=== PATIENT | female | born 1965 | race Caucasian/White ===

== ENCOUNTER 2023-03-29 07:54 | Outpatient (OUT) | payer OTHER, SELFPAY ==
--- NOTE | 2023-03-29 08:06 | ECG_ITS ---
[facility] Test Date: 2023-03-29 Pat Name: JENNIFER GANNON Department: Room: - Gender: Female [employer] Work[employer]: : 1965 Requested By: ANNELIESE ACEVES Order Number: [id number] Reading MD: FRANKLIN ROGERS Measurements Intervals Bailey Rate: 62 P: 39 AR: 197 QRS: 46 QRSD: 101 T: 15 QT: 419 QTc: 426 Interpretive Statements SINUS RHYTHM No previous ECG available for comparison Electronically Signed On 03-30-2023 7:02:09 EST by FRANKLIN ROGERS
--- NOTE | 2023-03-29 08:50 | P.GSHP_ITS ---
History of Present Illness History of Present Illness Chief complaint: hematuria, kidney stone Narrative: Patient presents for preadmission testing. The patient states in January she had an episode of hematuria and flank pain and she was evaluated in the emergency department and it was determined that she has kidney stones. She states she has intermittent flank pain but the hematuria has resolved. She admits that she does have high blood pressure and was medicated up until about fivve months ago when she lost her insurance. She states she has a remote history of sarcoidosis and she was evaluated at the [facility] approximately three years ago and has not had any problems since. She denies abdominal pain, nausea, fever, shortness of breath, chest pain, syncope, headache, dizziness, or any other complaints. Review of Systems ROS Narrative REVIEW OF SYSTEMS: Negative except as stated in HPI, ten or more systems reviewed. Constitutional: No fever , chills, weakness ENT: No sore throat or epistaxis Cardiovascular: No edema, chest pain, palpitations, or activity intolerance Respiratory: No shortness of breath, cough, or wheezing Musculoskeletal: No joint pain or swelling Gastrointestinal: No abdominal pain, constipation, diarrhea, or vomiting Genitourinary: No dysuria or hematuria Neurological: No numbness, tingling, weakness, or headache Psychiatric: No mood changes PFSH [facility] Medical History (Updated 03/29/23 @ 08:33 by Stephanie Caban NP) Menopause ?Z78.0 - Asymptomatic menopausal state (ICD-10) Low vitamin D level ?R79.89 - Other specified abnormal findings of blood chemistry (ICD-10) Anxiety ?F41.9 - Anxiety disorder, unspecified (ICD-10) High cholesterol ?E78.00 - Pure hypercholesterolemia, unspecified (ICD-10) Renal cyst ?N28.1 - Cyst of kidney, acquired (ICD-10) Prediabetes ?R73.03 - Prediabetes (ICD-10) Thyroid nodule ?E04.1 - Nontoxic single thyroid nodule (ICD-10) Hyperlipidemia ?E78.5 - Hyperlipidemia, unspecified (ICD-10) Sarcoidosis ?D86.9 - Sarcoidosis, unspecified (ICD-10) Hypertension ?I10 - Essential (primary) hypertension (ICD-10) Diverticulosis ?K57.90 - Diverticulosis of intestine, part unspecified, without perforation or abscess without bleeding (ICD-10) GERD (gastroesophageal reflux disease) ?K21.9 - Gastro-esophageal reflux disease without esophagitis (ICD-10) Kidney stones ?N20.0 - Calculus of kidney (ICD-10) Hematuria ?R31.9 - Hematuria, unspecified (ICD-10) Surgical History (Updated 03/29/23 @ 08:26 by Stephanie Caban NP) History of colonoscopy ?Z98.890 - Other specified postprocedural states (ICD-10) Family History (Updated 03/29/23 @ 08:26 by Stephanie Caban NP) Other Family history of coronary artery disease Family history of diabetes mellitus Family history of hypertension Family history of lung cancer Family history of myocardial infarction Family history of stroke Social History (Updated 03/29/23 @ 08:20 by Stephanie Caban NP) Within the past year, how often did you have a drink containing alcohol: 2-4 times a month Smoking status: Never smoker Non-prescribed substance use: denies use 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 Highest level of school completed/degree received: high school graduate Meds Home Medications and Allergies Allergies Allergy/AdvReac Type Severity Reaction Status Date / Time fructose AdvReac Diarrhea Verified 03/29/23 08:18 Exam Narrative Exam Narrative: Constitutional: Awake, alert, comfortable, well-appearing, nontoxic, interactive, vital signs as charted Head: Normocephalic, atraumatic Neck: Supple, normal appearance, normal range of motion, no meningeal signs, no lymphadenopathy Respiratory: No respiratory distress, breath sounds clear Cardiovascular: Regular rate and rhythm, strong and regular heart tones Abdomen: Nontender, normal bowel sounds, soft, no CVA tenderness Musculoskeletal: Normal gait, no swelling or edema Skin: No rashes or induration, no lesions, only visible skin inspected Neuro: No neurological deficits, normal sensation Psychiatric: Oriented ?3, normal affect Assessment and Plan Assessment and Plan (1) Kidney stones: (2) Hematuria: Plan Cystoscopy and right ESWL scheduled with Dr. Wu 04/01/2023.
[2023-03-29 09:11] LABS: Basophils Percent Auto 0.7 % (0.2-2.0); Eosinophils Absolute Auto 0.2 10^3/uL (0.0-0.7); Eosinophils Percent Auto 3.8 % (0.9-7.0); Hematocrit 41.8 % (36.0-48.0); Hemoglobin 13.8 g/dL (12.0-16.0); Immature Granulocytes Abs Auto 0.03 10^3/uL (0.00-0.03); Immature Granulocytes Pct Auto 0.5 % (0.0-0.5); Lymphocytes Absolute Auto 1.9 10^3/uL (1.2-3.8); Lymphocytes Percent Auto 34.4 % (20.5-60.0); Mean Corpuscular Hemoglobin 29.9 pg (26.7-34.0); Mean Corpuscular Volume 90.7 fL (81.0-99.0); Mean Platelet Volume 9.6 fL (9.5-13.5); Monocytes Absolute Auto 0.6 10^3/uL (0.3-0.8); Monocytes Percent Auto 11.6 % (1.7-12.0); Neutrophils Absolute Auto 2.7 10^3/uL (1.4-6.5); Platelet Count 296 10^3/uL (150-450); Red Blood Count 4.61 10^6/uL (4.20-5.40); Red Cell Distribution Width 12.3 % (11.0-15.0); White Blood Count 5.5 10^3/uL (4.0-11.0)
[2023-03-29 09:29] LABS: Anion Gap 9.6; BUN Creatinine Ratio 20.6; Calcium 8.8 mg/dL (8.5-10.1); Carbon Dioxide 31.6 mmol/L (21.0-32.0); Chloride 104 mmol/L (98-107); Estimated GFR (African America >60 (>=60); Estimated GFR (Non-African Ame >60 (>=60); Glucose 109 mg/dL (74-106); Potassium 4.2 mmol/L (3.5-5.1); Sodium 141 mmol/L (136-145)
[2023-03-29 09:37] LABS: Partial Thromboplastin Time 27.9 sec (22.3-36.2); Prothrombin Time 9.8 sec (9.0-11.6)
[2023-03-29 09:57] LABS: INR <0.93
== END 2023-03-29 07:55 | disposition home or self-care (01) ==
LOC: PST 07:56
PROVIDERS: Visit Provider Urology
DX: Z01.812 Encounter for preprocedural laboratory examination (principal); Z01.810 Encounter for preprocedural cardiovascular examination
CPT/HCPCS: 36415; 80048; 85025; 85610; 85730; 93005; G0463

== ENCOUNTER 2023-05-04 10:41 | Outpatient (OUT) | payer OTHER, SELFPAY ==
--- OUTSIDE RECORDS SUMMARY | 2023-05-04 10:52 | XMS_ITS | CCD ---
Author Name Unknown Address [address] [place] [address] Organization [facility] Care Team Providers Care Procurement Technician Name Role Phone Dixie HOLM Primary Care Physician Kit Evans Unavailable Yasmine Torres Primary Care Physician NO FAMILY, PHYSICIAN Primary Care Provider Unava ilable MD Pauly Oden Attending Provider [phone] Pauly Oden Unavailable Pauly Oden Attending Unavailable Pauly Oden Admitting Unavailable NO FAMILY, PHYSICIAN Primary Care Unavailable ALCON GREY Primary Care Physician ALCON GREY Attending Unavailable Lamont ACEVES Attending Unavailable Yasmine Torres Attending Unavailab le Lamont ACEVES Attending Unavailable Lamont ACEVES Admitting Unavailable ALCON GREY Attending Unavailable ALCON GREY Attending Unavailable Lamont ACEVES Attending Unavailable Yasmine Torres Attending Unavailab le ALCON GREY Attending Unavailable ALCON GREY Attending Unavailable Irena Alvarado Admitting Unavailable Irena Alvarado Attending Unavailable Irena Alvarado Referring Unavailable Lamont ACEVES Attending Unavailable Lamont ACEVES Admitting Unavailable CORNELIUS HARTLEY Admitting Unavailable CORNELIUS HARTLEY Attending Unavailable DO Mable Vital Attending Unavailable Cecil Zuniga Attending Unavailable Yasmine Torres Attending Unavailab aYsmine Hightower Referring Unavailab Yasmine Hightower Admitting Unavailab le Brian Yasmine Rodriguez Attending Unavailab le Brian, Yasmine Rodriguez Referring Unavailab le Brian, Yasmine Rodriguez Admitting Unavailab le Jenny, Irena Monroy Attending Unavailable Jenny, Irena Monroy Referring Unavailable Jenny, Irena Monroy Admitting Unavailable Brian, Yasmine Rodriguez Referring Unavailab le Brian, Yasmine Rodriguez Admitting Unavailab le Brian, Yasmine Rodriguez Attending Unavailab le HARTLEYCORNELIUS Attending Unavailable Allergies Allergy Classification Reported Allergen(s) Allergy Type Date of Onset Reaction(s) Facility (1 source) No Known Medication Allergies; Translations: [No Known Medication Allergies] Propensity to adverse reactions (disorder) [facility] Repository Medications Current Medications Medication Drug Class(es) Dates Sig (Normalized) Sig (Original) acetaminophen 325 mg / HYDROcodone bitartrate 5 mg oral tablet (1 source) Opioid Agonist Start: 01-25-2023 End: 01-28-2023 [place] 325 mg-5 mg oral tablet 1 tab(s), Oral, q6hr for pain for 3 day(s), 7 tab(s), Refill(s) 0, [id number], 168, cm, 01/25/23 17:56:00 EDT, Height/Length Dosing, 95, kg, 01/25/23 17:56:00 EDT, Weight Dosing Start Date: 01/25/23 Stop Date: 01/28/23 Status: Ordered amoxicillin 875 mg / clavulanate 125 mg oral tablet (2 sources) Penicillin-class Antibacterial Start: 06-13-2021 take 1 tablet by mouth every twelve hours Amoxicillin-Pot Clavulanate 875-125 MG 1 tablet Orally every 12 hrs for 10 day(s) May, Active atorvastatin 40 mg oral tablet (6 sources) HMG-CoA Reductase Inhibitor Start: 07-24-2022 End: 01-20-2023 take 1 tablet by mouth once daily atorvastatin 40 mg Tab 40 mg = 1 tab(s), Oral, Daily, X 90 day(s), # 90 tab(s), Refills(s) 1, Pharmacy: [id number], 168, cm, 07/20/22 10:23:00 EDT, Height/Length Dosing, 98.1, kg, 07/20/22 10:23:00 EDT, Weight Dosing Start Date: 07/24/22 Stop Date: 01/20/23 Status: Ordered Start: 01-21-2022 take 1 tablet by paulino th once daily atorvastatin 20 mg Tab 20 mg = 1 tab(s), Oral, Daily, # 30 tab(s), Refills(s) 6, Pharmacy: [id number], 168, cm, 01/21/22 10:40:00 EDT, Height/Length Dosing, 92.8, kg, 01/21/22 10:40:00 EDT, Weight Dosing Start Date: 01/21/22 Status: Ordered cetirizine hydrochloride 10 mg oral tablet (4 sources) Histamine-1 Receptor Antagonist Start: 06-19-2019 take 10 mg by mouth once daily Zyrtec 10 mg, Oral, Daily, Refills(s) 0, Allergy symptoms Start Date: 06/19/19 Status: Ordered diclofenac sodium 0.01 mg/mg topical gel (1 source) Nonsteroidal Anti-inflammatory Drug Start: 09-16-2022 Voltaren 1 % Apply 1-2 grams to the affected area Externally 4-5 times a day for 30 days August, Active fluconazole 150 mg oral tablet (2 sources) Azole Antifungal Start: 06-13-2021 Diflucan 150 MG 1 tablet Orally Take 1 tablet after you finish your antibiotics, then take 1 tablet again in 3 days for 3 days May, Active fluticasone propionate 0.05 mg/actuat metered dose nasal spray (4 sources) Corticosteroid Start: 06-13-2021 take 1 spray(s) nasal route twice daily Fluticasone Propionate 50 MCG/ACT 1 spray in each nostril Nasally Twice a day for 14 days May, Active Start: 06-15-2019 fluticasone 0. 05 mg/inh Nasal [place] 1 spray(s), Nasal, BID, Refill(s) 0, Congestion Start Date: 06/15/19 Status: Ordered fluticasone 0.05 mg/inh Nasal [place] (2 sources) Start: 06-15-2019 fluticasone 0. 05 mg/inh Nasal [place] 1 spray(s), Nasal, BID, Refill(s) 0, Congestion Start Date: 06/15/19 Status: Ordered losartan potassium 100 mg oral tablet (5 sources) Angiotensin 2 Receptor Jorge Start: 04-16-2023 take 1 tablet by mouth once daily losartan 100 mg Tab 100 mg = 1 tab(s), Oral, Daily, # 30 tab(s), Refills(s) 1, Pharmacy: [id number], 167, cm, 04/16/23 8:34:00 EST, Height/Length Dosing, 98, kg, 04/16/23 8:34:00 EST, Weight Dosing Start Date: 04/16/23 Status: Ordered Start: 04-06-2023 take 1 tablet by paulino th once daily losartan 50 mg Tab 50 mg = 1 tab(s), Oral, Daily, # 30 tab(s), Refills(s) 1, Pharmacy: [id number], 167, cm, 03/29/23 11:13:00 EST, Height/Length Dosing, 98.6, kg, 03/29/23 11:13:00 EST, Weight Dosing Start Date: 04/06/23 Status: Ordered Start: 03-29-2023 take 1 tablet by paulino th once daily losartan 25 mg Tab 25 mg = 1 tab(s), Oral, Daily, # 30 tab(s), Refills(s) 1, Pharmacy: [id number], 167, cm, 03/29/23 11:13:00 EST, Height/Length Dosing, 98.6, kg, 03/29/23 11:13:00 EST, Weight Dosing Start Date: 03/29/23 Status: Ordered MethylPREDNISolone Dose Pack 4 mg oral tablet (2 sources) Start: 01-21-2022 MethylPREDNISolone Dose Pack 4 mg oral tablet TAKE BY MOUTH DIRECTED ON INSIDE OF PACKAGE Start Date: 01/21/22 Status: Ordered Multi Vitamin+ (3 sources) Start: 01-27-2023 Multi Vitamin+ Refill(s) 0 Start Date: 01/27/23 Status: Ordered olopatadine 1 mg/ml ophthalmic solution (1 source) Histamine-1 Receptor Inhibitor Start: 06-18-2021 Olopatadine HCl 0.1 % 1 drop into both eyes for 7 days, then as needed for red irritated eyes Ophthalmic Twice a day for 10 days Jun, Active omeprazole 20 mg delayed release oral capsule (3 sources) Proton Pump Inhibitor Start: 12-18-2019 take 1 capsule by mouth once daily omeprazole 20 mg Cap-DR 20 mg = 1 cap(s), Oral, Daily, # 90 cap(s), Refills(s) 3, Pharmacy: [facility], 167.6, cm, 12/12/19 8:05:00 EDT, Height/Length Dosing, 88.6, kg, 12/12/19 8:05:00 EDT, Weight Dosing Start Date: 12/18/19 Status: Ordered omeprazole 20 mg Cap-DR (1 source) Start: 12-18-2019 take 1 capsule by mouth once daily omeprazole 20 mg Cap-DR 20 mg = 1 cap(s), Oral, Daily, # 90 cap(s), Refills(s) 3, Pharmacy: [facility], 167.6, cm, 12/12/19 8:05:00 EDT, Height/Length Dosing, 88.6, kg, 12/12/19 8:05:00 EDT, Weight Dosing Start Date: 12/18/19 Status: Ordered predniSONE 20 mg oral tablet (4 sources) Start: 05-02-2021 predniSONE 20 mg Tab See Instructions, 2 tab/d for 5 days 1.5 tab/d for 5 days, 1 tab/d for 5 days, 1/2 tab / day for 5 days, # 25 EA, Refills(s) 0, Pharmacy: [facility], 168, cm, 05/02/21 9:26:00 EST, Height/Length Dosing, 95, kg, 04/08/21 15:37:00 EST... Start Date: 05/02/21 Status: Ordered rosuvastatin calcium 5 mg oral tablet (2 sources) HMG-CoA Reductase Inhibitor Start: 10-14-2020 take 1 tablet by mouth once daily Crestor 5 mg Tab 5 mg = 1 tab(s), Oral, Daily, # 90 tab(s), Refills(s) 1, Pharmacy: [facility] #[id number], 167.6, cm, 10/14/20 16:23:00 EDT, Height/Length Dosing, 93.5, kg, 10/14/20 16:23:00 EDT, Weight Dosing Start Date: 10/14/20 Status: Ordered tamsulosin hydrochloride 0.4 mg oral capsule (5 sources) alpha-Adrenerg ic Jorge Start: 01-25-2023 take 1 capsule by mouth once daily Flomax 0.4 mg Cap 0.4 mg = 1 cap(s), Oral, Daily, # 10 cap(s), Refills(s) 0, Pharmacy: [id number], 168, cm, 01/25/23 17:56:00 EDT, Height/Length Dosing, 95, kg, 01/25/23 17:56:00 EDT, Weight Dosing Start Date: 01/25/23 Status: Ordered Vitamin D (3 sources) Start: 01-27-2023 Vitamin D International_Unit, Oral, qWeek Start Date: 01/27/23 Status: Ordered Zofran ODT 4 mg Tab-Dis (5 sources) Start: 01-25-2023 take 1 tablet by mouth every eight hours Zofran ODT 4 mg Tab-Dis 4 mg = 1 tab(s), Oral, q8hr, # 12 tab(s), Refills(s) 0, Pharmacy: [id number], 168, cm, 01/25/23 17:56:00 EDT, Height/Length Dosing, 95, kg, 01/25/23 17:56:00 EDT, Weight Dosing Start Date: 01/25/23 Status: Ordered Completed/Discontinued Medications Medication Drug Class(es) Dates Sig (Normalized) Sig (Original) Blood pressure cuff (4 sources) Start: 10-14-2020 Blood pressure cuff Blood pressure cuff, See Instructions, 1 EA, 0, Blood pressure cuff. Take daily to assess for BPs, [id number], Supply, 167.6, cm, 10/14/20 16:23:00 EDT, Height/Length Dosing, 93.5, kg, 10/14/20 16:23:00 EDT, Weight Dosing Start Date: 10/14/20 Status: Ordered cholecalciferol 0.05 mg oral capsule (2 sources) Vitamin D Start: 01-21-2022 End: 08-19-2022 cholecalciferol 2000 intl units oral capsule 2,000 International_Unit = 1 cap(s), Oral, Daily, with food. Then retest vit D level., X 30 day(s), # 30 cap(s), Refills(s) 6, Pharmacy: [id number], 168, cm, 01/21/22 10:40:00 EDT, Height/Length Dosing, 92.8, kg, 01/21/22 10:40:00 EDT... Start Date: 01/21/22 Stop Date: 08/19/22 Status: Ordered potassium chloride 10 meq extended release oral capsule (4 sources) Start: 12-19-2020 take 1 capsule by mouth once daily potassium chloride 10 mEq Cap-ER 10 mEq = 1 cap(s), Oral, Daily, # 90 cap(s), Refills(s) 1, Pharmacy: [facility], 167.6, cm, 10/14/20 16:23:00 EDT, Height/Length Dosing, 93.5, kg, 10/14/20 16:23:00 EDT, Weight Dosing Start Date: 12/19/20 Status: Ordered Start: 12-19-2020 take 1 capsule by [facility] once daily potassium chloride 10 mEq Cap-ER 10 mEq = 1 cap(s), Oral, Daily, # 90 cap(s), Refills(s) 1, Pharmacy: [facility], 167.6, cm, 10/14/20 16:23:00 EDT, Height/Length Dosing, 93.5, kg, 10/14/20 16:23:00 EDT, Weight Dosing Start Date: 12/19/20 Status: Ordered psyllium 525 mg oral capsule (4 sources) Start: 12-14-2019 take 8 capsules by mouth once daily Metamucil 525 mg oral capsule 1,050 mg = 2 cap(s), Oral, Daily, Take 2 hour apart from the other medications with at least 8 ounces of water, # 160 cap(s), Refills(s) 1, Pharmacy: [facility] #[id number], 167.6, cm, 12/12/19 8:05:00 EDT, Height/Length Dosing, 88.6, kg, 12/12/19 8:05:... Start Date: 12/14/19 Status: Ordered Problems Active Problems Problem Classification Problem Date Documented Da te Episodic/Chronic Calculus of urinary tract (2 sources) Kidney stone; Translations: [Calculus of kidney] Onset: 3 Episodic Diabetes mellitus without complication (17 sources) Hyperglycemia; Translations: [Prediabetes] 10-14-2020 Episodic Disorders of lipid metabolism (15 sources) Hyperlipidemia; Translations: [Hyperlipidemia, unspecified] Onset: 2 06-15-2019 Chronic Diverticulosis and diverticulitis (13 sources) Diverticulosis of colon 07-03-2020 Chronic Esophageal disorders (14 sources) Gastroesophageal reflux disease; Translations: [Gastroesophageal reflux disease without esophagitis] Onset: 3 12-12-2019 Chronic Essential hypertension (4 sources) Hypertensive disorder 02-17-2021 Chronic Genitourinary symptoms and ill-defined conditions (6 sources) Blood in urine; Translations: [Gross hematuria] Onset: 3 Episodic Hemorrhoids (4 sources) Hemorrhoids 12-12-2019 Episodic Immunity disorders (5 sources) Sarcoidosis; Translations: [Sarcoidosis, unspecified] Onset: 2 06-15-2019 Chronic Menopausal disorders (4 sources) Ovarian failure 06-15-2019 Chronic Noninfectious gastroenteritis (4 sources) Chronic diarrhea 07-03-2020 Episodic Nutritional deficiencies (14 sources) Vitamin D deficiency; Translations: [Vitamin D deficiency, unspecified] Onset: 2 06-15-2019 Chronic Nutritional deficiencies (4 sources) Cobalamin deficiency 06-15-2019 Episodic Other circulatory disease (15 sources) Elevated blood-pressure reading without diagnosis of hypertension; Translations: [Elevated blood-pressure reading, without diagnosis of hypertension] Onset: 3 10-14-2020 Episodic Other connective tissue disease (2 sources) Biceps tendinitis; Translations: [Bicipital tendinitis, unspecified shoulder] Onset: 3 Episodic Other connective tissue disease (1 source) Enthesopathy; Translations: [Other enthesopathies, not elsewhere classified] Onset: 3 Episodic Other connective tissue disease (1 source) Ganglion, unspecified site Episodic Other diseases of kidney and ureters (1 source) Acquired renal cyst without neoplastic change; Translations: [Cyst of kidney, acquired] Onset: 3 Episodic Other diseases of kidney and ureters (5 sources) Cyst of kidney 01-27-2023 Episodic Other ear and sense organ disorders (4 sources) Impacted cerumen 02-17-2021 Episodic Other gastrointestinal disorders (4 sources) [place] 12-12-2019 Episodic Other lower respiratory disease (4 sources) Cough 02-17-2021 Episodic Other nervous system disorders (1 source) Chronic pain; Translations: [Other chronic pain] Chronic Other non-traumatic joint disorders (4 sources) Joint pain 10-14-2020 Episodic Other nutritional; endocrine; and metabolic disorders (11 sources) Body mass index 30+ - obesity 02-17-2021 Chronic Other nutritional; endocrine; and metabolic disorders (12 sources) Obesity; Translations: [Obesity, unspecified] Onset: 2 02-17-2021 Chronic Other nutritional; endocrine; and metabolic disorders (2 sources) Obese class I; Translations: [Body mass index (BMI) 32.0-32.9, adult] Onset: 2 Chronic Other screening for suspected conditions (not mental disorders or infectious disease) (4 sources) Imaging of thorax abnormal 02-17-2021 Chronic Other screening for suspected conditions (not mental disorders or infectious disease) (7 sources) Encounter for screening mammogram for malignant neoplasm of breast; Translations: [Screening for malignant neoplasm done] Onset: 3 Episodic Other skin disorders (4 sources) Cyst of skin 02-17-2021 Episodic Other skin disorders (4 sources) Mass of upper limb 03-03-2021 Episodic Other skin disorders (1 source) Localized swelling, mass and lump, right upper limb Episodic Other skin disorders (1 source) Localized swelling, mass and lump, left upper limb Episodic Residual codes; unclassified (4 sources) Bilateral lower limb edema 10-31-2019 Episodic Residual codes; unclassified (13 sources) H/O: Disorder 02-17-2021 Episodic Residual codes; unclassified (1 source) Patient encounter status; Translations: [Other specified health status] Onset: 2 Episodic Thyroid disorders (20 sources) Thyroid nodule; Translations: [Non-toxic uninodular goiter] Onset: 3 06-15-2019 Chronic Unclassified (13 sources) Non-smoker 07-03-2020 Unclassified (4 sources) Patient encounter status 11-14-2019 Unclassified (1 source) Localized swelling, mass and lump, right upper limb; Translations: [Localized swelling, mass and lump, right upper limb] Onset: 3 Viral infection (3 sources) Verruca vulgaris; Translations: [Viral wart, unspecified] Onset: 2 Episodic Past or Other Problems Problem Classification Problem Date Documented Da te Episodic/Chronic Immunizations and screening for infectious disease (1 source) Contact with and (suspected) exposure to other viral communicable diseases Onset: 06-13-2021 Resolved: 06-13-2021 Episodic Inflammation; infection of eye (except that caused by tuberculosis or sexually transmitteddisease) (1 source) Unspecified acute conjunctivitis, bilateral Onset: 06-17-2021 Resolved: 06-17-2021 Episodic Other upper respiratory infections (1 source) Acute maxillary sinusitis, unspecified Onset: 06-13-2021 Resolved: 06-13-2021 Episodic Results Test Name Value Interpretation Reference Range Facil ity Ambulatory Visit Summaryon 0 04-26-2023 Ambulatory Visit Summary NARCISA BENITEZ :1965 Visit Date:04/26/2023 Ambulatory Visit Instructions Your Diagnosis HTN (hypertension) Elevated BP without diagnosis of hypertension Your Care Team Attending Physician - ALCON GREY CNP Primary Care Physician - ALCON GREY CNP This Is Your Medications List amlodipine (amLODIPine 5 mg Tab) losartan (losartan 100 mg Tab) Procedures Performed Colonoscopy (11/27/2019), Cancer of skin. Discharge Vitals Heart Rate (Peripheral) 69 Blood Pressure 150/90 Height 66 in Height 167 cm Weight 213.18 lb Weight 96.9 kg BMI 34.74 What to do next Scheduled Follow-Up Appointments Wednesday 8:00 AM EST Where: [facility] Family Medicine Office/Clini c Noteon 04-26-2023 Family Medicine Office/Clinic Note Chief Complaint blood pressure follow up HPI Staff Patient presents for 1 month follow up on blood pressure. Patient is here for follow up on hypertension. How often are you checking your blood pressure? Daily What are your average readings? _ Provided log Do you have any of the following symptoms? Chest Pain? no Palpitations? no MACHUCA/SOB? no Headache? no Peripheral Edema? no Light Headedness? no Yearly Laboratory Results CBC CMP Basophil Absolute: 0.1 E9/L (01/25/23) A/G Ratio: 1.4 (07/24/22) Basophil Auto: 0.9 % (01/25/23) AGAP: 9 mEq/L (01/25/23) Eos Absolute: 0.1 E9/L (01/25/23) Albumin Lvl: 4.3 gm/dL (07/24/22) Eos Auto: 1.9 % (01/25/23) Alk Phos: 70 Int._Unit/L (07/24/22) Hct: 40.5 % (01/25/23) ALT: 29 Int._Unit/L (07/24/22) HGB: 14.1 gm/dL (01/25/23) AST: 27 Int._Unit/L (07/24/22) Lymph Absolute: 2.7 E9/L (01/25/23) Bili Total: 0.7 mg/dL (07/24/22) Lymph Auto: 34.3 % (01/25/23) BUN: 17 mg/dL (01/25/23) MCH: 30.2 pg (01/25/23) BUN/Creat Ratio: 21 High (01/25/23) MCHC: 34.7 gm/dL (01/25/23) Calcium Lvl: 9.9 mg/dL (01/25/23) MCV: 87.1 fL (01/25/23) Chloride: 102 mmol/L (01/25/23) [place]clain Absolute: 0.8 E9/L (01/25/23) CO2: 27 mmol/L (01/25/23) [place]cl[place] Auto: 10.6 % (01/25/23) Creatinine: 0.8 mg/dL (01/25/23) MPV: 7.6 fL (01/25/23) Globulin: 3.1 gm/dL (07/24/22) Neutro Absolute: 4.1 E9/L (01/25/23) Glucose Lvl: 101 mg/dL (01/25/23) Neutro Auto: 52.3 % (01/25/23) Potassium Lvl: 3.3 mmol/L Low (01/25/23) Platelet: 313 E9/L (01/25/23) Sodium Lvl: 135 mmol/L (01/25/23) RBC: 4.6 E12/L (01/25/23) Total Protein: 7.4 gm/dL (07/24/22) RDW: 13.1 % (01/25/23) WBC: 7.8 E9/L (01/25/23) Refill needed?: yes Patient due for wellness visit. Flu shot: refused History of Present Illness Patient presents today in f/u for HTN. She denies dizziness, headache, vision changes, chest pain, or heart palpitations. She has one blood pressure for this provider to review since her last visit and that is from 04/25/2023 and the pressure is 172/102. She reports she is still taking care of her elderly father, working daily, and nit exercising. She is scheduled to have her kidney stones removed on the 06 of May if her blood pressure is down. Her blood pressure today in the office is 158/92. She is open to adding another medication to get her blood pressure down closer to the 120/80. Review of Systems PHQ Score Initial Depression Screen Score: 0 SCORE Constitutional: no fever, no chills, no sweats, no weakness Respiratory: no shortness of breath, no cough, no orthopnea, no wheezing Cardiovascular: no chest pain, no palpitations, no edema Additional ROS info: Except as noted in the above Review of Systems and in the History of Present Illness all other systems have been reviewed and are negative or noncontributory. Physical Exam Vitals & Measurements HR: 69(Peripheral) BP: 150/90 SpO2: 97% HT: 66 in HT: 167 cm WT: 96.9 kg WT: 213.18 lb BMI: 34.74 General: alert, no acute distress Cardiovascular: regular rate and rhythm, normal peripheral perfusion Respiratory: Lungs CTA, respirations non labored Extremities: no deformity, no trauma Neurological: oriented x 4, LOC appropriate for age speech normal Assessment/Plan 1. HTN (hypertension) (I10: Essential (primary) hypertension) Monitor blood pressure daily , log, and bring to next visit Encouraged low sodium diet & exercise Continue with weight loss as patient has lost 2 pounds since her last visit. Continue losartan 100 mg daily f/u in one week for B/P check Ordered: amlodipine, 5 mg = 1 tab(s), Oral, Daily, # 30 tab(s), Refills(s) 1, Pharmacy: [id number], 167, cm, 04/26/23 7:57:00 EST, Height/Length Dosing, 96.9, kg, 04/26/23 7:57:00 EST, Weight Dosing losartan, 25 mg = 1 tab(s), Oral, Daily, # 30 tab(s), Refills(s) 1, Pharmacy: [facility], 167, cm, 03/29/23 11:13:00 EST, Height/Length Dosing, 98.6, kg, 03/29/23 11:13:00 EST, Weight Dosing losartan, 50 mg = 1 tab(s), Oral, Daily, # 30 tab(s), Refills(s) 1, Pharmacy: [facility], 167, cm, 03/29/23 11:13:00 EST, Height/Length Dosing, 98.6, kg, 03/29/23 11:13:00 EST, Weight Dosing Elevated BP without diagnosis of hypertension (R03.0: Elevated blood-pressure reading, without diagnosis of hypertension) Monitor blood pressure daily , log, and bring to next visit Encouraged low sodium diet & exercise Continue with weight loss as patient has lost 2 pounds since her last visit. Continue losartan 100 mg daily f/u in one week for B/P check Ordered: amlodipine, 5 mg = 1 tab(s), Oral, Daily, # 30 tab(s), Refills(s) 1, Pharmacy: [facility], 167, cm, 04/26/23 7:57:00 EST, Height/Length Dosing, 96.9, kg, 04/26/23 7:57:00 EST, Weight Dosing losartan, 100 mg = 1 tab(s), Oral, Daily, X 90 day(s), # 90 tab(s), Refills(s) 1, Pharmacy: [facility], 167, cm, 04/16/23 8:34:00 EST, Height/Length Dosing, (more content not included)... [facility] Comment on above: Result Comment: Elec tronically Signed By: ALCON GREY CNP\.br\Date and Time Signed: 04/26/23 08:29 EST Patient Educationon 04-26-19 24 Patient Education Cardiovascular Hypertension, Adult Hypertension is another name for high blood pressure. High blood pressure forces your heart to work harder to pump blood. This can cause problems over time. There are two numbers in a blood pressure reading. There is a top number (systolic) over a bottom number (diastolic). It is best to have a blood pressure that is below 120/80. What are the causes? The cause of this condition is not known. Some other conditions can lead to high blood pressure. What increases the risk? Some lifestyle factors can make you more likely to develop high blood pressure: ? Smoking. ? Not getting enough exercise or physical activity. ? Being overweight. ? Having too much fat, sugar, calories, or salt (sodium) in your diet. ? Drinking too much alcohol. Other risk factors include: ? Having any of these conditions: ? Heart disease. ? Diabetes. ? High cholesterol. ? Kidney disease. ? Obstructive sleep apnea. ? Having a family history of high blood pressure and high cholesterol. ? Age. The risk increases with age. ? Stress. What are the signs or symptoms? High blood pressure may not cause symptoms. Very high blood pressure (hypertensive crisis) may cause: ? Headache. ? Fast or uneven heartbeats (palpitations). ? Shortness of breath. ? Nosebleed. ? Vomiting or feeling like you may vomit (nauseous). ? Changes in how you see. ? Very bad chest pain. ? Feeling dizzy. ? Seizures. How is this treated? ? This condition is treated by making healthy lifestyle changes, such as: ? Eating healthy foods. ? Exercising more. ? Drinking less alcohol. ? Your doctor may prescribe medicine if lifestyle changes do not help enough and if: ? Your top number is above 130. ? Your bottom number is above 80. ? Your personal target blood pressure may vary. Follow these instructions at home: Eating and drinking ? If told, follow the DASH eating plan. To follow this plan: ? Fill one half of your plate at each meal with fruits and vegetables. ? Fill one fourth of your plate at each meal with whole grains. Whole grains include whole-wheat pasta, brown rice, and whole-grain bread. ? Eat or drink low-fat dairy products, such as skim milk or low-fat yogurt. ? Fill one fourth of your plate at each meal with low-fat (lean) proteins. Low-fat proteins include fish, chicken without skin, eggs, beans, and tofu. ? Avoid fatty meat, cured and processed meat, or chicken with skin. ? Avoid pre-made or processed food. ? Limit the amount of salt in your diet to less than 1,500 mg each day. ? Do not drink alcohol if: ? Your doctor tells you not to drink. ? You are , may be , or are planning to become . ? If you drink alcohol: ? Limit how much you have to: ? 0?1 drink a day for women. ? 0?2 drinks a day for men. ? Know how much alcohol is in your drink. In the [place] one drink equals one 12 oz bottle of beer (355 mL), one 5 oz glass of wine (148 mL), or one 1? oz glass of hard liquor (44 mL). Lifestyle ? Work with your doctor to stay at a healthy weight or to lose weight. Ask your doctor what the best weight is for you. ? Get at least 30 minutes of exercise that causes your heart to beat faster (aerobic exercise) most days of the week. This may include walking, swimming, or biking. ? Get at least 30 minutes of exercise that strengthens your muscles (resistance exercise) at least 3 days a week. This may include lifting weights or doing Pilates. ? Do not smoke or use any products that contain nicotine or tobacco. If you need help quitting, ask your doctor. ? Check your blood pressure at home as told by your doctor. ? Keep all follow-up visits. Medicines ? Take lmrj-eoi-wuvdgkf and prescription medicines only as told by your doctor. Follow directions carefully. ? Do not skip doses of blood pressure medicine. The medicine does not work as well if you skip doses. Skipping doses also puts you at risk for problems. ? Ask your doctor about side effects or reactions to medicines that you should watch for. Contact a doctor if: ? You think you are having a reaction to the medicine you are taking. ? You have headaches that keep coming back. ? You feel dizzy. ? You have swelling in your ankles. ? You have trouble with your vision. Get help right away if: ? You get a very bad headache. ? You start to feel mixed up (confused). ? You feel weak or numb. ? You feel faint. ? You have very bad pain in your: ? Chest. ? Belly (abdomen). ? You vomit more than once. ? You have trouble breathing. These symptoms may be an emergency. Get help right away. Call 911. ? Do not wait to see if the symptoms will go away. ? Do not drive yourself to the hospital. Summary ? Hypertension is another name for high blood pressure. ? High blood pressure forces your heart to work harder to pump blood. ? For m (more content not included)... Normal [facility] Patient Logson 04-26-2023 Patient Logs [id number] F#[id number] Normal [facility] Family Medicine Office/Clini c Noteon 04-16-2023 Family Medicine Office/Clinic Note Chief Complaint recheck bp HPI Staff Patient is here for follow up on hypertension. How often are you checking your blood pressure? Daily What are your average readings? high Do you have any of the following symptoms? Chest Pain? no Palpitations? no MACHUCA/SOB? no Headache? no Peripheral Edema? no Light Headedness? no History of Present Illness 58 year old female patient presents today to discuss elevated blood pressure. She was started on losartan 25 mg once daily on 03/29/2023. She returned to the office on 04/06/2023 because she felt the medication was not working. The losartan was increased at that visit to 50 mg daily. She denies dizziness, headache, vision changes, chest pain, or heart palpitations. She has a blood pressure log for the provider to review- systolic 180 and diastolic 110. She reports her family keeps telling her that her blood pressure should be lower. She states her brother is on three different blood pressure medications. She does not understand why the medication is not working. She reports her father just was released from [facility] and HH will be coming but she is helping care for her father. She drinks one cup of caffeine daily and reports she does not limit her sodium intake. Review of Systems PHQ Score Initial Depression Screen Score: 0 SCORE Constitutional: no fever, no chills, no sweats, no weakness Respiratory: no shortness of breath, no cough, no orthopnea, no wheezing Cardiovascular: no chest pain, no palpitations, no edema Additional ROS info: Except as noted in the above Review of Systems and in the History of Present Illness all other systems have been reviewed and are negative or noncontributory. Physical Exam Vitals & Measurements HR: 74(Peripheral) BP: 170/102 SpO2: 94% HT: 66 in HT: 167 cm WT: 98 kg WT: 215.6 lb BMI: 35.14 General: alert, no acute distress ENMT: TM's clear, oral mucosa moist, no pharyngeal erythema or exudate Cardiovascular: regular rate and rhythm, normal peripheral perfusion Respiratory: Lungs CTA, respirations non labored Extremities: no deformity, no trauma; no edema Neurological: oriented x 4, LOC appropriate for age speech normal Assessment/Plan 1. Elevated BP without diagnosis of hypertension (R03.0: Elevated blood-pressure reading, without diagnosis of hypertension) Instructed to limit caffeine & sodium from diet Discussed blood pressure control is a process that takes more than two weeks Encouraged daily exercise Explained weight loss will help with blood pressure control Monitor blood pressure daily, log and bring to the next appointment f/u as scheduled on April 26, 2023. Ordered: losartan, 100 mg = 1 tab(s), Oral, Daily, # 30 tab(s), Refills(s) 1, Pharmacy: [facility], 167, cm, 04/16/23 8:34:00 EST, Height/Length Dosing, 98, kg, 04/16/23 8:34:00 EST, Weight Dosing Total time spent preparing the chart, conducting of the encounter with the patient and family and time spent documenting, reviewing, and ordering tests was 30 minutes. Follow-up No qualifying data available Patient Education DASH Eating Plan Problem List/Past Medical History Ongoing Abnormal mammogram of left breast Acid reflux Diverticulosis of colon Elevated BP without diagnosis of hypertension Gross hematuria History of sarcoidosis Hyperlipidemia Multiple thyroid nodules Non-smoker Prediabetes Renal cyst Thyroid nodule Vitamin D deficiency Historical No qualifying data Procedure/Surgical History Colonoscopy (11/27/2019), Cancer of skin. Medications Flomax 0.4 mg Cap, 0.4 mg= 1 cap(s), Oral, Daily losartan 100 mg Tab, 100 mg= 1 tab(s), Oral, Daily, 1 refills losartan 25 mg Tab, 25 mg= 1 tab(s), Oral, Daily, 1 refills, Not taking losartan 50 mg Tab, 50 mg= 1 tab(s), Oral, Daily, 1 refills Zofran ODT 4 mg Tab-Dis, 4 mg= 1 tab(s), Oral, q8hr Allergies No Known Allergies No Known Medication Allergies Social History Alcohol - Denies Alcohol Use, 06/19/2019 Substance Abuse - Denies Substance Abuse, 06/15/2019 Tobacco Never (less than 100 in lifetime) Tobacco Use:. Never Smokeless Tobacco Use:., 03/29/2023 Family History Alcoholism: Father. CAD (coronary artery disease): Father. Primary malignant neoplasm of lung: Mother. Immunizations Vaccine Date Status Comments influenza virus vaccine, inactivated - Not Given Patient Refuses influenza virus vaccine, inactivated - Not Given Patient Refuses SARSCoV2 mRNA(tozinamer-jodee -sucros) vac 09/29/2021 Recorded SARS-CoV-2 (COVID-19) mRNA BNT-162b2 vax 04/09/2021 Recorded SARS-CoV-2 (COVID-19) mRNA BNT-162b2 vax 07/12/2020 Given Prophylaxis SARS-CoV-2 (COVID-19) mRNA BNT-162b2 vax 06/21/2020 Given Prophylaxis influenza virus vaccine, live, trivalent - Not Given Patient Refuses diphtheria/pertussi s, acel/tetanus adult 12/02/2018 Recorded Normal [facility] Comment on above: Result Comment: Elec tronically Signed By: ALCON GREY CNP\.br\Date and Time Signed: 04/16/23 09:20 EST Patient Educationon 04-16-20 23 Patient Education Nutrition DASH Eating Plan DASH stands for Dietary Approaches to Stop Hypertension. The DASH eating plan is a healthy eating plan that has been shown to: ? Reduce high blood pressure (hypertension). ? Reduce your risk for type 2 diabetes, heart disease, and stroke. ? Help with weight loss. What are tips for following this plan? Reading food labels ? Check food labels for the amount of salt (sodium) per serving. Choose foods with less than 5 percent of the Daily Value of sodium. Generally, foods with less than 300 milligrams (mg) of sodium per serving fit into this eating plan. ? To find whole grains, look for the word whole as the first word in the ingredient list. Shopping ? Buy products labeled as low-sodium or no salt added. ? Buy fresh foods. Avoid canned foods and pre-made or frozen meals. Cooking ? Avoid adding salt when cooking. Use salt-free seasonings or herbs instead of table salt or sea salt. Check with your health care provider or pharmacist before using salt substitutes. ? Do not doll foods. Cook foods using healthy methods such as baking, boiling, grilling, roasting, and broiling instead. ? Cook with heart-healthy oils, such as olive, canola, avocado, soybean, or sunflower oil. Meal planning ? Eat a balanced diet that includes: ? 4 or more servings of fruits and 4 or more servings of vegetables each day. Try to fill one-half of your plate with fruits and vegetables. ? 6?8 servings of whole grains each day. ? Less than 6 oz (170 g) of lean meat, poultry, or fish each day. A 3-oz (85-g) serving of meat is about the same size as a deck of cards. One egg equals 1 oz (28 g). ? 2?3 servings of low-fat dairy each day. One serving is 1 cup (237 mL). ? 1 serving of nuts, seeds, or beans 5 times each week. ? 2?3 servings of heart-healthy fats. Healthy fats called omega-3 fatty acids are found in foods such as walnuts, flaxseeds, fortified milks, and eggs. These fats are also found in cold-water fish, such as sardines, salmon, and mackerel. ? Limit how much you eat of: ? Canned or prepackaged foods. ? Food that is high in trans fat, such as some fried foods. ? Food that is high in saturated fat, such as fatty meat. ? Desserts and other sweets, sugary drinks, and other foods with added sugar. ? Full-fat dairy products. ? Do not salt foods before eating. ? Do not eat more than 4 egg yolks a week. ? Try to eat at least 2 vegetarian meals a week. ? Eat more home-cooked food and less restaurant, buffet, and fast food. Lifestyle ? When eating at a restaurant, ask that your food be prepared with less salt or no salt, if possible. ? If you drink alcohol: ? Limit how much you use to: ? 0?1 drink a day for women who are not . ? 0?2 drinks a day for men. ? Be aware of how much alcohol is in your drink. In the [place] one drink equals one 12 oz bottle of beer (355 mL), one 5 oz glass of wine (148 mL), or one 1? oz glass of hard liquor (44 mL). General information ? Avoid eating more than 2,300 mg of salt a day. If you have hypertension, you may need to reduce your sodium intake to 1,500 mg a day. ? Work with your health care provider to maintain a healthy body weight or to lose weight. Ask what an ideal weight is for you. ? Get at least 30 minutes of exercise that causes your heart to beat faster (aerobic exercise) most days of the week. Activities may include walking, swimming, or biking. ? Work with your health care provider or dietitian to adjust your eating plan to your individual calorie needs. What foods should I eat? Fruits All fresh, dried, or frozen fruit. Canned fruit in natural juice (without added sugar). Vegetables Fresh or frozen vegetables (raw, steamed, roasted, or grilled). Low-sodium or reduced-sodium tomato and vegetable juice. Low-sodium or reduced-sodium tomato sauce and tomato paste. Low-sodium or reduced-sodium canned vegetables. Grains Whole-grain or whole-wheat bread. Whole-grain or whole-wheat pasta. Brown rice. Oatmeal. Quinoa. Bulgur. Whole-grain and low-sodium cereals. Malissa bread. Low-fat, low-sodium crackers. Whole-wheat flour tortillas. Meats and other proteins Skinless chicken or turkey. Ground chicken or turkey. Pork with fat trimmed off. Fish and seafood. Egg whites. Dried beans, peas, or lentils. Unsalted nuts, nut butters, and seeds. Unsalted canned beans. Lean cuts of beef with fat trimmed off. Low-sodium, lean precooked or cured meat, such as sausages or meat loaves. Dairy Low-fat (1%) or fat-free (skim) milk. Reduced-fat, low-fat, or fat-free cheeses. Nonfat, low-sodium ricotta or cottage cheese. Low-fat or nonfat yogurt. Low-fat, low-sodium cheese. Fats and oils Soft margarine without trans fats. Vegetable oil. Reduced-fat, low-fat, or light mayonnaise and salad dressings (reduced-sodium). Canola, safflower, olive, avocado, soybean, and sunflower oils. Avocado. Seasonings and condiments Herbs. Spices. Seasoni (more content not included)... Normal [facility] Patient Logson 04-16-2023 Patient Logs [id number] 7B#1.00TIFF [facility] Nurse Consultation Noteon Nurse Consultation Note Reason for Visit Patient here for blood pressure check. Patient did bring in her monitor which was use after manual measurement in office, 140/97 per patients machine. Physical Exam Vitals & Measurements BP: 138/94 Medications Flomax 0.4 mg Cap, 0.4 mg= 1 cap(s), Oral, Daily losartan 25 mg Tab, 25 mg= 1 tab(s), Oral, Daily, 1 refills Zofran ODT 4 mg Tab-Dis, 4 mg= 1 tab(s), Oral, q8hr Allergies No Known Allergies No Known Medication Allergies Immunizations Vaccine Date Status Comments influenza virus vaccine, inactivated - Not Given Patient Refuses influenza virus vaccine, inactivated - Not Given Patient Refuses SARSCoV2 mRNA(perry pickard) vac 09/29/2021 Recorded SARS-CoV-2 (COVID-19) mRNA BNT-162b2 vax 04/09/2021 Recorded SARS-CoV-2 (COVID-19) mRNA BNT-162b2 vax 07/12/2020 Given Prophylaxis SARS-CoV-2 (COVID-19) mRNA BNT-162b2 vax 06/21/2020 Given Prophylaxis influenza virus vaccine, live, trivalent - Not Given Patient Refuses diphtheria/pertussi s, acel/tetanus adult 12/02/2018 Recorded Normal [facility] ECG 12-Leadon 03-30-2023 ECG 12-Lead [id number] 76#1.00TIFF [facility] Lab Reportson 03-30-2023 Lab Reports [id number] AB#1.00TIFF [facility] Ambulatory Visit Summaryon 1 05-30-2022 Ambulatory Visit Summary NARCISA BENITEZ :1965 Visit Date:03/29/2023 Ambulatory Visit Instructions Your Diagnosis HTN (hypertension) BMI 35.0-35.9,adult Your Care Team Attending Physician - ALCON GREY CNP Primary Care Physician - Yasmine Lewis This Is Your Medications List losartan (losartan 25 mg Tab) ondansetron (Zofran ODT 4 mg Tab-Dis) tamsulosin (Flomax 0.4 mg Cap) Procedures Performed Colonoscopy (11/27/2019), Cancer of skin. Discharge Vitals Temperature (Oral) 37 ?C Heart Rate (Peripheral) 58 Respiratory Rate 16 Blood Pressure 150/78 Height 167 cm Height 66 in Weight 98.6 kg Weight 216.92 lb BMI 35.35 What to do next Scheduled Follow-Up Appointments Wednesday 8:00 AM EST With: ALCON GREY CNP Where: [facility] Family Medicine [facility] Family Medicine Office/Clini c Noteon 03-29-2023 Family Medicine Office/Clinic Note Chief Complaint Pt presents with high blood and may need medication HPI Staff 58 year old female presents with high blood pressure and needs medication before her surgery on 04/01/23. She is getting kidney stones out, both sides. Pt went to do her precheck for the surgery the machine read was 174/105, manual read was 180/110. Pt states her family members take medication for blood pressure, she would like to see if she needs to get on medication before the surgery. I have reviewed and verified the staff HPI to be accurate for this encounter. History of Present Illness Patient presents today for evaluation of high blood pressure. She states she when to [facility] for pre-admission testing this AM and her blood pressure was elevated at 174/105 with the machine and with a manual check it was 180/110. She was told to contact her pcp for evaluation of the blood pressure. Today in the office her blood pressure is 150/78. She reports her father and brother both have high blood pressure. She has had previous high reading based upon a chart review. She denies headache, dizziness,vision changes, chest pain or heart palpitations. She is questioning whether she should postpone the surgery for kidney stones with Dr. Rousseau- explained to this patient to postpone the surgery until her blood pressure is controlled. Review of Systems PHQ Score Initial Depression Screen Score: 0 SCORE Constitutional: no fever, no chills, no sweats, no weakness Respiratory: no shortness of breath, no cough, no orthopnea, no wheezing Cardiovascular: no chest pain, no palpitations, no edema Additional ROS info: Except as noted in the above Review of Systems and in the History of Present Illness all other systems have been reviewed and are negative or noncontributory. Physical Exam Vitals & Measurements T: 37 ?C(Oral) HR: 58(Peripheral) RR: 16 BP: 150/78 SpO2: 95% HT: 66 in HT: 167 cm WT: 98.6 kg WT: 216.92 lb BMI: 35.35 General: alert, no acute distress ENMT: TM's clear, oral mucosa moist, no pharyngeal erythema or exudate Cardiovascular: regular rate and rhythm, normal peripheral perfusion Respiratory: Lungs CTA, respirations non labored Extremities: no deformity, no trauma Neurological: oriented x 4, LOC appropriate for age speech normal Assessment/Plan 1. HTN (hypertension) (I10: Essential (primary) hypertension) Discussed low sodium diet and daily exercise Start losartan 25 mg daily Monitor blood pressure daily, log and bring to next visit Encouraged to reschedule surgery until blood pressure under control f/u in 4 weeks Ordered: losartan, 25 mg = 1 tab(s), Oral, Daily, # 30 tab(s), Refills(s) 1, Pharmacy: [facility], 167, cm, 03/29/23 11:13:00 EST, Height/Length Dosing, 98.6, kg, 03/29/23 11:13:00 EST, Weight Dosing 2. BMI 35.0-35.9,adult (Z68.35: Body mass index [BMI] 35.0-35.9, adult) Monitor at each visit Discussed pharmacological interventions to aid in weight loss Encouraged daily exercise and portion control Ordered: losartan, 25 mg = 1 tab(s), Oral, Daily, # 30 tab(s), Refills(s) 1, Pharmacy: [facility], 167, cm, 03/29/23 11:13:00 EST, Height/Length Dosing, 98.6, kg, 03/29/23 11:13:00 EST, Weight Dosing Total time spent preparing the chart, conducting of the encounter with the patient and family and time spent documenting, reviewing, and ordering tests was 30 minutes. Follow-up With When Contact Information ALCON GREY CNP, SHAL[place] Within 4 weeks [id number] [place] [id number]- [facility] (1) Additional Instructions: HTN Patient Education DASH Eating Plan Problem List/Past Medical History Ongoing Abnormal mammogram of left breast Acid reflux Diverticulosis of colon Elevated BP without diagnosis of hypertension Gross hematuria History of sarcoidosis Hyperlipidemia Multiple thyroid nodules Non-smoker Prediabetes Renal cyst Thyroid nodule Vitamin D deficiency Historical No qualifying data Procedure/Surgical History Colonoscopy (11/27/2019), Cancer of skin. Medications Flomax 0.4 mg Cap, 0.4 mg= 1 cap(s), Oral, Daily losartan 25 mg Tab, 25 mg= 1 tab(s), Oral, Daily, 1 refills Zofran ODT 4 mg Tab-Dis, 4 mg= 1 tab(s), Oral, q8hr Allergies No Known Allergies No Known Medication Allergies Social History Alcohol - Denies Alcohol Use, 06/19/2019 Substance Abuse - Denies Substance Abuse, 06/15/2019 Tobacco Never (less than 100 in lifetime) Tobacco Use:. Never Smokeless Tobacco Use:., 03/29/2023 Family History Alcoholism: Father. CAD (coronary artery disease): Father. Primary malignant neoplasm of lung: Mother. Immunizations Vaccine Date Status Comments influenza virus vaccine, inactivated - Not Given Patient Refuses influenza virus vaccine, inactivated - Not Given Patient Refuses SARSCoV2 mRNA(totwan-jodee -sucros) vac 09/29/2021 Recorded SARS-CoV-2 (COVID-19) mRNA BNT-162b2 vax 04/09/2021 Recorded SARS-CoV (more content not included)... Normal [facility] Comment on above: Result Comment: Elec tronically Signed By: ALCON GREY CNP\.br\Date and Time Signed: 03/29/23 12:14 EST Patient Educationon 03-29-20 Patient Education Nutrition DASH Eating Plan DASH stands for Dietary Approaches to Stop Hypertension. The DASH eating plan is a healthy eating plan that has been shown to: ? Reduce high blood pressure (hypertension). ? Reduce your risk for type 2 diabetes, heart disease, and stroke. ? Help with weight loss. What are tips for following this plan? Reading food labels ? Check food labels for the amount of salt (sodium) per serving. Choose foods with less than 5 percent of the Daily Value of sodium. Generally, foods with less than 300 milligrams (mg) of sodium per serving fit into this eating plan. ? To find whole grains, look for the word whole as the first word in the ingredient list. Shopping ? Buy products labeled as low-sodium or no salt added. ? Buy fresh foods. Avoid canned foods and pre-made or frozen meals. Cooking ? Avoid adding salt when cooking. Use salt-free seasonings or herbs instead of table salt or sea salt. Check with your health care provider or pharmacist before using salt substitutes. ? Do not doll foods. Cook foods using healthy methods such as baking, boiling, grilling, roasting, and broiling instead. ? Cook with heart-healthy oils, such as olive, canola, avocado, soybean, or sunflower oil. Meal planning ? Eat a balanced diet that includes: ? 4 or more servings of fruits and 4 or more servings of vegetables each day. Try to fill one-half of your plate with fruits and vegetables. ? 6?8 servings of whole grains each day. ? Less than 6 oz (170 g) of lean meat, poultry, or fish each day. A 3-oz (85-g) serving of meat is about the same size as a deck of cards. One egg equals 1 oz (28 g). ? 2?3 servings of low-fat dairy each day. One serving is 1 cup (237 mL). ? 1 serving of nuts, seeds, or beans 5 times each week. ? 2?3 servings of heart-healthy fats. Healthy fats called omega-3 fatty acids are found in foods such as walnuts, flaxseeds, fortified milks, and eggs. These fats are also found in cold-water fish, such as sardines, salmon, and mackerel. ? Limit how much you eat of: ? Canned or prepackaged foods. ? Food that is high in trans fat, such as some fried foods. ? Food that is high in saturated fat, such as fatty meat. ? Desserts and other sweets, sugary drinks, and other foods with added sugar. ? Full-fat dairy products. ? Do not salt foods before eating. ? Do not eat more than 4 egg yolks a week. ? Try to eat at least 2 vegetarian meals a week. ? Eat more home-cooked food and less restaurant, buffet, and fast food. Lifestyle ? When eating at a restaurant, ask that your food be prepared with less salt or no salt, if possible. ? If you drink alcohol: ? Limit how much you use to: ? 0?1 drink a day for women who are not . ? 0?2 drinks a day for men. ? Be aware of how much alcohol is in your drink. In the [place] one drink equals one 12 oz bottle of beer (355 mL), one 5 oz glass of wine (148 mL), or one 1? oz glass of hard liquor (44 mL). General information ? Avoid eating more than 2,300 mg of salt a day. If you have hypertension, you may need to reduce your sodium intake to 1,500 mg a day. ? Work with your health care provider to maintain a healthy body weight or to lose weight. Ask what an ideal weight is for you. ? Get at least 30 minutes of exercise that causes your heart to beat faster (aerobic exercise) most days of the week. Activities may include walking, swimming, or biking. ? Work with your health care provider or dietitian to adjust your eating plan to your individual calorie needs. What foods should I eat? Fruits All fresh, dried, or frozen fruit. Canned fruit in natural juice (without added sugar). Vegetables Fresh or frozen vegetables (raw, steamed, roasted, or grilled). Low-sodium or reduced-sodium tomato and vegetable juice. Low-sodium or reduced-sodium tomato sauce and tomato paste. Low-sodium or reduced-sodium canned vegetables. Grains Whole-grain or whole-wheat bread. Whole-grain or whole-wheat pasta. Brown rice. Oatmeal. Quinoa. Bulgur. Whole-grain and low-sodium cereals. Malissa bread. Low-fat, low-sodium crackers. Whole-wheat flour tortillas. Meats and other proteins Skinless chicken or turkey. Ground chicken or turkey. Pork with fat trimmed off. Fish and seafood. Egg whites. Dried beans, peas, or lentils. Unsalted nuts, nut butters, and seeds. Unsalted canned beans. Lean cuts of beef with fat trimmed off. Low-sodium, lean precooked or cured meat, such as sausages or meat loaves. Dairy Low-fat (1%) or fat-free (skim) milk. Reduced-fat, low-fat, or fat-free cheeses. Nonfat, low-sodium ricotta or cottage cheese. Low-fat or nonfat yogurt. Low-fat, low-sodium cheese. Fats and oils Soft margarine without trans fats. Vegetable oil. Reduced-fat, low-fat, or light mayonnaise and salad dressings (reduced-sodium). Canola, safflower, olive, avocado, soybean, and sunflower oils. Avocado. Seasonings and condiments Herbs. Spices. Seasoni (more content not included)... [facility] Insurance Correspondenceon 1 05-23-2022 Insurance Correspondence [id number] 946#1.00TIFF [facility] Consent for Procedure/Surger yon 03-18-2023 Consent for Procedure/Surgery [id number] 84#1.00TIFF [facility] Consent for Treatmenton 02-18 Consent for Treatment [id number] 01#1.00TIFF [facility] XR Abdomen 1 Viewon 03-17-20 23 XR Abdomen 1 View Exam Date/Time: 03/17/2023 10:51 EST Reason for Exam: N20.0;Kidney stone Report IMPRESSION: RIGHT RENAL CALCULI. CLINICAL HISTORY: Kidney stone, N20.0 COMPARISON: CT abdomen pelvis, January 25, 2023 FINDINGS: Calculi lower pole right kidney measuring up to 3 mm. No calcifications identified over left kidney, or expected course bilateral ureters. Phleboliths in pelvis. Gas and stool in colon. Gas in small bowel. No focal or diffuse small bowel dilatation, or mass effect. Osseous structures intact. Ordering Provider: Lamotn ACEVES FINAL REPORT Dictated: 03/17/2023 3:39 pm SignPatrick rosa MD Signed (Electronic Signature): 03/17/2023 3:39 pm Signed by: Patrick Felix MD Transcribed by: NATALIYA Technologist: JOSE Technical Comments Radiation Dose: Ka,r in mGy = na DAP = na Normal [facility] UroVysion Fish and Urine Cyt o ([facility])on 02-04-2023 UVFISH & UC Diagnosis Info Invalid Interpretation Code [facility] Comment on above: Result Comment: A:Ur ine,Urine:Voided Diagnosis Summary - Comment: Rare small groups of urothelial cells with mild cytological atypia are present. As voided urine, low grade papillary urothelial neoplasm can not be excluded. Clinical correlation is indicated. Adequate cellularity for evaluation. Diagnosis Summary - The UroVysion FISH study detected normal copy numbers for chromosomes 3, 7, 17, and 9p21. 36 cells were analyzed in this evaluation. No evidence of aneuploidy for chromosomes 3, 7, or 17 or deletion of the 9p21 locus was found in cells present in this specimen. This test does not rule out the possibility of a low grade non-invasive papillary urothelial carcinoma. These findings should be correlated with cytology and cystoscopy results.* CPT 09970, 03386 Microscopic Notes - Microscopic Notes - Abnormal cells 9p21 deletions: Abnormal cells aneploid events: Total cells analyzed: 36 Hematuria: Gross Description Site ID:A color Yellow fixative Alcohol Received 100 mls of slightly cloudy yellow fluid with the patient's name and, Urine on the vial. Electronically signed by : on: 02/04/2023 08:51:43 Performed By: #### 1 [id number] ####[facility] [address] [place] [address] Consent for Treatmenton 01-17 Consent for Treatment [id number] D4#1.00TIFF Normal [facility] MA Mamm Diag w/CAD if perf a nd 3D LTon 01-29-2023 MA Mamm Diag w/CAD if perf and 3D LT Exam Date/Time: 01/29/2023 09:22 EDT Reason for Exam: calcifications on left lateral side and dense tissue;Other (please specify) Report IMPRESSION: BIRADS 3 PROBABLY BENIGN, SHORT INTERVAL FOLLOW-UP.6 MONTH RECALL. DIAGNOSTIC LEFT MAMMOGRAM WITH MAGNIFICATION COMPRESSION VIEWS AND SCREENING RIGHT MAMMOGRAM IN 6 MONTHS ARE RECOMMENDED. CLINICAL HISTORY: calcifications on left lateral side and dense tissue. COMPARISON: 08/06/2022 and 08/12/2022. COMMENT: ML and spot compression magnification CC and ML views and tomosynthesis views of the left breast were obtained. There are scattered areas of fibroglandular density. There is a loose grouping of calcifications in the mid lateral left breast, without significant interval change. There are small stable nodular densities in the left breast. The examination was reviewed with Computer Aided Detection. Breast Density: No Mammography is very important to your health. The current [employer] and National [employer] guidelines recommends annual mammography beginning at age 40. This facility utilizes a reminder system to ensure all patients receive reminder notifications at the appropriate time based on the recommendations of this exam. Board Certified Radiologists. Accredited by the ACR and FDA. Ordering Provider: Yasmine Torres FINAL REPORT Dictated: 01/29/2023 9:40 am Chapincito Gillespie M.D. Signed (Electronic Signature): 01/29/2023 9:40 am Signed by: Chapincito Gillespie M.D. Transcribed by: NATALIYA Technologist: KAYLAN Assessment: BI-RADS Category 3-Probably benign - short interval follow-up Recommendation: Follow-up at short interval Normal [facility] RAD - MISCon 01-29-2023 RAD - MISC [id number] 763#1.00TIFF Normal [facility] C Urineon 01-28-2023 Bacteria identified Cx Nom (U) Microbiology PROCEDURE: Urine Culture [R1] SOURCE: U CleanCatch BODY SITE: COLLECTED DATE/TIME: 01/25/2023 16:04 EDT RECEIVED DATE/TIME: 01/26/2023 13:05 EDT START DATE/TIME: 01/26/2023 13:05 EDT FREE TEXT SOURCE: CORNELIUS HARTLEY PA-C, PA-C, CORNELIUS FINAL REPORTS Final Report [] Verified Date/Time: 01/28/2023 10:37 EDT 2,000 cfu/ml Mixed skin contaminants Performing Locations R1: This test was performed at: [facility], [address] [place] [address], [address] , [place], [facility] Comment on above: Performed By: #### 2 [id number] ####[facility] [address] [place] [id number] Formson 01-28-2023 Forms [id number] A4#1.00TIFF [facility] Ambulatory Visit Summaryon 1 Ambulatory Visit Summary NARCISA BENITEZ :1965 Visit Date:01/27/2023 Ambulatory Visit Instructions Your Diagnosis Kidney stone Gross hematuria History of kidney stones Renal cyst Tests Performed Urnls Dip Stick Auto w/o Microscopy POC 59214 Your Care Team Attending Physician - Lamont ACEVES MD Primary Care Physician - Brian SANCHEZ, Yasmine Rodriguez This Is Your Medications List Contact prescribing physician if questions or concerns acetaminophen-hydro codone ([place] 325 mg-5 mg oral tablet) ergocalciferol (Vitamin D) multivitamin (Multi Vitamin+) ondansetron (Zofran ODT 4 mg Tab-Dis) tamsulosin (Flomax 0.4 mg Cap) Procedures Performed Colonoscopy (11/27/2019), Cancer of skin. Discharge Vitals Heart Rate (Peripheral) 68 Blood Pressure 124/92 Height 168 cm Height 66 in Weight 96.0 kg Weight 211.2 lb BMI 34.01 What to do next Scheduled Follow-Up Appointments Wednesday 9:15 AM EDT Where: [facility] Wednesday 10:00 AM EDT Where: [facility] You Need to Schedule the Following Appointments Follow Up with YOLA GOLDBERG, GRACIELA Benton When: Where: [facility] [address], [place] [address]- You Need to Complete the Following XR Abdomen 1 View, 01/27/23, Routine, Order for future visit, Transport Mode: Ambulatory, Reason: Kidney stone, No, Kidney stone, pp_set_radiology_su bspecialty, [facility] Medications What How Much When Instructions Unchanged acetaminophen-hydro codone ([place] 325 mg-5 mg oral tablet) 1 Tablets By Mouth Every 6 hours as needed for for pain Duration: 3 Days Contact prescribing physician if questions or concerns Unchanged ergocalciferol (Vitamin D) By Mouth Every week Contact prescribing physician if questions or concerns Unchanged multivitamin (Multi Vitamin+) Contact prescribing physician if questions or concerns Unchanged ondansetron (Zofran ODT 4 mg Tab-Dis) 1 Tablets By Mouth Every 8 hours Contact prescribing physician if questions or concerns Unchanged tamsulosin (Flomax 0.4 mg Cap) 1 Capsules By Mouth Every day Contact prescribing physician if questions or concerns Test Results Urnls Dip Stick Auto w/o Microscopy POC 35092 (01/27/2023) Bilirubin Urine Dipstick - Negative Blood Urine Dipstick - Negative Glucose Urine Dipstick - Negative Ketones Urine Dipstick - Negative Leukocytes Urine Dipstick - Trace Nitrite Urine Dipstick - Negative Protein Urine Dipstick - Negative Specific [place] Urine Dipstick - >=1.030 Urine Appearance Urine Dipstick - Clear Urine Color Urine Dipstick - Yellow Urobilinogen Urine Dipstick - Normal 0.2-1 EU/dl pH Urine Dipstick - 6 Allergies No Known Allergies No Known Medication Allergies Problems Ongoing - Any problem that you are currently receiving treatment for. Abnormal mammogram of left breast Acid reflux Diverticulosis of colon Elevated BP without diagnosis of hypertension Gross hematuria History of sarcoidosis Hyperlipidemia Multiple thyroid nodules Non-smoker Prediabetes Renal cyst Thyroid nodule Vitamin D deficiency Education Materials 24-Hour Urine Collection Why am I having this test? A 24-hour urine specimen is a lab test that requires you to collect all of your urine for an entire day. This is sometimes called a timed urine test. It can provide more information than a single urine sample. There are many reasons to have this test. Your health care provider may order the test to check for or monitor the following conditions: ? High blood pressure. ? Kidney disease. ? Kidney stones. ? Urinary tract infections. ? . ? Diabetes. How do I prepare for this test? ? You may be asked to follow a special diet during or before the collection period. Follow any instructions from your health care provider. If no special instructions are given, you may eat and drink normally. ? Take wfui-wbd-qdkyzkz and prescription medicines only as told by your health care provider. ? Let your health care provider know about any medicines that you are taking, including yspw-xez-hyztbla medicines, vitamins, herbs, and supplements. ? Choose a collection day when you can be at home or when you have a place to store the urine. All urine must be collected during the testing period. How do I do a 24-hour urine collection? ? When you get up in the morning, urinate in the toilet and flush. Write down the time. This will be your start time on the day of collection and your end time on the next morning. ? From the start time on, all of your urine should be kept in the collection jug that you received from the lab. ? If the jug that is given to you already has liquid in it, that is okay. Do not throw out the liquid or rinse out the jug. ? Urinate into a specimen container, such as a urinal or castaneda that sits over the toilet. Pour the urine from the container i (more content not included)... Normal [facility] Patient Educationon 01-28-20 Patient Education Nephrology Lithotripsy, Care After This sheet gives you information about how to care for yourself after your procedure. Your health care provider may also give you more specific instructions. If you have problems or questions, contact your health care provider. What can I expect after the procedure? After the procedure, it is common to have: ? Some blood in your urine. This should only last for a few days. ? Soreness in your back, sides, or upper abdomen for a few days. ? Blotches or bruises on the area where the shock wave entered the skin. ? Pain, discomfort, or nausea when pieces (fragments) of the kidney stone move through the tube that carries urine from the kidney to the bladder (ureter). Stone fragments may pass soon after the procedure, but they may continue to pass for up to 4?8 weeks. ? If you have severe pain or nausea, contact your health care provider. This may be caused by a large stone that was not broken up, and this may mean that you need more treatment. ? Some pain or discomfort during urination. ? Some pain or discomfort in the lower abdomen or (in men) at the base of the penis. Follow these instructions at home: Medicines ? Take ugxa-ymy-mpxjedr and prescription medicines only as told by your health care provider. ? If you were prescribed an antibiotic medicine, take it as told by your health care provider. Do not stop taking the antibiotic even if you start to feel better. ? Ask your health care provider if the medicine prescribed to you requires you to avoid driving or using machinery. Eating and drinking ? Drink enough fluid to keep your urine pale yellow. This helps any remaining pieces of the stone to pass. It can also help prevent new stones from forming. ? Eat plenty of fresh fruits and vegetables. ? Follow instructions from your health care provider about eating or drinking restrictions. You may be instructed to: ? Reduce how much salt (sodium) you eat or drink. Check ingredients and nutrition facts on packaged foods and beverages to see how much sodium they contain. ? Reduce how much meat you eat. ? Eat the recommended amount of calcium for your age and gender. Ask your health care provider how much calcium you should have. General instructions ? Get plenty of rest. ? Return to your normal activities as told by your health care provider. Ask your health care provider what activities are safe for you. Most people can resume normal activities 1?2 days after the procedure. ? If you were given a sedative during the procedure, it can affect you for several hours. Do not drive or operate machinery until your health care provider says that it is safe. ? Your health care provider may direct you to lie in a certain position (postural drainage) and tap firmly (percuss) over your kidney area to help stone fragments pass. Follow instructions as told by your health care provider. ? If directed, strain all urine through the strainer that was provided by your health care provider. ? Keep all fragments for your health care provider to see. Any stones that are found may be sent to a medical lab for examination. The stone may be as small as a grain of salt. ? Keep all follow-up visits as told by your health care provider. This is important. Contact a health care provider if: ? You have a fever or chills. ? You have nausea that is severe or does not go away. ? You have any of these urinary symptoms: ? Blood in your urine for longer than your health care provider told you to expect. ? Urine that smells bad or unusual. ? Feeling a strong urge to urinate after emptying your bladder. ? Pain or burning with urination that does not go away. ? Urinating more often than usual and this does not go away. ? You have a stent and it comes out. Get help right away if: ? You have severe pain in your back, sides, or upper abdomen. ? You have any of these urinary symptoms: ? Severe pain while urinating. ? More blood in your urine or having blood in your urine when you did not before. ? Passing blood clots in your urine. ? Passing only a small amount of urine or being unable to pass any urine at all. ? You have severe nausea that leads to persistent vomiting. ? You faint. Summary ? After this procedure, it is common to have some pain, discomfort, or nausea when pieces (fragments) of the kidney stone move through the tube that carries urine from the kidney to the bladder (ureter). If this pain or nausea is severe, however, you should contact your health care provider. ? Return to your normal activities as told by your health care provider. Ask your health care provider what activities are safe for you. ? Drink enough fluid to keep your urine pale yellow. This helps any remaining pieces of the stone to pass, and it can help prevent new stones from forming. ? If directed, strain your urine and keep all fragments for your health care p (more content not included)... Normal [facility] Provider Letteron 01-27-2023 Provider Letter January 27, 2023 [place] [address] : 1965 To Whom It May Concern, Please excuse above patient from work on 01/27/2023 for an appointment. May Return to Work On: 01/28/2023 Restrictions: _ Comments: Please contact the office if you have any question. Sincerely, [facility] [address] [place] [address] Normal [facility] UroVysion Fish and Urine Cyt o ([facility])on 01-27-2023 [facility] Method of Extraction Voided Normal [facility] Comment on above: Performed By: #### 1 [id number] ####[facility] [id number] [place] [address] [facility] Number of Jars 1 Invalid Interpretation Code [facility] Comment on above: Performed By: #### 1 [id number] ####[facility] [id number] [facility] [address] [facility] Specimen Urine Normal [facility] Comment on above: Performed By: #### 1 [id number] ####[facility] [address] [place] [address] [facility] Type of Service Technical Only Normal [facility] Comment on above: Performed By: #### 1 [id number] ####[facility] [address] [place] [address] Urology Office/Clinic Noteon 01-27-2023 Urology Office/Clinic Note HPI Staff New Pt. Pt was [place] [facility] [place] SCAN done 01/25/23-shows multiple bilateral renal calculi withe ht largest measuring around 5-6mm, no hydronephroses, small low attenuation cysts, delayed phase imaging with normal excreted contrast in the renal collecting system, ureters, and bladder. BUN 17, Creatinine 0.8 done 01/25/23. Dysuria: denies pain or burning Incomplete bladder emptying: sometimes Hematuria: denies visible blood, hasn't seen any blood since ER visit Frequency: mild intermittent Urgency: more at night Nocturia: 2x a night Stream: denies hesitancy, denies weak stream Leaking: yes Post void dripping: denies Wearing pads/ Depends: denies Urge incontinence: yes at night Stress incontinence: denies Incontinence without Sensory Awareness: denies Abdominal pain: denies Flank pain: yes left sided pain Sexual complaints: denies History of Present Illness Tests reviewed: reviewed UA, ER records, CT, labs I have reviewed the previous health record information and history for this patient [place] [facility] [place] I have reviewed and verified the staff HPI to be accurate for this encounter. There have been no associated fever, chills, flank pain, or blood in the urine. Denies any urinary infections since last encounter. Review of Systems PHQ Score Initial Depression Screen Score: 0 ROS - Provider Constitutional: denies weight loss, denies hot flashes. Eyes: denies eye problems. Gastrointestinal: denies nausea, denies vomiting. Cardiovascular: denies chest pain or angina. Integumentary: no dryness Musculoskeletal: denies musculoskeletal symptoms. ENMT: denies otolaryngeal symptoms. Respiratory: no shortness of breath. Heme/Lymph: denies easy bleeding tendency, denies easy bruising tendency. Psychiatric: no confusion, no anxiety. Genitourinary: See HPI. Physical Exam Vitals & Measurements HR: 68(Peripheral) BP: 124/92 HT: 66 in HT: 168 cm WT: 96.0 kg WT: 211.2 lb BMI: 34.01 General Appearance: alert , no acute distress, well nourished, well developed female. Head: normocephalic . Eyes: normal orbit and globe. ENMT: normal examination of external ears. Chest: Lungs CTA, respirations non labored . Cardiovascular: regular rate and rhythm. Abdomen: soft , non distended, no tenderness, no mass or organomegaly, no hernia. Genitourinary: bladder nonpalpable, no flank tenderness. Lymph Nodes: unremarkable palpation of the cervical area. Skin: warm, dry, no bruising. Psychiatric: cooperative, affect appropriate for age, normal judgement, euthymic mood.e Assessment/Plan Narcisa is a 57 yo female new pt following up to [facility] [place] visit 01/25/23 due to gross hematuria. 01/25/23 - BUN 17. Crea 0.8. 1. Kidney stone (N20.0: Calculus of kidney) CT AP w con 01/25/23 - Multiple bilateral renal calculi with the largest measuring around 5-6 mm (side not given). No hydro. Reviewed imaging with pt. Educated pt on chance of stone passage, unlikely. Pt also has numerous stones. Discussed prophylactic ESWL, risks, benefits. Pt is currently uninsured due to starting a new job, would like to wait another month prior to scheduling surgery. Pt understands stone can leave kidney at any time. Recommended pt to increase fluid intake to ten to twelve 16 oz bottles a day, preferably water, clear pop, and sugar free lemonade. -Pt does not need to take Flomax since she does not have a ureteral stone. Can cont [place] and Ondansetron prn. -Pt to go to the ER if he were to experience fever, shaking, chills, uncontrolled nausea, vomiting, or pain. -KUB prior to procedure once pt is insured. -Will schedule R ESWL pending visibility on XR. The procedure risks, benefits, details and treatment alternatives have been discussed with the patient. These include blood in the urine, infection, bleeding around the kidney, kidney bruising, inability to break up the stone, need for blood transfusion, blockage from stone fragments, and need for additional procedures, among others. Full informed consent has been obtained. Will order General anesthesia. 2. Gross hematuria (R31.0: Gross hematuria) UA shows trace leuks, neg for blood. Dark urine Wednesday. Went to urgent care. Had [employer] dark urine. Urgent care sent her to the ER. -Will send urine for FISH/cytol today. -Will schedule cysto at same time of R ESWL. The risks and benefits for cystoscopy have been discussed. The risks include bleeding, infection, and irritation of the bladder and urinary channel, among others. The patient, after being informed of procedural details and after questions have been answered, wishes to proceed. Full informed consent has been obtained. Will order Local anesthesia. Prophylactic abx sent to [facility]. 3. History of kidney stones (Z87.442: Personal history of urinary calculi) Passed stones 10 yrs ago. Has tried to drink a lot of water since then. Discussed metabolic workup including 24 hour urine and blood work for stone preventi (more content not included)... Normal [facility] Comment on above: Result Comment: Elec tronically Signed By: Lamont ACEVES MD\.br\Date and Time Signed: 01/27/23 14:31 EDT\.br\Electronically Co-Signed By: Krystina Martinez.br\Date and Time Co-Signed: 01/27/23 14:[address] Abdomen/Pelvis w/ Contras ton 01-26-2023 CT Abdomen/Pelvis w/ Contrast Exam Date/Time: 01/25/2023 20:18 EDT Reason for Exam: Abdominal pain, acute, nonlocalized;Other (please specify) Report IMPRESSION: Nonobstructing bilateral renal calculi. Appendix upper limits of normal in size at 7 mm, otherwise unremarkable. EXAMINATION: CT Abdomen/Pelvis w/ Contrast HISTORY: Abdominal pain, acute, nonlocalized. Hematuria for a month. Possible kidney stones. TECHNIQUE: CT of the abdomen and pelvis was performed using standard technique with intravenous contrast, scanning from just above the dome of the diaphragm to the symphysis pubis. Including delayed images through the kidneys. Including sagittal and coronal reconstructions on both phases. All CT scans at this facility use dose modulation, iterative reconstruction, and/or weight based dosing when appropriate to reduce radiation dose to as low as reasonably achievable. COMPARISON: None. RESULT: Liver: Lobular contour. Borderline hepatomegaly. No suspicious lesion. Biliary: Gallbladder unremarkable. No biliary ductal dilation. Pancreas: No mass or duct dilation. Spleen: No mass or splenomegaly. Adrenals: No mass. Kidneys: Multiple bilateral renal calculi with the largest measuring around 5 to 6 mm. No hydronephrosis. Small low-attenuation cysts. Delayed phase imaging with normal excreted contrast in the renal collecting system, ureters, and bladder. GI tract: Appendix measures 7 mm in diameter, upper limits of normal. No periappendiceal stranding. Otherwise bowel unremarkable. No evidence for diverticulitis. Scattered colonic feces. Lymph nodes: No abdominal or pelvic lymphadenopathy. Report Mesentery/Peritoneu m/Retroperitoneum: No ascites or mass. Vasculature: The celiac axis and SMA are patent. The portal vein and branches, splenic vein, SMV, and hepatic veins are patent. Mild arterial atherosclerotic disease without aneurysm. Pelvis: No significant free fluid. Uterus grossly unremarkable. Bladder partially decompressed. Bones: No acute osseous findings. Chronic appearing wedge deformity of T12. Degenerative changes. Soft tissues: Unremarkable. Lower thorax: Bibasilar atelectasis/scarrin g. Ordering Provider: Mable Vital FINAL REPORT Dictated: 01/26/2023 8:34 am Solis Guerrero MD Signed (Electronic Signature): 01/26/2023 8:34 am Signed by: Solis Guerrero MD Transcribed by: NATALIYA Technologist: SRF Technical Comments GFR (mL/min/1/73m2) n/a age Contrast: Isovue 300 Contrast amount in ml's: 100 Normal [facility] Discharge Instructionson Discharge Instructions [id number]#[id number] Normal [facility] ED Note-Physicianon 01-27-20 ED Note-Physician Basic Information Time Seen: Mable Vital DO 01/25/2023 19:16 Chief Complaint Patient states hematuria for a month. States was seen at urgent care and sent here. States unsure if UTI or kidney stones. States mild left sided back pain History of Present Illness Patient is a 57-year-old female with past medical history of sarcoidosis presenting to the ED for evaluation of hematuria for the last month. Patient states she has had a history of kidney stones in addition to diverticulitis has been having mild left-sided back pain for the last several days. Went to urgent care hoping it was a urinary tract infection however they sent her here for further evaluation management. Denies any fevers, chills, chest pain, shortness of breath, dizziness or lightheadedness. Review of Systems A 10 point review of systems is negative except as noted above. Medical and Surgical History: Reviewed and noted Social history: Lives at home Tobacco: Denies Physical Exam Vitals & Measurements T: 36.2 ?C(Temporal Artery) HR: 64(Peripheral) RR: 18 BP: 130/86 SpO2: 94% HT: 168 cm WT: 95 kg BMI: 33.66 General: Well developed, non toxic appearing, no acute distress HEENT: Head atraumatic, Mucosa moist, hearing grossly normal Neck: No JVD, tracheal deviation Cardiac: Regular rate, rhythm, no murmurs, or gallops, 2+ radial pulses Respiratory: Lungs clear to auscultation B/L, normal respiratory effort Abdomen: Soft non tender, no rebound or guarding, no peritoneal signs Extremities: No edema noted in the LE B/L, no tenderness to palpation Neurologic: Alert and oriented, speech clear Skin: No rashes or lesions Psych: Appropriate mood and behavior Medical Decision Making MEDICAL DECISION MAKING Number and Complexity of Problems Differential Diagnosis: [] [facility] Data External documents reviewed: [] My EKG interpretation: [] My CT interpretation: [] My X-ray interpretation: [] My Ultrasound interpretation: [] Decision rules/scores evaluated: [] Discussed with: [] Treatment and Disposition ED Course: Patient is a 57-year-old female presenting to the ED for evaluation of hematuria, flank pain. Patient's nontoxic and on arrival, no acute distress. Laboratory evaluation is obtained patient is given IV fluids. Patient's laboratory evaluation 3 shows 3+ RBCs in addition to 3+ blood in her urine. Patient is given IV fluids. Patient's CT imaging shows bilateral renal stones nonobstructing in the kidneys themselves, largest 6 mm. I believe patient likely passed a kidney stone due to hematuria and the flank pain. Patient started on medications for treatment of renal colic. She is discharged home given referral to urology. She is to follow-up with her primary care doctor in the next 2 to 3 days for further evaluation management. She is return to the ED for any new or worsening symptoms. Shared decision making: [] Code status: [] Assessment/Plan Hematuria (R31.9: Hematuria, unspecified) Renal colic (N23: Unspecified renal colic) Orders: acetaminophen-hydro codone, 1 tab(s), Oral, q6hr for pain for 3 day(s), 7 tab(s), Refill(s) 0, [facility], 168, cm, 01/25/23 17:56:00 EDT, Height/Length Dosing, 95, kg, 01/25/23 17:56:00 EDT, Weight Dosing ondansetron, 4 mg = 1 tab(s), Oral, q8hr, # 12 tab(s), Refills(s) 0, Pharmacy: [facility], 168, cm, 01/25/23 17:56:00 EDT, Height/Length Dosing, 95, kg, 01/25/23 17:56:00 EDT, Weight Dosing tamsulosin, 0.4 mg = 1 cap(s), Oral, Daily, # 10 cap(s), Refills(s) 0, Pharmacy: [facility], 168, cm, 01/25/23 17:56:00 EDT, Height/Length Dosing, 95, kg, 01/25/23 17:56:00 EDT, Weight Dosing Automated Diff Basic Metabolic Panel CBC w/ Auto Diff Creatine Kinase CT Abdomen/Pelvis w/ Contrast eGFR Extra Blue Tube Extra SST Tube Medications Administered Given Sodium Chloride 0.9% IV Deneen 1000 mL 1,000 mL, 1000 mL, IV Disposition Plan Discharge Prescription List Prescriptions Flomax 0.4 mg Cap, 0.4 mg= 1 cap(s), Oral, Daily [place] 325 mg-5 mg oral tablet, 1 tab(s), Oral, q6hr, PRN Zofran ODT 4 mg Tab-Dis, 4 mg= 1 tab(s), Oral, q8hr Follow-up With When Contact Information Ginger Arie In 3 days 01/28/2023 EDT Additional Instructions: You can use the pain medication, Flomax, nausea medications as prescribed if you develop worsening flank pain. Please follow-up with your primary care doctor in the next 2 to 3 days. Please return to the ED for any new or worsening symptoms. Yasmine Torres In 3 days 01/28/2023 EDT [address] [facility] (1) Additional Instructions: arie Patient Education Renal Colic, Slmc-yb-Gxus Problem List/Past Medical History Ongoing Abnormal mammogram of left breast Acid reflux Diverticulosis of colon Elevated BP without diagnosis of hypertension History of sarcoidosis Hyperlipidemia Multiple thyroid nodules Non-smoker Prediabetes (more content not included)... Normal [facility] Comment on above: Result Comment: Elec tronically Signed By: Mable Vital DO\.justin\Date and Time Signed: 01/26/23 02:22 EDT Ambulatory Visit Summaryon 1 Ambulatory Visit Summary NARCISA BENITEZ :1965 Visit Date:01/25/2023 Ambulatory Visit Instructions Your Diagnosis Hematuria BMI 33.0-33.9,adult Tests Performed Urnls Dip Stick Non-Auto w/o Micrscpy POC 45997 Your Care Team Attending Physician - ODILIA EASON, CORNELIUS Primary Care Physician - [facility]SE[facility] Torres Procedures Performed Colonoscopy (11/27/2019), Cancer of skin. Discharge Vitals Temperature (Oral) 36.4 ?C Heart Rate (Peripheral) 74 Blood Pressure 128/84 Height 168 cm Height 66 in Weight 95 kg Weight 209 lb BMI 33.66 What to do next Scheduled Follow-Up Appointments Wednesday 9:15 AM EDT Where: [facility] Wednesday 10:00 AM EDT Where: [facility] Test Results Urnls Dip Stick Non-Auto w/o Micrscpy POC 34620 (01/25/2023) Bilirubin Urine Dipstick - Negative Blood Urine Dipstick - 3+ Large Glucose Urine Dipstick - Negative Ketones Urine Dipstick - Negative Leukocytes Urine Dipstick - Trace Nitrite Urine Dipstick - Negative Protein Urine Dipstick - 2+ (100 mg/dl) Specific [place] Urine Dipstick - >=1.030 Urine Appearance Urine Dipstick - Turbid Urine Color Urine Dipstick - Red Urobilinogen Urine Dipstick - Normal 0.2-1 EU/dl pH Urine Dipstick - 6 Medications and Immunizations Administered Not Given influenza virus vaccine, inactivated, Patient Refuses Allergies No Known Allergies No Known Medication Allergies Problems Ongoing - Any problem that you are currently receiving treatment for. Abnormal mammogram of left breast Acid reflux Diverticulosis of colon Elevated BP without diagnosis of hypertension History of sarcoidosis Hyperlipidemia Multiple thyroid nodules Non-smoker Prediabetes Thyroid nodule Vitamin D deficiency Normal [facility] Auto Diffon 01-25-2023 Basophils/100 WBC (Bld) 0.9 % Normal 0.0-2.0 [facility] Comment on above: Order Comment: Order Added by Discern Expert. Performed By: #### 2 858660, 1803281, 9082317, 5068408, [id number] ####[facility] [address] [place] [address] Basophils/Leukocytes Auto (Bld) [Pure # fraction] 0.1 E9/L Normal 0.0-0.2 [facility] Comment on above: Order Comment: Order Added by Discern Expert. Performed By: #### 2 500908, 1218636, 0439636, 1313505, [id number] ####[facility] [address] [place] [address] Eosinophils/100 WBC (Bld) 1.9 % Normal 0.0-8.0 [facility] Comment on above: Order Comment: Order Added by Discern Expert. Performed By: #### 2 292687, 0255787, 9405836, 0213905, 27891816 ####[address] [place] [address] Eosinophils/Leukocyt es Auto (Bld) [Pure # fraction] 0.1 E9/L Normal 0.0-0.5 [facility] Comment on above: Order Comment: Order Added by Discern Expert. Performed By: #### 2 389932, 7787162, 3021151, 0960294, [id number] ####[address] [address] Lymphocytes/100 WBC (Bld) 34.3 % Normal 14.0-50.0 [facility] Comment on above: Order Comment: Order Added by Discern Expert. Performed By: #### 2 375244, 5261689, 1453160, 0966469, 40282979 ####[address] [address] Lymphocytes/Leukocyt es Auto (Bld) [Pure # fraction] 2.7 E9/L Normal 1.0-4.0 [facility] Comment on above: Order Comment: Order Added by Discern Expert. Performed By: #### 2 147808, 9483860, 1528797, 6287597, 44554972 ####[address] [place] [address] Monocytes/100 WBC (Bld) 10.6 % Normal 4.0-14.0 [facility] Comment on above: Order Comment: Order Added by Discern Expert. Performed By: #### 2 621216, 4946455, 9470893, 9055220, 05743477 ####[address] [place] [address] Monocytes/Leukocytes Auto (Bld) [Pure # fraction] 0.8 E9/L Normal 0.2-1.0 [facility] Comment on above: Order Comment: Order Added by Discern Expert. Performed By: #### 2 466044, 9381151, 2621133, 3310751, 80643359 ####[facility] [address] [place] [address] Neutrophils/100 WBC (Bld) 52.3 % Normal 36.0-75.0 [facility] Comment on above: Order Comment: Order Added by Discern Expert. Performed By: #### 2 519300, 6855144, 8222915, 9925009, 22246058 ####[facility] [address] [place] [address] Neutrophils/Leukocyt es Auto (Bld) [Pure # fraction] 4.1 E9/L Normal 2.0-7.5 [facility] Comment on above: Order Comment: Order Added by Discern Expert. Performed By: #### 2 819548, 5341467, 3426318, 5729150, 70938103 ####[facility] [address] [place] [address] BMPon 01-25-2023 Creatinine [Mass/Vol] 0.8 mg/dL Normal 0.5-1.3 [facility] Comment on above: Performed By: #### 2 870489, 6326640, 8209247, 3026386, 83199236 ####[facility] [address] [place] [address] Urea nitrogen [Mass/Vol] 17 mg/dL Normal 5-21 [facility] Comment on above: Performed By: #### 2 586374, 2801981, 3146620, 7367486, 41086190 ####[facility] [address] [place] [address] Urea nitrogen/Creatinine [Mass ratio] 21 No Units High 10-20 [facility] Comment on above: Performed By: #### 2 660457, 9901526, 1269824, 2163887, 20310661 ####[facility] [address] [place] [address] Anion gap [Moles/Vol] 9 mmol/L Normal 6-16 [facility] Comment on above: Performed By: #### 2 876584, 2824476, 2674590, 8786133, 28458826 ####[facility] [address] [place] [address] Calcium [Mass/Vol] 9.9 mg/dL Normal 8.9-11.1 [facility] Comment on above: Performed By: #### 2 537389, 5319100, 8433134, 8625908, 02987893 ####[facility] [address] [place] [address] Chloride [Moles/Vol] 102 mmol/L Normal 101-111 [facility] Comment on above: Performed By: #### 2 215373, 5250122, 0111937, 5365312, 18732110 ####[facility] [address] [place] [address] CO2 [Moles/Vol] 27 mmol/L Normal 21-31 [facility] Comment on above: Performed By: #### 2 600251, 5751969, 6157034, 2062540, 06950360 ####[facility] [address] [place] [address] Glucose [Mass/Vol] 101 mg/dL Normal 55-199 [facility] Comment on above: Result Comment: If t his glucose result represents a fasting glucose, interpretation should refer to the following reference range: 55-99 mg/dL Performed By: #### 2 578772, 5811842, 4768309, 5497479, 79911081 ####[facility] [address] [place] [address] Potassium [Moles/Vol] 3.3 mmol/L Low 3.5-5.3 [facility] Comment on above: Performed By: #### 2 332115, 3791696, 3985255, 8028685, 39282620 ####[facility] [address] [place] [address] Sodium [Moles/Vol] 135 mmol/L Normal 135-145 [facility] Comment on above: Performed By: #### 2 503952, 2319249, 1453662, 9110078, 51866820 ####[address] [place] [address] CBC w/ Auto Diffon Erythrocyte distribution width (RBC) [Ratio] 13.1 % Normal 10.9-14.2 [facility] Comment on above: Performed By: #### 2 271036, 3019632, 9805297, 2040631, 63089548 ####[address] [place] [address] Hematocrit (Bld) [Volume fraction] 40.5 % Normal 34.0-46.0 [facility] Comment on above: Performed By: #### 2 548513, 9170690, 2800263, 6288476, 43115790 ####[address] [address] Hemoglobin (Bld) [Mass/Vol] 14.1 g/dL Normal 12.0-16.0 [facility] Comment on above: Performed By: #### 2 294826, 3928772, 8081828, 9288612, 56422471 ####[address] [address] MCH (RBC) [Entitic mass] 30.2 pg Normal 27.0-34.0 [facility] Comment on above: Performed By: #### 2 803790, 3771539, 4851665, 0145394, 62023568 ####[address] [address] MCHC (RBC) [Mass/Vol] 34.7 g/dL Normal 31.4-36.0 [facility] Comment on above: Performed By: #### 2 417559, 2999953, 9431777, 3278322, 07569307 ####[address] [address] MCV (RBC) [Entitic vol] 87.1 fL Normal 80.0-100.0 [facility] Comment on above: Performed By: #### 2 864624, 3988309, 6066101, 0957403, 65643414 ####[address] [place] [address] Platelet mean volume (Bld) [Entitic vol] 7.6 fL Normal 6.4-10.8 [facility] Comment on above: Performed By: #### 2 699323, 4070196, 6882965, 2643707, 68889457 ####[address] [place] [address] Platelets (Bld) [#/Vol] 313.0 E9/L Normal 150.0-500.0 [facility] Comment on above: Performed By: #### 2 372894, 5738881, 1789455, 8936927, 22996703 ####[address] [address] RBC (Bld) [#/Vol] 4.6 E12/L Normal 4.3-5.9 [facility] Comment on above: Performed By: #### 2 654415, 4890299, 6421396, 2763519, 82680376 ####[address] [address] WBC corrected for nucl RBC Auto (Bld) [#/Vol] 7.8 E9/L Normal 4.0-11.0 [facility] Comment on above: Performed By: #### 2 060041, 2457384, 5003116, 0650828, 01235974 ####[address] [place] [address] CKon 01-25-2023 CK [Catalytic activity/Vol] 164 Int._Unit/L Normal 14-261 [facility] Comment on above: Performed By: #### 2 616772, 9826353, 4984812, 9086978, 24621843 ####[address] [place] [address] Consent for Treatmenton Consent for Treatment [id number] C8#1.00TIFF Normal [facility] ED Clinical Summaryon 2022 ED Clinical Summary [address] [address] ED Clinical Summary Person Information Name: NARCISA BENITEZ [place] Age: 57 Years : 1965 Sex: Female Language: Citizen Of [place] PCP: Yasmine Lewis Marital Status: Phone: [phone] Visit Id: Visit Reason: Back pain; Hematuria; BLOOD IN URINE Speciality: Acuity: 3 Enc Type: Emergency Med Service: Emergency Arrival: 01/25/2023 17:37:39 Discharge: 01/25/2023 21:19:52 LOS: 000 03:42 Checkin: 01/25/2023 17:37:39 Checkout: 01/25/2023 21:19:52 Dispo Type: Home (Routine DC) EVENTS: Event Name Event Status Request Date/Time Start Date/Time Complete Date/Time Arrive Complete 01/25/2023 17:37:39 01/25/2023 17:37:39 01/25/2023 17:37:39 Document Home Meds Request 01/25/2023 17:37:39 Triage Complete 01/25/2023 17:37:39 01/25/2023 17:56:22 01/25/2023 17:56:22 Registration Complete 01/25/2023 17:40:25 01/25/2023 17:40:25 01/25/2023 17:40:25 Reg Complete Request 01/25/2023 17:40:25 Reg Bed Request Complete 01/25/2023 17:40:25 01/25/2023 17:40:25 01/25/2023 17:40:25 Pending Labs Complete 01/25/2023 17:57:13 01/25/2023 19:59:49 Lab Complete 01/25/2023 17:57:13 01/25/2023 19:59:49 Urine Collect Complete 01/25/2023 17:57:13 01/25/2023 19:59:49 Bed Assign Complete 01/25/2023 19:15:40 01/25/2023 19:15:40 01/25/2023 19:15:40 Dr Exam Complete 01/25/2023 19:15:40 01/25/2023 19:16:22 01/25/2023 19:16:22 RN Exam Complete 01/25/2023 19:15:40 01/25/2023 19:44:47 01/25/2023 19:44:47 Registration Request 01/25/2023 19:16:22 CT Complete 01/25/2023 19:25:26 01/25/2023 19:52:54 01/25/2023 20:18:01 Meds Admin Request 01/25/2023 19:27:36 Pending Labs Complete 01/25/2023 19:28:44 01/25/2023 20:11:57 Lab Complete 01/25/2023 19:28:44 01/25/2023 20:11:57 Pending Labs Complete 01/25/2023 19:51:27 01/25/2023 19:51:27 01/25/2023 20:11:58 Lab Complete 01/25/2023 19:51:27 01/25/2023 19:51:27 01/25/2023 20:11:58 Pending Labs Complete 01/25/2023 19:55:50 01/25/2023 19:55:50 01/25/2023 19:55:55 Lab Complete 01/25/2023 19:55:50 01/25/2023 19:55:50 01/25/2023 19:55:55 Pending Labs Complete 01/25/2023 20:17:21 01/25/2023 20:17:21 01/25/2023 20:17:21 Pending Labs Complete 01/25/2023 20:23:17 01/25/2023 20:23:17 01/25/2023 20:23:17 Discharge Complete 01/25/2023 20:59:19 01/25/2023 21:20:03 01/25/2023 21:20:03 Transfer Complete 01/25/2023 21:20:03 01/25/2023 21:20:03 01/25/2023 21:20:03 ADDRESS: [address] [place], [place] [address]BRIEN ID [id number] PHYS DOC NOTES: MEDICAL INFORMATION: Prescriptions Given: New Medications [facility], [address] [place], [place] [id number], [phone] acetaminophen-hydro codone ([place] 325 mg-5 mg oral tablet) 1 Tablets By Mouth every 6 hours as needed for pain for 3 Days. Refills: 0. ondansetron (Zofran ODT 4 mg Tab-Dis) 1 Tablets By Mouth every 8 hours. Refills: 0. tamsulosin (Flomax 0.4 mg Cap) 1 Capsules By Mouth every day. Refills: 0. PATIENT EDUCATION INFORMATION: Instructions: Renal Colic, Msjv-tz-Xwcz Follow up: With: Address: When: Ginger Sargent In 3 days 01/28/2023 Comments: You can use the pain medication, Flomax, nausea medications as prescribed if you develop worsening flank pain. Please follow-up with your primary care doctor in the next 2 to 3 days. Please return to the ED for any new or worsening symptoms. With: Address: When: Yasmine Torres [address] [place] [address] Business (8) In 3 days 01/28/2023 Comments: lue DIAGNOSIS: Hematuria; Renal colic Normal [facility] ED Patient Education Noteon 01-25-2023 ED Patient Education Note Urology Renal Colic Renal colic is pain that is caused by a kidney stone. The pain can be sharp and very bad. It may be felt in the back, belly, side (flank), or groin. It can cause nausea. Renal colic can come and go. Follow these instructions at home: Medicines ? Take cbhs-qtc-rswnlce and prescription medicines only as told by your doctor. ? Do not drive or use heavy machinery while taking prescription pain medicine. Eating and drinking ? Drink enough fluid to keep your pee (urine) pale yellow. You may be told to drink at least 8?10 glasses of water each day. Follow instructions from your doctor. ? If told, change your diet. This may include eating: ? Less salt (sodium). Eat less than 2 grams (2,000 mg) of salt per day. ? Less meat, poultry, fish, and eggs. ? More fruits and vegetables. ? Try not to eat spinach, rhubarb, sweet potatoes, or nuts. ? Follow instructions from your doctor about what foods and drinks to avoid. General instructions ? Keep all follow-up visits as told by your doctor. This is important. ? Collect pee samples as told by your doctor. ? Strain your pee every time you pee, as told by your doctor. Use the strainer that your doctor recommends. ? Do not throw out the kidney stone after passing it. Keep the stone so it can be tested by your doctor. Contact a doctor if: ? You have a fever or chills. ? Your pee smells bad or looks cloudy. ? You have pain or burning when you pee. Get help right away if: ? The pain in your side (flank) or your groin suddenly gets worse. ? You get confused. ? You pass out. Summary ? Renal colic is pain that is caused by a kidney stone. ? Take gxnu-vgw-eqfloeh and prescription medicines only as told by your doctor. ? Drink enough fluid to keep your pee pale yellow. You may be told to drink at least 8?10 glasses of water each day. Follow instructions from your doctor. ? Strain your pee every time you pee, as told by your doctor. Use the strainer that your doctor recommends. ? Do not throw out the kidney stone after passing it. Keep the stone so it can be tested by your doctor. This information is not intended to replace advice given to you by your health care provider. Make sure you discuss any questions you have with your health care provider. Document Revised: 12/08/2021 Document Reviewed: 12/08/2021 Elsevier Patient Education ? 2022 [employer] Normal [facility] ED Patient Summaryon 023 ED Patient Summary [place] [id number] Patient Discharge Instructions Person Information Name: NARCISA BENITEZ Age: 57 Years Arrival Date: 01/25/2023 17:37:39 Discharge Diagnosis: Hematuria; Renal colic Primary Care Physician: Yasmine Lewis Provider Information Primary Provider: Mable Vital DO Advanced Opal Miner:None The exam and treatment you received in the Emergency Department were for an urgent problem and are not intended as complete care. It is important that you follow up with a doctor, nurse practitioner, or physician?s insurance account assistant for ongoing care. If your symptoms become worse or you do not improve as expected and you are unable to reach your usual health care provider, you should return to the Emergency Department. We are available 24 hours a day. NARCISA BENITEZ has been given the following list of patient education materials, prescriptions and follow-up instructions: Follow-up Instructions: With: Address: When: Ginger Sargent In 3 days 01/28/2023 Comments: You can use the pain medication, Flomax, nausea medications as prescribed if you develop worsening flank pain. Please follow-up with your primary care doctor in the next 2 to 3 days. Please return to the ED for any new or worsening symptoms. With: Address: When: Yasmine Torres [address] [place] [address] [place] [address] [facility] () In 3 days 01/28/2023 Comments: arie In the event that this physician does not participate in your insurance network, please consult with your insurance company to find a nearby participating provider. Patient Education Materials: Renal Colic, Pgrq-mx-Pggf A MESSAGE TO ALL PATIENTS REGARDING OPIOIDS PRESCRIPTION OPIOIDS: WHAT YOU NEED TO KNOW Prescription opioids can be used to help relieve olzftqfn-ie-zohfjl pain and are often prescribed following a surgery or injury, or for certain health conditions. These medications can be an important part of the treatment but also come with serious risks. It is important to work with your healthcare provider to make sure you are getting the safest, most effective care. WHAT ARE THE RISKS AND SIDE EFFECTS OF OPIOID USE? Prescription opioids carry serious risks of addiction and overdose, especially with prolonged use. An opioid overdose, often marked by slowed breathing, can cause sudden . The use of prescription opioids can have a number of side effects as well, even when taken as directed: ? Tolerance?meaning you might need to take more of the medication for the same pain relief ? Physical dependence?meaning you have symptoms of withdrawal when a medication is stopped ? Increased sensitivity to pain ? Constipation ? Nausea, vomiting, and dry mouth ? Sleepiness and dizziness ? Confusion ? Depression ? Low levels of testosterone that can result in lower sex drive, energy, and strength ? Itching and sweating RISKS ARE GREATER WITH: ? History of drug misuse, substance use disorder, or overdose ? Mental health conditions (such as depression or anxiety) ? Sleep apnea ? Older age (65 years and older) ? Avoid alcohol while taking prescription opioids. Also, unless specifically advised by your health care provider, medications to avoid include: ? Benzodiazepines (such as Xanax or Valium) ? Muscle relaxants (such as Soma or Flexeril) ? Hypnotics (such as Ambien or Lunesta) ? Other prescription opioids KNOW YOUR OPTIONS Talk to your health care provider about ways to manage your pain that don?t involve prescription opioids. Some of these options may actually work better and have fewer risks and side effects. Options may include: ? Pain relievers such as acetaminophen, ibuprofen, and naproxen ? Some medication that are also used for depression or seizures ? Physical therapy and exercise ? Cognitive behavioral therapy, a psychological, goal-directed approach, in which patients learn how to modify physical, behavioral, and emotional triggers of pain and stress. IF YOU ARE PRESCRIBED OPIOIDS FOR PAIN: ? Never take opioids in greater amounts or more often than prescribed. ? Follow up with your primary health care provider. o Work together to create a plan on how to manage your pain. o Talk about ways to help manage your pain that don?t involve prescription opioids. o Talk about any and all concerns and side effects. ? Help prevent misuse and abuse o Never sell or share prescription opioids. o Never use another person?s prescription opioids. ? Store prescription opioids in a secure place and out of reach of others (this may include visitors, children, friends, and family). ? Safely dispose of unused prescription opioids: Find your community drug take-back program or your pharmacy mail-back program, or flush them down the toilet, following guidance from the Fo (more content not included)... 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 Portions of this record may have been created with voice recognition artificial intelligence software, specifically [employer], Inaura and or Weele. Substitutions may have occurred due to the inherent limitations of voice recognition and artificial intelligence software. Patient is a 57-year-old female who presents to [facility] care, for discolored urine, started 2 weeks ago, patient states the urine has gotten discolored, states she does have a history of kidney stones, also diverticulitis, states she is concerned this might be one of the other, states she has been drinking plenty of fluids, but her urine continues to be dark, patient states she been having urgency, frequency, and without dysuria. Patient states she is not any much abdominal or flank pain. Patient denies any injuries, trauma, fevers, chills, nausea or vomiting, upper respiratory infection, sore throat, difficulty swallowing, cough, chest pain, shortness of breath, abdominal pain, or flank pain. Review of Systems PHQ Score Initial Depression Screen Score: 0 Physical Exam Vitals & Measurements T: 36.4 ?C(Oral) HR: 74(Peripheral) BP: 128/84 SpO2: 97% HT: 66 in HT: 168 cm WT: 95 kg WT: 209 lb BMI: 33.66 General: Well developed, well nourished, in no acute distress, patient does not appear ill or septic, ptic, no respiratory disorders noted. Patient answers questions appropriately and in complete sentences, and follows commands appropriately. Head: Normocephalic/atrau matic, no upper respiratory infections noted. Lungs: Normal respiratory effort and clear to auscultation throughout, no wheezing, no rales Cardio: regular rate and rhythm, no murmur Abdomen: Soft, nondistended, no rebound or guarding, normal bowel sounds, no left or right CVA tenderness. No lumbar back pain. Extremity: Patient is able move all 4 extremities equally well no pain or weakness. Patient is neurovascular intact. Neurologic: Grossly normal Skin: Skin is intact skin abrasions, rashes, or ecchymosis. Lymph Nodes: no lad Mental Status: alert, active Assessment/Plan Discussed with patient urinalysis findings of trace of leukocytes, large hematuria, 2+ protein, negative nitrate, ketones, glucose, and bilirubin. 57-year-old female presented to [facility] care, for hematuria, hematuria started 2 weeks ago, worsening symptoms as of today, patient has a history of diverticulitis as well as kidney stones, has had urgency and frequency without any dysuria, patient verbally understands that she should contact the emergency room for further evaluation, for possible acute intra-abdominal process or acute intra-pelvic process, for further evaluation. Patient states she will go directly to emergency room after being discharged here. Patient did not appear ill or septic. No respiratory disorders. 1. Hematuria (R31.9: Hematuria, unspecified) See above Ordered: E&M of New Patient Low 30-44 Min 80570 Urine Culture Urnls Dip Stick Non-Auto w/o Micrscpy POC 03162 2. BMI 33.0-33.9,adult (Z68.33: Body mass index [BMI] 33.0-33.9, adult) The standard range for ages 18 and older is >=18.5 and < 25 kg/m2. Your BMI today was above this range, this falls in the overweight to obese category and there are medical benefits to weight loss. We can offer counselling, referral, and/or medical support in addressing this problem. Your BMI and weight management will be followed at subsequent visits. Ordered: Body Mass Index (BMI) documented 3008F E&M of New Patient Low 30-44 Min 19975 Follow-up With When Contact Information Brian SANCHEZ, Yasmine Rodriguez [address], [place] [address]- Additional Instructions: Patient Education BMI for Adults Hematuria, Adult Problem List/Past Medical History Ongoing Abnormal mammogram of left breast Acid reflux Diverticulosis of colon Elevated BP without diagnosis of hypertension History of sarcoidosis Hyperlipidemia Multiple thyroid nodules Non-smoker Prediabetes Thyroid nodule Vitamin D deficiency Historical No qualifying data Procedure/Surgical History Colonoscopy (11/27/2019), Cancer of skin. Medications No active medications Allergies No Known Allergies No Known Medication Allergies Social History Alcohol - Denies Alcohol Use, 06/19/2019 Substance Abuse - Denies Substance Abuse, 06/15/2019 Tobacco Never (less than 100 in lifetime) Tobacco Use:. Never Smokeless Tobacco Use:., 01/25/2023 Family History Alcoholism: Father. CAD (coronary artery disease): Father. Primary malignant neoplasm of lung: Mother. Immunizatio (more content not included)... Normal [facility] Comment on above: Result Comment: Elec tronically Signed By: CORNELIUS HARTLEY PA-C\.br\Date and Time Signed: 01/25/23 16:27 EDT Patient Educationon 01-26-20 Patient Education Nutrition BMI for Adults What is BMI? Body mass index (BMI) is a number that is calculated from a person's weight and height. BMI can help estimate how much of a person's weight is composed of fat. BMI does not measure body fat directly. Rather, it is an alternative to procedures that directly measure body fat, which can be difficult and expensive. BMI can help identify people who may be at higher risk for certain medical problems. What are BMI measurements used for? BMI is used as a screening tool to identify possible weight problems. It helps determine whether a person is obese, overweight, a healthy weight, or underweight. BMI is useful for: ? Identifying a weight problem that may be related to a medical condition or may increase the risk for medical problems. ? Promoting changes, such as changes in diet and exercise, to help reach a healthy weight. BMI screening can be repeated to see if these changes are working. How is BMI calculated? BMI involves measuring your weight in relation to your height. Both height and weight are measured, and the BMI is calculated from those numbers. This can be done either in [place] or metric measurements. Note that charts and online BMI calculators are available to help you find your BMI quickly and easily without having to do these calculations yourself. To calculate your BMI in [place] measurements: 1. Measure your weight in pounds (lb). 2. Multiply the number of pounds by 703. ? For example, for a person who weighs 180 lb, multiply that number by 703, which equals 126,540. 3. Measure your height in inches. Then multiply that number by itself to get a measurement called inches squared. ? For example, for a person who is 70 inches tall, the inches squared measurement is 70 inches x 70 inches, which equals 4,900 inches squared. 4. Divide the total from step 2 (number of lb x 703) by the total from step 3 (inches squared): 126,540 ? 4,900 = 25.8. This is your BMI. To calculate your BMI in metric measurements: 1. Measure your weight in kilograms (kg). 2. Measure your height in meters (m). Then multiply that number by itself to get a measurement called meters squared. ? For example, for a person who is 1.75 m tall, the meters squared measurement is 1.75 m x 1.75 m, which is equal to 3.1 meters squared. 3. Divide the number of kilograms (your weight) by the meters squared number. In this example: 70 ? 3.1 = 22.6. This is your BMI. What do the results mean? BMI charts are used to identify whether you are underweight, normal weight, overweight, or obese. The following guidelines will be used: ? Underweight: BMI less than 18.5. ? Normal weight: BMI between 18.5 and 24.9. ? Overweight: BMI between 25 and 29.9. ? Obese: BMI of 30 or above. Keep these notes in mind: ? Weight includes both fat and muscle, so someone with a muscular build, such as an athlete, may have a BMI that is higher than 24.9. In cases like these, BMI is not an accurate measure of body fat. ? To determine if excess body fat is the cause of a BMI of 25 or higher, further assessments may need to be done by a health care provider. ? BMI is usually interpreted in the same way for men and women. Where to find more information For more information about BMI, including tools to quickly calculate your BMI, go to these websites: ? Centers for Disease Control and Prevention: www.cdc.gov ? [place] Heart Association: www.heart.org ? National Heart, Lung, and Blood [place]: www.nhlbi.nih.gov Summary ? Body mass index (BMI) is a number that is calculated from a person's weight and height. ? BMI may help estimate how much of a person's weight is composed of fat. BMI can help identify those who may be at higher risk for certain medical problems. ? BMI can be measured using [place] measurements or metric measurements. ? BMI charts are used to identify whether you are underweight, normal weight, overweight, or obese. This information is not intended to replace advice given to you by your health care provider. Make sure you discuss any questions you have with your health care provider. Document Revised: 12/27/2019 Document Reviewed: 11/03/2019 [place] Patient Education ? 2022 [employer]. Urology Hematuria, Adult Hematuria is blood in the urine. Blood may be visible in the urine, or it may be identified with a test. This condition can be caused by infections of the bladder, urethra, kidney, or prostate. Other possible causes include: ? Kidney stones. ? Cancer of the urinary tract. ? Too much calcium in the urine. ? Conditions that are passed from parent to child (inherited conditions). ? Exercise that requires a lot of energy. Infections can usually be treated with medicine, and a kidney stone usually will pass through your urine. If neither of these is the cause of your hematuria, more tests may be needed to identify the (more content not included)... Normal [facility] Prescriptions/Work Noteson 1 Prescriptions/Work Notes [id number]#1.00TIFF Normal [facility] RAD - Preliminary Cat Scan R eporton 01-25-2023 RAD - Preliminary Cat Scan Report [id number]#1.00TIFF Normal [facility] UA With Cult Reflexon 2022 Bacteria LM Ql (Urine sed) TRACE Normal Trace [facility] Comment on above: Performed By: #### 1 [id number] ####[facility] [address] [place] [address] Bilirubin Ql (U) 1+ Abnormal Negative [facility] Comment on above: Performed By: #### 1 [id number] ####[facility] [address] [place] [address] Clarity (U) CLOUDY Abnormal Clear [facility] Comment on above: Performed By: #### 1 [id number] ####[facility] [address] [place] [address] Color (U) BROWN Abnormal Yellow [facility] Comment on above: Performed By: #### 1 [id number] ####[facility] [address] [place] [address] Epithelial cells.squamous LM.HPF (Urine sed) [#/Area] 0-2 Normal 0-2 [facility] Comment on above: Performed By: #### 1 [id number] ####[facility] [address] [place] [address] Glucose Test strip (U) [Mass/Vol] Negative Normal Negative [facility] Comment on above: Performed By: #### 1 [id number] ####[facility] [address] [place] [address] Hemoglobin Ql (U) 3+ Abnormal Negative [facility] Comment on above: Performed By: #### 1 [id number] ####[address] [address] Ketones (U) [Mass/Vol] TRACE Abnormal Negative [facility] Comment on above: Performed By: #### 1 [id number] ####[facility] [address] [place] [address] [place].plasma/Lithi um.RBC (Bld) [Mass ratio] >75 Abnormal 0-3 [facility] Comment on above: Performed By: #### 1 [id number] ####[facility] [address] [place] [address] Nitrite Ql (U) Negative Normal Negative [facility] Comment on above: Performed By: #### 1 [id number] ####[facility] [address] [place] [address] pH (U) 6.0 [pH] Invalid Interpretation Code 5.0-9.0 [facility] Comment on above: Performed By: #### 1 [id number] ####[facility] [address] [place] [address] Protein (U) [Mass/Vol] 2+ Abnormal Negative [facility] Comment on above: Performed By: #### 1 [id number] ####[facility] [address] [address] Specific gravity (U) [Rel density] 1.020 Invalid Interpretation Code 1.005-1.030 [facility] Comment on above: Performed By: #### 1 [id number] ####[address] [address] Type of Urine collection method Clean Catch Normal [facility] Comment on above: Performed By: #### 1 [id number] ####[address] [address] Urobilinogen Qn (U) 0.2 {Rahul'U}/dL Normal 0.0-1.0 [facility] Comment on above: Performed By: #### 1 [id number] ####[address] [address] WBC Auto Ql (U) TRACE Abnormal Negative [facility] Comment on above: Performed By: #### 1 [id number] ####[address] [address] WBC LM.HPF (Urine sed) [#/Area] 0-5 Normal 0-5 [facility] Comment on above: Performed By: #### 1 [id number] ####[address] [address] eGFRon 01-25-2023 GFR/1.73 sq M.predicted among non-blacks MDRD (S/P/Bld) [Vol rate/Area] 85 mL/min/1.73 m2 Normal >=59 [facility] Comment on above: Order Comment: Order added by Discern Expert. Result Comment: [employer] [place] kidney disease could be indicated at eGFR's of less than 60 mL/min/1.73m2. Kidney failure is indicated at less than 15 mL/min/1.73m2. Performed By: #### 2 [id number], [id number], [id number], [id number], [id number] ####[place] [address] [place] [address] Physician Orderon 01-15-2023 Physician Order [id number] #1.00CD:127 Normal [facility] XR hand RT min 3V*on 023 XR hand RT min 3V* [address] [address] XRay Report Signed Patient: Narcisa Benitez MR#: [id number] : 1965 Acct:[id number] Age/Sex: 57 / F ADM Date: 09/16/22 Loc: [facility] [place]: Type: [facility] Attending Dr: Pauly Oden MD Copies to: Pauly Oden MD Ordering Provider: Pauly Oden MD Date of Service: 09/16/22 XR/XR hand RT min 3V*: Mass of right hand 3 views both hand plain film COMPARISON: None HISTORY: Mass of the right third and second digits. 6 months duration. No injury ACUTE FINDINGS: None DEGENERATIVE CHANGE: Sensitive first carpometacarpal degenerative changes seen bilaterally. Mild interphalangeal degenerative changes bilaterally. SOFT TISSUE FINDINGS: No radiodense foreign body. No soft tissue mass. No subcutaneous air. JOINT EFFUSION: None POSTOP CHANGES: None BONY MINERALIZATION: Adequate. No bony lesion. XR/XR hand RT min 3V* IMPRESSION: Degenerative change. Unremarkable soft tissues. Impression dictated by: Chuck Steven M.D.09/16/2022 4:06 PM Dictation Location: [place] [address] Transcribed By: [facility] 09/16/22 1606 Dictated By: Chuck Steven DO 09/16/22 1604 Signed By: 09/16/22 1606 [facility] XR hand RT min 3V* [facility]Visit Other XR hand RT min 3V* [facility] dVisit Other XR hand RT min 3V* [address] [facility] dVisit Other XR hand RT min 3V* [place] [address] [facility]Visit Other XR hand RT min 3V* XRay Report [facility] Other XR hand RT min 3V* Signed [facility] Other XR hand RT min 3V* Patient: Narcisa Benitez MR#: [id number] [facility] Other XR hand RT min 3V* 5802 [facility] Other XR hand RT min 3V* : 1965 Acct:[id number] [facility] Other XR hand RT min 3V* Age/Sex: 57 / F ADM Date: 09/16/22 [facility] Other XR hand RT min 3V* Loc: [facility] [place] Room: Type: [facility] Other XR hand RT min 3V* Attending Dr: Pauly Oden MD [facility] Other XR hand RT min 3V* Copies to: Pauly Oden MD [facility] Other XR hand RT min 3V* Ordering Provider: Pauly Oden MD [facility] Other XR hand RT min 3V* Date of Service: 09/16/22 [facility] Other XR hand RT min 3V* XR/XR hand RT min 3V*: Mass of right hand [facility] Other XR hand RT min 3V* 3 views both hand plain film [facility] Other XR hand RT min 3V* COMPARISON: None [facility] Other XR hand RT min 3V* HISTORY: Mass of the right third and second digits. 6 months duration. No injury [facility] Other XR hand RT min 3V* ACUTE FINDINGS: None [facility] Other XR hand RT min 3V* DEGENERATIVE CHANGE: Sensitive first carpometacarpal degenerative changes seen bilaterally. Mild [facility] Other XR hand RT min 3V* interphalangeal degenerative changes bilaterally. [facility] Other XR hand RT min 3V* SOFT TISSUE FINDINGS: No radiodense foreign body. No soft tissue mass. No subcutaneous air. [facility] Other XR hand RT min 3V* JOINT EFFUSION: None [facility] Other XR hand RT min 3V* POSTOP CHANGES: None [facility] Other XR hand RT min 3V* BONY MINERALIZATION: Adequate. No bony lesion. [facility] Other XR hand RT min 3V* XR/XR hand RT min 3V* [facility] Other XR hand RT min 3V* IMPRESSION: Degenerative change. Unremarkable soft tissues. [facility] Other XR hand RT min 3V* Impression dictated by: Chuck Steven M.D.09/16/2022 4:06 PM [facility] Other XR hand RT min 3V* Dictation Location: [place] [address] [facility] Other XR hand RT min 3V* Transcribed By: [facility] 09/16/22 1606 [facility] Other XR hand RT min 3V* Dictated By: Chuck Steven DO 09/16/22 1604 [facility] Other XR hand RT min 3V* Signed By: [facility] Other XR hand RT min 3V* 09/16/22 1606 [facility] [employer] Other PT - Orderson 09-10-2022 PT - Orders [id number]#1.00CD:127 Normal [facility] Plan of Care - PT/OT/Speecho n 09-09-2022 Plan of Care - PT/OT/Speech 104.170.. [id number] 43#1.00CD:127 Normal [facility] Plan of Care - PT/OT/Speecho n 09-08-2022 Plan of Care - PT/OT/Speech 104.170.. [id number]#1.00CD:127 Normal [facility] Nonvisit Note - PTon 023 Nonvisit Note - PT Cert letter refaxed to provider for signature. Second attempt. Normal [facility] Coding Summary.on 08-17-2022 Coding Summary. CD:[id number] bWw+PGhlYWQ+QE2PWIG hA57wxIYxbN8oZ9DZAP lOSywgQVBQTElOSyIgb dAsXD3gcAMuUAQc IC8+QA7zMTJoZdcggDJ th5C6pPW3E68zlx2jUW afkPP8GSEyPlQdfopwh 6ufgFe9LSboLjglUfTj RYBtnQ03TYK7dR73Jb2 6kMCksYCoc2iwxEl6Er BoVSLwCZZ8jNpcPDxgl 7CcZHFnQ92qmTAom5I3 IGNvbGxhcHNlOyBlbXB 1jM4sRFjykukrh3rwax qjYdg2ca45nLNzo4J3g KA4H4YdpgR8SVYlnSFo PzhnrUEVkZ8xctbzq1g ijerxAdVkFWZnNBy0NH o0CWZpiAxwLnWeRF99G RG6AOQhukZkE8VlJRFv sKtgKyP2z9S1Qa2KQ0W CSjvrF2YLZSHFFRlmsS Q+AC29wb85A7DhXqmiZ tq0GEKyECZ4cCG3hI0e QICdFQzko2I4uGP7Q4C prnKunj7wp0tqTUHgFX epH66kfJYyu3W6XXFhp EL9TGGgkCebWfQguA48 Oyc+BNLhjYvif5UzEfm xg3igi6fblFa5OyzuBQ OwerYmiHjrWIR0e1ZxE s6sBPCqcNV8zKH2vL9l KvJlSbB2GVowA682CgH nhZIwItslX91rB3UihA A+XZJiHrk0PLNtmJyfJ L7uC9KjKOMtlmvwtHTl vEttNT5qFQYcxywtKRL zmU6uDCDkN5g5IfAyMm G3AZzrT2PwGZQjixhyT n04kV6hJsJyClY0FQvj A3EutxY9BOVqkDQsBFj hVMX5F95en8J7ZQZcOR NiBZN8wOA9lC3mmUzdc jogbGVmdDsgdmVydGlj BFjfEMkkX287VUZjhBe nPkNvZGluZyBEYXRlOi AgMDUvMDEvMjAyMzwvd GQ+YNVvCTX7sHsaIRKq hJKqMHmvNh1gyZngmOt uCL7qKFCxohddARDzuI 2sYEGfaPMxbZieZQ1vO WBnwavfa866FgEmIWI9 HOOhxBWkI3XplB9wRnW kLMPxOAWgR4RxnUTaHR nzI989REmtFiX8FAVka wIvS1EkYWJsrIycUbN5 t1N0Gi7Ut5SemookU7O uyXGgDxAsDybnTZx6U8 RkPjwvdHI+LO81IMXoN Z28YJv0ETP3kSmgRBbl ZPVmL1QdeL9pWjSxONI kZGRkOyc+PHRhYmxlIH dpZHRoPScxMDAlJyBzd FskFP1gMz8oAAKhSRVk jUuesSCeBnTxb6zxMYC cWFyoHO2hcSnzA4LxaR A5WJRau7g7Rd40R90jI 3JvdXA+PXRzrYT8bLH3 hE1iWxOeVnQ4KAgeO13 1LjZfyUXeWvjce0ysw8 klnUi5SaG3XEJyazVmu GukMNO0f8FfAp29F86i IHdpZHRoPSIxNSUiIHZ mxMnaoy7jtK3fLf8+PG JyzDW0zOB3zN9iRmBfU fD2AUjkG107BvEcxGJk Bsirr9xxw8twoZr7UtR cFQPdnhNrqIptURN9p2 DsHb94N9JpmHitt1KdW za3ci12fREik7P2zHX2 Y2HfVYTgtwxlnWNlqBv bOH2uQKTqentcXGCphS 4hVUKxN0v9ErTnQgU5B XfgY5LhwhH8VSPsiVZt BNTbeMOZuO3twkzfi6c cvfphRlHqIGWqZLv9TG s1MWJcmIpwXpQlXJO8K sQ4CQB1iQYuiP3jzFwg ogpjvW3dEnf+ICJ0mIS dpKYQFS5lIwmonTC+PH KuVDB4bZigOPvtPDPwl G6wCZGuT7i5YfMvIgD1 YIukV4EcgoA2AIEbsHC bUDBmjMSLaE9rnbbqo9 wtbvuxXtHcVWOuTUt0S Qt1WLDtdXdiToMhWFW0 NdY6TOS8nCDhhP5hhBc zwbvmnR2eWpr+QmlydG hwJMA0UBm4P1DbSdz7P EEabOzdAU8iiINiKQei Or1yqMbqnMwsOZ5uCAQ mhfvam676EeWic7ghAR WhtPJoWZweZIV4E59wk 5H4UFJjWSLgAGH3dSH9 vW5vbChwldricUHdzYi gdmVydGljYWwtYWxpZ2 57XYCrrUazQwTiRIi5O 8MrIol1KXUjfHpuBP3z mUEoQUugHg5gaCesrJe oRQ5jEUJjljvga500Ds Ram7otYCGkcFQcIDxlC YC4Z29rn7J6GKTrSZDh ZBM4xFF8eK2emSfskzr gbGVmdDsgdmVydGljYW nqYPrxT689CEVnaIsiV iGvaSn2Q1NeKuh8COCi cBzpZC0swIBsRXycLe5 zeHqpcRqgPY4pGQAgpk pkp427WzTom2ciMHAhb WGuVDqyPJM4A39fs7G0 HXIrHSWcWKL4tNA2bE1 hbGlnbjogbGVmdDsgdm InkNaoVObfZZrrG315P HRvcDsnPlBhdGllbnQg MMcvIJs1F9RhXtvftYO +GP50ZOKdCQ93qZSgrM Ckj9swaTi1PbIkBPJsE ZR6oUrfBGgcg4YqPUGm J57kbDGbm3Z8OOOxuDt hxQWjAhNjgWK9fL2gVB zdhkwfl9vumpbtXypnu 2abqh29qG12C28hEAjl ZHRoPSIzMCUiIHZhbGl rzm2jfH2qJk7+PGNvbC G5gDD2qI0aEKWsZfV2Z EglR774AiBvkLIjWasz m5hui8anlWe0LjR6HPP tspUuvGmrQKB3q3MrOz 23M76mCQttKAJnTMNoG XMiYIHjvGqlzf7ukL8o Ii8+KKQetHG5pJJ9jG6 iPjAkFyI1DAglM774Ve GadTMtDhpnQ76eP7Gfy XA+TGFdGne7KBAowHdg RB2qjPAfYJljNu2uBCX 9DwNlLuJeTMlwB4RdBF YkxtwmbckueQI7TRLiG YRxvO10Ac7mxRzoUQSe vSIKqW8soqqsk0wabnl nNyIjIZSnTQh1VZo7IV JecFwfGyUmPNK1IxM0D KZ2qOQxdX9qdVvuvrmv zR9zR1KuQYBueptoSs0 2xC7uNfRtRmN6ERqjQc c+BFDNUA0JDoUzNPPDZ zbSJXQ1S7OaAqu2EVSb fDuaNN9roVLdKKneQy4 cuLnuxAzdAF0mNBAxfk ehODTunL7vSQEaxQLeh JbiKK9sCXClcyzxc828 VpUyEYV7DGFowLKlF1L nnK1gSaSzXEZhDAYiY8 DltEObUEphH214DLdkL lZ1GOVhamUnC3ZyKESb pJsaRyP8n7F3Vw0oKy3 kWe5hYJB9PU78UO75bE Oet6B1bVP6U4BkBZJyb vreuxeseDC5HPPeQRYd rE01lQXnEYyjIt1zt6E 4x696YYCfLGFtjM87Eu 0keVekMEZmjBMUtI3pt fbmo4icwkvjMyGtQETl IFm1KGd1RVJhxGazDnT iPSI8ZrS1XOH5lVNofU 8ygQymaptdzP1fPor+N HpsNOZlhhT8O2OoVpe0 EWLgjUdfWH5ooUBgKVb lMv8fgDyslDnfLS5jWQ HconznKKMnjP8bSZUes VDwaSuvPX4iTVNqvxcl o445AxZnWBJ4XXIotIR sO7WfgB3mWzQlPFJpTV WrS6XlgIUqSPiuQ422W ZxrBnK5YCZjwpXvB7Ui CIOhjMafKkW8h0E7Fz1 WAC6kcQG1R7HwGbk6IB QxzHpyMH1wmVOtFFvwL i7vfPyxwKvcSZ7gDZPe ezgiCPWalO4bALKnrPI hbGxaUZ7bTLSndimxu7 61EyYmVFO4RUVnlMBhF 4ZqkE8nHjIzYEMcSCXj D9OhpRDnEGjoA144MOy lVaC5SOLospMdQ4JfIA NhbPliQoU3a5N8Lt2Re OWhDINqLI82QK51EP13 E2FyIbrldBRinHO+PHR hYmxlIHdpZHRoPScxMD NeKgGjgRhnWO1gQa7qN GVyLWNvbGxhcHNlOiBj d7khBDSdFDctUV8lcGk eH6TmkTQ9OIYzg3j0Ol 73C66bO1BywWO+PGNvb HW0eXT8iX2hUfTsMwL5 OGsmV422OcErvCJlIka hu2mfc0whkYs9YqFdGL TnpySkuGneDRJ6d2NmE y42L76zCNeeBLTdFXUu LOUwFGOhaTkenl4kwY9 wIi8+BTBoxEX7yOU0tT 1rNaEmBgO3GAteV859I zUijIUlOubtH28oJ9Se dXA+RZBvRup8UVBpwVj vJB6ttZJvTLijBv1iCY J7EfRcPkOfEXtcS4UeR ETwtblmgmwjmIY1QLUl RFQoqE79Kf6deQjsEc9 eOGCiEDH9LBWaaGRrI2 SjcY8eKiJqWVAjURCxT 0DwsXMdXWcxO132MCxd UkN0TCJgtbJiV6AoEEI cwZjbVtY4i2F7Cq2BkS csaRXmAD6uGpUeZAh1R 3DfHvq4WMAkuUchUF5r wSRuITylBw2dpHcgmFt gJL0aZUBqhyrfn555Ak Oei2wwRPUizOCfKUfrZ YS6L84za4R1IJWgGQLs REF5hFX9cG0eyYrpzrb gbGVmdDsgdmVydGljYW vpXIsiA320IRVwwXlyA mGXCvd2F0HeHvy0VHHh vDckKA4wcUSmGRdkZo4 zrEchpYamJD5rKAMiob meh796XwMwb5cgVHQkn QMnFElaFJX7O76ti6J1 SPDjBOHzBMA6lJI2sT0 hbGlnbjogbGVmdDsgdm AziJvlCQmhOSfoQ352K OCnhVhfIy3BPsc7S0Gx Gij6VECyhAarXP0kbAM oQCddNd6igOekiWlvTQ 8vUJTqdrexv484AcWzd 2oqGBOgdGYzEMmuNBT1 I82bd2T7JPVeTPBtYUU 2bZD0eQ9uuJeqtmpvnU VmdDsgdmVydGljYWwtY UreK765JLRibFbfNiFf eWVyOjwvdGQ+ZP91qg7 1X1LyKvetRrj0LZYiZP B2yJS4nW6mTJJdXYrwv 3Q8pIS1Z6IpnzPwmk9b u7mhYCLy (more content not included)... Normal [facility] Consent for Treatmenton 07-19 Consent for Treatment [id number] Normal [facility] Consent for Treatment [id number] [id number] Normal [facility] MA Mamm Diag w/CAD if perf a nd 3D LTon 08-12-2022 MA Mamm Diag w/CAD if perf and 3D LT Exam Date/Time: 08/12/2022 12:59 EDT Reason for Exam: N64.9 Report IMPRESSION: BIRADS 3 PROBABLY BENIGN, SHORT INTERVAL FOLLOW-UP.6 MONTH RECALL. DIAGNOSTIC LEFT MAMMOGRAM WITH SPOT COMPRESSION MAGNIFICATION VIEWS IN 6 MONTHS IS RECOMMENDED. CLINICAL HISTORY: N64.9. COMPARISON: 08/06/2022. COMMENT: Spot compression magnification CC and ML views and ML tomosynthesis views of the left breast were obtained. There are scattered areas of fibroglandular density. There are several small stable calcifications in the mid lateral left breast and there are some very tiny calcifications in this area. These tiny calcifications are best visualized on the magnification views, but on even the magnification views, they are very tiny and faint. The examination was reviewed with Computer Aided Detection. Breast Density: No Mammography is very important to your health. The current [employer] and National [employer] Cancer Network guidelines recommends annual mammography beginning at age 40. This facility utilizes a reminder system to ensure all patients receive reminder notifications at the appropriate time based on the recommendations of this exam. Board Certified Radiologists. Accredited by the ACR and FDA. Ordering Provider: Irena Alvarado FINAL REPORT Dictated: 08/12/2022 1:16 pm Chapincito Gillespie M.D. Signed (Electronic Signature): 08/12/2022 1:16 pm Signed by: Chapincito Gillespie M.D. Transcribed by: NATALIYA Technologist: ZACK Assessment: BI-RADS Category 3-Probably benign - short interval follow-up Recommendation: Follow-up at short interval [facility] Coding Summary.on 08-11-2022 Coding Summary. CD:[id number] bWw+PGhlYWQ+PD3LXEE iG07pvPJskX4gR2EJFZ lOSywgQVBQTElOSyIgb gHpKX2qqVHtIVVm IC8+MY6eWHFqWjogvMC ym9T2tDI8X45zpa2yFT qcuRE5WELsHqLppdhvk 3jaoWt7MZolTtpsOyPw ITZnpH84UXZ7gF99Lv9 4dPZniGTzf3qfwUf0Xj GfHXEtEFL5dGulNNkpv 4TgQSIwN44srDExj9O7 IGNvbGxhcHNlOyBlbXB 3bR8jCZzianxrf0ceoy qrDmp7kc30mBMzg9B9f GC2Q9YkzvF6DCXtuEHb VprgoPCGhL8uhrozi0d owdeeDkMxGGJsCIi0NM t0JNCuvOmsFmZcBJ70P ID7CSRnzhVkB0NpHMXt cOyfPhK7z0I9Wm9TD6S IHlvxU1QGMIUWRReueC Q+VB70jo69D0LiAmvpZ up1LRLtAUV2wZI6rA9h BQOlKLpuc3I7tJB2B4P kiyEgrd6io6wuPPWlRG uyJ38dgEDdc0K3MZLen QV7MKWxhByhEiUchY05 Oyc+TZVhxJnoz2CdRtk av7wdd8eqyBh3FhpuAQ ByqoRquKqsPRR2n8VlJ t2bKFDclDD8rCV2cU3o KfMxAtY5TBgaG977GtI qoDOfQqmaR40zT2PgtK A+LFNoXxg7QSWxlLqrE Y1yV6WxFJObvloueWGj tDljYF7xEVTddxicZYQ dtF0jXYRiI2p2FdBoJd X4JImhZ7BiTNNxamgyW f43dU6cOoJsIpG9GSwi H8TxaeS6NIMnqWNfNRf sVFK2T30dr6D0QMJuDW VpYQQ2nWM0bC1fqGeov jogbGVmdDsgdmVydGlj KBehSKyuI853UFPtrNa nPkNvZGluZyBEYXRlOi AgMDQvMjUvMjAyMzwvd GQ+DWDoHEC0eBboYEUi oEViEWzxVv9exMbssRr pPP5sCRInegfkTYXgrX 3fBUOhhLZcaPjdIR7yF AGcfoicx370KeMqSNG4 YBSbhFGtG4ZygE6gRlS gCEUnQJGhP1NchBGsPX gsW911DPdeLtN4GHBre bWeS6OdWLLdyKldFrD9 i3Q5Db9Ue1WlpueaF3F bvWAxOsOuWrzcABv3T2 RkPjwvdHI+EN08HWMcV Q42TOq6PKN7iIehLKrx IZMdO3ObkU5mFgAzOWW kZGRkOyc+PHRhYmxlIH dpZHRoPScxMDAlJyBzd YvgXV6tSt9sOCQdGGPb sAyzgVDvTtQeg6xbUFR iTIktZO4xzPhsS2KquK O1DDUbh8s9Yi45R24yG 3JvdXA+AMFtoLT6fPD0 tS9lWoPpVbW6VTasJ33 3RoMzzLRlEqwyi3fss4 inbMl5UvU9HTJwdfVil VauYUJ1v0RuRe69M47r IHdpZHRoPSIxNSUiIHZ llQzngt2lqS8yBr3+PG MvjJU3tQY4gO1aYfVeT eW3FXvkD444OkIkcHGl Ztrod1jmh5xulLl1BhG vYFPinsGhmJiqPOH8a8 AiQk38R4QxhNkrf1SmB kf7uf50xNTlp6F3zOQ1 T1QhMFZygllnwJLsvHy pUI5tPMCcgymiSKQftW 1dXYCsY4s4JwKkZzM0R KqsG6TbfzK4IZWpfJCw BWAwqUNTlI6bidyoe0o axawxGyViWHQqGLc1DS g6GAKbfWbhWmYyAMW7K rY3HVW9cWTlnV8gsCiu ejqldT0jOws+SXF2yKG wnZZFOM2fTqktsKP+PH DzEMA6fNzrPGssUBYly J1gUNGkR9s4KkUzEsN0 FRiaQ1HbrnC5DDUdmXO fYNVriPELjI4wdfzxf7 poljzeTxBgGETdSVq2I Xj8DOSnxLspKpHqIGB7 ChL9PLC0vQSozS4alYs umeukiQ9lPgm+QmlydG utZDG0NGo0L3OiHhe4D HHxsQlhXJ6zdCDcDFoq Zs9roCcaaVclSB0lRCU kpictz404GiEey1bkHF VcmNMaZNudFOT8A03im 9P3ZUGiYQKzGQW7sOF1 kH1vbSqtlzcicSHjjFa gdmVydGljYWwtYWxpZ2 02XDUjyOtpXcFeFKg7L 2XnOrb4UIWjwTzeQS6v oZRhZKlvUc4hrIldrEs wDD8tKOAzwoxjt939Ms Oob3mlVUCxiFVdSXrqQ XT7K73vt9S5WPSrDDVz IWY8vXW3oT4ysNvhtcc gbGVmdDsgdmVydGljYW eeUHelW346TODoaYyaN oVaeYz2C9ToKoj7THSu uBhlLG2xoXWxOAgoSc3 izWreaAiyGB5rEERqdm xjt131BfXus8owKYEtt WRgMDebLAE5C87bs6Y4 LRTeDGPgQAF8vLY8wU6 hbGlnbjogbGVmdDsgdm ImbBzaMMiyERnaG962P HRvcDsnPlBhdGllbnQg XNymVMy6U1TvDewjaBD +NR23WOYeEH39jSCujM Xzr0xlaUw0YiHuLSXnX ZR3yMimGUavg0CqGYHf Y47qmURpa0M7ATBmbWn liEKeUiAemLZ7sS9nDC nhzodhv2sgmarnIrbhl 0kvyn40pG15W98xLZsc ZHRoPSIzMCUiIHZhbGl hmi3kwU9wAo1+PGNvbC Z5rUO8qO6hARDuEyF0U GynP369SaNdtOJpVzpt d3txu0sbbOh7HvL5RMK otnCsyKpzHNK4i5HuYy 69U79yOHqcBAHoNIAvF CZxVDAwhDcacl9jmQ3s Ii8+GXPczMM1yJD4hW4 mPnPqZnI8UYxtM263Wx ManBReTtqvJ48wE2Cmh XA+WXCcSbb2JFPtvEds UM8dyOFrLZlbUr0lKVL 1KlNzPwZrDCgmQ2ChND FxwqfovudmwUF1IMTaF SBhbH28Ae7vgRrdVNUg hRWCjJ3auuyze0twawc fFiGeOVWpFKs2WKv6BP YjvAbwTdTeFTG1XhV1O TP5bWLyeK9kgOudlgke dN6sD6DoKQUyefxfRt9 5aO7hCoHaTtO3SWkfBw c+GCCGNT7TEoGnFZSMN mxEVVK8Z1QzKvg2EUUe qWekKX6kpNGeYAlkDc6 drZhupCtfOM4uLMLqkk jsROLriI0gFPYkjUEsd WceZU1rITLpdurpq164 YaCcVCN6XTNqjXIjA2P vjY6bVkQdOOTmODViW2 QygJGfKNgtV859DMowE cT5FUMrjvDsS2GuATQb jXmnEaD7k2X1Vf7kUx8 zHw0gSKM9CC11ZG95iU Lph3C5rYP8D2WcCNCoo nbdbiuwcRJ0LINjWHEh xZ16lIAoRLijUa7ra8Z 3c633XNNxYBGzvO43Hc 1loZmjCAVcfVBFlV4al plgj2kuwpjeOdJsTSWn QUj3FQg9MVArpQptVcK gBHG4CtD6JEG6yRZnyV 7fpLhdqgbddS2bGvf+N LnvKLVwvvT2C1OmKch0 NSQjaUhhLI7rnKQcBXx tMl2cgKfihYyvAO8zDZ IvkfvnMXWtwA5zYIBvw FUgaYgtXU6rLJSgvajm k984JaTiJRZ1KURrbAZ vW2PgpR3hUbZnMRXvKY AkW8QbqYEmSMfkE982B ZqwZnU4BURwubXyG0Vg TXLhjUonEgN7a8Y3Kt3 WAE6ybXK1K9IxEqn0RO InmAywAE3gbFJpQVkkU c6zlGbscDgtKI7uJIKc qdcvXMKbiR6xUXVqxYH zqNbhQO8cDTLznykqg2 12YsSaQTI6OQJflGQqM 2MkbZ3yYrDcCNNuAVGc I0GueGQsPQbbC169UFw oNnO4GWDimmPrU5UuWC CseUdkEuB2n8M7Vy8Wc KKzUIBrAG80MD58YV42 Q9SzHdqdgSCvnFE+PHR hYmxlIHdpZHRoPScxMD CdKxTnqZcmBI2zGg5zF GVyLWNvbGxhcHNlOiBj z1inNXLgGQmpJQ4xpCq bE1TvfEK9RLQks3n2Ga 83Y66hY3SjoLU+PGNvb DF4tKA3wE4oIjWiHqH3 TDhdS229FaTbySSkVuy mv0qdy5zkgXj3GlHyOT GyenKtfDppLUU5m6VuE k93U94gICuuFCCwGPFt AHDyZFAruEveow5ykA1 wIi8+UUSmpTX9eWD3uB 6hWvOhUiA2LWpuU113F jNksIOwPwjkA24dI0Di dXA+BPPoGyf9ASBoiWq mBQ0lxZOwOInkQr9oEM K4XdNkEeMuMOjmB1ZjH VNampqauyubdXO1ORYd CJNqiJ15Kq6cxTgiPz1 kXOClQGJ9KROyhUAgJ5 XrfT4qSeGqGFHuHKWnF 7CgoNCpKRgpU430AFki DlD4EKDxgvWwA6VhUDC ojWxwZuP3d9R7Wx5VbL jaeNQkXI9vSqQhXYq9E 2YeBqs0TPDqoUplRP7n rUUePYavNt2dlEjqqGe kIS2lYNKbyvlpz787Qf Dhg4oxWEAazTLcFQirF CP5J10tj4U0TUTsVNOw KNO7qJR2zO1zoClqzdf gbGVmdDsgdmVydGljYW prYAolC820LZVrfAvqG vBCHrt6E5UbZce2LXKs nSknQA6iqECkQVvnKl5 shOthiFnzMU4rDUMmew hbx924HyTjg7jyGODxv PXoUQiuTAE2M66tp1L4 BRDuCLToGUI3fZX5gF3 hbGlnbjogbGVmdDsgdm QfpLmgFAesKPvsX118J DOqnGzlNn9KLwu5R0Kh Byd5ZJQjrBswCA1pwVF jDGumOr1lhGfzxYkoWE 8mPBKllzprk543SbPnv 3duDKGlmBLaTZcuHJU5 Q34hb2R0JZXuZKDmVWT 2xFA8cQ6jkHmbvrjcyA VmdDsgdmVydGljYWwtY NwzY745DAIgeLalZzNy eWVyOjwvdGQ+CR88lx0 0T5ViUjacHiq6XNGsUM V9hIM7dV1nUYXrBYftb 4Y8dZB9E9NynrAlxh8y k6kpFTWk (more content not included)... Normal [facility] MA Mamm Screen w/CAD if perf and 3D [place] 08-10-2022 MA Mamm Screen w/CAD if perf and 3D [place] Exam Date/Time: 08/06/2022 08:22 EDT Reason for Exam: Z12.31 Report IMPRESSION: BIRADS 0 - INCOMPLETE, NEED ADDITIONAL IMAGING EVALUATION.RECALL NOW. DIAGNOSTIC LEFT MAMMOGRAM WITH SPOT MAGNIFICATION VIEWS IS RECOMMENDED FOR FURTHER EVALUATION. CLINICAL HISTORY: Z12.31. COMPARISON: 10/26/2020. COMMENT: Routine views and tomosynthesis views of both breasts were obtained. There are scattered areas of fibroglandular density. There are benign-appearing calcifications in the right breast and there is a small intramammary lymph node in the right breast. There are several small stable calcifications in the mid lateral left breast, and in this area, there are a few additional very tiny faint calcific densities, further evaluation is recommended. No dominant breast mass is identified in either breast. The examination was reviewed with Computer Aided Detection. Breast Density: No Mammography is very important to your health. The current [employer] and National [employer] Cancer Network guidelines recommends annual mammography beginning at age 40. This facility utilizes a reminder system to ensure all patients receive reminder notifications at the appropriate time based on the recommendations of this exam. Board Certified Radiologists. Accredited by the ACR and FDA. Ordering Provider: Irena Alvarado FINAL REPORT Dictated: 08/10/2022 1:27 pm Chapincito Gillespie M.D. Signed (Electronic Signature): 08/10/2022 1:27 pm Signed by: Chapincito Gillespie M.D. Transcribed by: NATALIYA Technologist: CHRIS Assessment: BI-RADS Category 0-Incomplete: Need additional imaging evaluation Recommendation: Additional projections Normal [facility] Physician Orderon 08-10-2022 Physician Order [id number] Normal [facility] BD Bone Density DEXAon 08-06 BD Bone Density DEXA Exam Date/Time: 08/06/2022 08:33 EDT Reason for Exam: Z12.31;Menopausal Report IMPRESSION: The bone density measurements listed for the femoral necks indicate NORMAL bone mass and places the patient at no significant risk for fracture. Recommend follow-up exam in 2 years, sooner as clinically necessary. The bone density measurements for the lumbar spine indicate OSTEOPENIA and places the patient at a mild to moderate increased risk for fracture. There may be a future risk of developing osteoporosis. Recommend follow-up exam in one year, sooner if clinically necessary. CLINICAL HISTORY: Menopausal, Z12.31 bone density evaluation COMPARISON: as noted FINDINGS: Bone density measurements for the Left femoral neck are BMD 0.995g/cm2 Tscore -0.3 Age-matched Z score 0.2, Normal This corresponds to a 3.5% decrease from baseline obtained at 53 years of age. Bone density measurements for the Right femoral neck are BMD 0.946g/cm2 Tscore -0.7 Age-matched Z score -0.2, Normal This corresponds to a 1.1% decrease from baseline obtained at 53 years of age. Bone density measurements for the Lumbar spine are BMD 0.997g/cm2 Tscore -1.5 Age-matched Z score -1.5, Osteopenia This corresponds to a 4.2% decrease from baseline obtained at 53 years of age. FRAX SCORE 10 year probability of fracture: Major osteoporotic, 5.8% Hip fracture, 0.2% Note World Health Organization definition of osteoporosis and osteopenia for women: Normal = T score at or above -1.0 SD Osteopenia = T score between -1.0 and -2.5 SD Osteoporosis = T score at or below -2.5 SD Report Ordering Provider: Yasmine Torres FINAL REPORT Dictated: 08/06/2022 10:31 am Joseph Ken MD, V. Signed (Electronic Signature): 08/06/2022 10:31 am Signed by: Joseph Ken MD, V. Transcribed by: NATALIYA Technologist: ILANA [facility] Consent for Treatmenton 07-19 Consent for Treatment [id number] [id number] [facility] Coding Summary.on 07-31-2022 Coding Summary. CD:[id number] bWw+PGhlYWQ+GG1IXTL nD62zaIYksF0wI7XNDH lOSywgQVBQTElOSyIgb aKwIO3kcXZfMFUt IC8+TD3sAFZsZfyokDP gs6H8gIQ7D59ozy4cRW fokFU2FKSsHrQboijoa 7qvfMn1RFpuEhdlPjQo YGDenN22NHK5vB50Gq8 7oGHjoCNtk6lnxVj5Od GfCXPiHFK3pTpaTYzfv 7PfVYBlI95ziLWmp5D2 IGNvbGxhcHNlOyBlbXB 3pF9mFIudstkzp3vjli ywTwt6nh15gYFmu4Z3q KU1E6HxohD2APZylUXa MkqdgDNFdB9anpcri6u aefnrSePpUTNjTMg3AK g9PDEziVckUpFlYS15Q SV6SMXowwXgN7JzCBAd zOxcYhF9a3E2Lx6VK6X HBmfaV0IHLMZUWEbpzI Q+KM61dy37U1ZeVxejY be2BQRvDIY6uKV5jP3k VTJjGDrkd6V5pCK7E9U dllBbew1qw0txXWIbEJ urT21nsRSlq8B0EHXie TC2KYTugUgzZlLobV09 Oyc+SKIdvVrqi1RfVvd al5pgy3jvhLw2ZgnqPK HaezLbtQwxELW8u3WfO g5sMUSgpNU4cIK0vU2k LfMvImQ2KHctO027GtD ipBOgXlksE58jN3UjtA A+JMYjGcd9JUWjvCvpZ M4hU5DuSAQtwxjokFJq oJlwRH8xKHTmxibsVGP zaX5vNYYgO7j3RuQnPy J5GVwsJ6XeNPPikuysS x23bZ6oKvEsIxW4GYio O3TqplS0UIFkpOZtWLc qKPG9G15kn8O9RPWxKF CaWSX8hJX3yZ5mpVziq jogbGVmdDsgdmVydGlj OAcbATcyI395LEOgoBz nPkNvZGluZyBEYXRlOi AgMDQvMTQvMjAyMzwvd GQ+DECpANH9gMvjZPZm wEWkLImdTs4ltHkqeSp xTR8xDLPuhilhDLFivN 3vVCPklXOtyUxqAP0bC NXrqgumf992OdRrVSL2 EKZzpPCmH6LkyZ5jFdD mANBxWPIvW2IhsOHiSH flC257YTqhInG8MQTtc pXqR8XbPKJkbKobIrR7 o1Y6Rh8Uy7SzcfzbQ0W zaXFvTzGaAgauIZx3I5 RkPjwvdHI+MP15TFJoQ A63WYd4REY3vCzmMFgj HFTnK6FarF8uYmSpIQC kZGRkOyc+PHRhYmxlIH dpZHRoPScxMDAlJyBzd AgtRY3cBg1gTZHwCWPc lTqrzJFkVsKmr1reQSU eIOjgRH1rmBwwE1GufZ U7KCBqk7g9Gx42A82aG 3JvdXA+CXLegNM1zZU9 hG4cLwSyYgA3XAauP20 6AxBtcRQzVnqjv2xfw3 fsdWx4RvC5EKEhrlNec WrhPKM9j2BvKz01U17f IHdpZHRoPSIxNSUiIHZ vsQrzyu2erS6tOn3+PG DikHF6aFZ7vZ9iJpMtH wZ6AUnwO639AdSzmQSl Nicxh7nkb3kghTq5MmX oQHDuoaGzdQbbSPF3x0 HfVs75D4CgzQwps5WtB sy0fe44nKCtw5L9jAE4 Y4SyGADdlfmgyADcmAb aAM8hWKLqnksoKTEwfY 5cBRLwC0n0RhQkCsG1L UriA8UgenA4FUJhhSFs IMOhwQGTnU7qbrfyw4k kgyqoPvFvRQYdHAp5MK c8HYNriVgjYuHrELX6I hX7GGM1zXCjvV2sjErr dgzkqO4nAzr+VKL3rUH roLGIKW8oHwdjkMU+PH ThXFS1sIrwMTcmWVRdx K4cIHMoA2p6GeVmZfE7 DZpgZ7MnhuC0ZDFtyHK lGHTobRGUsZ4thizwp6 vlkyxxGnLsWSAxBAw3E Kj0URZtaTzfSoWbSJZ5 AnC2HOA7eABphX0glNp qclxypV4oFzc+QmlydG zyVML0XZh8C0AnFpe6A PWdmCtjNP9orDEuFTck We7vxTfitAakEN5zFXH znfptt585DfNrz2vbSI FduMBmSEqpRPV3I09vm 0C6NUHwUOGdMVC1pHP7 oM8ueMcvmkvwdSBmjKo gdmVydGljYWwtYWxpZ2 26JQJmsGgrTwNeHAn3P 5VuUia8WPIjfXemBL9n fPMoETadKy3ihJnsiFq pBR8iBCLxysfsj638Yk Euo2siMOAhfFTyOYmrE MM9K56bt6X0TIWtBVXm TMS7uAL6hC1fdZxsfds gbGVmdDsgdmVydGljYW pySQmsX263ILTxbQzaA rHewXe3P9YdQyp1DSPt jMnfLH4rcNTtIWgtPq8 nvNvkiVkoYB2cVGUwbv mnq904LiQbs1mfNFBcd OFlNKasUPG3A45mo4N3 YABwNMZjKZF4lPK5qX2 hbGlnbjogbGVmdDsgdm KcbDakNBikQJzaL850M HRvcDsnPlBhdGllbnQg SBrkGVn1T0BpIjtxeLK +HX46JNAgBS78zQVzxH Oxa6nuxWf1OcIlMWQbX IR6aZkjXHqrh5EeWSEy K87lsMByk9C9FEWxkZh jcBXoPzOcuSC3xU7bQG keyneme9zxonklBryhs 2jyev71pY69C11nKKrw ZHRoPSIzMCUiIHZhbGl ttj1umC4cPz6+PGNvbC M2dYE7fD6fWZFoZdT9U CzyM135VjMsfKUvYpso v7sbu0ujbDl3GlQ5MKE njyJbcNqtKJW9n3RlAe 97R34fNZxmRSQqABCjQ HEmTTMsbMknbt8ldY1m Ii8+VYAqvFD6xXN8tQ0 wYuSlFeY1QEkrM958Vz JwrANhUfobX37xQ2Ejg XA+BSSoBel6UUIkjPqa HB2nsLJsTCvmYc5gZKG 2HwJlChTnRHjhT8SlZL KhpquyjgdocIQ7OMOzR ADitY53Lv4wmCbyHYJd cOVOcD7qodmdt3wtuti jJlIwVIPfFJo3PTe8DE ZogOpnBeChJKE8NkA4Q QN2gRKjqK9vzAviwgcl qJ2nW6ZaOFUxylqlSr4 9mO9kPsQhEhI8ANbtHm c+JLLMVQ1VTpXcGREUI ryMNFT1Q2CaWmh8TPSp eIgsGI6yaCAhUGegOc0 auQsmjNtgBI5mTOTjpu qmAVTbuG4aOOSatUEwq TjzUE5sJYMqontos806 RvCtQUM8PUBdoHKhH3O xdX1yZaJbZVNgOSBpQ4 TwxGHaQNkmQ366JDboZ sR4UDNurhOnI5GeNSQp qBfaYzW9s5Q8Ol8aXi1 sWb0jPOD4XK20MR14wR Yso5F1bIV1F6AtCSZrg fgosawacFL4LSNgGWDi fZ96vUHuFWxeTn0fd5L 9x374ZLLpYLWqlW46Gb 1bxMhsBAZomLZQwZ5uw ssxz8zpbhneVfZyOYJh ELk8KPa1YFIujWguUkH xRRG0MhU7EGL5vEPnoN 6ivXheeplhrE7mHbw+N EtlHKWpslV9J9HrGoz3 KBUjiGueDZ0lyBApMGt nLr5kfEaytWtrOG9xVC XomskfFSPbzA6aEEAut JNwyQmkSY6oAQGwshgv h597PpCmYKH2NCPnoNU zI5VkmQ5hZkOnQPXkWC OeH1ImdPXoSWfoU293H TizDnU8HVAkubZcZ0Jd KIObjMgwOjS8a6G9Sg5 OAF5riYN5V7OlAnx5CK PlhNidCN4byANcLZqoY s6daBbygIvfCT5xJJXb yhdlRBBzfR6lLWNnrVX lbQyuKT7zGFNsdmsxw0 74TlRgIJV4ZFHdjUCxX 1WosQ1vHbIgUXTsRJMv U1WotAHvBMfxP121GEx mQoB1CKSfjuIxM5KnNK WxxMsoWiT9b4V5Un8Ke DNvKFInBI95RH09DV94 V1JoJscthNTinBB+PHR hYmxlIHdpZHRoPScxMD UeIjPltOosIA7fPs3nL GVyLWNvbGxhcHNlOiBj d7tuULChMGrcJB5xuAw pW0PfcDW5OGMpg0b2Lg 69M44gE1KrpNZ+PGNvb BJ0wWH9cK4mZyKzHqR2 JBcfS945XxGoyBSjPqv md9hhm8tdvJt4LlMcQP IrmmDfoQzgFQV5h1AfX k91C42uIYgnSFFbZQGu NQVtOAUjaTorev8qtX9 wIi8+UDVrlKO5zBY3nO 5mVuQkTpR8FQwjD727M sSewFIjBzdnG66vN3Dk dXA+QRXwDdy6QTNgvRx vRW7uaDXrHFblZv4aOZ W8JpKnUiMmEDshS2MdL WUexrogmpbrzVT2WVBy EHXoxZ88Pt4lvJdyAy7 mULWdBBK3GPIxoTAvG1 WpcR1fLvZsKYSdAWDfZ 9KzsPTbNYdfZ011KDbg AvY8IEItfoYjX2JmDUY qwYdiTvZ5i8N2Sy4SrH cdsJEkOR7qCmGlLMi7B 7RxRtx1YZJriPmgGN7p nDNeAHpdCg4anBaieMn oTD1jKAUwwwmdc263Xt Kfv9wcXNCyvTVdZYlsE JN5I22ql9L2YTXcMPXt FGI5xQD4nZ3xeZyqbax gbGVmdDsgdmVydGljYW gvDIecL008TKLjoKpuM tFRGob0P6ThIsj7FUZv xQqqLL4juUMrYRhdKb3 tuFceyOucDX7aPPMabn ybw650BjGak1mkPSMir KVlJTfsAAC6J46fu0B3 HDDaCRCbYIH0pZG2uZ7 hbGlnbjogbGVmdDsgdm ZooUjtETedXXzlV639T BTgfJujLd6PPvo7R7It Wbj9DKQcsQcpNG0noLK oYAwgOf7fvHgqaCgtBO 1hFYDhixnth128BgUew 0xwAFBeeNFgURkzFGH6 C74gh1V9AWSeDXEjHTH 9pTR8lM0fbXjrzrueuN VmdDsgdmVydGljYWwtY LgzP302UDOftIvaEsXl eWVyOjwvdGQ+BD96bk1 3U0IzDmqlKwv9YNOlCQ X6rXK9mU9kVFFfRNifl 8L2gIJ2P2JoxnWdie2d y9hqOMSf (more content not included)... Normal [facility] T3 Freeon 07-26-2022 Free T3 [Mass/Vol] 3.2 pg/mL Invalid Interpretation Code 2.0-4.4 [facility] Comment on above: Result Comment: Perf ormed at: [facility] [id number] [place], [place] [id number] PhD Glea Jáurez Performed By: #### 2 [id number], 6136395, 91874897, 8707495, 1267335, 16064498, 7684414, 32288579, 21120577, [id number], 3599763 ####[address] [place] [address] Thyroid Perox.tpo Abon 07-26 TPO Ab Qn 13 International_Unit/ mL Invalid Interpretation Code 0-34 [facility] Comment on above: Result Comment: Perf ormed at: [facility] [address] [id number] PhD Gela Juárez Performed By: #### 2 841982, 8342883, 18103458, 2250715, 2947273, 72190818, 7242671, 18366004, 06153278, [id number], 8937358 ####[facility] [address] [place] [address] Thyroid-stimulating Immunogl obulin (TSI)on 07-26-2022 Thyroid stimulating immunoglobulins Qn (S) <0.10 Invalid Interpretation Code 0.00-0.55 [facility] Comment on above: Result Comment: Perf ormed at: [facility] [address] [id number] MD Timothy Mai Performed By: #### 2 231719, 4925742, 56288651, 4007093, 8429077, 62563102, 3920726, 81451040, 14231547, [id number], 3915471 ####[facility] [address] [place] [address] US Thyroidon 07-26-2022 US Thyroid Exam Date/Time: 07/24/2022 09:57 EDT Reason for Exam: E04.1;Lump Report IMPRESSION: THYROID NODULES DETAILED. CLINICAL HISTORY: Lump, E04.1. Thyroid nodules. COMPARISONS: None available. FINDINGS: The right lobe measures 3.9 cm x 1.2 cm x 1.2 cm with a volume of 2.8 cm3. The left lobe measures 3.7 cm x 1.0 cm x 1.3 cm with a volume of 2.3 cm3. The isthmus measures 0.2 cm. The thyroid gland is normal in size. Normal thyroid vascularity. Right Lobe: TIRADS level 4 nodule measures 8 x 5 x 5 mm. ACR recommendations: Moderately Suspicious: FNA if \X2265\ 1.5 cm; Follow if \X2265\ 1 cm at 1, 2, 3, and 5 years. Left Lobe: TIRADS level 4 nodule measures 6 x 4 x 4 mm. ACR recommendations: Moderately Suspicious: FNA if \X2265\ 1.5 cm; Follow if \X2265\ 1 cm at 1, 2, 3, and 5 years. Ordering Provider: Yasmine Torres FINAL REPORT Dictated: 07/26/2022 3:02 pm Sebastian Mendoza DO Signed (Electronic Signature): 07/26/2022 3:02 pm Signed by: Sebastian Mendoza DO Transcribed by: NATALIYA Technologist: EDU Normal [facility] Auto Diffon 07-24-2022 Basophils/100 WBC (Bld) 1.1 % Normal 0.0-2.0 [facility] Comment on above: Order Comment: Order Added by Discern Expert. Performed By: #### 2 937241, 3200312, 52845666, 1994800, 7756628, 97529666, 8266828, 81192662, 35860959, [id number], 1053095 #### [facility] [address] [place] [address] Basophils/Leukocytes Auto (Bld) [Pure # fraction] 0.1 E9/L Normal 0.0-0.2 [facility] Comment on above: Order Comment: Order Added by Discern Expert. Performed By: #### 2 214455, 4211624, 88416295, 6112700, 2009945, 64518595, 3040424, 33379339, 32373236, [id number], 8194489 #### [facility] [address] [place] [address] Eosinophils/100 WBC (Bld) 3.5 % Normal 0.0-8.0 [facility] Comment on above: Order Comment: Order Added by Discern Expert. Performed By: #### 2 713356, 4413494, 42105149, 2403029, 4596714, 01918376, 5838506, 16923105, 52482375, [id number], 1375333 #### [facility] [address] [place] [address] Eosinophils/Leukocyt es Auto (Bld) [Pure # fraction] 0.2 E9/L Normal 0.0-0.5 [facility] Comment on above: Order Comment: Order Added by Discern Expert. Performed By: #### 2 500718, 8640120, 25778941, 2756475, 1982193, 88090917, 6123163, 00759839, 30555928, 9934988211, 5192917 #### [facility] [address] [place] [address] Lymphocytes/100 WBC (Bld) 31.0 % Normal 14.0-50.0 [facility] Comment on above: Order Comment: Order Added by Discern Expert. Performed By: #### 2 861631, 0737554, 96874782, 9715833, 4334090, 82906828, 3766369, 22663647, 12414772, [id number], 2132842 #### [facility] [address] [place] [address] Lymphocytes/Leukocyt es Auto (Bld) [Pure # fraction] 1.6 E9/L Normal 1.0-4.0 [facility] Comment on above: Order Comment: Order Added by Discern Expert. Performed By: #### 2 993763, 5453362, 91101590, 0300701, 1784969, 27603429, 4434968, 49968246, 16841407, [id number], 8468607 #### [facility] [address] [place] [address] Monocytes/100 WBC (Bld) 10.6 % Normal 4.0-14.0 [facility] Comment on above: Order Comment: Order Added by Discern Expert. Performed By: #### 2 416744, 7888894, 08797635, 5505515, 5583491, 64755875, 6425790, 08258959, 62526044, 5262926658, 5271524 #### [facility] [address] [place] [address] Monocytes/Leukocytes Auto (Bld) [Pure # fraction] 0.6 E9/L Normal 0.2-1.0 [facility] Comment on above: Order Comment: Order Added by Discern Expert. Performed By: #### 2 103179, 0654710, 73312004, 0943895, 0311816, 58784996, 4676722, 69627503, 53918671, 4322110067, 3669491 #### [facility] [address] [place] [address] Neutrophils/100 WBC (Bld) 53.8 % Normal 36.0-75.0 [facility] Comment on above: Order Comment: Order Added by Discern Expert. Performed By: #### 2 877222, 7652955, 94416818, 7767106, 7843019, 43195861, 7926606, 16534694, 98224606, 5495608236, 6813606 #### [facility] [address] [place] [address] Neutrophils/Leukocyt es Auto (Bld) [Pure # fraction] 2.8 E9/L Normal 2.0-7.5 [facility] Comment on above: Order Comment: Order Added by Discern Expert. Performed By: #### 2 316019, 4611256, 89278672, 9806654, 7355761, 64881072, 2210702, 74971481, 43245806, 4950304215, 3994054 #### [facility] [address] [place] [address] CBC w/ Auto Diffon 3 Erythrocyte distribution width (RBC) [Ratio] 13.1 % Normal 10.9-14.2 [facility] Comment on above: Performed By: #### 2 463553, 5872917, 73739226, 1742157, 8843495, 04287014, 6517474, 58163201, 18594043, 9221530541, 3625019 #### [facility] [address] [place] [address] Hematocrit (Bld) [Volume fraction] 43.5 % Normal 34.0-46.0 [facility] Comment on above: Performed By: #### 2 824334, 6356265, 00227067, 3005942, 6088137, 55769641, 8772780, 79173172, 80255468, 7899591360, 4431076 #### [facility] [address] [place] [address] Hemoglobin (Bld) [Mass/Vol] 14.6 g/dL Normal 12.0-16.0 [facility] Comment on above: Performed By: #### 2 154786, 3261380, 40371815, 0858902, 9750601, 97001165, 8525883, 27142647, 90458290, 4153056716, 0644849 #### [facility] [address] [place] [address] MCH (RBC) [Entitic mass] 29.5 pg Normal 27.0-34.0 [facility] Comment on above: Performed By: #### 2 960100, 1682368, 22260794, 1108570, 5570154, 82900215, 3690397, 00440070, 72001848, 4347985554, 0757067 #### [facility] [address] [place] [address] MCHC (RBC) [Mass/Vol] 33.6 g/dL Normal 31.4-36.0 [facility] Comment on above: Performed By: #### 2 661503, 5151254, 02193517, 1745738, 7400840, 65269377, 8935917, 42135860, 54433282, 6921428554, 2759589 #### [facility] [address] [place] [address] MCV (RBC) [Entitic vol] 87.8 fL Normal 80.0-100.0 [facility] Comment on above: Performed By: #### 2 964499, 3340571, 74380039, 4547973, 2961786, 89174652, 0427513, 34821331, 99031099, 4803678433, 4844465 #### [facility] [address] [place] [address] Platelet mean volume (Bld) [Entitic vol] 8.1 fL Normal 6.4-10.8 [facility] Comment on above: Performed By: #### 2 390429, 6995412, 16059025, 7085917, 1449410, 70404640, 3186601, 81347523, 49502901, 2734067499, 1518679 #### [facility] [address] [place] [address] Platelets (Bld) [#/Vol] 314.0 E9/L Normal 150.0-500.0 [facility] Comment on above: Performed By: #### 2 211160, 2949543, 51695280, 7746615, 9578908, 86076853, 9088207, 71258130, 91371493, 7774421874, 1536034 #### [facility] [address] [place] [id number] RBC (Bld) [#/Vol] 5.0 E12/L Normal 4.3-5.9 [facility] Comment on above: Performed By: #### 2 928571, 2643197, 94182899, 1021471, 0928784, 80880379, 8943311, 41011497, 89283472, 7751376303, 5322886 #### [facility] [address] [place] [address] WBC corrected for nucl RBC Auto (Bld) [#/Vol] 5.2 E9/L Normal 4.0-11.0 [facility] Comment on above: Performed By: #### 2 925429, 5986213, 51963982, 6935998, 1915672, 95726740, 5467317, 73685663, 58374178, 6068007673, 1573255 #### [facility] [address] [place] [address] CHEMISTRYOrdered By: SYSTEM SYSTEM on 07-24-2022 Albumin [Mass/Vol] 4.3 g/dL Normal 3.3 - 5.0 gm/dL [facility] Albumin/Globulin [Mass ratio] 1.4 {ratio} Normal 1.1 - 2.2 [facility] ALP [Catalytic activity/Vol] 70 [iU]/d Normal 21 - 98 Int._Unit/L [facility] ALT No additional P-5'-P [Catalytic activity/Vol] 29 [iU]/d Normal 6 - 46 Int._Unit/L [facility] Anion gap [Moles/Vol] 14 mmol/L Normal 6 - 16 mEq/L [facility] AST [Catalytic activity/Vol] 27 [iU]/d Normal 5 - 43 Int._Unit/L [facility] Bilirubin [Mass/Vol] 0.7 mg/dL Normal 0.0 - 1.1 mg/dL [facility] Calcium [Mass/Vol] 9.3 mg/dL Normal 8.9 - 11.1 mg/dL [facility] Chloride [Moles/Vol] 102 mmol/L Normal 101 - 111 mmol/ L [facility] Cholesterol [Mass/Vol] 232 mg/dL High 120 - 200 mg/dL [facility] Cholesterol in HDL [Mass/Vol] 66 mg/dL Invalid Interpretation Code [facility] Cholesterol in LDL [Mass/Vol] 151 mg/dL High <=129mg/dL [facility] Cholesterol in VLDL [Mass/Vol] 27 mg/dL Normal 7 - 40 mg/dL [facility] CO2 [Moles/Vol] 26 mmol/L Normal 21 - 31 mmol/L [facility] Creatinine [Mass/Vol] 0.7 mg/dL Normal 0.5 - 1.3 mg/dL [facility] Free T4 [Mass/Vol] 0.68 ng/dL Normal 0.58 - 1. 64 ng/dL [facility] GFR/1.73 sq M.predicted among blacks MDRD (S/P/Bld) [Vol rate/Area] mL/min/1.73 m2 Normal >=59mL/min/1.73 m2 [facility] Chem S GFR/1.73 sq M.predicted among non-blacks MDRD (S/P/Bld) [Vol rate/Area] mL/min/1.73 m2 Normal >=59mL/min/1.73 m2 [facility] Chem S Globulin (S) [Mass/Vol] 3.1 g/dL Normal 1.4 - 4.0 gm/dL [facility] Glucose [Mass/Vol] 109 mg/dL Normal 55 - 199 mg/dL [facility] Potassium [Moles/Vol] 3.8 mmol/L Normal 3.5 - 5.3 mmol/L [facility] Protein [Mass/Vol] 7.4 g/dL Normal 6.0 - 7.8 gm/dL [facility]isol Sodium [Moles/Vol] 138 mmol/L Normal 135 - 145 mmol/L [facility] T4 [Mass/Vol] 6.4 ug/dL Normal 4.6 - 9.1 mcg/dL [facility] Triglyceride [Mass/Vol] 134 mg/dL Normal <=149mg/dL [facility] TSH Qn 2.02 m[IU]/L Normal 0.34 - 5.60 mcIU/mL [facility] Urea nitrogen [Mass/Vol] 19 mg/dL Normal 5 - 21 mg/dL [facility] Urea nitrogen/Creatinine [Mass ratio] 27 mg/mg High 10 - 20 [facility] CMPon 07-24-2022 Albumin [Mass/Vol] 4.3 g/dL Normal 3.3-5.0 [facility] Comment on above: Performed By: #### 2 616827, 2080585, 25723137, 2334037, 9692360, 38111738, 9964897, 11231939, 80572788, 2684945639, 8643516 #### [facility] [address] [place] [address] Albumin/Globulin (S) [Mass conc ratio] 1.4 Normal 1.1-2.2 [facility] Comment on above: Performed By: #### 2 169468, 3770400, 01180444, 1716492, 9782696, 90431152, 2395185, 31745515, 92935725, 9848730815, 8403873 #### [facility] [address] [place] [address] ALP [Catalytic activity/Vol] 70 Int._Unit/L Normal 21-98 [facility] Comment on above: Performed By: #### 2 316933, 9544859, 42257317, 0845133, 9629998, 18977951, 5124929, 38546859, 32094807, 3402512110, 7628693 #### [facility] [address] [place] [address] ALT No additional P-5'-P [Catalytic activity/Vol] 29 Int._Unit/L Normal 6-46 [facility] Comment on above: Performed By: #### 2 981976, 4000830, 09577573, 4532839, 0378211, 94329324, 0579127, 70702918, 64264006, 8584866283, 6129875 #### [facility] [address] [place] [address] Anion gap [Moles/Vol] 14 mmol/L Normal 6-16 [facility] Comment on above: Performed By: #### 2 261227, 9613120, 51261727, 0969756, 3486486, 86234075, 6095202, 79103016, 30679508, 1474780454, 6673431 #### [facility] [address] [place] [address] AST [Catalytic activity/Vol] 27 Int._Unit/L Normal 5-43 [facility] Comment on above: Performed By: #### 2 578410, 4650176, 80173355, 7081838, 2135327, 11846009, 8761255, 67184721, 01701368, 5191029992, 8388650 #### [facility] [address] [place] [address] Bilirubin [Mass/Vol] 0.7 mg/dL Normal 0.0-1.1 [facility] Comment on above: Performed By: #### 2 761976, 3635844, 73046087, 6637586, 2001797, 77600054, 5142769, 97226285, 46114092, 5256225463, 1319924 #### [facility] [address] [place] [address] Calcium [Mass/Vol] 9.3 mg/dL Normal 8.9-11.1 [facility] Comment on above: Performed By: #### 2 430699, 0155869, 80873607, 7133282, 4170210, 90345862, 4648461, 31941636, 96855351, 0489492533, 6858372 #### [facility] [address] [place] [address] Chloride [Moles/Vol] 102 mmol/L Normal 101-111 [facility] Comment on above: Performed By: #### 2 437090, 2804479, 02559967, 4854743, 7951140, 38290674, 3307462, 17775169, 17905645, 2181148903, 4732121 #### [facility] [address] [place] [address] CO2 [Moles/Vol] 26 mmol/L Normal 21-31 [facility] Comment on above: Performed By: #### 2 403975, 0707157, 91831003, 0747550, 4485739, 57709815, 2744267, 84430288, 89842745, 5066149499, 8375495 #### [facility] [address] [place] [address] Creatinine [Mass/Vol] 0.7 mg/dL Normal 0.5-1.3 [facility] Comment on above: Performed By: #### 2 103074, 1219555, 58300041, 8168989, 3911785, 24004365, 6558433, 02684809, 44162801, 5299783884, 1946797 #### [facility] [address] [place] [address] Globulin (S) [Mass/Vol] 3.1 g/dL Normal 1.4-4.0 [facility] Comment on above: Performed By: #### 2 985068, 4284520, 64746417, 7352195, 4308587, 41496282, 5395174, 73745089, 77628173, 2802874517, 0527017 #### [facility] [address] [place] [address] Glucose [Mass/Vol] 109 mg/dL Normal 55-199 [facility] Comment on above: Result Comment: If t his glucose result represents a fasting glucose, interpretation should refer to the following reference range: 55-99 mg/dL Performed By: #### 2 859150, 5587865, 67835699, 8925350, 1707489, 13293133, 2672584, 23504085, 11600473, 9079357066, 9609227 #### [facility] [address] [place] [address] Potassium [Moles/Vol] 3.8 mmol/L Normal 3.5-5.3 [facility] Comment on above: Performed By: #### 2 388778, 8234408, 60387199, 8070096, 0727380, 58258903, 9570525, 08639957, 14292015, 8374354134, 8579163 #### [facility] [address] [place] [address] Protein [Mass/Vol] 7.4 g/dL Normal 6.0-7.8 [facility] Comment on above: Performed By: #### 2 943190, 2159301, 91302312, 2141450, 3789809, 80845575, 1420248, 27867719, 82234778, 3907000881, 8267401 #### [facility] [address] [place] [address] Sodium [Moles/Vol] 138 mmol/L Normal 135-145 [facility] Comment on above: Performed By: #### 2 854584, 9003759, 64119424, 5054687, 7798450, 39046699, 5337668, 23609999, 88942091, 0345726514, 4257807 #### [facility] [address] [place] [address] Urea nitrogen [Mass/Vol] 19 mg/dL Normal 5-21 [facility] Comment on above: Performed By: #### 2 958160, 1094234, 26065619, 8581191, 6521877, 67034407, 5424497, 21524281, 05564078, 9101296445, 1231996 #### [facility] [address] [place] [address] Urea nitrogen/Creatinine [Mass ratio] 27 No Units High 10-20 [facility] Comment on above: Performed By: #### 2 157334, 5640211, 38457923, 3757618, 0357222, 15713289, 2850263, 86124355, 08356423, 4357556118, 6686174 #### [facility] [address] [place] [address] Coding Summary.on 07-24-2022 Coding Summary. CD:[id number] bWw+PGhlYWQ+WU3CMPW vB71nqQPnfC8pV6LZMJ lOSywgQVBQTElOSyIgb aEwHT6lwXCsWINq IC8+WG3jHRJeDhhgbCW qz4Z6vXZ3P86sak2cJX ovaPW7KAKkDoFupxizq 9pkkNm5JRmlNjsaQjTc MIBlfW23IYC8gO33Tv4 8qZBqrJWuu4eavTj3Aj UvZZWbWQE7qTeoUQsdy 1ZbFLIoE17edIAfd8I8 IGNvbGxhcHNlOyBlbXB 1sX3hONarudkxm7kjly mbOtt4sr04qIIkf3Y4a XZ1Q8IoekC6RCHldNTg NncnpXCKwG1fjwjxx5r obozxCrLmWDGyDSe3QF o6OZNzvPusUqPjYQ60R DL2LEYychKyA6LwDWQv hXkeBqD0o7B2Rm9XN9T XVrxnR3OEEUEMUWjzbY Q+QJ57tm40B4DkQjgzE ba2SUCwXUM7jKO6vE1b AMXtGPzea0A2nRW9U4Q wooXvam7mj3yuRTErMS ztG07kbUAaf9X7HLSce HN6SYCsqQwuImBngD02 Oyc+YBEkcDqeg6IiLlb hx3qss6mfiMs9DqytMB PfwkFpdRuyKQJ6v9KzU k3xJAOyaTE0wRD2zI6o AeUjRdG3KXuvM097PdA mrNVdVutzE09lG6IbmB A+VHNsDjg9XQVxeRtlP R7oY0AyJYNfqhztpZSc pPoyCF5iPQHheqovNHZ ktW8mECUfF1g7TqOrMk U9EZcjH4QfZGGkwykyT t05lP7sUbCwXbY5INkf H7DnwuJ1OREoeGZiSEu aSJM2X36hm3A6RBPtOH MrJYK9wHO1hC6zvKtif jogbGVmdDsgdmVydGlj IFbeFHpsP460DETksNt nPkNvZGluZyBEYXRlOi AgMDQvMDcvMjAyMzwvd GQ+FROlUPC7tPlsVRXu cHNsSJbrQn8caXmqtBx sVE4iGWDregbuCNKfcN 6pVOFwdUXceXzxHN9rP RVtfyiut564TcNfXMM3 PLMqhMQtF1GelE2nGfM qXVVkXWClX1WwcDDuKI cwK557AEheOkM1LXUkr pMcK1FlWZRypIgjGlE5 j6X5Xa4Wf2KtdmtcM6U pvJYxHzYcFbcjAVi6L7 RkPjwvdHI+DV03QGMeR I14FXh4POE3aPrdYRuf LOFvX1GubP1kElRnDVX kZGRkOyc+PHRhYmxlIH dpZHRoPScxMDAlJyBzd WgiNE8dZk4iVIWlEUYb hUiriUQhQaJev9axSLF zTTlyGL5kxMxmC8MmdM S8XWSnw2i9Ky39B00bX 3JvdXA+KRVsqMW3uKL9 eQ9qHfXdHwK7SNyoW27 4NoDydQDcVcgwo6egi2 hoaUe8XzH4RVAxhvDgc YyrLDT8l3VxYd64X62r IHdpZHRoPSIxNSUiIHZ qxRzenl2vcJ1eGj1+PG RakZA6jIY2fS8rLlAjB jL3DTnpF553QyTtwVXb Xycsw7buv5qptLa0QcV eGXVbmyZxeOnvDSG5c4 EpCg40R7VgmWdpl5JlK zp0ik58iHXwk9N3kJK8 K7KeAXGomjkteSBdnLk oGZ7pNZVomblhXLPfeM 0lNCNfU3g6PhXeGwO9I GvaT2WkkuU4WCWuzEPy CNUkjAVMlD7wqihxi0v rijgsWvEdOXPlZEl4XR k8STXvnKkeRbUdACA3B rD3NUV0oRTsaY9yiBmb ubfvdT4xWyj+XHQ2yGE wdPWQFA8mHypzzIQ+PH LbKMY2sVacRAvlIXIrv B8mKOMdW7d9LwMcEhJ9 FWbxQ3LrnoY4VCMiiXX tPNAsiOELfJ4sobcwd9 ogjedtKuZgOEHyYUn9Y Ir9QSTdmZwbXlOyFWX7 XmM2ATV7fUTylT4ekXa hlpcyfM4wYje+QmlydG cgWIW2DXg9L6FoIaz3K ZIgmVhbAA9rkXAfFNpd Tf5vmCdtiEccRD9rZKJ pcixmk907OmYpv4ooMV HijJEcESxsENI7W86rx 6C6HKWjTAGiGNW1mSH4 fB6rxJvaoxvcrJGodSw gdmVydGljYWwtYWxpZ2 11YXSyiTkmZtUaMLc1P 3PtQfs4HBGcqWikNC3g lSUlXLimDr5ioAbuhDu kSU7vKTMyvuszn593Up Zhj0amCMCbyCZrWPphE VH4B70fe6S6PIGaBPFz WJL4nIT0jG5jpFwrrgf gbGVmdDsgdmVydGljYW jfQMfoK531YOCclYnwT iBhsJa6Z7ZbBvo3BWZk uSswRX3pzJRoWQxqGa3 lwHcefLxaOT0mFXHgad xqz700WsXvg1hlALWqd LAdANimCQZ1X44vb6O5 CUIsPCOtFNT8eRO0aC1 hbGlnbjogbGVmdDsgdm MnqVhpLGjeOAipU949I HRvcDsnPlBhdGllbnQg VWuzSRs8A3OqTizpjFG +ZH68WAAkDM65tKMffN Uuh8fekDl0RlUgYUKuT EO4iCtkJEraa1RiPEPb R69bmEBal7C8PVBueBe ssJPwKtJktTE1mX2fYA kmvytpf8aykyfpLtctk 3kcfd51fU24N45zAPxe ZHRoPSIzMCUiIHZhbGl npm7gyP7eQn4+PGNvbC D3lTK3dR8aQGMnLoY8N RluO518FpRfuFUkSbdj c2oht7lgzXi5BeR5SJR gxlOzbKgmKXM8v5JnTe 82Q30lCGzgQPThDKRgL CLbQNSniOhero9mjP0h Ii8+OCInfKF7yDS3xK2 eGhAuFcE8CPvsF699Xa FboQEhAqbdX37kH5Zpx XA+FUAnVpd3LZAmjBxx YH2ysGIsPZomJp4nPFR 6VpVgZdJdGQpfJ9YlLV GhvwhitumjwGX0ERIdD XMnwO20Cj5spTakMRDm sDSFmQ1wrrybt0wzzbu bXjBtCYZlYQe8CIt3DJ OyqJtnUoOaUGS5OyG9D ZM9oEDjcG2gqXrpzhjg sP9jT0TjHWHbtwjqQx5 8hU6rQvGvUuA8XGozQa c+TXOMGF1PEmIkDXMRY xeSFKR8Z1UxQfk3KWAg pBscHU1ovDXbFSlrSt4 kgWhqhIgfBE0pGTRjll jbPEEbtX3bDCBplLHct BzwWB4vPFTflyzzq261 MbYxHOL1FCHqpSBpM1X zzW4tUjHdPTUoFTMxQ4 CtrFLkPBhtE457TFeaI hH7JOIhsjWfC0YpFQFk gWhrWdW6x9F3Fu3wZe8 lIv9iEDV1CO88RT03uO Dmt2W7dZA3R3QnCMZni bmptteaeZF0DSPuNWUm dX88yHDvEFtcHc7nc2K 5y775JQTdAPVfbP86Lr 8rmEjzDYMujWRAdN1mq dlbu8ctqdugCnMuOKCe MQx7FJv8WUAiySfjKrC bDGC1HhK6WPQ5gSOgdA 7vfMxphcvcqX8sNbz+N ZvdIDHbmlW3R6RtQms0 ZMAgsLirMT6ccGGtPCl qHw1bkIcsyKkrNA3oVS XisgbqJXMwyK0uSCQsd MAblChrOL6uMBVqjygn e660DoKeJBB7YUJrbCM rQ7NqnP6yOeMpJSQnJE JeC3YpxLVzHAteR899M MukEtL2REJkrsLmW7Au BNStnPqcLzT3z5B0Ts8 JEP7paDI3V4XbRjl8XX ZhxYbpDU0tmLWtYVkcQ q0mxXvnnSafHO9cLMOs yjtpXZMshX2dPNWbiXM abZwmRJ5wEFUsbfbyo6 54OcJfWFN9SOOnxVCuT 6IhvH9aHqChGZKoAAKr G4BqaEBjYPzcK855VSd cTjU0CZXknqLvS9IvFY GhhQthVpM6o0N6Dp4CD NP2daEskrl6Q7EkQhcl dHI+XJ17KYAkSR09iFS bzBRgl6qioZd3FtWqBF TbWYV9lAbvNBbdr2PeS WNnU91drVPjh2G4WCTc oPjhdHGgTaJalHY5vF8 pOOlyurtup0hhheroMl jhd9nrzs87fI28L90pG HdpZHRoPSIzMCUiIHZh sRxsez0xjN2rTy1+PGN eaKI4bYA5xG0bFhHgRk X1NXqnS272EeOziZKjQ bsqu0fba6iujOy4PmPj MFOpklLbnXnlRYU8q1L lNw25G22xDBpcJOBxVQ NcRCCiYTWwtGqkab8wj G9wIi8+QJ8ea2dpai20 cR33tAU+IXUpLTI8wQe qFVfwVBWgsT4pBUkxZk H7VOOyZkBfaZ62zJGjI ZwnCu7bkYwbfSskJM9z VRDtdggjj071JsHmh8d jJFYyuNQxODvrVEH1N7 4uy2Q1SNXaOKOrWZS6a BU0oE8ifCkodjxtcGNm dDsgdmVydGljYWwtYWx xH184TSCilXwfSjTpaD PxS1grxqKQJB3eJsmlk GQ+TOIxMCY5eMbaWXcj ILHaiN9sJJKvV3f0ReW qXhP6DPgzM5ItwpG9OS OgtMEhFWZduKRPbB2hz ltoe3maxhtfUsRuFJGe KLx2XSc9TPFygZfzNlS bUOD2PcY7ONW4nPRtoF 7hkPphfvfqfB8mBkt+R klOOjwvdGQ+PHRkIHN0 aXynHVjoZKYnvR7rAEK mD1o7VgIbBqU3YAudA9 JmmaM2KNSfcBKfRXEqb MCJgX6betvgo0brybwb GrMwNAOvEKq8XNs3JCY gvLjcSpSeFWE5DmK2ZL P2yPGpeE7zaFponptxp G9wOyc+TVJOOjwvdGQ+ ORClMNN1zKntVCkoFEJ bjS9xROFlW2t9TdDvIq L9XNlkL8RmplT8PQZdy UUnMJXvwWGJsO7yvwzb n5hwvxdnZyJqFGVzVAd 5ABe3OVEwrFvbUfRdNP Z4LhT7AYM5nYDboK8da XbkzjlufZ5xDkn+UGF5 WWV4FR55JI49D3OzHsp vdGFibGU+PHRhYmxlIH dpZHRoPScxMDAlJyBzd ZmiUW4fOa0yUTSiOEEy bGxhcHNl (more content not included)... Normal [facility] Free T4on 07-24-2022 Free T4 [Mass/Vol] 0.68 ng/dL Normal 0.58-1.64 [facility] Comment on above: Performed By: #### 2 689150, 8440863, 55729475, 2822625, 2950513, 59824343, 9642894, 17255990, 66701671, [id number], 3523425 #### [facility] [address] [place] [id number] HEMATOLOGYOrdered By: SYSTEM SYSTEM on 07-24-2022 Basophils/100 WBC (Bld) 1.1 % Normal 0.0 - 2.0 % [facility] Basophils/Leukocytes Auto (Bld) [Pure # fraction] 0.1 E9/L Normal 0.0 - 0.2 E9/L [facility] Eosinophils/100 WBC (Bld) 3.5 % Normal 0.0 - 8.0 % [facility] Eosinophils/Leukocyt es Auto (Bld) [Pure # fraction] 0.2 E9/L Normal 0.0 - 0.5 E9/L [facility] Lymphocytes/100 WBC (Bld) 31.0 % Normal 14.0 - 50.0 % [facility] Lymphocytes/Leukocyt es Auto (Bld) [Pure # fraction] 1.6 E9/L Normal 1.0 - 4.0 E9/L [facility] Monocytes/100 WBC (Bld) 10.6 % Normal 4.0 - 14.0 % [facility] Monocytes/Leukocytes Auto (Bld) [Pure # fraction] 0.6 E9/L Normal 0.2 - 1.0 E9/L [facility] Neutrophils/100 WBC (Bld) 53.8 % Normal 36.0 - 75.0 % [facility] Neutrophils/Leukocyt es Auto (Bld) [Pure # fraction] 2.8 E9/L Normal 2.0 - 7.5 E9/L [facility] HEMATOLOGYOrdered By: Stephanie Montes on 07-24-2022 Erythrocyte distribution width (RBC) [Ratio] 13.1 % Normal 10.9 - 14.2 % [facility] Hematocrit (Bld) [Volume fraction] 43.5 % Normal 34.0 - 46.0 % [facility] Hemoglobin (Bld) [Mass/Vol] 14.6 g/dL Normal 12.0 - 16.0 gm/dL [facility] MCH (RBC) [Entitic mass] 29.5 pg Normal 27.0 - 34.0 pg [facility] MCHC (RBC) [Mass/Vol] 33.6 g/dL Normal 31.4 - 36.0 gm/dL [facility] MCV (RBC) [Entitic vol] 87.8 fL Normal 80.0 - 100.0 fL [facility] Platelet mean volume (Bld) [Entitic vol] 8.1 fL Normal 6.4 - 10.8 fL [facility] Platelets (Bld) [#/Vol] 314.0 E9/L Normal 150.0 - 500.0 E9/L [facility] RBC (Bld) [#/Vol] 5.0 E12/L Normal 4.3 - 5.9 E12/L [facility] WBC corrected for nucl RBC Auto (Bld) [#/Vol] 5.2 E9/L Normal 4.0 - 11.0 E9/L [facility] Lipid Panelon 07-24-2022 Cholesterol [Mass/Vol] 232 mg/dL High 120-200 [facility] Comment on above: Performed By: #### 2 [id number], 8640487, 04920385, 0553645, 9252325, 77347628, 2746554, 27728088, 25162240, [id number], 5051871 #### [facility] [address] [place] [address] Cholesterol in HDL [Mass/Vol] 66 mg/dL Invalid Interpretation Code [facility] Comment on above: Result Comment: HDL > or equal to 60 mg/dL: Low cardiovascular risk HDL < 40 mg/dL : High cardiovascular risk Performed By: #### 2 315138, 3429466, 90300963, 1067654, 9223986, 44064197, 4738621, 55616897, 48910811, [id number], 5365790 #### [facility] [address] [place] [address] Cholesterol in LDL [Mass/Vol] 151 mg/dL High <=129 [facility] Comment on above: Performed By: #### 2 207729, 3207647, 76547270, 4313289, 2496650, 96402457, 8036863, 47288599, 07592943, 2522736347, 8245623 #### [facility] [address] [place] [address] Cholesterol in VLDL [Mass/Vol] 27 mg/dL Normal 7-40 [facility] Comment on above: Performed By: #### 2 817918, 2972644, 97249567, 1048104, 9746148, 73531118, 7610082, 82696231, 31999167, 2686807814, 7171045 #### [facility] [address] [place] [address] Triglyceride [Mass/Vol] 134 mg/dL Normal <=149 [facility] Comment on above: Performed By: #### 2 100870, 0068062, 20371373, 5148288, 7650714, 18175444, 2800111, 42338090, 16236143, 1926191577, 7508119 #### [facility] [address] [place] [address] T4 Totalon 07-24-2022 T4 [Mass/Vol] 6.4 microgram/dL Normal 4.6-9.1 [facility] Comment on above: Performed By: #### 2 875202, 5557403, 20734826, 5850396, 1155854, 38789592, 7457635, 40687665, 99045178, 6553989405, 6319007 ####[facility] [address] [place] [address] TSH With T4fr Reflexon 07-24 TSH Qn 2.02 m[IU]/L Normal 0.34-5.60 [facility] Comment on above: Performed By: #### 2 251535, 9495882, 48856183, 9690270, 8736024, 95712744, 4870365, 22204140, 05695195, 6144243835, 6275912 ####[facility] [address] [place] [address] eGFRon 07-24-2022 GFR/1.73 sq M.predicted among blacks MDRD (S/P/Bld) [Vol rate/Area] mL/min/{1.73_m2} Normal >=59 [facility] Comment on above: Order Comment: Order added by Discern Expert. Result Comment: eGFR is race adjusted. AA=. Performed By: #### 2 357720, 9358189, 86822203, 9259769, 8335395, 02415153, 3213269, 17208325, 73337367, 4055894780, 6782165 ####[facility] [address] [place] [address] GFR/1.73 sq M.predicted among non-blacks MDRD (S/P/Bld) [Vol rate/Area] mL/min/{1.73_m2} Normal >=59 [facility] Comment on above: Order Comment: Order added by Discern Expert. Result Comment: [employer] [place] kidney disease could be indicated at eGFR's of less than 60 mL/min/1.73m2. Kidney failure is indicated at less than 15 mL/min/1.73m2. Performed By: #### 2 861685, 4276380, 14853095, 8144974, 9222305, 91287809, 9510970, 02518875, 22485483, 8295145029, 2298342 ####[facility] [address] [place] [address] Nonvisit Note - PTon 023 Nonvisit Note - PT Per insurance account assistant Oscar Briceno, pt's insurance coverage for PT is as follows: [facility] - [phone]- per Azael- This policy does not have any coverage for O/PS - ref [id number]. Chemo Delaney called pt to notify her of above and discuss possible financial counseling options. Pt has opted to cancel all remaining PT sessions and continue with [facility]. Pt's chart will be placed on hold in the event she chooses to return to PT for additional instruction. If no further contact with this pt by 08/22/2022, pt's chart will be discharged. Normal [facility] Consent for Treatmenton Consent for Treatment [id number] D8#1.00CD:127 [facility] PT - Assessmentson PT - Assessments [id number]#1.00CD:127 [facility] PT - Consentson 07-21-2022 PT - Consents [id number] 436#1.00CD:127 [facility] PT - Home Exercise Programon 07-21-2022 PT - Home Exercise Program [id number]#1.00CD:127 Normal [facility] Physician Orderon 07-21-2022 Physician Order [id number]#1.00CD:127 Normal [facility] Ambulatory Visit Summaryon 0 07-20-2022 Ambulatory Visit Summary NARCISA BENITEZ :1965 Visit Date:07/20/2022 Ambulatory Visit Instructions Your Diagnosis Acid reflux Hyperlipidemia Elevated BP without diagnosis of hypertension Right elbow tendonitis Breast cancer screening by mammogram Routine adult health maintenance Thyroid nodule BMI 34.0-34.9,adult Obesity Your Care Team Attending Physician - Yasmine Lewis Primary Care Physician - Brian SANCHEZ, Yasmine Rodriguez This Is Your Medications List atorvastatin (atorvastatin 20 mg Tab) [Image Removed: STOP]Stop taking these medications Misc Prescription (Blood pressure cuff) cetirizine (Zyrtec) cholecalciferol (cholecalciferol 2000 intl units oral capsule) fluticasone nasal (fluticasone 0.05 mg/inh Nasal [place]) methylPREDNISolone (MethylPREDNISolone Dose Pack 4 mg oral tablet) omeprazole (omeprazole 20 mg Cap-DR) potassium chloride (potassium chloride 10 mEq Cap-ER) predniSONE (predniSONE 20 mg Tab) psyllium (Metamucil 525 mg oral capsule) Procedures Performed Colonoscopy (11/27/2019), Cancer of skin. Discharge Vitals Temperature (Oral) 36.7 ?C Heart Rate (Peripheral) 72 Blood Pressure 140/80 Height 168 cm Height 66 in Weight 98.1 kg Weight 215.82 lb BMI 34.76 What to do next You Need to Complete the Following CBC w/ Auto Diff, Blood, Routine collect, 07/20/22, Order for future visit, Lab Collect, Routine adult health maintenance Invalid Interpretation Code Hyperlipidemia, Print Label By Order Location\.br\ T3 Free, Blood, Routine collect, 07/20/22, Order for future visit, Lab Collect, Thyroid nodule, Print Label By Order Location\.br\ T4 Total, Blood, Routine collect, 07/20/22, Order for future visit, Lab Collect, Thyroid nodule, Print Label By Order Location\.br\ Thyroid Perox.tpo Ab, Blood, Routine collect, 07/20/22, Order for future visit, Lab Collect, Thyroid nodule, Print Label By Order Location\.br\ Thyroid-stimulat ing Immunoglobulin (TSI), Blood, Routine collect, 07/20/22, Order for future visit, Lab Collect, Thyroid nodule, Print Label By Order Location\.br\ TSH With T4fr Reflex, Blood, Routine collect, 07/20/22, Order for future visit, Lab Collect, Routine adult health maintenance [facility] Family Medicine Office/Clini c Noteon 07-20-2022 Family Medicine Office/Clinic Note Chief Complaint pt here to est, needs refills. concerns of right arm pain. wants labs done. wants to talk about weight loss medication History of Present Illness Pt is 57 yo female presenting today for medication recheck. Pt has high cholesterol. Pt is monitoring diet and exercise to help. On atorvastatin 20mg qd, denies side effects Pt has hx of GERD Current medication regimen: omeprazole 20mg PRN Pt denies burping, sour taste, reflux, cough at this time. Pt was started on PPI d/t hx of burning sensation in upper epigastric area that was worse after large meals, lying down or after exertion. Pt denies risk factors of smoking, EtOH use, NSAID use, anticholinergics, sedatives, calcium channel blockers. No hiatal hernia concerns. Pt was seen in the ER for right arm pain and was dx with tendonitis. She was asking how to manage this muscle ache Pt wants lab screenings and mammogram done at this time She has concerns over family thyroid issues and is requesting full workup. Pt's BP is elevated at this time, no hx of HTN - pt reports being stressed with her dad who is currently in the ED. Denies CP, SOB, WATSON at this time. Review of Systems PHQ Score Initial Depression Screen Score: 0 Physical Exam Vitals & Measurements T: 36.7 ?C(Oral) HR: 72(Peripheral) BP: 140/80 SpO2: 99% HT: 66 in HT: 168 cm WT: 98.1 kg WT: 215.82 lb BMI: 34.76 General: Well developed, well nourished, in no acute distress Eyes: Pupils equal, round, and reactive to light. Conjunctivae and sclerae normal, and extraocular movements intact Ears: TM clear, grossly normal hearing Nose: No deformity, discharge, inflammation, or lesions Mouth: MMM. Oropharynx and posterior pharynx without lesions or exudates. Tongue WNL Neck: Neck supple. No lymphadenopathy. Trachea midline. No thyroid, masses, tenderness, or enlargement noted. No bruit. Lungs: Normal respiratory effort and clear to auscultation Cardio: Regular rate and rhythm, normal S1 and S2, no murmur, no rub Abdomen: not assessed Musculoskeletal: No deformity or scoliosis noted. Normal range of motion. Joints normal. No erythema, edema, effusion, or ecchymosis Extremity: No clubbing, cyanosis or edema. Neurologic: Grossly normal Skin: No rashes, ulcerations, or suspicious lesions Mental Status: Alert and oriented x3. Normal mood and affect Assessment/Plan 1. Acid reflux (K21.9: Gastro-esophageal reflux disease without esophagitis) chronic stable continue omeprazole 20mg PRN 2. Hyperlipidemia (E78.5: Hyperlipidemia, unspecified) Pt encouraged to follow a diet that is low in saturated fat/cholesterol/fri ed foods. Eat a diet high in vegetables, fruits and whole grains with low fat dairy options and non-vegetable oils. (follow http://tlcdiet.org for more help) Increase level of moderate exercise to 150 mins/week (follow www.cdc.gov/physica lactivity/basics/in dex.html for more help) Weight loss can help lower lipids as well Avoid alcohol and smoking Discussed medication side effects - pt verbalized understanding Continue: atorvastatin 20mg qd repeat lipid panel Ordered: Lipid Panel 3. Elevated BP without diagnosis of hypertension (R03.0: Elevated blood-pressure reading, without diagnosis of hypertension) Keep BP log, bring in to next appt with cuff for recheck Decrease sodium and caffeine in diet f/u 1 month Ordered: CBC w/ Auto Diff TSH With T4fr Reflex 4. Right elbow tendonitis (M77.8: Other enthesopathies, not elsewhere classified) Will send referral to PT Follow RICE protocols Ordered: [facility] Evaluate Patient, Develop a Plan of Care, & Implement Plan 5. Breast cancer screening by mammogram (Z12.31: Encounter for screening mammogram for malignant neoplasm of breast) Per [facility], pt is due for screening for breast cancer. Mammogram ordered. Pt advised no deodorant, sprays, lotions. Encouraged pt to continue home self breast exams. Pt verbalized understanding and consented. Ordered: BD Bone Density DEXA 6. Routine adult health maintenance (Z00.00: Encounter for general adult medical examination without abnormal findings) counseled pt on diet/exercise and staying UTD on routine screenings and vaccines - pt verbalized understanding complete routine labs prior to f/u appt Ordered: CBC w/ Auto Diff Comprehensive Metabolic Panel Lipid Panel TSH With T4fr Reflex 7. Thyroid nodule (E04.1: Nontoxic single thyroid nodule) Will call with US and lab results Ordered: Free T4 T3 Free T4 Total Thyroid Perox.tpo Ab Thyroid-stimulating Immunoglobulin (TSI) US Thyroid 8. BMI 34.0-34.9,adult (Z68.34: Body mass index [BMI] 34.0-34.9, adult) Reviewed importance of making a lifestyle change regarding dietary choices. Discussed goals. Encouraged routine cardio exercise with Goal: 3-5x/week for 30-45 minutes. Start out slow and increase to achieve your goals. Avoid late night snacking, do not skip breakfast and mon (more content not included)... Normal [facility] Comment on above: Result Comment: Elec tronically Signed By: Brian SANCHEZ, Yasmine Rodriguez\.br\Date and Time Signed: 07/20/22 10:48 EDT Patient Correspondenceon Patient Correspondence [id number] [id number]#1.00CD:127 Normal [facility] Patient Educationon 07-21-19 23 Patient Education Cardiovascular Hypertension, Adult High blood pressure (hypertension) is when the force of blood pumping through the arteries is too strong. The arteries are the blood vessels that carry blood from the heart throughout the body. Hypertension forces the heart to work harder to pump blood and may cause arteries to become narrow or stiff. Untreated or uncontrolled hypertension can cause a heart attack, heart failure, a stroke, kidney disease, and other problems. A blood pressure reading consists of a higher number over a lower number. Ideally, your blood pressure should be below 120/80. The first ( top ) number is called the systolic pressure. It is a measure of the pressure in your arteries as your heart beats. The second ( bottom ) number is called the diastolic pressure. It is a measure of the pressure in your arteries as the heart relaxes. What are the causes? The exact cause of this condition is not known. There are some conditions that result in or are related to high blood pressure. What increases the risk? Some risk factors for high blood pressure are under your control. The following factors may make you more likely to develop this condition: ? Smoking. ? Having type 2 diabetes mellitus, high cholesterol, or both. ? Not getting enough exercise or physical activity. ? Being overweight. ? Having too much fat, sugar, calories, or salt (sodium) in your diet. ? Drinking too much alcohol. Some risk factors for high blood pressure may be difficult or impossible to change. Some of these factors include: ? Having chronic kidney disease. ? Having a family history of high blood pressure. ? Age. Risk increases with age. ? Race. You may be at higher risk if you are . ? Gender. Men are at higher risk than women before age 45. After age 65, women are at higher risk than men. ? Having obstructive sleep apnea. ? Stress. What are the signs or symptoms? High blood pressure may not cause symptoms. Very high blood pressure (hypertensive crisis) may cause: ? Headache. ? Anxiety. ? Shortness of breath. ? Nosebleed. ? Nausea and vomiting. ? Vision changes. ? Severe chest pain. ? Seizures. How is this diagnosed? This condition is diagnosed by measuring your blood pressure while you are seated, with your arm resting on a flat surface, your legs uncrossed, and your feet flat on the floor. The cuff of the blood pressure monitor will be placed directly against the skin of your upper arm at the level of your heart. It should be measured at least twice using the same arm. Certain conditions can cause a difference in blood pressure between your right and left arms. Certain factors can cause blood pressure readings to be lower or higher than normal for a short period of time: ? When your blood pressure is higher when you are in a health care provider's office than when you are at home, this is called white coat hypertension. Most people with this condition do not need medicines. ? When your blood pressure is higher at home than when you are in a health care provider's office, this is called masked hypertension. Most people with this condition may need medicines to control blood pressure. If you have a high blood pressure reading during one visit or you have normal blood pressure with other risk factors, you may be asked to: ? Return on a different day to have your blood pressure checked again. ? Monitor your blood pressure at home for 1 week or longer. If you are diagnosed with hypertension, you may have other blood or imaging tests to help your health care provider understand your overall risk for other conditions. How is this treated? This condition is treated by making healthy lifestyle changes, such as eating healthy foods, exercising more, and reducing your alcohol intake. Your health care provider may prescribe medicine if lifestyle changes are not enough to get your blood pressure under control, and if: ? Your systolic blood pressure is above 130. ? Your diastolic blood pressure is above 80. Your personal target blood pressure may vary depending on your medical conditions, your age, and other factors. Follow these instructions at home: Eating and drinking ? Eat a diet that is high in fiber and potassium, and low in sodium, added sugar, and fat. An example eating plan is called the DASH (Dietary Approaches to Stop Hypertension) diet. To eat this way: ? Eat plenty of fresh fruits and vegetables. Try to fill one half of your plate at each meal with fruits and vegetables. ? Eat whole grains, such as whole-wheat pasta, brown rice, or whole-grain bread. Fill about one fourth of your plate with whole grains. ? Eat or drink low-fat dairy products, such as skim milk or low-fat yogurt. ? Avoid fatty cuts of meat, processed or cured meats, and poultry with skin. Fill about one fourth of your plate with lean proteins, such as fish, chicken without skin, beans, eggs, or tofu. ? Avoi (more content not included)... Normal [facility] Screenson 07-20-2022 Screens [id number] [id number]#1.00CD:127 Normal [facility] Coding Summary.on 07-02-2022 Coding Summary. CD:[id number] LCq1rLi+PGhlYWQ+PE1 WULHnI04ipDIzhF7zB9 NMTElOSywgQVBQTElOS tTaqcUfOJ6caFNpMBBw IC8+MD4pYHFgLimgkNG mx7U9oWB2O14txs7oZD xtoBV6QMAlAuEwbevml 9dwjSe9AHfsZihfVlLz LSUyfK61YNX6uC74Ya8 4yOVjoUGee9qcuUs5Gb AuKXQbMFB2uFxpREnid 6ZgYPHgN23zaUPoe7V6 IGNvbGxhcHNlOyBlbXB 3qN8wKKdvhusxs8exsh zjYbd2lp86eYNyz7S5y KX0W3KzgaQ3QCFpfLBs XyaqtDTXbY7mundqc1c jsnvxYyXxTLLhLKa0SK k6CYDfqBkqYqUkIB69V UI4BAXobzYkP9EnRHPq gJsiLeC9c2W3Qd6VE0B LUfvaZ7FFHWXYGSrioL Q+XY76uv38F6MwLpunV sc9MZCkQZV4qBY2oF6e FFNrTKzzq4S0yMS4F0U zxtMsxo2dz5ddCWCmWD atY94raFIgd2C0JJKud YA7RMJjaFhkGsXqsD37 Oyc+DIUofVruh8MsLkl sv1eig8jhsQx9UxieOB NohcLbiMzlZMG6s7KfY z3vYLEviGI7tNJ2qM5w UtUdJmJ9OEfwR154XuY zfMBnSjttF16wK4CatX A+SKSuHxi4SFHflMohU T4xF7HmTVDyqdbcoEYg gVsmNY4xGQGzgtncKMC kyI2pUJRxZ9e3UuXnXn Y8BXjwL6XgRFXkxoteQ u73dO5oIdBqSrF5UJxv W2FbnaP8PGOarDWuWYs hMKX3Q84ee8L0JUYjBM QeSKX8bIC0pW5trZono jogbGVmdDsgdmVydGlj PKhiHCjlR156LBWpaOj nPkNvZGluZyBEYXRlOi AgMDMvMTYvMjAyMzwvd GQ+DLYxHWU8tEluTHMj lYThGWrlZu6ilYmnrZb rLS3lKMAbeyrgCLPhfR 3dKSTqkBPdyRhnVU6sR DJmpikig810ZpUvGQA6 BUDpqQVdC9MxpF1vSrF rMMXwNVFwS4DyxHBrML gaM569BBukJcO0GLPxa bJwT0KcMOHtmNaeUxK3 k5H6Xt4Yf4MbqflgV6P nrVFgCdIbWnidYMw1S0 RkPjwvdHI+VV01VMLiA O19OCx2CEA5fOvsRRjx DDGgZ1KrmA0cQmHnCBB kZGRkOyc+PHRhYmxlIH dpZHRoPScxMDAlJyBzd BytIR0sPf8xKQGoZGJf dHvplUXlCjCwk9hbMEW fLVeiVT3enCekG9AqoA V4YUHzw3s0Nm58V48wS 3JvdXA+BGGvjTO3kMT2 gB3qDkLoRoC1GXxlE62 9GbWuiJPeKtkvo2aiv3 xklOn1DyG3UURfzeHdw WbfXNJ7q4IlQr28H90i IHdpZHRoPSIxNSUiIHZ qhIrtxt1kuE6iCv7+PG BkyBZ4uJJ8tI9fBiGfG cC4UIwrQ534AiMgpHFl Fjvuw1sxl8okvVx8GaO wHSInxmTcaIngBIE0h0 HjHn92T1EigUsqh7BmK dr1fd40zQPuu2U5mGB3 D8AaONBpibkucLVbkWq jGR3oXFRgmaoeOEEuhO 2yOVClQ4i5KaCaQdW7G LvqF5EjnwI1VPOxvAVp SULrmDAOfI1gwbiwb3r bpyhwTwSvGJRbSLk3KD d8LEEyfBkfUlSiSXV8U mG5HPA9xJHidU8cbZvm mitvwK9xOhv+UPW3aMZ zfMRLTW9vDqgfzZL+PH RuAEP7gJpvLFbaFCYgo J2fDEFyF4p6OzMtXuS9 GMpeX7KiaeI1EWSwrVR xAYWyePHGlH9qautbq0 edlsrtBzKoPPDcOFn1V Zt9MPHgoEmbSaWeDSM0 ZqQ5KZN2mVJfcT8psSo ghqqipW5fHjg+QmlydG dlLZX8MJp5K7IwZru0D SAxqEyyCS5nnIBsSUvg Qx0qyQnecTdtEH4fJHF gvkdfe408BvQbg4zwIO GqtBWcEDtxBNO5V30rn 3B7MPDhXRZuJGE6rKN9 yI1jgFlbkmzxxOPywWx gdmVydGljYWwtYWxpZ2 62AGHibMunCiEpGPd4Z 2CrIfb5CHScsFvpNR6a fNGjGGqtJw3zaAmhxCi wNW5wXFHvfnhlc745Hw Mzh6dnWDWiiKDjKRxaH EU4M99pr2Z6ZUHtPJJl AXD0nPB7vH2raSbivro gbGVmdDsgdmVydGljYW lfSOdqS354BFJinRbkB rEtuUm8B2AwMfc7PZCt wQraNU0pkWGuJQefVd0 odYnwaZkoAX2mWPNutx kqt098UaIde2dsCWLfr SQfWVsdJKS7V21qb7P0 GIWaXTNqCAT4jBR6wZ6 hbGlnbjogbGVmdDsgdm KcjJptGReqKYkyO798Y HRvcDsnPlBhdGllbnQg RBzlGWi8K7IoOfleyEK +PN79WANkJP75aMSlpO Awr3dumUv0WmDuVDQfL RI3gPgrCCjbg9GeYMNn I65oeGSue8M3YZIwoEv uyPBkAtWbhAM7jF8qNA oytnxol3lhwoygEmbdz 0trex12hN62U94wWOza ZHRoPSIzMCUiIHZhbGl grx7irN7cRc0+PGNvbC M0oNU4cD6qKNTgByF5E BrmE311OhKtfANrTjtz l3rhf6vhjTw4VmE4NCU iqwKojEgwGOK4g7SfOz 33E54vSGowMOVcOWRsV RCcTUBeoCxymc6ucR1e Ii8+WTEapNZ5oGF3dS0 hUcGiJvW3LXsmT465Uv ZlvCJyWmywS35pA1Ncj XA+IWNhSoz0TRQmzGqk TY9hcZSuALynIy2hHPF 0VgKjBwLeQYljJ5VcAV ZptyocoskjqDA0IZZaC HQavG85Gd3isKtdEMXj tYNQkF2ggtgcc0pngqz gDrNkGWXvOBv5LGn0BK FnmBhgUgGiGEU7HoC1C UM0rQLipO2rqPnmnpgl dB4aJ6WuSDJonimfXr8 8bU2vSaSrCmF0AUjlCs c+AFWPBF4WApUzLZCUW znFPSQ8L1TeYim0UQCk mZyzVE7dbHHoCCkrHy0 qsZcahKshMU7lZEMmxe fqBLTwhU1jFDBxjYDgt PhtAQ7uWJPplspni774 IqEsJCH3IIUcpSXkC0I uoV6dBdGqMDLvVHYuI8 RseXUfQWgeL130ZYjzP oG1WRLzdoCzB8DuOKSb tZmrHkX1n3B9Nf5lBh5 rLr5hYMP2AK47QJ17bK Lai2F4jNM4T6YaBAWzh ohzxmxstIV0GNVeHXBv dW23cUSqLFyyPm5qf9D 0b323EVHoSYXthB45Bd 6ijRsbBWJpxWYIeF6fm oglw6muguygHwAbHPUt JYg3XJi2ODXspHgeOlE bYWO8PyP6GNB4mQMusU 3efAcjksfpeD4kEcb+N SbrNOWdncJ5S2SmXej5 NUOwkHfrRP4zbGIlVDp pRb3lrUxmzAjuWW2gXD SqdzbkOSClkC4tVWJfl XJfkPwjZN4lXKIuxiwp u121ZgUjMKP0ZCEogMH fX1AoeU9cBlSwZKYvBZ UwN2BjrPIwWYwvF973W PvfCvO1MUGfskWlF7Js JCAcaJqyWcK4o9J5Jn9 KOQ8wjGQ3K7MqQvn4GX ChmLxtLK5mtFMcJPzwQ g7qjIzfoTvqUQ1aOTIe siqsQHQsfD2mLDXhcJE aeFjvSB8kDFGzlmmgu3 02McVkBFV8PLQvoLTbM 5ExhP3dRiPmLBWpPZGb P0GyaYTvEVbhM665DXl vRoN4RCGklbXrW5JxWY IgzAvoFjD0n1E0Ls2Yr IZaR3GgF8b1L7FuXnel dHI+LY14MWAnSS35tZA irGWsu0uyuGl1ZvZiKU ZhYNJ1wSewXCwuy7LxT PRfB96jaVXvh5D6NIBx mYymxQMtKeLeyCZ2rK3 yGTrbfbzmr0ufekobWa yqj9xxmz93oY69L98yL HdpZHRoPSIzMCUiIHZh uQyqcg1muU9gHl7+PGN mxTW8zDN0lO6mBsFjXs N7WOnxE777IuPbkWEtW ejvh5tve3gjsCb4GlEl SKZloiQasOxyMDM5b8M tAt97R27lLBjeSZFtWO XbSZEhYCXysYrcyh6rm G9wIi8+DK8qs6snnx78 gS34jKI+ACQoZGQ1dIc oFIamKOEfjD9yYLcoKa O2NXMgMkIzmO15jPPbV UpxNk9dzIpaeEsmYT7a XNRqgislu863RhRic1p tNBOkvKCyLRrnWHP7T6 6ba1R5XKFiTOVpOPM7b SW6aO4buEofduqgbHQn dDsgdmVydGljYWwtYWx iF136QPDjxVmrOsYqbK OvP0wqfvGGIA2eYptcu GQ+VDGeDYD4oBalQFmi CJBoaB8tEKGaY2n0CyH aPpJ4PMpiJ6WuehK6EC SabWVrCZGdnQCQxN4of cuhi7ltsrlgAeYyOGZi VDk9FWd8TRVgqKjgJhX wCMH2FlH9ASW5jWWhpJ 9unLgkqljqwX5pQcu+R klOOjwvdGQ+PHRkIHN0 hPajIQdwJPApeS7uTWB sY8d3QxIvArH3XJlqA5 GmyfE0HFOaeZYcYKYou QEBiC7amrnkj4xkpejc KzNkPICvKFw2ZDi2FQI qcLqvKsTcYHL3YnN4TA Z6kNSsuR7ueOfsjujjd G9wOyc+TVJOOjwvdGQ+ SRPkYJJ1vRhfUXakWQG inY2lQYKoU9y5DwNzKk B8QRzqH7CtevT4RGCch DZpTGBssWPDgT7fawgo p1aiiobhImYzMENkHFh 4UOu3VDHkzSwsZdQdKG U7VtF3DNL2fENwyD2mu TvpfwwabO8zJuo+UGF5 RRX7GD25MM56E9QrIji vdGFibGU+PHRhYmxlIH dpZHRoPScxMDAlJyBzd KjdGE8kIe3nMQBiAWDb bGxh (more content not included)... Normal [facility] Discharge Instructionson Discharge Instructions [id number]#1.00CD:127 Normal [facility] ED Note-Physicianon 07-02-19 ED Note-Physician Basic Information Time Seen: Joe Meier PA-C 06/30/2022 18:25 Chief Complaint pt reports right arm pain for two weeks. reports sharp pains that shoot up at night. denies redness or swelling. denies injury History of Present Illness Patient is a 57-year-old female presents ED with complaint of right elbow pain and swelling. Patient reports a sharp pain which originates in her right antecubital fossa which shoots up to her shoulder and down to her hand. Patient also claims of some paresthesias in her fingers. Patient reports the pain seems to be unrelated to activity and that it comes on as a sort of spasm either when she is using the arm or at rest. Patient ports the pain began 2 weeks ago. Patient does report that she has started a new weightlifting routine. Patient denies any past history of similar pain patient reports has not been taking any medication for pain. Patient denies any other symptoms. Review of Systems Full 10 system ROS performed. Pt denies symptoms except as noted above in the HPI. Physical Exam Vitals & Measurements T: 36.7 ?C(Oral) HR: 86(Peripheral) RR: 16 BP: 154/90 SpO2: 96% HT: 168 cm WT: 99.9 kg BMI: 35.4 VITALS: I have reviewed the triage vital signs. GENERAL: Well developed, well appearing adult in no acute distress. NEURO: Alert and oriented. Moves all extremities. Face is symmetric and expressive. EYES: PERRL. No scleral icterus or conjunctival injection. No discharge. HENT: Normocephalic, atraumatic. Hearing is grossly intact. Nares grossly patent and without discharge. Mucous membranes moist. NECK: No JVD. Patient moves neck without restriction. CARDIO: Rhythm regular. Normal rate. No murmur, rub, or gallop. Pulses equal bilaterally in the upper and lower extremity. No lower extremity edema. PULM: Lungs clear to auscultation in all palmer. No wheezes, rales, or rhonchi. No conversational dyspnea. No splinting, stridor, or accessory muscle use. GI/: Abdomen is soft and non-tender. Normoactive bowel sounds. EXTREMITIES: Patient without any swelling of her right elbow joint. Patient pain is not reproducible on palpation or ranging of the joint passively or against resistance. SKIN: Warm and dry. Normal turgor. No rash or lesions appreciated. PSYCH: Mood, affect, and interaction is appropriate to the setting. Medical Decision Making Number and Complexity of Problems Differential Diagnosis: [] MDM Data External documents reviewed: Not applicable My EKG interpretation: Not applicable My CT interpretation: Not applicable My X-ray interpretation: Not applicable My Ultrasound interpretation: Not applicable Decision rules/scores evaluated: Not applicable Discussed with: Not applicable Treatment and Disposition ED Course: Patient presents ED for evaluation of right upper extremity pain which begins in her antecubital fossa and rates days both up and down her right upper extremity and which began with exercise. No acute abnormalities noted on patient x-ray. Patient most likely with a muscular skeletal injury, possibly a distal biceps tendinitis. Patient was given a dose of Toradol in the ED. Patient structured on RICE therapy. Patient struck to follow-up with PCP with ongoing pain disability. Return precautions discussed. Patient questions answered. Patient discharged home. Shared decision making: As above Code status: Not addressed during this visit Assessment/Plan Biceps tendinitis (M75.20: Bicipital tendinitis, unspecified shoulder) Orders: ketorolac, 60 mg = 2 mL, Injection, IntraMuscular, Once, Stop date 06/30/22 19:20:00 EDT, STAT, Start date 06/30/22 19:20:00 EDT, 06/30/22 19:20:00 EDT XR Elbow 3+ Views Right Disposition Plan Patient Discharge Condition Stable Discharge Disposition To home Discharge Prescription List Prescriptions No active prescription medications Follow-up No qualifying data available Attestation Patient seen and evaluated by the physician insurance account assistant. Attending physician was present in the emergency department and supervised care. This visit was performed by both the physician and an APC. I performed all aspects of the MDM as documented. This report was transcribed using voice recognition software. Every effort was made to ensure accuracy, however, inadvertently computerized brick unloader tender mistakes may be present. Appropriate healthcare PPE was used in evaluating this patient. The patient was placed in a mask. The healthcare provider was wearing mask, gloves, and utilizing proper hand hygiene. All equipment was properly cleansed Problem List/Past Medical History Ongoing Abnormal chest xray Acid reflux Belching Bilateral edema of lower extremity BMI 32.0-32.9,adult Cerumen impaction Chronic diarrhea Class 1 obesity with body mass index (BMI) of 32.0 to 32.9 in adult Cough Cyst of skin Diverticulosis of colon Elevated BP without diagnosis of hypertension Hemorrhoids High blood pressure History of sarcoidosi (more content not included)... [facility] Comment on above: Result Comment: Elec tronically Signed By: Joe Meier PA-C\.br\Date and Time Signed: 06/30/22 21:34 EDT\.br\Electronically Co-Signed By: Cecil Zuniga DO\.br\Date and Time Co-Signed: 07/01/22 04:44 EDT XR Elbow 3+ Views Righton XR Elbow 3+ Views Right Exam Date/Time: 06/30/2022 20:01 EDT Reason for Exam: Pain, Non Traumatic Report IMPRESSION: NO ACUTE OSSEOUS ABNORMALITY. EXAMINATION: XR Elbow 3+ Views Right HISTORY: Pain COMPARISONS: None available TECHNIQUE: AP, lateral, oblique and axial views of the elbow obtained. FINDINGS: No acute fracture or dislocation. No elbow joint effusion. Tiny enthesophyte arises from the olecranon. Soft tissues are within normal limits. Ordering Provider: Joe Meier FINAL REPORT Dictated: 07/01/2022 8:31 am Sebastian Mendoza DO Signed (Electronic Signature): 07/01/2022 8:31 am Signed by: Sebastian Mendoza DO Transcribed by: NATALIYA Technologist: PIETRO Technical Comments Radiation Dose: Ka,r in mGy = n/a DAP = n/a [facility] Consent for Treatmenton 06-17 Consent for Treatment [id number]:127 [facility] ED Clinical Summaryon 2022 ED Clinical Summary [address] [id number] ED Clinical Summary Person Information Name: NARCISA BENITEZ [place] Age: 57 Years : 1965 Sex: Female Language: Citizen Of [place] PCP: Yasmine Lewis Marital Status: Phone: [phone] Visit Id: Visit Reason: Arm pain-swelling; RT ARM PAIN Speciality: Acuity: 4 Enc Type: Emergency Med Service: Emergency Arrival: 06/30/2022 17:47:24 Discharge: 06/30/2022 20:52:33 LOS: 000 03:05 Checkin: 06/30/2022 17:47:24 Checkout: 06/30/2022 20:52:33 Dispo Type: Home (Routine DC) EVENTS: Event Name Event Status Request Date/Time Start Date/Time Complete Date/Time Arrive Complete 06/30/2022 17:47:24 06/30/2022 17:47:24 06/30/2022 17:47:24 Document Home Meds Request 06/30/2022 17:47:24 Triage Complete 06/30/2022 17:47:24 06/30/2022 18:02:35 06/30/2022 18:02:35 Registration Complete 06/30/2022 17:50:59 06/30/2022 17:50:59 06/30/2022 17:50:59 Reg Complete Request 06/30/2022 17:50:59 Reg Bed Request Complete 06/30/2022 17:50:59 06/30/2022 17:50:59 06/30/2022 17:50:59 Bed Assign Complete 06/30/2022 18:11:14 06/30/2022 18:11:14 06/30/2022 18:11:14 Dr Exam Complete 06/30/2022 18:11:14 06/30/2022 18:25:37 06/30/2022 18:25:37 RN Exam Complete 06/30/2022 18:11:14 06/30/2022 18:24:54 06/30/2022 18:24:54 Registration Complete 06/30/2022 18:25:37 06/30/2022 19:20:50 06/30/2022 19:20:50 X-Ray Complete 06/30/2022 19:20:29 06/30/2022 19:37:35 06/30/2022 20:01:04 Meds Admin Complete 06/30/2022 19:20:29 06/30/2022 19:36:50 Dr Exam Complete 06/30/2022 19:30:19 06/30/2022 19:30:19 06/30/2022 19:30:19 Registration Request 06/30/2022 19:30:19 Wet Read Request 06/30/2022 20:01:04 Discharge Complete 06/30/2022 20:46:25 06/30/2022 20:52:37 06/30/2022 20:52:37 Transfer Complete 06/30/2022 20:52:37 06/30/2022 20:52:37 06/30/2022 20:52:37 ADDRESS: [address] [place] [id number] PHYS DOC NOTES: MEDICAL INFORMATION: Prescriptions Given: Medications to Continue with No Changes Other Medications atorvastatin (atorvastatin 20 mg Tab) 1 Tablets By Mouth every day. Refills: 6. cetirizine (Zyrtec) 10 Milligram By Mouth every day. cholecalciferol (cholecalciferol 2000 intl units oral capsule) 1 Capsules By Mouth every day for 30 Days. with food. Then retest vit D level.. Refills: 6. fluticasone nasal (fluticasone 0.05 mg/inh Nasal [place]) 1 Sprays Nasal Inhalation 2 times a day. methylPREDNISolone (MethylPREDNISolone Dose Pack 4 mg oral tablet) TAKE BY MOUTH DIRECTED ON INSIDE OF PACKAGE. [facility] Prescription (Blood pressure cuff) Blood pressure cuff. Take daily to assess for BPs. Refills: 0. omeprazole (omeprazole 20 mg Cap-DR) 1 Capsules By Mouth every day. Refills: 3. potassium chloride (potassium chloride 10 mEq Cap-ER) 1 Capsules By Mouth every day. Refills: 1. predniSONE (predniSONE 20 mg Tab) 2 tab/d for 5 days 1.5 tab/d for 5 days, 1 tab/d for 5 days, 1/2 tab / day for 5 days. Refills: 0. psyllium (Metamucil 525 mg oral capsule) 2 Capsules By Mouth every day. Take 2 hour apart from the other medications with at least 8 ounces of water. Refills: 1. PATIENT EDUCATION INFORMATION: Instructions: Distal Biceps Tendinitis Follow up: With: Address: When: Yasmine [address], [place] [address] [place] [address] Business (1) In 3 days 07/03/2022 Comments: Call the office of your primary care doctor to arrange for follow-up within the above-stated timeframe. Follow-up with your primary care doctor about this ED visit. You should review your labs, imaging, and diagnoses from this ED visit with your primary care physician. If you were prescribed medications you should discuss possible side-effects and drug interactions with your pharmacist. Call 911 or go to the nearest Emergency Department if you develop any new or worsening symptoms. DIAGNOSIS: Biceps tendinitis [facility] ED Patient Education Noteon 06-30-2022 ED Patient Education Note Orthopedics Distal Biceps Tendinitis Distal biceps tendinitis is inflammation of the distal biceps tendon. This tendon is a strong cord of tissue that connects the biceps muscle on the front of the upper arm to the radius bone in the elbow. Distal biceps tendinitis can interfere with the ability to bend the elbow and to turn the hand palm up (supination). Distal biceps tendinitis may include a grade 1 or grade 2 strain of the tendon. ? A grade 1 strain is mild. There is a slight pull of the tendon without any stretching or tearing of the tendon. There is also usually no loss of biceps muscle strength. ? A grade 2 strain is moderate. There is a small tear in the tendon. The tendon is stretched, and biceps muscle strength is usually decreased. This condition is most often caused by overusing the elbow joint and the biceps muscle. It usually heals within 6 weeks. What are the causes? This condition may be caused by: ? A sudden increase in the frequency or intensity of activity that involves the elbow and the biceps muscle. ? Overuse of the biceps muscle. This can happen when you do the same movements over and over, such as: ? Turning your hand palm up. ? Forceful straightening (hyperextension) of the elbow. ? Bending of the elbow. ? A direct, forceful hit or injury (trauma) to the elbow. This is rare. What increases the risk? The following factors may make you more likely to develop this condition: ? Playing contact sports. ? Playing sports that involve throwing and overhead movements, including racket sports, gymnastics, weight lifting, or bodybuilding. ? Doing physical labor. ? Having poor strength and flexibility of the arm and shoulder. ? Having injured other parts of the elbow. What are the signs or symptoms? Symptoms of this condition may include: ? Pain and inflammation in the front of the elbow. Pain may get worse during certain movements, such as: ? Turning your hand palm up. ? Bending your elbow. ? Lifting or carrying objects. ? Throwing. ? A feeling of warmth in the front of your elbow. ? A feeling of weakness. ? A crackling sound (crepitation) when you move or touch the elbow or the upper arm. In some cases, symptoms may return (recur) after treatment, and they may be long-lasting (chronic). How is this diagnosed? This condition is diagnosed based on: ? Your symptoms. ? Your medical history. ? A physical exam. Your health care provider may have you do arm movements to test your range of motion. ? You may have other tests, including: ? X-rays. ? MRI. How is this treated? Treatment for this condition depends on the severity of the injury. You may be treated by: ? Resting the injured arm. Avoid flexing the elbow. ? Applying ice or heat to the injured area. ? Taking medicines to relieve pain and inflammation. ? Ultrasound therapy. This applies sound waves to the injured area. ? Physical therapy. Follow these instructions at home: Managing pain, stiffness, and swelling ? If directed, put ice on the injured area. ? Put ice in a plastic bag. ? Place a towel between your skin and the bag. ? Leave the ice on for 20 minutes, 2?3 times a day. ? If directed, apply heat to the affected area before you exercise. Use the heat source that your health care provider recommends, such as a moist heat pack or a heating pad. ? Place a towel between your skin and the heat source. ? Leave the heat on for 20?30 minutes. ? Remove the heat if your skin turns bright red. This is especially important if you are unable to feel pain, heat, or cold. You may have a greater risk of getting burned. ? Move your fingers often to reduce stiffness and swelling. ? Raise (elevate) the injured area above the level of your heart while you are sitting or lying down. Activity ? Do not lift anything that is heavier than 10 lb (4.5 kg), or the limit that you are told, until your health care provider says that it is safe. ? Avoid activities that cause pain or make your condition worse. ? Return to your normal activities as told by your health care provider. Ask your health care provider what activities are safe for you. ? Do exercises as told by your health care provider. General instructions ? Take ltcd-qet-jmxsnkm and prescription medicines only as told by your health care provider. ? Do not use any products that contain nicotine or tobacco, such as cigarettes, e-cigarettes, and chewing tobacco. These can delay healing. If you need help quitting, ask your health care provider. ? Keep all follow-up visits as told by your health care provider. This is important. How is this prevented? ? Warm up and stretch before being active. ? Cool down and stretch after being active. ? Give your body time to rest between periods of activity. ? Make sure to use equipment that fits you. ? Be safe and res (more content not included)... [facility] ED Patient Summaryon 023 ED Patient Summary [place] [id number] Patient Discharge Instructions Person Information Name: NARCISA BENITEZ Age: 57 Years Arrival Date: 06/30/2022 17:47:24 Discharge Diagnosis: Biceps tendinitis Primary Care Physician: Yasmine Lewis Provider Information Primary Provider: Cecil Zuniga DO Advanced Opal Miner:Joe Meier PA-C The exam and treatment you received in the Emergency Department were for an urgent problem and are not intended as complete care. It is important that you follow up with a doctor, nurse practitioner, or physician?s insurance account assistant for ongoing care. If your symptoms become worse or you do not improve as expected and you are unable to reach your usual health care provider, you should return to the Emergency Department. We are available 24 hours a day. NARCISA BENITEZ has been given the following list of patient education materials, prescriptions and follow-up instructions: Follow-up Instructions: With: Address: When: Yasmine Torres [address], [place] [address] Business (1) In 3 days 07/03/2022 Comments: Call the office of your primary care doctor to arrange for follow-up within the above-stated timeframe. Follow-up with your primary care doctor about this ED visit. You should review your labs, imaging, and diagnoses from this ED visit with your primary care physician. If you were prescribed medications you should discuss possible side-effects and drug interactions with your pharmacist. Call 911 or go to the nearest Emergency Department if you develop any new or worsening symptoms. In the event that this physician does not participate in your insurance network, please consult with your insurance company to find a nearby participating provider. Patient Education Materials: Distal Biceps Tendinitis A MESSAGE TO ALL PATIENTS REGARDING OPIOIDS PRESCRIPTION OPIOIDS: WHAT YOU NEED TO KNOW Prescription opioids can be used to help relieve jagoalmh-mp-xyzfrj pain and are often prescribed following a surgery or injury, or for certain health conditions. These medications can be an important part of the treatment but also come with serious risks. It is important to work with your healthcare provider to make sure you are getting the safest, most effective care. WHAT ARE THE RISKS AND SIDE EFFECTS OF OPIOID USE? Prescription opioids carry serious risks of addiction and overdose, especially with prolonged use. An opioid overdose, often marked by slowed breathing, can cause sudden . The use of prescription opioids can have a number of side effects as well, even when taken as directed: ? Tolerance?meaning you might need to take more of the medication for the same pain relief ? Physical dependence?meaning you have symptoms of withdrawal when a medication is stopped ? Increased sensitivity to pain ? Constipation ? Nausea, vomiting, and dry mouth ? Sleepiness and dizziness ? Confusion ? Depression ? Low levels of testosterone that can result in lower sex drive, energy, and strength ? Itching and sweating RISKS ARE GREATER WITH: ? History of drug misuse, substance use disorder, or overdose ? Mental health conditions (such as depression or anxiety) ? Sleep apnea ? Older age (65 years and older) ? Avoid alcohol while taking prescription opioids. Also, unless specifically advised by your health care provider, medications to avoid include: ? Benzodiazepines (such as Xanax or Valium) ? Muscle relaxants (such as Soma or Flexeril) ? Hypnotics (such as Ambien or Lunesta) ? Other prescription opioids KNOW YOUR OPTIONS Talk to your health care provider about ways to manage your pain that don?t involve prescription opioids. Some of these options may actually work better and have fewer risks and side effects. Options may include: ? Pain relievers such as acetaminophen, ibuprofen, and naproxen ? Some medication that are also used for depression or seizures ? Physical therapy and exercise ? Cognitive behavioral therapy, a psychological, goal-directed approach, in which patients learn how to modify physical, behavioral, and emotional triggers of pain and stress. IF YOU ARE PRESCRIBED OPIOIDS FOR PAIN: ? Never take opioids in greater amounts or more often than prescribed. ? Follow up with your primary health care provider. o Work together to create a plan on how to manage your pain. o Talk about ways to help manage your pain that don?t involve prescription opioids. o Talk about any and all concerns and side effects. ? Help prevent misuse and abuse o Never sell or share prescription opioids. o Never use another person?s prescription opioids. ? Store prescription opioids in a secure place and out of reach of others (this may include visitors, children, friends, and family). ? Safe (more content not included)... [facility] COVID Quick Testingon 2021 Result Negative Kaizena Other CNOVon 06-09-2021 CNOV Office Visit (VY) ---- NARCISA BENITEZ ([id number]) 1965 F Date Time Provider Department 06/09/21 3:30 PM KARTHIKEYAN HILL During your visit today, we recorded the following information about you: Temperature Pulse Respiration Blood pressure 97.9 degrees 86/minute 20/minute 134/96 Weight Height 95.4 kg 1.651 m Karthikeyan Myers MD 06/11/2021 10:46 AM Signed Respiratory Lindsay Narcisa Benitez is a 56 year old female here for evaluation by the [facility] Sarcoidosis Team. Consultation requested by Dr. Hyde and my final recommendations will be communicated back to the requesting physician by way of shared Medical record or letter via US mail. HISTORY OF PRESENT ILLNESS: This is a 56 year old year-old with a PMHx significant for sarcoidosis, here for evaluation and management of sarcoidosis. States that symptoms started in with swollen ankles. Has swollen ankles again and cough for past few months. No eye redness, floatters, blurry vision. Says her eyes were checked but no sarcoidosis in eye 1 month ago. But feels right eye is aching. No SOB. Had dry cough for months. No palpitations, syncope, lightheadedness. No skin rash. No tingling, numbness sensation on feet and/or hand. Sarcoidosis History: Date of symptom onset: 1996, and now more recently summer 2020 Date of diagnosis: 1996 How was the diagnosis confirmed?:Bronchos copic Biopsy. Was the biopsy performed here? Yes What organs are affected (in your opinion)?: Lungs, Other: ankles, Skin Interval development of possible Sarcoidosis manifestations (related to previously uninvolved organs): None Immediate relative with sarcoidosis: None Pulmonary hypertension: No suspicion Patient diagnosed in late with sarcoidosis by biopsy with bronchoscopy in [place]. Has not required medical car efor it since then. Started to feel SOB in December 2020 with persistent dry cough. 03/01/21 CT chest with contrast showed bilateral hilar and mediastinal lymphadenopathy with faint ill defined nodules with slightly upper lobe predominance, findings consistent with sarcoidosis favoring stage 2. 04/08/12 Had skin biopsy of nodules on bilateral forearms which were positive for nonnecrotizing granulomas. Sarcoidosis Therapies: Past medications: Prednisone 20mg tapered which was used past 2 weeks Current medications: No medication Treatment-defining organ: Skin Is the patient being treated with oxygen therapy?: No MRC Dyspnea Scale: 1. Not troubled by breathlessness except on strenuous exercise REVIEW OF SYSTEMS: GENERAL: No weight loss, malaise or fevers HEENT: See HPI. NECK: Negative for lumps, goiter, pain and significant neck swelling RESPIRATORY: See HPI. CARDIOVASCULAR: See HPI. GI: No nausea, vomiting, or diarrhea MUSCULOSKELETAL: Negative for joint pain or swelling, back pain or muscle pain SKIN: See HPI. EXTREMITIES: No clubbing, no nail changes, no Raynaud's NEURO: See HPI. PAST MEDICAL HISTORY Diagnosis Date - Sarcoidosis History reviewed. No pertinent surgical history. 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 No pertinent family history. ALLERGIES No Known Allergies CURRENT MEDICATIONS: No prescriptions on file. PHYSICAL EXAM: BP 134/96 Pulse 86 Temp 97.9 Resp 20 Ht 5' 5 (1.65m) Wt 210 lb 5.1 oz (95.4kg) SpO2 95% BMI 35.00 kg/(m2). General appearance: Well appearing, alert, in no acute distress, well-hydrated, well nourished. Skin: Skin color, texture, turgor normal. Two skin nodules present, one on each forearm. Head: Normocephalic, no masses, lesions, tenderness or abnormalities Eyes: No jaundice, no redness. Neck: No adenopathy, no tenderness Lungs: Lungs clear to auscultation. No wheezing, rhonchi, rales Heart: RRR without murmur, gallop, or rubs. No ectopy Abdomen: Abdomen soft, non-tender. Musculoskeletal: No joint swelling, deformity, or tenderness Neuro: Gait normal, grossly non-focal. Data Reviewed (in addition to that noted in HPI, and Past histories above): CT scan: Standard CT available Was an echo performed?: No Was a right heart catheterization performed?: No ASSESSMENT Narcisa Benitez is a 56 year old female with history of sarcoidosis presenting to establish care and evaluation of her sarcoidosis. Patient was previously diagnosed in 1996 with a bronchoscopy and biopsy and at the time has not started on any medications and had done well since then until 2020. In the summer 2020 patient began to have a dry cough and ankle swelling and in the fall had 2 skin nodules on her forearms which were bi (more content not included)... Normal [facility] XR CHEST 2V FRONTAL/LATon XR CHEST 2V FRONTAL/LAT * * *Final Report* * * DATE OF EXAM: Jun 09 2021 1:38PM AOX [id number] - XR CHEST 2V FRONTAL/LAT / PROCEDURE REASON: multiple diagnoses * * * * Physician Interpretation * * * * EXAMINATION: CHEST RADIOGRAPH (2 VIEW FRONTAL and LATERAL) CLINICAL HISTORY: SOB (shortness of breath) Sarcoidosis MQ: [id number] EXAM DATE/TIME: 06/09/2021 1:38 PM COMPARISON: PA and lateral CXR dated 02/06/2021 RESULT: Lines, tubes, and devices: None. Lungs and pleura: The lungs appear clear of focal consolidation or mass. No evidence of interstitial disease/fibrosis is identified. There is no pleural effusion or pneumothorax. There is mild, symmetric irregularity of the pleural-parenchymal interface at both lung apices, likely post-inflammatory in nature. Cardiomediastinal silhouette: Stable cardiomediastinal silhouette. The heart size and pulmonary vascular pattern are within normal limits. There is symmetric bilateral hilar lymphadenopathy, consistent with the clinical diagnosis of sarcoidosis. I also suspect right paratracheal lymphadenopathy. Bones and soft tissues: The patient is status post anterior wedging of one of the lower thoracic vertebral bodies (approximately T12). IMPRESSION: Little change in radiographic appearance of the chest since 02/06/2021. There is bilateral hilar and probable mediastinal lymphadenopathy consistent with sarcoidosis. Heeler Machine: LONNY Transcribe Date/Time: Jun 09 2021 3:09P Dictated by : LUCY KUHN MD This examination was interpreted and the report reviewed and electronically signed by: LUCY KUHN MD on Jun 09 2021 3:14PM EST [id number] Normal [facility] Zeferino 04-16-2021 CNPN Telephone (PULMMN) ---- NARCISA BENITEZ ([id number]) 1965 F Date Time Provider Department 04/16/21 ALLEN LY During your visit today, we recorded the following information about you: Geoff Gildardo 04/16/2021 12:05 PM Signed Received outside records from [facility] Please allow time to process Allergies As of Date: 04/16/2021 (Not on File) Date Reviewed: Never Reviewed Reason for Visit: Received Outside Medical Records [[id number]] Problem List As Of Date: 04/16/2021 (None) En[facility] Status[facility]PULMMN[facility] ---- NARCISA BENITEZ ([id number]) 1965 F Date Time Provider Department 03/19/21 ALLEN LY During your visit today, we recorded the following information about you: Geoff Ewing 03/19/2021 6:01 PM Signed Received outside records from [facility] Please allow time to process Allergies As of Date: 03/19/2021 (Not on File) Date Reviewed: Never Reviewed Reason for Visit: Received Outside Medical Records [[id number]] Problem List As Of Date: 03/19/2021 (None) Encounter Status:Closed by GEOFF EWING on 03/19/[facility] (PULN[facility] ---- NARCISA BENITEZ ([id number]) 1965 F Date Time Provider Department 03/17/21 [facility]EN LY During your visit today, we recorded the following information about you: Allen Ly RN 03/17/2021 2:12 PM Signed Contacted [facility] Imaging dept. They stated that they would push the Pt.s CT of the chest and CXR today. Allergies As of Date: 03/17/2021 (Not on File) Date Reviewed: Never Reviewed Reason for Visit: Request Outside Medical Records [[id number]] Cmt: see note Problem List As Of Date: 03/17/2021 (None) Encounter Status:Closed by ALLEN LY on 03/17/21 [facility] CNPNon 03-14-2021 CNPN Telephone (PULIMN) ---- NARCISA BENITEZ ([id number]) 1965 F Date Time Provider Department 03/14/21 ALLEN LY During your visit today, we recorded the following information about you: Allen Ly RN 03/14/2021 1:24 PM Signed Concern for Pulmonary Sarcoidosis Pt. Conversation Pt. Had biopsy proven sarcoidosis in the in [place]. She has not needed care for Sarcoidosis since then and has no medical records to prove the Bx. She has recently undergone extreme life stress which required a move to [place]. In December of 2020. She started to feel SOB and had a persistent dry cough. She is concerned that her Sarc is flarring and now that she had to move to [place] she no longer has a rails developer. Pt. Mother in her 50s from lung cancer. S/S Fatigue, SOB, persistent cough, chest pain. Pt. Main Goal of First appt. To treat the flare and get reestablished with a Sarcoidosis doctor. Pt. Has received care at [facility] in [facility]. Faxed today. Good to know I advised the pt. To be seen as soon as possible by a local rails developer. In the mean time I will work to get her medical records and images into our system and get her scheduled for her first appt. Here at [facility]. I advised the pt. To be seen right away due to her family history of lung cancer. I also advised pt. To get a CD of her images and bring it with her for her first appt. Here at [facility]. Allergies As of Date: 03/14/2021 (Not on File) Date Reviewed: Never Reviewed Reason for Visit: Request Outside Medical Records [[id number]] Cmt: see note Problem List As Of Date: 03/14/2021 (None) Encounter Status:Closed by ALLEN LY on 03/14/21 [facility] [facility] Telephone (PULIMN) ---- NARCISA BENITEZ ([id number]) 1965 F Date Time Provider Department 03/14/21 ALLEN LY During your visit today, we recorded the following information about you: Allen Ly RN 04/16/2021 12:26 PM Addendum S[facility]oidosis [facility] Summary of outside records Concern for Pulmonary sarcoidosis Pt. Conversation Pt. Had biopsy proven sarcoidosis in the in [place]. She has not needed care for Sarcoidosis since then and has no medical records to prove the Bx. She has recently undergone extreme life stress which required a move to [place]. In December of 2020. She started to feel SOB and had a persistent dry cough. She is concerned that her Sarc is flarring and now that she had to move to [place] she no longer has a rails developer. Pt. Mother in her 50s from lung cancer. She recently had a Skin Bx of RILEY forearms which were positive for granulomas. S/S Fatigue, SOB, persistent cough, chest pain. Pt. Main Goal of First appt. To treat the flare and get reestablished with a Sarcoidosis doctor. ? Pt. Has received care at [facility] in [facility]. Faxed today. ? Good to know I advised the pt. To be seen as soon as possible by a local rails developer. In the mean time I will work to get her medical records and images into our system and get her scheduled for her first appt. Here at [facility]. I advised the pt. To be seen right away due to her family history of lung cancer. I also advised pt. To get a CD of her images and bring it with her for her first appt. Here at [facility]. Biopsy 1989: Record destroyed d/t age 1204/08/21: Skin biopsy, RILEY forearms CT Chest w/con: 03/01/21 CXR 02/06/21 Chest images (Chest x-ray, CT chest, whole body PET scan): (X) Not available in [facility] (X) patient notified that images need to be uploaded, or a CD with the images can be mailed or brought to the visit Decision after review of records: (X) ready to be scheduled. Will forward this encounter to PSS with orders for the following tests/consults: PFT CXR Allergies As of Date: 03/14/2021 (Not on File) Date Reviewed: Never Reviewed Reason for Visit: Sarcoidosis Abstract [Other] Cmt: see note Primary Visit Diagnosis:SOB (shortness of breath) [R06.02] Other Visit Diagnosis:Sarcoidos is [D86.9] Order(s):LUNG DIFFUSION CAPACITY (DLCO) [6574013] Order #: [id number]: 1 FUTURE SPIROMETRY WITH DILATOR IF OBSTRUCTED [[id number]] Order #: [id number]: 1 FUTURE XR CHEST 2V FRONTAL/LAT [[id number]] Order #: [id number] FUTURE Problem List As Of Date: 03/14/2021 (None) Encounter Status:Closed by ALLEN LY on 03/14/21 Cecy [facility] Zeferino 03-07-2021 HIWOT Telephone (PULMMN) ---- NARCISA BENITEZ ([id number]) 1965 F Date Time Provider Department 03/07/21 ALLEN LY During your visit today, we recorded the following information about you: Geoff Ewing 03/07/2021 10:08 AM Signed Received outside records from [facility] Office Please allow time to process Allergies As of Date: 03/07/2021 (Not on File) Date Reviewed: Never Reviewed Reason for Visit: Received Outside Medical Records [[id number]] Problem List As Of Date: 03/07/2021 (None) Encounter Status:Closed by GEOFF EWING on 03/07/21 [facility] Zeferino 03-05-2021 HIWOT Telephone (PULSOFIA) ---- NARCISA BENITEZ ([id number]) 1965 F Date Time Provider Department 03/05/21 SRINI SPIVEY CMA During your visit today, we recorded the following information about you: Srini Spivey 03/05/2021 12:10 PM Signed Sarcoidosis Center Triage Note Patient was called and notified that consult request has been received. Referring Provider (name, phone number and institution/address ): JAMIL Holm [phone] [place], [place] Diagnosis: Do you have a diagnosis of sarcoidosis by a doctor? Yes Have you had a biopsy? Yes If so, biopsy type: bronchoscopy Date diagnosis made: late If not, why does your physician think you have sarcoidosis? Abbreviated Sarcoidosis-related Review of System: Heart: Have you ever been told you have heart involvement by the sarcoidosis? No Have you ever had a cardiac MRI or cardiac PET scan? No Do you have a device, pacemaker or defibrillator? No Neuro: Have you ever been told you have neurologic involvement by the sarcoidosis? No Have you ever had a brain, neck, spine MRI? No Patient was told that medical records will be requested. Patient is aware that, ideally, we should get the relevant medical records before the first visit. Patient's preference is: wait until medical records arrive before the initial visit is scheduled. If records not available in two weeks, we will schedule the initial visit regardless. Assessment and Plan What is your main goal during your first visit at the [facility]? Discuss issues and symptoms Srini Spivey MA Allergies As of Date: 03/05/2021 (Not on File) Date Reviewed: Never Reviewed Reason for Visit: Consult [502] Problem List As Of Date: 03/05/2021 (None) Encounter Status:Closed by SRINI SPIVEY on 03/05/21 Normal [facility] Vital Signs Date Time Vital Sign Value Performing Clinician [facility] 04-16-2023 09:00-0500 Diastolic blood pressure 102 mm[Hg] ALCON QUE [facility] 04-16-2023 09:00-0500 Mean blood pressure 125 mm[Hg] ALCON QUE [facility] 04-16-2023 09:00-0500 Systolic blood pressure 170 mm[Hg] ALCON QUE [facility] 04-16-2023 08:32-0500 Blood Pressure Location ALCON QUE [facility] 04-16-2023 08:32-0500 Diastolic blood pressure 100 mm[Hg] ALCON QUE [facility] 04-16-2023 08:32-0500 Heart rate 74 /min ALCON QUE [facility] 04-16-2023 08:32-0500 SaO2% (BldA) [Mass fraction] 94 % ALCON QUE [facility] 04-16-2023 08:32-0500 Systolic blood pressure 160 mm[Hg] ALCON QUE [facility] 04-06-2023 14:59-0500 Diastolic blood pressure 94 mm[Hg] ALCON QUE [facility] 04-06-2023 14:59-0500 Mean blood pressure 109 mm[Hg] ALCON QUE [facility] 04-06-2023 14:59-0500 Systolic blood pressure 138 mm[Hg] ALCON QUE [facility] 01-27-2023 13:43-0400 Blood Pressure Location Lamont ACEVES [facility] 01-27-2023 13:43-0400 Diastolic blood pressure 92 mm[Hg] Lamont ACEVES [facility] 01-27-2023 13:43-0400 Heart rate 68 /min Lamont ACEVES [facility] 01-27-2023 13:43-0400 Systolic blood pressure 124 mm[Hg] Lamont ACEVES [facility] 07-20-2022 10:14-0400 Blood Pressure Location Yasmine Torres [facility] 07-20-2022 10:14-0400 Body temperature 98.06 [degF] Yasmine Missler [facility] 07-20-2022 10:14-0400 Diastolic blood pressure 80 mm[Hg] Yasmine Missler [facility] 07-20-2022 10:14-0400 Heart rate 72 /min Yasmine Missler [facility] 07-20-2022 10:14-0400 SaO2% (BldA) [Mass fraction] 99 % Yasmine Torres [facility] 07-20-2022 10:14-0400 Systolic blood pressure 140 mm[Hg] Yasmine Torres [facility] 06-30-2022 20:50-0400 Nursing Progress Note Reason Other: pt asking for d/c papers at nurses desk. pt asked to go back to room for discharge vitals and pt states that she must leave. no discharge vitals obtained. Cecil Zuniga [facility] 06-30-2022 17:59-0400 Body temperature 98.06 [degF] Ceciliraida Zuniga [facility] 06-30-2022 17:59-0400 Diastolic blood pressure 90 mm[Hg] Cecil Nadia [facility] 06-30-2022 17:59-0400 Heart rate 86 /min Cecil Nadia [facility] 06-30-2022 17:59-0400 Respiratory rate 16 /min Cecil Zuniga [facility] 06-30-2022 17:59-0400 SaO2% (BldA) [Mass fraction] 96 % Cecil Nadia [facility] 06-30-2022 17:59-0400 Systolic blood pressure 154 mm[Hg] Cecil Nadia [facility] 01-21-2022 10:35-0400 Blood Pressure Location Danii Joyner [facility] 01-21-2022 10:35-0400 Body temperature 97.7 [degF] Danii Joyner [facility] 01-21-2022 10:35-0400 Diastolic blood pressure 74 mm[Hg] Danii Joyner [facility] 01-21-2022 10:35-0400 Heart rate 71 /min Danii Joyner [facility] 01-21-2022 10:35-0400 SaO2% (BldA) [Mass fraction] 97 % Danii Joyner [facility] 01-21-2022 10:35-0400 Systolic blood pressure 132 mm[Hg] Danii Joyner [facility] 06-13-2021 18:00-0500 Body height 167.64 cm Kit Evans Other [facility] Other 06-13-2021 18:00-0500 Body mass index (BMI) [Ratio] 31.95 kg/m2 Kit Chavezaker Other [facility] Other 06-13-2021 18:00-0500 Body temperature 97.1 [degF] Kit Evans Other [facility] Other 06-13-2021 18:00-0500 Body weight 89.81 kg Kit Evans Other [facility] Other 06-13-2021 18:00-0500 Respiratory rate 16 /min Kit Evans Other [facility] Other 06-13-2021 18:00-0500 SaO2% (BldA) [Mass fraction] 97 % Kit Chavezaker Other [facility] Other Encounters Encounter Date Encounter Type Care Provider Facility Start: 05-03-2023 ambulatory ALCON A QUE Facili ty:[facility] Start: 04-26-2023 End: 04-27-2023 ambulatory ALCON A QUE [facility] Asha sharma Start: 04-16-2023 End: 04-17-2023 ambulatory ALCON A QUE Facility:[facility] Start: 04-16-2023 End: 04-16-2023 Patient encounter procedure ALCON A QUE [facility] Start: 04-06-2023 End: 04-07-2023 ambulatory ALCON A QUE Facility:[facility] Start: 04-06-2023 End: 04-06-2023 Patient encounter procedure ALCON A QUE [facility] Start: 04-06-2023 ambulatory ALCON QUE Facility :[facility] Start: 04-01-2023 ambulatory Lamont ACEVES Facili ty:CD:[id number] Start: 03-29-2023 End: 03-30-2023 ambulatory ALCON A QUE Facility:[facility] Start: 03-17-2023 End: 03-18-2023 ambulatory Lamont ACEVES [facility] Start: 03-17-2023 End: 03-17-2023 Patient encounter procedure Lamont ACEVES [facility] Start: 01-29-2023 End: 01-30-2023 ambulatory Yasmine Torres Facility[facility] Start: 01-29-2023 End: 01-29-2023 Patient encounter procedure Yasmine Torres [facility] Start: 01-27-2023 End: 01-28-2023 ambulatory Lamont ACEVES Facility[facility] Start: 01-27-2023 End: 01-27-2023 Patient encounter procedure Lamont ACEVES [facility] Start: 01-25-2023 End: 01-25-2023 Emergency department patient visit DO Mable Vital Facility[facility] Start: 01-25-2023 End: 01-26-2023 ambulatory CORNELIUS HARTLEY Facility[facility] Start: 09-16-2022 End: 09-16-2022 ambulatory Pauly Oden Facility:[facility] Start: 09-16-2022 Office outpatient ne w 30 minutes Pauly Oden [facility] Start: 09-16-2022 End: 09-16-2022 ambulatory PHYSICIAN KATHLEEN [facility] Work Phone: Start: 09-16-2022 End: 09-16-2022 Patient encounter procedure PHYSICIAN KATHLEEN [facility] Start: 08-24-2022 End: 08-25-2022 ambulatory Yasmine Torres Facility:[facility] Start: 08-12-2022 End: 08-13-2022 ambulatory Irena J Jenny Facility:[facility] Start: 08-06-2022 End: 08-07-2022 ambulatory Irena J Jenny Facility:[facility] Start: 08-06-2022 End: 08-06-2022 Patient encounter procedure Irena J Jenny [facility] Start: 07-24-2022 End: 07-25-2022 ambulatory Yasmine Rodrigeuz kali Facility[facility] Start: 07-24-2022 End: 07-24-2022 Patient encounter procedure Yasmine Burtonjae Hanleykali [facility] Start: 07-21-2022 End: 10-20-2022 ambulatory Yasmine Torres Facility:[facility] Start: 07-21-2022 End: 10-19-2022 Recurring Yasmine Torres [facility] Start: 07-20-2022 End: 07-21-2022 ambulatory Yasmine Torres Facility:[facility] Start: 07-20-2022 End: 07-20-2022 Patient encounter procedure Yasmine Torres [facility] Start: 07-20-2022 End: 07-20-2022 Well adult monitoring check done Yasmine Torres [facility] Start: 06-30-2022 End: 06-30-2022 Emergency department patient visit Cecil Zuniga Facility:[facility] Start: 06-30-2022 End: 06-30-2022 Emergency department patient visit Cecil Zuniga [facility] Start: 01-21-2022 End: 01-21-2022 Patient encounter procedure Danii Joyner [facility] Start: 07-02-2021 End: 11-04-2021 Pre-admission assessment Irena Alvarado [facility] Start: 06-17-2021 End: 06-17-2021 ambulatory Kit Evans Other [facility] Other Start: 06-17-2021 Telephone encounter Kit Nathan [facility] Start: 06-13-2021 End: 06-13-2021 ambulatory Kit Evans Other [facility] Other Start: 06-13-2021 Office outpatient visit 15 minutes Kit Nathan [facility] [address] Procedures Date Procedure Procedure Detail Performing Clinician Start: 09-16-2022 Plain X-ray of right hand PHYSICIAN NO FAMILY Start: 11-27-2019 Colonoscopy Irena Katz pe Malignant neoplasm o f skin (disorder) Irena Alvarado Immunizations Immunization Date Immunization Notes Care Provider Sudeep vega 09-29-2021 SARS-CoV-2 mRNA (mjynrnkciwn-viqg-nty dhruv) vaccine Lamont ACEVES [facility] 04-09-2021 SARS-CoV-2 (COVID-19 ) mRNA BNT-162b2 vax Irena Alvarado [facility] 07-12-2020 COVID-19, mRNA, LNP-S, PF, 30 mcg/0.3 mL dose; Translations: [Syrenaica COVID-19 Vaccine] Irena Alvarado [facility] Comment on above: Reason for Medicatio n: Prophylaxis 06-21-2020 COVID-19, mRNA, LNP-S, PF, 30 mcg/0.3 mL dose Irena Alvarado [facility] Comment on above: Reason for Medicatio n: Prophylaxis 12-02-2018 tetanus toxoid, reduced diphtheria toxoid, and acellular pertussis vaccine, adsorbed Kit Lowes Other [facility] NEGATED: Highlighted row has not occurred!01-25-2023 influenza virus vaccine, unspecified formulation Lamont ACEVES [facility] NEGATED: Highlighted row has not occurred!01-21-2022 influenza virus vaccine, unspecified formulation Danii Joyner [facility] NEGATED: Highlighted row has not occurred!06-19-2019 influenza virus vaccine, live, attenuated, for intranasal use Irena Alvarado [facility] Payers Date Payer Category Payer Private Health Insurance [id number] 2022 Self-pay [id number] 2022 Unknown [id number] 2.16. [id number] 1965 Unknown [id number] 2.16.8 40.1.706940.3.579.2.727 1965 Unknown [id number] 2.16.8 40.1.955255.3.579.2.727 1965 Unknown [id number] 2.16.8 40.1.672792.3.579.2.727 1965 Unknown [id number] 2.16.8 40.1.709023.3.579.2.72 1965 Unknown [id number] 2.16.8 40.1.639474.3.579.2.727 1965 Unknown [id number] 2.16.8 40.1.487194.3.579.2.72 1965 Unknown [id number] 2.16.8 40.1.506202.3.579.2.727 1965 Unknown [id number] 2.16.8 40.1.919058.3.579.2. 1965 Unknown [id number] 2.16.8 40.1.290081.3.579.2.727 1965 Unknown [id number] 2.16.8 40.1.825336.3.579.2.72 1965 Unknown [id number] 2.16.8 40.1.050042.3.579.2.727 1965 Unknown [id number] 2.16.8 40.1.972404.3.579.2.72 1965 Unknown [id number] 2.16.8 40.1.612624.3.579.2.727 1965 Unknown [id number] 2.16.8 40.1.236161.3.579.2.72 1965 Unknown [id number] 2.16.8 40.1.770304.3.579.2.727 1965 Unknown [id number] 2.16.8 40.1.182575.3.579.2.727 1965 Unknown [id number] 2.16.8 40.1.403053.3.579.2.727 1965 Unknown [id number] 2.16.8 40.1.204128.3.579.2.727 1965 Unknown [id number] 2.16.8 40.1.945643.3.579.2.727 1965 Unknown [id number] 2.16.8 40.1.739947.3.579.2.727 Unknown [id number] 2. 16.840.1.186372.19 Unknown [id number] 2.16.8 40.1.982140.3.579.2.531 Social History Date Type Detail Facility Start: 04-08-2021 End: 03-29-2023 Tobacco smoking status Never smoked tobacco (finding) [facility] Other Tobacco smoking status Never [facility] Sex Assigned At Female [facility] Other Start: 1965 Sex Assigned At Female [facility] Functional Status Date Assessment Result Facility 01-27-2023 Functional Status N/A [facility] 07-20-2022 Functional Status N/A [facility] 06-30-2022 Functional Status N/A [facility] 01-21-2022 Functional Status N/A [facility] Clinical Notes 04-18-2021 to 04-16-2023 Radiology Note Date & Type Note Facility 04-16-2023 Hospital Discharg e instructions Patient Education 04/16/2023 09:19:59 DASH Eating Plan DASH Eating Plan DASH stands for Dietary Approaches to Stop Hypertension. The DASH eating plan is a healthy eating plan that has been shown to: Reduce high blood pressure (hypertension). Reduce your risk for type 2 diabetes, heart disease, and stroke. Help with weight loss. What are tips for following this plan? Reading food labels Check food labels for the amount of salt (sodium) per serving. Choose foods with less than 5 percent of the Daily Value of sodium. Generally, foods with less than 300 milligrams (mg) of sodium per serving fit into this eating plan. To find whole grains, look for the word whole as the first word in the ingredient list. Shopping Buy products labeled as low-sodium or no salt added. Buy fresh foods. Avoid canned foods and pre-made or frozen meals. Cooking Avoid adding salt when cooking. Use salt-free seasonings or herbs instead of table salt or sea salt. Check with your health care provider or pharmacist before using salt substitutes. Do not doll foods. Cook foods using healthy methods such as baking, boiling, grilling, roasting, and broiling instead. Cook with heart-healthy oils, such as olive, canola, avocado, soybean, or sunflower oil. Meal planning Eat a balanced diet that includes: ?4 or more servings of fruits and 4 or more servings of vegetables each day. Try to fill one-half of your plate with fruits and vegetables. ?6 8 servings of whole grains each day. ?Less than 6 oz (170 g) of lean meat, poultry, or fish each day. A 3-oz (85-g) serving of meat is about the same size as a deck of cards. One egg equals 1 oz (28 g). ?2 3 servings of low-fat dairy each day. One serving is 1 cup (237 mL). ?1 serving of nuts, seeds, or beans 5 times each week. ?2 3 servings of heart-healthy fats. Healthy fats called omega-3 fatty acids are found in foods such as walnuts, flaxseeds, fortified milks, and eggs. These fats are also found in cold-water fish, such as sardines, salmon, and mackerel. Limit how much you eat of: ?Canned or prepackaged foods. ?Food that is high in trans fat, such as some fried foods. ?Food that is high in saturated fat, such as fatty meat. ?Desserts and other sweets, sugary drinks, and other foods with added sugar. ?Full-fat dairy products. Do not salt foods before eating. Do not eat more than 4 egg yolks a week. Try to eat at least 2 vegetarian meals a week. Eat more home-cooked food and less restaurant, buffet, and fast food. Lifestyle When eating at a restaurant, ask that your food be prepared with less salt or no salt, if possible. If you drink alcohol: ?Limit how much you use to: ?0 1 drink a day for women who are not . ?0 2 drinks a day for men. ?Be aware of how much alcohol is in your drink. In the [place] one drink equals one 12 oz bottle of beer (355 mL), one 5 oz glass of wine (148 mL), or one 1 oz glass of hard liquor (44 mL). General information Avoid eating more than 2,300 mg of salt a day. If you have hypertension, you may need to reduce your sodium intake to 1,500 mg a day. Work with your health care provider to maintain a healthy body weight or to lose weight. Ask what an ideal weight is for you. Get at least 30 minutes of exercise that causes your heart to beat faster (aerobic exercise) most days of the week. Activities may include walking, swimming, or biking. Work with your health care provider or dietitian to adjust your eating plan to your individual calorie needs. What foods should I eat? Fruits All fresh, dried, or frozen fruit. Canned fruit in natural juice (without added sugar). Vegetables Fresh or frozen vegetables (raw, steamed, roasted, or grilled). Low-sodium or reduced-sodium tomato and vegetable juice. Low-sodium or reduced-sodium tomato sauce and tomato paste. Low-sodium or reduced-sodium canned vegetables. Grains Whole-grain or whole-wheat bread. Whole-grain or whole-wheat pasta. Brown rice. Oatmeal. Quinoa. Bulgur. Whole-grain and low-sodium cereals. Malissa bread. Low-fat, low-sodium crackers. Whole-wheat flour tortillas. Meats and other proteins Skinless chicken or turkey. Ground chicken or turkey. Pork with fat trimmed off. Fish and seafood. Egg whites. Dried beans, peas, or lentils. Unsalted nuts, nut butters, and seeds. Unsalted canned beans. Lean cuts of beef with fat trimmed off. Low-sodium, lean precooked or cured meat, such as sausages or meat loaves. Dairy Low-fat (1%) or fat-free (skim) milk. Reduced-fat, low-fat, or fat-free cheeses. Nonfat, low-sodium ricotta or cottage cheese. Low-fat or nonfat yogurt. Low-fat, low-sodium cheese. Fats and oils Soft margarine without trans fats. Vegetable oil. Reduced-fat, low-fat, or light mayonnaise and salad dressings (reduced-sodium). Canola, safflower, olive, avocado, soybean, and sunflower oils. Avocado. Seasonings and condiments Herbs. Spices. Seasoning mixes without salt. Other foods Unsalted popcorn and pretzels. Fat-free sweets. The items listed above may not be a complete list of foods and beverages you can eat. Contact a dietitian for more information. What foods should I avoid? Fruits Canned fruit in a light or heavy syrup. Fried fruit. Fruit in cream or butter sauce. Vegetables Creamed or fried vegetables. Vegetables in a cheese sauce. Regular canned vegetables (not low-sodium or reduced-sodium). Regular canned tomato sauce and paste (not low-sodium or reduced-sodium). Regular tomato and vegetable juice (not low-sodium or reduced-sodium). Pickles. Olives. Grains Baked goods made with fat, such as croissants, muffins, or some breads. Dry pasta or rice meal packs. Meats and other proteins Fatty cuts of meat. Ribs. Fried meat. Mercedes. Bologna, salami, and other precooked or cured meats, such as sausages or meat loaves. Fat from the back of a pig (fatback). Bratwurst. Salted nuts and seeds. Canned beans with added salt. Canned or smoked fish. Whole eggs or egg yolks. Chicken or turkey with skin. Dairy Whole or 2% milk, cream, and vvnt-apx-mwpo. Whole or full-fat cream cheese. Whole-fat or sweetened yogurt. Full-fat cheese. Nondairy creamers. Whipped toppings. Processed cheese and cheese spreads. Fats and oils Butter. Stick margarine. Lard. Shortening. Ghee. Mercedes fat. Tropical oils, such as coconut, palm kernel, or palm oil. Seasonings and condiments Onion salt, garlic salt, seasoned salt, table salt, and sea salt. Worcestershire sauce. Tartar sauce. Barbecue sauce. Teriyaki sauce. Soy sauce, including reduced-sodium. Steak sauce. Canned and packaged gravies. Fish sauce. Oyster sauce. Cocktail sauce. Store-bought horseradish. Ketchup. Mustard. Meat flavorings and tenderizers. Bouillon cubes. Hot sauces. Pre-made or packaged marinades. Pre-made or packaged taco seasonings. Relishes. Regular salad dressings. Other foods Salted popcorn and pretzels. The items listed above may not be a complete list of foods and beverages you should avoid. Contact a dietitian for more information. Where to find more information National Heart, Lung, and Blood [place]: www.nhlbi.nih.gov [place] [employer]: www.heart.org Academy of Nutrition and Dietetics: www.eatright.org National Kidney Foundation: www.kidney.org Summary The DASH eating plan is a healthy eating plan that has been shown to reduce high blood pressure (hypertension). It may also reduce your risk for type 2 diabetes, heart disease, and stroke. When on the DASH eating plan, aim to eat more fresh fruits and vegetables, whole grains, lean proteins, low-fat dairy, and heart-healthy fats. With the DASH eating plan, you should limit salt (sodium) intake to 2,300 mg a day. If you have hypertension, you may need to reduce your sodium intake to 1,500 mg a day. Work with your health care provider or dietitian to adjust your eating plan to your individual calorie needs. This information is not intended to replace advice given to you by your health care provider. Make sure you discuss any questions you have with your health care provider. Document Revised: 03/08/2020 Document Reviewed: 03/08/2020 Elsevier Patient Education 2022 [employer]. [facility] 01-27-2023 Hospital Discharg e instructions Patient Education 01/27/2023 14:15:24 24-Hour Urine Collection 24-Hour Urine Collection Why am I having this test? A 24-hour urine specimen is a lab test that requires you to collect all of your urine for an entire day. This is sometimes called a timed urine test. It can provide more information than a single urine sample. There are many reasons to have this test. Your health care provider may order the test to check for or monitor the following conditions: High blood pressure. Kidney disease. Kidney stones. Urinary tract infections. . Diabetes. How do I prepare for this test? You may be asked to follow a special diet during or before the collection period. Follow any instructions from your health care provider. If no special instructions are given, you may eat and drink normally. Take zwbe-yim-sukenvb and prescription medicines only as told by your health care provider. Let your health care provider know about any medicines that you are taking, including wedg-sxy-wjezalv medicines, vitamins, herbs, and supplements. Choose a collection day when you can be at home or when you have a place to store the urine. All urine must be collected during the testing period. How do I do a 24-hour urine collection? When you get up in the morning, urinate in the toilet and flush. Write down the time. This will be your start time on the day of collection and your end time on the next morning. From the start time on, all of your urine should be kept in the collection jug that you received from the lab. If the jug that is given to you already has liquid in it, that is okay. Do not throw out the liquid or rinse out the jug. Urinate into a specimen container, such as a urinal or castaneda that sits over the toilet. Pour the urine from the container into the collection jug. Be careful not to spill any of the urine. Use the equipment provided by the lab. Do not let any toilet paper or stool (feces) get into the jug. This will contaminate the sample. Stop collecting your urine 24 hours after you started. Collect the last specimen as close as possible to the end of the 24-hour period. Keep the jug cool in an ice chest or keep it in the refrigerator during collection. When the 24-hour collection is complete, take the jug to the lab as soon as possible. Keep the jug cool in an ice chest while you are bringing it to the lab. What do the results mean? Talk with your health care provider about what your results mean. Questions to ask your health care provider Ask your health care provider, or the department that is doing the test: When will my results be ready? How will I get my results? What are my treatment options? What other tests do I need? What are my next steps? Summary A 24-hour urine specimen is a lab test that requires you to collect all of your urine for an entire day. When you get up in the morning, urinate in the toilet and flush. Write down the time. For the next 24 hours, collect all of your urine in the collection jug that you received from the lab. Keep the jug cool while collecting the urine and while bringing it back to the lab. Take the jug of urine back to the lab as soon as possible after the collection period has ended. This information is not intended to replace advice given to you by your health care provider. Make sure you discuss any questions you have with your health care provider. Document Revised: 10/10/2021 Document Reviewed: 10/10/2021 [place] Patient Education 2022 [employer]. 01/27/2023 14:13:06 Lithotripsy, Care After Lithotripsy, Care After This sheet gives you information about how to care for yourself after your procedure. Your health care provider may also give you more specific instructions. If you have problems or questions, contact your health care provider. What can I expect after the procedure? After the procedure, it is common to have: Some blood in your urine. This should only last for a few days. Soreness in your back, sides, or upper abdomen for a few days. Blotches or bruises on the area where the shock wave entered the skin. Pain, discomfort, or nausea when pieces (fragments) of the kidney stone move through the tube that carries urine from the kidney to the bladder (ureter). Stone fragments may pass soon after the procedure, but they may continue to pass for up to 4 8 weeks. ?If you have severe pain or nausea, contact your health care provider. This may be caused by a large stone that was not broken up, and this may mean that you need more treatment. Some pain or discomfort during urination. Some pain or discomfort in the lower abdomen or (in men) at the base of the penis. Follow these instructions at home: Medicines Take uoyc-urx-xufgcdd and prescription medicines only as told by your health care provider. If you were prescribed an antibiotic medicine, take it as told by your health care provider. Do not stop taking the antibiotic even if you start to feel better. Ask your health care provider if the medicine prescribed to you requires you to avoid driving or using machinery. Eating and drinking Drink enough fluid to keep your urine pale yellow. This helps any remaining pieces of the stone to pass. It can also help prevent new stones from forming. Eat plenty of fresh fruits and vegetables. Follow instructions from your health care provider about eating or drinking restrictions. You may be instructed to: ?Reduce how much salt (sodium) you eat or drink. Check ingredients and nutrition facts on packaged foods and beverages to see how much sodium they contain. ?Reduce how much meat you eat. Eat the recommended amount of calcium for your age and gender. Ask your health care provider how much calcium you should have. General instructions Get plenty of rest. Return to your normal activities as told by your health care provider. Ask your health care provider what activities are safe for you. Most people can resume normal activities 1 2 days after the procedure. If you were given a sedative during the procedure, it can affect you for several hours. Do not drive or operate machinery until your health care provider says that it is safe. Your health care provider may direct you to lie in a certain position (postural drainage) and tap firmly (percuss) over your kidney area to help stone fragments pass. Follow instructions as told by your health care provider. If directed, strain all urine through the strainer that was provided by your health care provider. ?Keep all fragments for your health care provider to see. Any stones that are found may be sent to a medical lab for examination. The stone may be as small as a grain of salt. Keep all follow-up visits as told by your health care provider. This is important. Contact a health care provider if: You have a fever or chills. You have nausea that is severe or does not go away. You have any of these urinary symptoms: ?Blood in your urine for longer than your health care provider told you to expect. ?Urine that smells bad or unusual. ?Feeling a strong urge to urinate after emptying your bladder. ?Pain or burning with urination that does not go away. ?Urinating more often than usual and this does not go away. You have a stent and it comes out. Get help right away if: You have severe pain in your back, sides, or upper abdomen. You have any of these urinary symptoms: ?Severe pain while urinating. ?More blood in your urine or having blood in your urine when you did not before. ?Passing blood clots in your urine. ?Passing only a small amount of urine or being unable to pass any urine at all. You have severe nausea that leads to persistent vomiting. You faint. Summary After this procedure, it is common to have some pain, discomfort, or nausea when pieces (fragments) of the kidney stone move through the tube that carries urine from the kidney to the bladder (ureter). If this pain or nausea is severe, however, you should contact your health care provider. Return to your normal activities as told by your health care provider. Ask your health care provider what activities are safe for you. Drink enough fluid to keep your urine pale yellow. This helps any remaining pieces of the stone to pass, and it can help prevent new stones from forming. If directed, strain your urine and keep all fragments for your health care provider to see. Fragments or stones may be as small as a grain of salt. Get help right away if you have severe pain in your back, sides, or upper abdomen, or if you have severe pain while urinating. This information is not intended to replace advice given to you by your health care provider. Make sure you discuss any questions you have with your health care provider. Document Revised: 03/02/2022 Document Reviewed: 12/08/2021 [place] Patient Education 2022 [employer]. 01/27/2023 14:13:05 Lithotripsy Lithotripsy Lithotripsy is a treatment that can help break up kidney stones that are too large to pass on their own. This is a nonsurgical procedure that crushes a kidney stone with shock waves. These shock waves pass through your body and focus on the kidney stone. They cause the kidney stone to break up into smaller pieces while it is still in the urinary tract. The smaller pieces of stone can pass more easily out of your body in the urine. Tell a health care provider about: Any allergies you have. All medicines you are taking, including vitamins, herbs, eye drops, creams, and rnna-wsf-rcyziup medicines. Any problems you or family members have had with anesthetic medicines. Any blood disorders you have. Any surgeries you have had. Any medical conditions you have. Whether you are or may be . What are the risks? Generally, this is a safe procedure. However, problems may occur, including: Infection. Bleeding from the kidney. Bruising of the kidney or skin. Scarring of the kidney, which can lead to: ?Increased blood pressure. ?Poor kidney function. ?Return (recurrence) of kidney stones. Damage to other structures or organs, such as the liver, colon, spleen, or pancreas. Blockage (obstruction) of the tube that carries urine from the kidney to the bladder (ureter). Failure of the kidney stone to break into pieces (fragments). What happens before the procedure? Staying hydrated Follow instructions from your health care provider about hydration, which may include: Up to 2 hours before the procedure you may continue to drink clear liquids, such as water, clear fruit juice, black coffee, and plain tea. Eating and drinking restrictions Follow instructions from your health care provider about eating and drinking, which may include: 8 hours before the procedure stop eating heavy meals or foods, such as meat, fried foods, or fatty foods. 6 hours before the procedure stop eating light meals or foods, such as toast or cereal. 6 hours before the procedure stop drinking milk or drinks that contain milk. 2 hours before the procedure stop drinking clear liquids. Medicines Ask your health care provider about: Changing or stopping your regular medicines. This is especially important if you are taking diabetes medicines or blood thinners. Taking medicines such as aspirin and ibuprofen. These medicines can thin your blood. Do not take these medicines unless your health care provider tells you to take them. Taking jcij-wbd-kjlhlgh medicines, vitamins, herbs, and supplements. Tests You may have tests, such as: Blood tests. Urine tests. Imaging tests, such as a CT scan. General instructions Plan to have someone take you home from the hospital or clinic. If you will be going home right after the procedure, plan to have someone with you for 24 hours. Ask your health care provider what steps will be taken to help prevent infection. These may include washing skin with a germ-killing soap. What happens during the procedure? An IV will be inserted into one of your veins. You will be given one or more of the following: ?A medicine to help you relax (sedative). ?A medicine to make you fall asleep (general anesthetic). A water-filled cushion may be placed behind your kidney or on your abdomen. In some cases, you may be placed in a tub of lukewarm water. Your body will be positioned in a way that makes it easy to target the kidney stone. An X-ray or ultrasound exam will be done to locate your stone. Shock waves will be aimed at the stone. If you are awake, you may feel a tapping sensation as the shock waves pass through your body. A flexible tube with holes in it (stent) may be placed in the ureter. This will help keep urine flowing from the kidney if the fragments of the stone have been blocking the ureter. The procedure may vary among health care providers and hospitals. What happens after the procedure? You may have an X-ray to see whether the procedure was able to break up the kidney stone and how much of the stone has passed. If large stone fragments remain after treatment, you may need to have a second procedure at a later time. Your blood pressure, heart rate, breathing rate, and blood oxygen level will be monitored until you leave the hospital or clinic. You may be given antibiotics or pain medicine as needed. If a stent was placed in your ureter during surgery, it may stay in place for a few weeks. You may need to strain your urine to collect pieces of the kidney stone for testing. You will need to drink plenty of water. If you were given a sedative during the procedure, it can affect you for several hours. Do not drive or operate machinery until your health care provider says that it is safe. Summary Lithotripsy is a treatment that can help break up kidney stones that are too large to pass on their own. Lithotripsy is a nonsurgical procedure that crushes a kidney stone with shock waves. Generally, this is a safe procedure. However, problems may occur, including damage to the kidney or other organs, infection, or obstruction of the tube that carries urine from the kidney to the bladder (ureter). You may have a stent placed in your ureter to help drain your urine. This stent may stay in place for a few weeks. After the procedure, you will need to drink plenty of water. You may be asked to strain your urine to collect pieces of the kidney stone for testing. This information is not intended to replace advice given to you by your health care provider. Make sure you discuss any questions you have with your health care provider. Document Revised: 03/02/2022 Document Reviewed: 12/08/2021 [employer] Patient Education 2022 [employer]. Follow Up Care 01/26/2023 13:34:54 With:YOLA GOLDBERG, Lamont Li, URL Address: [facility] [address] , [place] [id number]- When: Unknown [facility] 01-27-2023 Evaluation + Plan note Future Scheduled TestsXR Abdomen 1 View 01/27/23 [facility] 09-16-2022 Evaluation note Encounter Date Diagnosis Assessment Notes August, Mass of right hand (ICD-10 - R22.31) August, Ganglion cyst (ICD-10 - M67.40) X-rays were reviewed with the patient today, along with a physical examination. Patient does appear to have ganglion cysts on the right middle finger and left index finger. We discussed operative vs non-operative treatment which includes compression on the fingers, using needle to release the fluid within the cyst, or surgery. Patient would like to try conservative treatment at time, she will use Voltaren Gel and wrapping the finger in [place]. August, Mass of left hand (ICD-10 - R22.32) [facility] Other 04-26-2023 Evaluation + Plan note Future Scheduled Tests Radiology* MA Mamm Diag w/CAD if perf and 3D LT 08/12/22 [facility]04-03-2023 Hospital Discharge instructions Patient Education 07/20/2022 10:46:48 Health Maintenance, Female Health Maintenance, Female Adopting a healthy lifestyle and getting preventive care are important in promoting health and wellness. Ask your health care provider about: The right schedule for you to have regular tests and exams. Things you can do on your own to prevent diseases and keep yourself healthy. What should I know about diet, weight, and exercise? Eat a healthy diet Eat a diet that includes plenty of vegetables, fruits, low-fat dairy products, and lean protein. Do not eat a lot of foods that are high in solid fats, added sugars, or sodium. Maintain a healthy weight Body mass index (BMI) is used to identify weight problems. It estimates body fat based on height and weight. Your health care provider can help determine your BMI and help you achieve or maintain a healthy weight. Get regular exercise Get regular exercise. This is one of the most important things you can do for your health. Most adults should: Exercise for at least 150 minutes each week. The exercise should increase your heart rate and make you sweat (moderate-intensity exercise). Do strengthening exercises at least twice a week. This is in addition to the moderate-intensity exercise. Spend less time sitting. Even light physical activity can be beneficial. Watch cholesterol and blood lipids Have your blood tested for lipids and cholesterol at 20 years of age, then have this test every 5 years. Have your cholesterol levels checked more often if: Your lipid or cholesterol levels are high. You are older than 40 years of age. You are at high risk for heart disease. What should I know about cancer screening? Depending on your health history and family history, you may need to have cancer screening at various ages. This may include screening for: Breast cancer. Cervical cancer. Colorectal cancer. Skin cancer. Lung cancer. What should I know about heart disease, diabetes, and high blood pressure? Blood pressure and heart disease High blood pressure causes heart disease and increases the risk of stroke. This is more likely to develop in people who have high blood pressure readings, are of descent, or are overweight. Have your blood pressure checked: ?Every 3 5 years if you are 18 39 years of age. ?Every year if you are 40 years old or older. Diabetes Have regular diabetes screenings. This checks your fasting blood sugar level. Have the screening done: Once every three years after age 40 if you are at a normal weight and have a low risk for diabetes. More often and at a younger age if you are overweight or have a high risk for diabetes. What should I know about preventing infection? Hepatitis B If you have a higher risk for hepatitis B, you should be screened for this virus. Talk with your health care provider to find out if you are at risk for hepatitis B infection. Hepatitis C Testing is recommended for: Everyone born from 1945 through 1965. Anyone with known risk factors for hepatitis C. Sexually transmitted infections (STIs) Get screened for STIs, including gonorrhea and chlamydia, if: ?You are sexually active and are younger than 24 years of age. ?You are older than 24 years of age and your health care provider tells you that you are at risk for this type of infection. ?Your sexual activity has changed since you were last screened, and you are at increased risk for chlamydia or gonorrhea. Ask your health care provider if you are at risk. Ask your health care provider about whether you are at high risk for HIV. Your health care providermay recommend a prescription medicine to help prevent HIV infection. If you choose to take medicineto prevent HIV, you should first get tested for HIV. You should then be tested every 3 months for as long as you are taking the medicine. If you are about to stop having your period (premenopausal) and you may become , seek counseling before you get . Take 400 to 800 micrograms (mcg) of folic acid every day if you become . Ask for control (contraception) if you want to prevent . Osteoporosis and menopause Osteoporosis is a disease in which the bones lose minerals and strength with aging. This can resultin bone fractures. If you are 65 years old or older, or if you are at risk for osteoporosis and fractures, ask your health care provider if you should: Be screened for bone loss. Take a calcium or vitamin D supplement to lower your risk of fractures. Be given hormone replacement therapy (HRT) to treat symptoms of menopause. Follow these instructions at home: Lifestyle Do not use any products that contain nicotine or tobacco, such as cigarettes, e- cigarettes, and chewing tobacco. If you need help quitting, ask your health care provider. Do not use street drugs. Do not share needles. Ask your health care provider for help if you need support or information about quitting drugs. Alcohol use Do not drink alcohol if: ?Your health care provider tells you not to drink. ?You are , may be , or are planning to become . If you drink alcohol: ?Limit how much you use to 0 1 drink a day. ?Limit intake if you are . Be aware of how much alcohol is in your drink. In the [place] one drink equals one 12 oz bottle of beer (355 mL), one 5 oz glass of wine (148 mL), or one 1 oz glass of hard liquor (44 mL). General instructions Schedule regular health, dental, and eye exams. Stay current with your vaccines. Tell your health care provider if: ?You often feel depressed. ?You have ever been abused or do not feel safe at home. Summary Adopting a healthy lifestyle and getting preventive care are important in promoting health and wellness. Follow your health care provider's instructions about healthy diet, exercising, and getting tested or screened for diseases. Follow your health care provider's instructions on monitoring your cholesterol and blood pressure. This information is not intended to replace advice given to you by your health care provider. Make sure you discuss any questions you have with your health care provider. Document Released: 10/19/2011 Document Revised: 03/29/2019 Document Reviewed: 03/29/2019 [place] Patient Education 2020 [employer]. 07/20/2022 10:46:46 Heartburn Heartburn Heartburn is a type of pain or discomfort that can happen in the throat or chest. It is often described as a burning pain. It may also cause a bad, acid- like taste in the mouth. Heartburn may feel worse when you lie down or bend over, and it is often worse at night. Heartburn may be caused by stomach contents that move back up into the esophagus (reflux). Follow these instructions at home: Eating and drinking Avoid certain foods and drinks as told by your health care provider. This may include: ?Coffee and tea (with or without caffeine). ?Drinks that contain alcohol. ?Energy drinks and sports drinks. ?Carbonated drinks or sodas. ?Chocolate and cocoa. ?Peppermint and mint flavorings. ?Garlic and onions. ?Horseradish. ?Spicy and acidic foods, including peppers, chili powder, lala powder, vinegar, hot sauces, and barbecue sauce. ?[place] fruit juices and citrus fruits, such as oranges, lalit, and limes. ?Tomato-based foods, such as red sauce, chili, salsa, and pizza with red sauce. ?Fried and fatty foods, such as donuts, lao fries, potato chips, and high-fat dressings. ?High-fat meats, such as hot dogs and fatty cuts of red and white meats, such as rib eye steak, sausage, ham, and mercedes. ?High-fat dairy items, such as whole milk, butter, and cream cheese. Eat small, frequent meals instead of large meals. Avoid drinking large amounts of liquid with your meals. Avoid eating meals during the 2 3 hours before bedtime. Avoid lying down right after you eat. Do not exercise right after you eat. Lifestyle If you are overweight, reduce your weight to an amount that is healthy for you. Ask your health care provider for guidance about a safe weight loss goal. Do not use any products that contain nicotine or tobacco, such as cigarettes, e- cigarettes, and chewing tobacco. These can make your symptoms worse. If you need help quitting, ask your health care provider. Wear loose-fitting clothing. Do not wear anything tight around your waist that causes pressure on your abdomen. Raise (elevate) the head of your bed about 6 inches (15 cm) when you sleep. Try to reduce your stress, such as with yoga or meditation. If you need help reducing stress, ask your health care provider. General instructions Pay attention to any changes in your symptoms. Take erbi-azb-iijkhcp and prescription medicines only as told by your health care provider. ?Do not take aspirin, ibuprofen, or other NSAIDs unless your health care provider told you to do so. ?Stop medicines only as told by your health care provider. If you stop taking some medicines too quickly, your symptoms may get worse. Keep all follow-up visits as told by your health care provider. This is important. Contact a health care provider if: You have new symptoms. You have unexplained weight loss. You have difficulty swallowing, or it hurts to swallow. You have wheezing or a persistent cough. Your symptoms do not improve with treatment. You have frequent heartburn for more than 2 weeks. Get help right away if: You have pain in your arms, neck, jaw, teeth, or back. You feel sweaty, dizzy, or light-headed. You have chest pain or shortness of breath. You vomit and your vomit looks like blood or coffee grounds. Your stool is bloody or black. These symptoms may represent a serious problem that is an emergency. Do not wait to see if the symptoms will go away. Get medical help right away. Call your local emergency services (911 in the [place] Do not drive yourself to the hospital. Summary Heartburn is a type of pain or discomfort that can happen in the throat or chest. It is often described as a burning pain. It may also cause a bad, acid- like taste in the mouth. Avoid certain foods and drinks as told by your health care provider. Take ckbu-iqq-xvwoegl and prescription medicines only as told by your health care provider. Do not take aspirin, ibuprofen, or other NSAIDs unless your health care provider told you to do so. Contact a health care provider if your symptoms do not improve or they get worse. This information is not intended to replace advice given to you by your health care provider. Make sure you discuss any questions you have with your health care provider. Document Released: 08/22/2009 Document Revised: 09/05/2018 Document Reviewed: 09/05/2018 [facility] Patient Education 2020 [employer]. 07/20/2022 10:46:45 Hypertension, Adult Hypertension, Adult High blood pressure (hypertension) is when the force of blood pumping through the arteries is too strong. The arteries are the blood vessels that carry blood from the heart throughout the body. Hypertension forces the heart to work harder to pump blood and may cause arteries to become narrow or stiff. Untreated or uncontrolled hypertension can cause a heart attack, heart failure, a stroke, kidneydisease, and other problems. A blood pressure reading consists of a higher number over a lower number. Ideally, your blood pressure should be below 120/80. The first ( top ) number is called the systolic pressure. It is a measure of the pressure in your arteries as your heart beats. The second ( bottom ) number is called the diastolic pressure. It is a measure of the pressure in your arteries as the heart relaxes. What are the causes? The exact cause of this condition is not known. There are some conditions that result in or are related to high blood pressure. What increases the risk? Some risk factors for high blood pressure are under your control. The following factors may make you more likely to develop this condition: Smoking. Having type 2 diabetes mellitus, high cholesterol, or both. Not getting enough exercise or physical activity. Being overweight. Having too much fat, sugar, calories, or salt (sodium) in your diet. Drinking too much alcohol. Some risk factors for high blood pressure may be difficult or impossible to change. Some of these factors include: Having chronic kidney disease. Having a family history of high blood pressure. Age. Risk increases with age. Race. You may be at higher risk if you are . Gender. Men are at higher risk than women before age 45. After age 65, women are at higher risk than men. Having obstructive sleep apnea. Stress. What are the signs or symptoms? High blood pressure may not cause symptoms. Very high blood pressure (hypertensive crisis) may cause: Headache. Anxiety. Shortness of breath. Nosebleed. Nausea and vomiting. Vision changes. Severe chest pain. Seizures. How is this diagnosed? This condition is diagnosed by measuring your blood pressure while you are seated, with your arm resting on a flat surface, your legs uncrossed, and your feet flat on the floor. The cuff of the bloodpressure monitor will be placed directly against the skin of your upper arm at the level of your heart. It should be measured at least twice using the same arm. Certain conditions can cause a difference in blood pressure between your right and left arms. Certain factors can cause blood pressure readings to be lower or higher than normal for a short period of time: When your blood pressure is higher when you are in a health care provider's office than when you are at home, this is called white coat hypertension. Most people with this condition do not need medicines. When your blood pressure is higher at home than when you are in a health care provider's office, this is called masked hypertension. Most people with this condition may need medicines to control blood pressure. If you have a high blood pressure reading during one visit or you have normal blood pressure with other risk factors, you may be asked to: Return on a different day to have your blood pressure checked again. Monitor your blood pressure at home for 1 week or longer. If you are diagnosed with hypertension, you may have other blood or imaging tests to help your health care provider understand your overall risk for other conditions. How is this treated? This condition is treated by making healthy lifestyle changes, such as eating healthy foods, exercising more, and reducing your alcohol intake. Your health care provider may prescribe medicine if lifestyle changes are not enough to get your blood pressure under control, and if: Your systolic blood pressure is above 130. Your diastolic blood pressure is above 80. Your personal target blood pressure may vary depending on your medical conditions, your age, and other factors. Follow these instructions at home: Eating and drinking Eat a diet that is high in fiber and potassium, and low in sodium, added sugar, and fat. An exampleeating plan is called the DASH (Dietary Approaches to Stop Hypertension) diet. To eat this way: ?Eat plenty of fresh fruits and vegetables. Try to fill one half of your plate at each meal with fruits and vegetables. ?Eat whole grains, such as whole-wheat pasta, brown rice, or whole-grain bread. Fill about one fourth of your plate with whole grains. ?Eat or drink low-fat dairy products, such as skim milk or low-fat yogurt. ?Avoid fatty cuts of meat, processed or cured meats, and poultry with skin. Fill about one fourth of your plate with lean proteins, such as fish, chicken without skin, beans, eggs, or tofu. ?Avoid pre-made and processed foods. These tend to be higher in sodium, added sugar, and fat. Reduce your daily sodium intake. Most people with hypertension should eat less than 1,500 mg of sodium a day. Do not drink alcohol if: ?Your health care provider tells you not to drink. ?You are , may be , or are planning to become . If you drink alcohol: ?Limit how much you use to: ?0 1 drink a day for women. ?0 2 drinks a day for men. ?Be aware of how much alcohol is in your drink. In the [place] one drink equals one 12 oz bottle of beer (355 mL), one 5 oz glass of wine (148 mL), or one 1 oz glass of hard liquor (44 mL). Lifestyle Work with your health care provider to maintain a healthy body weight or to lose weight. Ask what an ideal weight is for you. Get at least 30 minutes of exercise most days of the week. Activities may include walking, swimming, or biking. Include exercise to strengthen your muscles (resistance exercise), such as Pilates or lifting weights, as part of your weekly exercise routine. Try to do these types of exercises for 30 minutes at least 3 days a week. Do not use any products that contain nicotine or tobacco, such as cigarettes, e- cigarettes, and chewing tobacco. If you need help quitting, ask your health care provider. Monitor your blood pressure at home as told by your health care provider. Keep all follow-up visits as told by your health care provider. This is important. Medicines Take twor-pgv-tbzpsbj and prescription medicines only as told by your health care provider. Follow directions carefully. Blood pressure medicines must be taken as prescribed. Do not skip doses of blood pressure medicine. Doing this puts you at risk for problems and can makethe medicine less effective. Ask your health care provider about side effects or reactions to medicines that you should watch for. Contact a health care provider if you: Think you are having a reaction to a medicine you are taking. Have headaches that keep coming back (recurring). Feel dizzy. Have swelling in your ankles. Have trouble with your vision. Get help right away if you: Develop a severe headache or confusion. Have unusual weakness or numbness. Feel faint. Have severe pain in your chest or abdomen. Vomit repeatedly. Have trouble breathing. Summary Hypertension is when the force of blood pumping through your arteries is too strong. If this condition is not controlled, it may put you at risk for serious complications. Your personal target blood pressure may vary depending on your medical conditions, your age, and other factors. For most people, a normal blood pressure is less than 120/80. Hypertension is treated with lifestyle changes, medicines, or a combination of both. Lifestyle changes include losing weight, eating a healthy, low-sodium diet, exercising more, and limiting alcohol. This information is not intended to replace advice given to you by your health care provider. Make sure you discuss any questions you have with your health care provider. Document Released: 04/05/2006 Document Revised: 12/14/2018 Document Reviewed: 12/14/2018 [facility] Patient Education 2020 [employer]. 07/20/2022 10:46:41 Dyslipidemia Dyslipidemia Dyslipidemia is an imbalance of waxy, fat-like substances (lipids) in the blood. The body needs lipids in small amounts. Dyslipidemia often involves a high level of cholesterol or triglycerides, which are types of lipids. Common forms of dyslipidemia include: High levels of LDL cholesterol. LDL is the type of cholesterol that causes fatty deposits (plaques)to build up in the blood vessels that carry blood away from your heart (arteries). Low levels of HDL cholesterol. HDL cholesterol is the type of cholesterol that protects against heart disease. High levels of HDL remove the LDL buildup from arteries. High levels of triglycerides. Triglycerides are a fatty substance in the blood that is linked to a buildup of plaques in the arteries. What are the causes? Primary dyslipidemia is caused by changes (mutations) in genes that are passed down through families (inherited). These mutations cause several types of dyslipidemia. Secondary dyslipidemia is caused by lifestyle choices and diseases that lead to dyslipidemia, such as: Eating a diet that is high in animal fat. Not getting enough exercise. Having diabetes, kidney disease, liver disease, or thyroid disease. Drinking large amounts of alcohol. Using certain medicines. What increases the risk? You are more likely to develop this condition if you are an older man or if you are a woman who hasgone through menopause. Other risk factors include: Having a family history of dyslipidemia. Taking certain medicines, including control pills, steroids, some diuretics, and beta-blockers. Smoking cigarettes. Eating a high-fat diet. Having certain medical conditions such as diabetes, polycystic ovary syndrome (PCOS), kidney disease, liver disease, or hypothyroidism. Not exercising regularly. Being overweight or obese with too much belly fat. What are the signs or symptoms? In most cases, dyslipidemia does not usually cause any symptoms. In severe cases, very high lipid levels can cause: Fatty bumps under the skin (xanthomas). White or uribe ring around the black center (pupil) of the eye. Very high triglyceride levels can cause inflammation of the pancreas (pancreatitis). How is this diagnosed? Your health care provider may diagnose dyslipidemia based on a routine blood test (fasting blood test). Because most people do not have symptoms of the condition, this blood testing (lipid profile) is done on adults age 20 and older and is repeated every 5 years. This test checks: Total cholesterol. This measures the total amount of cholesterol in your blood, including LDL cholesterol, HDL cholesterol, and triglycerides. A healthy number is below 200. LDL cholesterol. The target number for LDL cholesterol is different for each person, depending on individual risk factors. Ask your health care provider what your LDL cholesterol should be. HDL cholesterol. An HDL level of 60 or higher is best because it helps to protect against heart disease. A number below 40 for men or below 50 for women increases the risk for heart disease. Triglycerides. A healthy triglyceride number is below 150. If your lipid profile is abnormal, your health care provider may do other blood tests. How is this treated? Treatment depends on the type of dyslipidemia that you have and your other risk factors for heart disease and stroke. Your health care provider will have a target range for your lipid levels based onthis information. For many people, this condition may be treated by lifestyle changes, such as diet and exercise. Your health care provider may recommend that you: Get regular exercise. Make changes to your diet. Quit smoking if you smoke. If diet changes and exercise do not help you reach your goals, your health care provider may also prescribe medicine to lower lipids. The most commonly prescribed type of medicine lowers your LDL cholesterol (statin drug). If you have a high triglyceride level, your provider may prescribe another type of drug (fibrate) or an omega-3 fish oil supplement, or both. Follow these instructions at home: Eating and drinking Follow instructions from your health care provider or dietitian about eating or drinking restrictions. Eat a healthy diet as told by your health care provider. This can help you reach and maintain a healthy weight, lower your LDL cholesterol, and raise your HDL cholesterol. This may include: ?Limiting your calories, if you are overweight. ?Eating more fruits, vegetables, whole grains, fish, and lean meats. ?Limiting saturated fat, trans fat, and cholesterol. If you drink alcohol: ?Limit how much you use. ?Be aware of how much alcohol is in your drink. In the [place] one drink equals one 12 oz bottle of beer (355 mL), one 5 oz glass of wine (148 mL), or one 1 oz glass of hard liquor (44 mL). Do not drink alcohol if: ?Your health care provider tells you not to drink. ?You are , may be , or are planning to become . Activity Get regular exercise. Start an exercise and strength training program as told by your health care provider. Ask your health care provider what activities are safe for you. Your health care provider may recommend: ?30 minutes of aerobic activity 4 6 days a week. Brisk walking is an example of aerobic activity. ?Strength training 2 days a week. General instructions Do not use any products that contain nicotine or tobacco, such as cigarettes, e- cigarettes, and chewing tobacco. If you need help quitting, ask your health care provider. Take dpzv-hna-oxihdcs and prescription medicines only as told by your health care provider. This includes supplements. Keep all follow-up visits as told by your health care provider. Contact a health care provider if: You are: ?Having trouble sticking to your exercise or diet plan. ?Struggling to quit smoking or control your use of alcohol. Summary Dyslipidemia often involves a high level of cholesterol or triglycerides, which are types of lipids. Treatment depends on the type of dyslipidemia that you have and your other risk factors for heart disease and stroke. For many people, treatment starts with lifestyle changes, such as diet and exercise. Your health care provider may prescribe medicine to lower lipids. This information is not intended to replace advice given to you by your health care provider. Make sure you discuss any questions you have with your health care provider. Document Released: 04/10/2014 Document Revised: 11/28/2018 Document Reviewed: 11/04/2018 [facility] Patient Education 2020 [employer]. 07/20/2022 10:46:39 BMI for Adults BMI for Adults Body mass index (BMI) is a number that is calculated from a person's weight and height. BMI may help to estimate how much of a person's weight is composed of fat. BMI can help identify those who may be at higher risk for certain medical problems. How is BMI used with adults? BMI is used as a screening tool to identify possible weight problems. It is used to check whether aperson is obese, overweight, healthy weight, or underweight. How is BMI calculated? BMI measures your weight and compares it to your height. This can be done either in [place] or metric measurements. Note that charts are available to help you find your BMI quickly and easily without having to do these calculations yourself. To calculate your BMI in [place] measurements, your health care provider will: 1.Measure your weight in pounds (lb). 2.Multiply the number of pounds by 703. For example, for a person who weighs 180 lb, multiply that number by 703, which equals [phone]. 3.Measure your height in inches (in). Then multiply that number by itself to get a measurement called inches squared. For example, for a person who is 70 in tall, the inches squared measurement is 70 in x 70 in, which equals 4900 inches squared. 4.Divide the total from Step 2 (number of lb x 703) by the total from Step 3 (inches squared): 126,540 4900 = 25.8. This is your BMI. To calculate your BMI in metric measurements, your health care provider will: 1.Measure your weight in kilograms (kg). 2.Measure your height in meters (m). Then multiply that number by itself to get a measurement called meters squared. For example, for a person who is 1.75 m tall, the meters squared measurement is 1.75 m x 1.75 m, which is equal to 3.1 meters squared. 3.Divide the number of kilograms (your weight) by the meters squared number. In this example: 70 3.1 = 22.6. This is your BMI. How is BMI interpreted? To interpret your results, your health care provider will use BMI charts to identify whether you are underweight, normal weight, overweight, or obese. The following guidelines will be used: Underweight: BMI less than 18.5. Normal weight: BMI between 18.5 and 24.9. Overweight: BMI between 25 and 29.9. Obese: BMI of 30 and above. Please note: Weight includes both fat and muscle, so someone with a muscular build, such as an athlete, may havea BMI that is higher than 24.9. In cases like these, BMI is not an accurate measure of body fat. To determine if excess body fat is the cause of a BMI of 25 or higher, further assessments may needto be done by a health care provider. BMI is usually interpreted in the same way for men and women. Why is BMI a useful tool? BMI is useful in two ways: Identifying a weight problem that may be related to a medical condition, or that may increase the risk for medical problems. Promoting lifestyle and diet changes in order to reach a healthy weight. Summary Body mass index (BMI) is a number that is calculated from a person's weight and height. BMI may help to estimate how much of a person's weight is composed of fat. BMI can help identify those who may be at higher risk for certain medical problems. BMI can be measured using [place] measurements or metric measurements. To interpret your results, your health care provider will use BMI charts to identify whether you are underweight, normal weight, overweight, or obese. This information is not intended to replace advice given to you by your health care provider. Make sure you discuss any questions you have with your health care provider. Document Released: 12/15/2004 Document Revised: 03/18/2018 Document Reviewed: 02/16/2018 [facility] Patient Education 2020 [employer]. Follow Up Care 06/30/2022 14:46:12 With:Yasmine Lewis Address: [address], [facility], [place] [address]- When:Within 1 Month(s) Comments:recheck BP, review thyroid labs/[facility] 03-14-2023 Hospital Discharge instructions Patient Education 06/30/2022 20:46:30 Distal Biceps Tendinitis Distal Biceps Tendinitis Distal biceps tendinitis is inflammation of the distal biceps tendon. This tendon is a strong cord of tissue that connects the biceps muscle on the front of the upper arm to the radius bone in the elbow. Distal biceps tendinitis can interfere with the ability to bend the elbow and to turn the hand palm up (supination). Distal biceps tendinitis may include a grade 1 or grade 2 strain of the tendon. A grade 1 strain is mild. There is a slight pull of the tendon without any stretching or tearing ofthe tendon. There is also usually no loss of biceps muscle strength. A grade 2 strain is moderate. There is a small tear in the tendon. The tendon is stretched, and biceps muscle strength is usually decreased. This condition is most often caused by overusing the elbow joint and the biceps muscle. It usually heals within 6 weeks. What are the causes? This condition may be caused by: A sudden increase in the frequency or intensity of activity that involves the elbow and the biceps muscle. Overuse of the biceps muscle. This can happen when you do the same movements over and over, such as: ?Turning your hand palm up. ?Forceful straightening (hyperextension) of the elbow. ?Bending of the elbow. A direct, forceful hit or injury (trauma) to the elbow. This is rare. What increases the risk? The following factors may make you more likely to develop this condition: Playing contact sports. Playing sports that involve throwing and overhead movements, including racket sports, gymnastics, weight lifting, or bodybuilding. Doing physical labor. Having poor strength and flexibility of the arm and shoulder. Having injured other parts of the elbow. What are the signs or symptoms? Symptoms of this condition may include: Pain and inflammation in the front of the elbow. Pain may get worse during certain movements, such as: ?Turning your hand palm up. ?Bending your elbow. ?Lifting or carrying objects. ?Throwing. A feeling of warmth in the front of your elbow. A feeling of weakness. A crackling sound (crepitation) when you move or touch the elbow or the upper arm. In some cases, symptoms may return (recur) after treatment, and they may be long-lasting (chronic). How is this diagnosed? This condition is diagnosed based on: Your symptoms. Your medical history. A physical exam. Your health care provider may have you do arm movements to test your range of motion. You may have other tests, including: ?X-rays. ?MRI. How is this treated? Treatment for this condition depends on the severity of the injury. You may be treated by: Resting the injured arm. Avoid flexing the elbow. Applying ice or heat to the injured area. Taking medicines to relieve pain and inflammation. Ultrasound therapy. This applies sound waves to the injured area. Physical therapy. Follow these instructions at home: Managing pain, stiffness, and swelling If directed, put ice on the injured area. ?Put ice in a plastic bag. ?Place a towel between your skin and the bag. ?Leave the ice on for 20 minutes, 2 3 times a day. If directed, apply heat to the affected area before you exercise. Use the heat source that your health care provider recommends, such as a moist heat pack or a heating pad. ?Place a towel between your skin and the heat source. ?Leave the heat on for 20 30 minutes. ?Remove the heat if your skin turns bright red. This is especially important if you are unable to feel pain, heat, or cold. You may have a greater risk of getting burned. Move your fingers often to reduce stiffness and swelling. Raise (elevate) the injured area above the level of your heart while you are sitting or lying down. Activity Do not lift anything that is heavier than 10 lb (4.5 kg), or the limit that you are told, until your health care provider says that it is safe. Avoid activities that cause pain or make your condition worse. Return to your normal activities as told by your health care provider. Ask your health care provider what activities are safe for you. Do exercises as told by your health care provider. General instructions Take ocic-ksf-owlwydd and prescription medicines only as told by your health care provider. Do not use any products that contain nicotine or tobacco, such as cigarettes, e- cigarettes, and chewing tobacco. These can delay healing. If you need help quitting, ask your health care provider. Keep all follow-up visits as told by your health care provider. This is important. How is this prevented? Warm up and stretch before being active. Cool down and stretch after being active. Give your body time to rest between periods of activity. Make sure to use equipment that fits you. Be safe and responsible while being active. This will help you avoid falls. Maintain physical fitness, including: ?Strength. ?Flexibility. ?Heart health (cardiovascular fitness). ?The ability to use muscles for a long time (endurance). Contact a health care provider if: You have symptoms that get worse or do not get better after 2 weeks of treatment. You develop new symptoms. Get help right away if: You develop severe pain. Summary Distal biceps tendinitis is inflammation of the distal biceps tendon. This injury is caused by a sudden increase in the frequency or intensity of activity or overuse of the biceps muscle. Distal biceps tendinitis can interfere with the ability to bend the elbow and to turn the hand palmup. This condition is treated with rest, ice, heat, physical therapy, and pain medicines if needed. Follow activity and lifting restrictions as told by your health care provider. This information is not intended to replace advice given to you by your health care provider. Make sure you discuss any questions you have with your health care provider. Document Released: 04/05/2006 Document Revised: 08/01/2019 Document Reviewed: 04/04/2019 [facility] Patient Education 2020 [employer]. Follow Up Care 06/30/2022 17:49:12 With:Yasmine Torres Address: [address] [place], [place] [id number] [facility] (1) When:07/03/2022 20:46:13 Comments:Call the office of your primary care doctor to arrange for follow-up within the above-stated timeframe. Follow-up with your primary care doctor about this ED visit. You should review your labs, imaging, and diagnoses from this ED visit with your primary care physician. If you were prescribed medications you should discuss possible side-effects and drug interactions with your pharmacist. Call 911 or go to the nearest Emergency Department if you develop any new or worsening symptoms. [facility]10-05-2022 Hospital Discharge instructions Patient Education 01/21/2022 11:14:44 Warts Warts Warts are small growths on the skin. They are common and can occur on many areas of the body. A person may have one wart or several warts. In many cases, warts do not require treatment. They usually go away on their own over a period of many months to a few years. If needed, warts that cause problems or do not go away on their own can be treated. What are the causes? Warts are caused by a type of virus that is called human papillomavirus (HPV). This virus can spread from person to person through direct contact. Warts can also spread to other areas of the body when a person scratches a wart and then scratches another area of his or her body. What increases the risk? You are more likely to develop this condition if: You are 10 20 years old. You have a weakened body defense system (immune system). You are . What are the signs or symptoms? The main symptom of this condition is small growths on the skin. Warts may: Be round or oval or have an irregular shape. Have a rough surface. Range in color from skin color to light yellow, brown, or uribe. Generally be less than inch (1.3 cm) in size. Go away and then come back again. Most warts are painless, but some can be painful if they are large or occur in an area of the body where pressure will be applied to them, such as the bottom of the foot. How is this diagnosed? A wart can usually be diagnosed based on its appearance. In some cases, a tissue sample may be removed (biopsy) to be looked at under a microscope. How is this treated? In many cases, warts do not need treatment. Sometimes treatment is desired. If treatment is needed or desired, options may include: Applying medicated solutions, creams, or patches to the wart. These may be xecg-beh-javhslq or prescription medicines that make the skin soft so that layers will gradually shed away. In many cases, the medicine is applied one or two times per day and covered with a bandage. Putting duct tape over the top of the wart (occlusion). You will leave the tape in place for as long as told by your health care provider and then replace it with a new strip of tape. This is done until the wart goes away. Freezing the wart with liquid nitrogen (cryotherapy). Burning the wart with: ?Laser treatment. ?An electrified probe (electrocautery). Injection of a medicine (Whitney antigen) into the wart to help the body's immune system fight off the wart. Surgery to remove the wart. Follow these instructions at home: Medicines Apply gell-rsl-vcfkbby and prescription medicines only as told by your health care provider. Do not apply sqyj-cgf-gvxyukb wart medicines to your face or genitals unless your health care provider tells you to do that. Lifestyle Keep your immune system healthy. To do this: ?Eat a healthy, balanced diet. ?Get enough sleep. ?Do not use any products that contain nicotine or tobacco, such as cigarettes and e-cigarettes. If you need help quitting, ask your health care provider. General instructions Wash your hands after you touch a wart. Do not scratch or pick at a wart. Avoid shaving hair that is over a wart. Keep all follow-up visits as told by your health care provider. This is important. Contact a health care provider if: Your warts do not improve after treatment. You have redness, swelling, or pain at the site of a wart. You have bleeding from a wart that does not stop with light pressure. You have diabetes and you develop a wart. Summary Warts are small growths on the skin. They are common and can occur on many areas of the body. In many cases, warts do not need treatment. Sometimes treatment is desired. If treatment is needed or desired, there are several treatment options. Apply nmhe-efl-eufrwzx and prescription medicines only as told by your health care provider. Wash your hands after you touch a wart. Keep all follow-up visits as told by your health care provider. This is important. This information is not intended to replace advice given to you by your health care provider. Make sure you discuss any questions you have with your health care provider. Document Released: 01/13/2006 Document Revised: 08/23/2018 Document Reviewed: 08/23/2018 [facility] Patient Education 2020 [employer]. 01/21/2022 11:14:39 BMI for Adults BMI for Adults Body mass index (BMI) is a number that is calculated from a person's weight and height. BMI may help to estimate how much of a person's weight is composed of fat. BMI can help identify those who may be at higher risk for certain medical problems. How is BMI used with adults? BMI is used as a screening tool to identify possible weight problems. It is used to check whether aperson is obese, overweight, healthy weight, or underweight. How is BMI calculated? BMI measures your weight and compares it to your height. This can be done either in [place] or metric measurements. Note that charts are available to help you find your BMI quickly and easily without having to do these calculations yourself. To calculate your BMI in [place] measurements, your health care provider will: 1.Measure your weight in pounds (lb). 2.Multiply the number of pounds by 703. For example, for a person who weighs 180 lb, multiply that number by 703, which equals 126,540. 3.Measure your height in inches (in). Then multiply that number by itself to get a measurement called inches squared. For example, for a person who is 70 in tall, the inches squared measurement is 70 in x 70 in, which equals 4900 inches squared. 4.Divide the total from Step 2 (number of lb x 703) by the total from Step 3 (inches squared): 126,540 4900 = 25.8. This is your BMI. To calculate your BMI in metric measurements, your health care provider will: 1.Measure your weight in kilograms (kg). 2.Measure your height in meters (m). Then multiply that number by itself to get a measurement called meters squared. For example, for a person who is 1.75 m tall, the meters squared measurement is 1.75 m x 1.75 m, which is equal to 3.1 meters squared. 3.Divide the number of kilograms (your weight) by the meters squared number. In this example: 70 3.1 = 22.6. This is your BMI. How is BMI interpreted? To interpret your results, your health care provider will use BMI charts to identify whether you are underweight, normal weight, overweight, or obese. The following guidelines will be used: Underweight: BMI less than 18.5. Normal weight: BMI between 18.5 and 24.9. Overweight: BMI between 25 and 29.9. Obese: BMI of 30 and above. Please note: Weight includes both fat and muscle, so someone with a muscular build, such as an athlete, may havea BMI that is higher than 24.9. In cases like these, BMI is not an accurate measure of body fat. To determine if excess body fat is the cause of a BMI of 25 or higher, further assessments may needto be done by a health care provider. BMI is usually interpreted in the same way for men and women. Why is BMI a useful tool? BMI is useful in two ways: Identifying a weight problem that may be related to a medical condition, or that may increase the risk for medical problems. Promoting lifestyle and diet changes in order to reach a healthy weight. Summary Body mass index (BMI) is a number that is calculated from a person's weight and height. BMI may help to estimate how much of a person's weight is composed of fat. BMI can help identify those who may be at higher risk for certain medical problems. BMI can be measured using [place] measurements or metric measurements. To interpret your results, your health care provider will use BMI charts to identify whether you are underweight, normal weight, overweight, or obese. This information is not intended to replace advice given to you by your health care provider. Make sure you discuss any questions you have with your health care provider. Document Released: 12/15/2004 Document Revised: 03/18/2018 Document Reviewed: 02/16/2018 [facility] Patient Education 2020 [employer]. 01/21/2022 11:14:37 Vitamin D Deficiency Vitamin D Deficiency Vitamin D deficiency is when your body does not have enough vitamin D. Vitamin D is important to your body for many reasons: It helps the body absorb two important minerals calcium and phosphorus. It plays a role in bone health. It may help to prevent some diseases, such as diabetes and multiple sclerosis. It plays a role in muscle function, including heart function. If vitamin D deficiency is severe, it can cause a condition in which your bones become soft. In adults, this condition is called osteomalacia. In children, this condition is called rickets. What are the causes? This condition may be caused by: Not eating enough foods that contain vitamin D. Not getting enough natural sun exposure. Having certain digestive system diseases that make it difficult for your body to absorb vitamin D. These diseases include Crohn's disease, chronic pancreatitis, and cystic fibrosis. Having a surgery in which a part of the stomach or a part of the small intestine is removed. Having chronic kidney disease or liver disease. What increases the risk? You are more likely to develop this condition if you: Are older. Do not spend much time outdoors. Live in a long-term care facility. Have had broken bones. Have weak or thin bones (osteoporosis). Have a disease or condition that changes how the body absorbs vitamin D. Have dark skin. Take certain medicines, such as steroid medicines or certain seizure medicines. Are overweight or obese. What are the signs or symptoms? In mild cases of vitamin D deficiency, there may not be any symptoms. If the condition is severe, symptoms may include: Bone pain. Muscle pain. Falling often. Broken bones caused by a minor injury. How is this diagnosed? This condition may be diagnosed with blood tests. Imaging tests such as X-rays may also be done to look for changes in the bone. How is this treated? Treatment for this condition may depend on what caused the condition. Treatment options include: Taking vitamin D supplements. Your health care provider will suggest what dose is best for you. Taking a calcium supplement. Your health care provider will suggest what dose is best for you. Follow these instructions at home: Eating and drinking Eat foods that contain vitamin D. Choices include: ?Fortified dairy products, cereals, or juices. Fortified means that vitamin D has been added to thefood. Check the label on the package to see if the food is fortified. ?Fatty fish, such as salmon or trout. ?Eggs. ?Oysters. ?Mushrooms. The items listed above may not be a complete list of recommended foods and beverages. Contact a dietitian for more information. General instructions Take medicines and supplements only as told by your health care provider. Get regular, safe exposure to natural sunlight. Do not use a tanning bed. Maintain a healthy weight. Lose weight if needed. Keep all follow-up visits as told by your health care provider. This is important. How is this prevented? You can get vitamin D by: Eating foods that naturally contain vitamin D. Eating or drinking products that have been fortified with vitamin D, such as cereals, juices, and dairy products (including milk). Taking a vitamin D supplement or a multivitamin supplement that contains vitamin D. Being in the sun. Your body naturally makes vitamin D when your skin is exposed to sunlight. Your body changes the sunlight into a form of the vitamin that it can use. Contact a health care provider if: Your symptoms do not go away. You feel nauseous or you vomit. You have fewer bowel movements than usual or are constipated. Summary Vitamin D deficiency is when your body does not have enough vitamin D. Vitamin D is important to your body for good bone health and muscle function, and it may help prevent some diseases. Vitamin D deficiency is primarily treated through supplementation. Your health care provider will suggest what dose is best for you. You can get vitamin D by eating foods that contain vitamin D, by being in the sun, and by taking a vitamin D supplement or a multivitamin supplement that contains vitamin D. This information is not intended to replace advice given to you by your health care provider. Make sure you discuss any questions you have with your health care provider. Document Released: 06/27/2012 Document Revised: 12/12/2018 Document Reviewed: 12/12/2018 [facility] Patient Education 2020 [employer]. 01/21/2022 11:14:35 High Cholesterol High Cholesterol High cholesterol is a condition in which the blood has high levels of a white, waxy, fat-like substance (cholesterol). The human body needs small amounts of cholesterol. The liver makes all the cholesterol that the body needs. Extra (excess) cholesterol comes from the food that we eat. Cholesterol is carried from the liver by the blood through the blood vessels. If you have high cholesterol, deposits (plaques) may build up on the ahrdwick of your blood vessels (arteries). Plaques makethe arteries narrower and stiffer. Cholesterol plaques increase your risk for heart attack and stroke. Work with your health care provider to keep your cholesterol levels in a healthy range. What increases the risk? This condition is more likely to develop in people who: Eat foods that are high in animal fat (saturated fat) or cholesterol. Are overweight. Are not getting enough exercise. Have a family history of high cholesterol. What are the signs or symptoms? There are no symptoms of this condition. How is this diagnosed? This condition may be diagnosed from the results of a blood test. If you are older than age 20, your health care provider may check your cholesterol every 4 6 years. You may be checked more often if you already have high cholesterol or other risk factors for heart disease. The blood test for cholesterol measures: Bad cholesterol (LDL cholesterol). This is the main type of cholesterol that causes heart disease. The desired level for LDL is less than 100. Good cholesterol (HDL cholesterol). This type helps to protect against heart disease by cleaning the arteries and carrying the LDL away. The desired level for HDL is 60 or higher. Triglycerides. These are fats that the body can store or burn for energy. The desired number for triglycerides is lower than 150. Total cholesterol. This is a measure of the total amount of cholesterol in your blood, including LDL cholesterol, HDL cholesterol, and triglycerides. A healthy number is less than 200. How is this treated? This condition is treated with diet changes, lifestyle changes, and medicines. Diet changes This may include eating more whole grains, fruits, vegetables, nuts, and fish. This may also include cutting back on red meat and foods that have a lot of added sugar. Lifestyle changes Changes may include getting at least 40 minutes of aerobic exercise 3 times a week. Aerobic exercises include walking, biking, and swimming. Aerobic exercise along with a healthy diet can help you maintain a healthy weight. Changes may also include quitting smoking. Medicines Medicines are usually given if diet and lifestyle changes have failed to reduce your cholesterol tohealthy levels. Your health care provider may prescribe a statin medicine. Statin medicines have been shown to reduce cholesterol, which can reduce the risk of heart disease. Follow these instructions at home: Eating and drinking If told by your health care provider: Eat chicken (without skin), fish, veal, shellfish, ground turkey breast, and round or loin cuts of red meat. Do not eat fried foods or fatty meats, such as hot dogs and salami. Eat plenty of fruits, such as apples. Eat plenty of vegetables, such as broccoli, potatoes, and carrots. Eat beans, peas, and lentils. Eat grains such as barley, rice, couscous, and bulgur wheat. Eat pasta without cream sauces. Use skim or nonfat milk, and eat low-fat or nonfat yogurt and cheeses. Do not eat or drink whole milk, cream, ice cream, egg yolks, or hard cheeses. Do not eat stick margarine or tub margarines that contain trans fats (also called partially hydrogenated oils). Do not eat saturated tropical oils, such as coconut oil and palm oil. Do not eat cakes, cookies, crackers, or other baked goods that contain trans fats. General instructions Exercise as directed by your health care provider. Increase your activity level with activities such as gardening, walking, and taking the stairs. Take mbas-mjo-xfmjtum and prescription medicines only as told by your health care provider. Do not use any products that contain nicotine or tobacco, such as cigarettes and e-cigarettes. If you need help quitting, ask your health care provider. Keep all follow-up visits as told by your health care provider. This is important. Contact a health care provider if: You are struggling to maintain a healthy diet or weight. You need help to start on an exercise program. You need help to stop smoking. Get help right away if: You have chest pain. You have trouble breathing. This information is not intended to replace advice given to you by your health care provider. Make sure you discuss any questions you have with your health care provider. Document Released: 04/05/2006 Document Revised: 04/08/2018 Document Reviewed: 10/03/2016 [facility] Patient Education 2020 [employer]. 01/21/2022 11:14:33 Sarcoidosis Sarcoidosis Sarcoidosis is a disease that can cause inflammation in many areas of the body. It most often affects the lungs (pulmonary sarcoidosis). Sarcoidosis can also affect the lymph nodes, liver, eyes, skin, heart, or any other body tissue. Normally, cells that are part of your body's disease-fighting system (immune system) attack harmfulsubstances (such as germs) in your body. This immune system response causes inflammation. After theharmful substance is destroyed, the inflammation and the immune cells go away. When you have sarcoidosis, your immune system causes inflammation even when there are no harmful substances, and the inflammation does not go away. Sarcoidosis also causes cells from your immune system to form small clumps of tissue (granulomas) in the affected area of your body. What are the causes? The exact cause of sarcoidosis is not known. It is possible that if you have a family history of this disease (genetic predisposition), the immune system response that leads to inflammation may be triggered by something in your environment, such as: Bacteria or viruses. Metals. Chemicals. Dust. Mold or mildew. What increases the risk? You may be at a greater risk for sarcoidosis if you: Have a family history of the disease. Are -[place]. Are of [place] descent. Are 20 50 years old. Work as a guest house manager. Work in an environment where you are exposed to metals, chemicals, mold or mildew, or insecticides. What are the signs or symptoms? Some people with sarcoidosis have no symptoms. Others have very mild symptoms. The symptoms usuallydepend on the organ that is affected. Sarcoidosis most often affects the lungs, which may include symptoms such as: Chest pain. Coughing. Wheezing. Shortness of breath. Other common symptoms include: Night sweats. Fever. Weight loss. Fatigue. Swollen lymph nodes. Joint pain. How is this diagnosed? Sarcoidosis may be diagnosed based on: Your symptoms and medical history. A physical exam. Imaging tests to check for granulomas such as: ?Chest X-ray. ?CT scan. ?MRI. ?PET scan. Lung function tests. These tests evaluate your breathing and check for problems that may be relatedto sarcoidosis. A procedure to remove a tissue sample for testing (biopsy). You may have a biopsy of lung tissue ifthat is where you are having symptoms. You may have tests to check for any complications of the condition. These tests may include: Eye exams. MRI of the heart or brain. Echocardiogram. Electrocardiogram (EKG or ECG). How is this treated? In some cases, sarcoidosis does not require a specific treatment because it causes no symptoms or mild symptoms. If your symptoms bother you or are severe, you may be prescribed medicines to reduce inflammation or relieve symptoms. These medicines may include: Prednisone. This is a steroid that reduces inflammation related to sarcoidosis. Hydroxychloroquine. This may be used to treat sarcoidosis that affects the skin, eyes, or brain. Methotrexate, leflunomide, or azathioprine. These medicines affect the immune system and can help with sarcoidosis in the joints, eyes, skin, or lungs. Medicines that you breathe in (inhalers). Inhalers can help you breathe if sarcoidosis affects yourlungs. Follow these instructions at home: Do not use any products that contain nicotine or tobacco, such as cigarettes and e-cigarettes. If you need help quitting, ask your health care provider. Avoid secondhand smoke and irritating dust or chemicals. Stay indoors on days when air quality is poor in your area. Return to your normal activities as told by your health care provider. Ask your health care provider what activities are safe for you. Take or use aktj-exl-swgcpqk and prescription medicines only as told by your health care provider. Keep all follow-up visits as told by your health care provider. This is important. Contact a health care provider if: You have vision problems. You have a dry cough that does not go away. You have an irregular heartbeat. You have pain or aches in your joints, hands, or feet. You have an unexplained rash. Get help right away if: You have chest pain. You have difficulty breathing. Summary Sarcoidosis is a disease that can cause inflammation in many body areas of the body. It most often affects the lungs (pulmonary sarcoidosis). It can also affect the lymph nodes, liver, eyes, skin, heart, or any other body tissue. When you have sarcoidosis, cells from your immune system form small clumps of tissue (granulomas) in the affected area of your body. Sarcoidosis sometimes does not require a specific treatment because it causes no symptoms or mild symptoms. If your symptoms bother you or are severe, you may be prescribed medicines to reduce inflammation or relieve symptoms. This information is not intended to replace advice given to you by your health care provider. Make sure you discuss any questions you have with your health care provider. Document Released: 02/03/2005 Document Revised: 03/18/2018 Document Reviewed: 01/11/2018 [place] Patient Education 2020 [employer]. 01/21/2022 11:01:14 Exercising to Stay Healthy Exercising to Stay Healthy To become healthy and stay healthy, it is recommended that you do moderate- intensity and vigorous-intensity exercise. You can tell that you are exercising at a moderate intensity if your heart startsbeating faster and you start breathing faster but can still hold a conversation. You can tell that you are exercising at a vigorous intensity if you are breathing much harder and faster and cannot hold a conversation while exercising. Exercising regularly is important. It has many health benefits, such as: Improving overall fitness, flexibility, and endurance. Increasing bone density. Helping with weight control. Decreasing body fat. Increasing muscle strength. Reducing stress and tension. Improving overall health. How often should I exercise? Choose an activity that you enjoy, and set realistic goals. Your health care provider can help you make an activity plan that works for you. Exercise regularly as told by your health care provider. This may include: Doing strength training two times a week, such as: ?Lifting weights. ?Using resistance bands. ?Push-ups. ?Sit-ups. ?Yoga. Doing a certain intensity of exercise for a given amount of time. Choose from these options: ?A total of 150 minutes of moderate-intensity exercise every week. ?A total of 75 minutes of vigorous-intensity exercise every week. ?A mix of moderate-intensity and vigorous-intensity exercise every week. Children, women, people who have not exercised regularly, people who are overweight, and older adults may need to talk with a health care provider about what activities are safe to do. If you have a medical condition, be sure to talk with your health care provider before you start a new exercise program. What are some exercise ideas? Moderate-intensity exercise ideas include: Walking 1 mile (1.6 km) in about 15 minutes. Biking. Hiking. Golfing. Dancing. Water aerobics. Vigorous-intensity exercise ideas include: Walking 4.5 miles (7.2 km) or more in about 1 hour. Jogging or running 5 miles (8 km) in about 1 hour. Biking 10 miles (16.1 km) or more in about 1 hour. Lap swimming. Roller-skating or in-line skating. Cross-country skiing. Vigorous competitive sports, such as football, basketball, and soccer. Jumping rope. Aerobic dancing. What are some everyday activities that can help me to get exercise? Yard work, such as: ?Pushing a bit grinder. ?Raking and bagging leaves. Washing your car. Pushing a stroller. Shoveling snow. Gardening. Washing windows or floors. How can I be more active in my day-to-day activities? Use stairs instead of an elevator. Take a walk during your lunch break. If you drive, park your car farther away from your work or school. If you take public transportation, get off one stop early and walk the rest of the way. Stand up or walk around during all of your indoor phone calls. Get up, stretch, and walk around every 30 minutes throughout the day. Enjoy exercise with a friend. Support to continue exercising will help you keep a regular routine of activity. What guidelines can I follow while exercising? Before you start a new exercise program, talk with your health care provider. Do not exercise so much that you hurt yourself, feel dizzy, or get very short of breath. Wear comfortable clothes and wear shoes with good support. Drink plenty of water while you exercise to prevent dehydration or heat stroke. Work out until your breathing and your heartbeat get faster. Where to find more information U.S. Department of Health and Human Services: www.hhs.gov Centers for Disease Control and Prevention (CDC): www.cdc.gov Summary Exercising regularly is important. It will improve your overall fitness, flexibility, and endurance. Regular exercise also will improve your overall health. It can help you control your weight, reducestress, and improve your bone density. Do not exercise so much that you hurt yourself, feel dizzy, or get very short of breath. Before you start a new exercise program, talk with your health care provider. This information is not intended to replace advice given to you by your health care provider. Make sure you discuss any questions you have with your health care provider. Document Released: 05/08/2011 Document Revised: 03/18/2018 Document Reviewed: 02/24/2018 [place] Patient Education 2020 [employer]. 01/21/2022 11:01:10 Healthy Eating Healthy Eating Following a healthy eating pattern may help you to achieve and maintain a healthy body weight, reduce the risk of chronic disease, and live a long and productive life. It is important to follow a healthy eating pattern at an appropriate calorie level for your body. Your nutritional needs should be met primarily through food by choosing a variety of nutrient-rich foods. What are tips for following this plan? Reading food labels Read labels and choose the following: ?Reduced or low sodium. ?Juices with 100% fruit juice. ?Foods with low saturated fats and high polyunsaturated and monounsaturated fats. ?Foods with whole grains, such as whole wheat, cracked wheat, brown rice, and wild rice. ?Whole grains that are fortified with folic acid. This is recommended for women who are orwho want to become . Read labels and avoid the following: ?Foods with a lot of added sugars. These include foods that contain brown sugar, corn sweetener, corn syrup, dextrose, fructose, glucose, high-fructose corn syrup, honey, invert sugar, lactose, malt syrup, maltose, molasses, raw sugar, sucrose, trehalose, or turbinado sugar. ?Do not eat more than the following amounts of added sugar per day: 6 teaspoons (25 g) for women. 9 teaspoons (38 g) for men. ?Foods that contain processed or refined starches and grains. ?Refined grain products, such as white flour, degermed cornmeal, white bread, and white rice. Shopping Choose nutrient-rich snacks, such as vegetables, whole fruits, and nuts. Avoid high-calorie and high-sugar snacks, such as potato chips, fruit snacks, and candy. Use oil-based dressings and spreads on foods instead of solid fats such as butter, stick margarine,or cream cheese. Limit pre-made sauces, mixes, and instant products such as flavored rice, instant noodles, and ready-made pasta. Try more plant-protein sources, such as tofu, tempeh, black beans, edamame, lentils, nuts, and seeds. Explore eating plans such as the Mediterranean diet or vegetarian diet. Cooking Use oil to saut or stir-doll foods instead of solid fats such as butter, stick margarine, or lard. Try baking, boiling, grilling, or broiling instead of frying. Remove the fatty part of meats before cooking. Steam vegetables in water or broth. Meal planning At meals, imagine dividing your plate into fourths: ?One-half of your plate is fruits and vegetables. ?One-fourth of your plate is whole grains. ?One-fourth of your plate is protein, especially lean meats, poultry, eggs, tofu, beans, or nuts. Include low-fat dairy as part of your daily diet. Lifestyle Choose healthy options in all settings, including home, work, school, restaurants, or stores. Prepare your food safely: ?Wash your hands after handling raw meats. ?Keep food preparation surfaces clean by regularly washing with hot, soapy water. ?Keep raw meats separate from qrzso-tl-wnw foods, such as fruits and vegetables. ?senior financial consultant, meat, poultry, and eggs to the recommended internal temperature. ?Store foods at safe temperatures. In general: ?Keep cold foods at 40 F (4.4 C) or below. ?Keep hot foods at 140 F (60 C) or above. ?Keep your freezer at 0 F (-17.8 C) or below. ?Foods are no longer safe to eat when they have been between the temperatures of 40 140 F (4.4 60 C) for more than 2 hours. What foods should I eat? Fruits Aim to eat 2 cup-equivalents of fresh, canned (in natural juice), or frozen fruits each day. Examples of 1 cup-equivalent of fruit include 1 small apple, 8 large strawberries, 1 cup canned fruit, cupdried fruit, or 1 cup 100% juice. Vegetables Aim to eat 2 3 cup-equivalents of fresh and frozen vegetables each day, including different varieties and colors. Examples of 1 cup-equivalent of vegetables include 2 medium carrots, 2 cups raw, leafy greens, 1 cup chopped vegetable (raw or cooked), or 1 medium baked potato. Grains Aim to eat 6 ounce-equivalents of whole grains each day. Examples of 1 ounce- equivalent of grains include 1 slice of bread, 1 cup dglbv-mg-vzt cereal, 3 cups popcorn, or cup cooked rice, pasta, or cereal. Meats and other proteins Aim to eat 5 6 ounce-equivalents of protein each day. Examples of 1 ounce- equivalent of protein include 1 egg, 1/2 cup nuts or seeds, or 1 tablespoon (16 g) peanut butter. A cut of meat or fish that is the size of a deck of cards is about 3 4 ounce-equivalents. Of the protein you eat each week, try to have at least 8 ounces come from seafood. This includes salmon, trout, marina, and anchovies. Dairy Aim to eat 3 cup-equivalents of fat-free or low-fat dairy each day. Examples of 1 cup-equivalent ofdairy include 1 cup (240 mL) milk, 8 ounces (250 g) yogurt, 1 ounces (44 g) natural cheese, or 1 cup (240 mL) fortified soy milk. Fats and oils Aim for about 5 teaspoons (21 g) per day. Choose monounsaturated fats, such as canola and olive oils, avocados, peanut butter, and most nuts, or polyunsaturated fats, such as sunflower, corn, and soybean oils, walnuts, pine nuts, sesame seeds, sunflower seeds, and flaxseed. Beverages Aim for six 8-oz glasses of water per day. Limit coffee to three to five 8-oz cups per day. Limit caffeinated beverages that have added calories, such as soda and energy drinks. Limit alcohol intake to no more than 1 drink a day for non women and 2 drinks a day for men. One drink equals 12 oz of beer (355 mL), 5 oz of wine (148 mL), or 1 oz of hard liquor (44 mL). Seasoning and other foods Avoid adding excess amounts of salt to your foods. Try flavoring foods with herbs and spices instead of salt. Avoid adding sugar to foods. Try using oil-based dressings, sauces, and spreads instead of solid fats. This information is based on general [place] nutrition guidelines. For more information, visit choosemyplate.gov. Exact amounts may vary based on your nutrition needs. Summary A healthy eating plan may help you to maintain a healthy weight, reduce the risk of chronic diseases, and stay active throughout your life. Plan your meals. Make sure you eat the right portions of a variety of nutrient- rich foods. Try baking, boiling, grilling, or broiling instead of frying. Choose healthy options in all settings, including home, work, school, restaurants, or stores. This information is not intended to replace advice given to you by your health care provider. Make sure you discuss any questions you have with your health care provider. Document Released: 07/18/2018 Document Revised: 07/18/2018 Document Reviewed: 07/18/2018 [place] Patient Education [employer]. Follow Up Care 01/13/2022 14:30:20 With:Danii Joyner CNP Address: [address] [place] [phone] When:[address] [facility] 03-01-2022 Evaluation note* Encounter Date Diagnosis Assessment Notes Treatment Notes Treatment Clinical Notes Jun, Acute conjunctivitis of both eyes, unspecified acute conjunctivitis type (ICD-10 - H10.33) [facility] Other 02-25-2022 Evaluation note* Encounter Date Diagnosis Assessment Notes Treatment Notes Treatment Clinical Notes May, Contact with and (suspected) exposure to other viral communicable diseases (ICD-10 - Z20.828) May, Acute non-recurrent maxillary sinusitis (ICD-10 - J01.00) Sinus infections can be triggeredby a secondary infection; usually a viral URI or even seasonal allergies. Take medications as directed. Use saline nasal spray prior to presciption nasal spray. Complete all doses of medication even if you start to feel better. Follow up with primary care provider if no improvement of symptoms occur by end of treatment. May, Other Additional time spent conducting pre-visit phone call, screening for symptoms, instructions on social distancing, application and removal of PPE, and cleaning of examination room, equipment and supplies was preformed. Patient education given for testing methodology and results. Patient care instructions given in writting by [facility] document. [facility] Other 02-21-2022 NoteHNO ID: [id number] Author: Karthikeyan Myers MD Service: ? Author Type: Physician Type: Progress Notes Filed: 06/11/2021 10:46 AM Note Text: Respiratory Lindsay Narcisa Benitez is a 56 year old female here for evaluation by the [facility] Sarcoidosis Team. Consultation requested by Dr. Hyde and my final recommendations will be communicated back to the requesting physician by way of shared Medical record or letter via US mail. HISTORY OF PRESENT ILLNESS: This is a 56 year old year-old with a PMHx significant for sarcoidosis, here for evaluation and management of sarcoidosis. States that symptoms started in with swollen ankles. Has swollen ankles again and cough for past few months. No eye redness, floatters, blurry vision. Says her eyes were checked but no sarcoidosis in eye 1 month ago. But feels right eye is aching. No SOB. Had dry cough for months. No palpitations, syncope, lightheadedness. No skin rash. No tingling, numbness sensation on feet and/or hand. Sarcoidosis History: Date of symptom onset: 1996, and now more recently summer 2020 Date of diagnosis: 1996 How was the diagnosis confirmed?:Bronchoscopic Biopsy. Was the biopsy performed here? Yes What organs are affected (in your opinion)?: Lungs, Other: ankles, Skin Interval development of possible Sarcoidosis manifestations (related to previously uninvolved organs): None Immediate relative with sarcoidosis: None Pulmonary hypertension: No suspicion Patient diagnosed in late with sarcoidosis by biopsy with bronchoscopy in [place]. Has not required medical car efor it since then. Started to feel SOB in December 2020 with persistent dry cough. 03/01/21 CT chest with contrast showed bilateral hilar and mediastinal lymphadenopathy with faint ill defined nodules with slightly upper lobe predominance, findings consistent with sarcoidosis favoring stage 2. 04/08/12 Had skin biopsy of nodules on bilateral forearms which were positive for nonnecrotizing granulomas. Sarcoidosis Therapies: Past medications: Prednisone 20mg tapered which was used past 2 weeks Current medications: No medication Treatment-defining organ: Skin Is the patient being treated with oxygen therapy?: No MRC Dyspnea Scale: 1. Not troubled by breathlessness except on strenuous exercise REVIEW OF SYSTEMS: GENERAL: No weight loss, malaise or fevers HEENT: See HPI. NECK: Negative for lumps, goiter, pain and significant neck swelling RESPIRATORY: See HPI. CARDIOVASCULAR: See HPI. GI: No nausea, vomiting, or diarrhea MUSCULOSKELETAL: Negative for joint pain or swelling, back pain or muscle pain SKIN: See HPI. EXTREMITIES: No clubbing, no nail changes, no Raynaud's NEURO: See HPI. PAST MEDICAL HISTORY Diagnosis Date - Sarcoidosis History reviewed. No pertinent surgical history. 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 No pertinent family history. ALLERGIES No Known Allergies CURRENT MEDICATIONS: No prescriptions on file. PHYSICAL EXAM: BP 134/96 Pulse 86 Temp 97.9 Resp 20 Ht 5' 5 (1.65m) Wt 210 lb 5.1 oz (95.4kg) SpO2 95% BMI 35.00 kg/(m2). General appearance: Well appearing, alert, in no acute distress, well-hydrated, well nourished. Skin: Skin color, texture, turgor normal. Two skin nodules present, one on each forearm. Head: Normocephalic, no masses, lesions, tenderness or abnormalities Eyes: No jaundice, no redness. Neck: No adenopathy, no tenderness Lungs: Lungs clear to auscultation. No wheezing, rhonchi, rales Heart: RRR without murmur, gallop, or rubs. No ectopy Abdomen: Abdomen soft, non-tender. Musculoskeletal: No joint swelling, deformity, or tenderness Neuro: Gait normal, grossly non-focal. Data Reviewed (in addition to that noted in HPI, and Past histories above): CT scan: Standard CT available Was an echo performed?: No Was a right heart catheterization performed?: No ASSESSMENT Narcisa Melaniff is a 56 year old female with history of sarcoidosis presenting to establish care and evaluation of her sarcoidosis. Patient was previously diagnosed in 1996 with a bronchoscopy and biopsy and at the time has not started on any medications and had done well since then until 2020. In the summer 2020 patient began to have a dry cough and ankle swelling and in the fall had 2 skin nodules on her forearms which were biopsied and showed nonnecrotizing granulomas. Patient had a recent CT which showed a bilateral hilar and mediastinal lymphadenopathy and findings consistent with sarcoidosis. For the skin nodules she was recently started on a tapering dose of prednisone. Otherwise patient feels fine overall regarding her symptom (more content not included)...[facility]02-21-2022 NoteHNO ID: [id number] Author: Lyubov Nash RRT Service: ? Author Type: Registered Resp Therapist Type: Progress Notes Filed: 06/09/2021 2:16 PM Note Text: PULM FUNCTION SMARTBLOCK: Provider: Deisy Meadows PA-C Spirometry: 1 DLCO: 1 System: [id number] NoteHNO ID: [id number] Author: MADISON Kendall) Service: ? Author Type: Technologist Type: Progress Notes Filed: 06/09/2021 1:38 PM Note Text: Radiology Service Progress Note PATIENT NAME: Narcisa Benitez DATE OF SERVICE: June 09, 2021 TIME: 1:37 PM PATIENT IDENTITY VERIFICATION COMPLETED USING TWO (2) IDENTIFIERS: Name and Date of confirmed by patient verbally. FALL SCREENING: Has the patient had 2 falls in the last year or 1 fall with injury or currently using an Ambulatory Assistive Device (Walker, Cane, Wheelchair, Crutches, etc.)? No PATIENT GENDER DATA: Female. status: : No status: NO. PATIENT RELEVANT IMPLANT DATA REVIEWED: Yes RADIOLOGY DEPARTMENT: General X-ray: Exam(s) Completed: Chest X-Ray PERIPHERAL IV DATA: Not applicable SIGNED BY: RT Faiza(Guillermo) June 09, 2021 1:[facility] Plan note Future Scheduled Tests Laboratory* [place] * Basic Metabolic Panel 04/11/21 * [facility] Appointment Date:11/03/2021 07:00:00 AM Scheduled Provider: Location:.[facility] Appointment Type:MA Screen () Future Scheduled Tests Laboratory* [place] 04/18/21 * Basic Metabolic Panel 04/11/21 * Hepatic Function Panel 04/11/21 Radiology* MA Mamm Screen w/CAD if perf and 3D Riley [facility] Appointment Date:07/20/2022 10:20:00 AM Scheduled Provider:Yasmine Lewis Location[facility]ments Appointment Date:07/21/2022 10:00:00 AM Scheduled Provider: Location:.[place]ICAL [place] Appointment Type:PT Eval () Appointment Date:07/24/2022 10:30:00 AM Scheduled Provider: Location:.[facility] Appointment Type:US Thyroid/Neck/Chest () Appointment Date:08/06/2022 08:15:00 AM Scheduled Provider: Location:.[facility] Appointment Type:MA Screen () Appointment Date:08/24/2022 10:40:00 AM Scheduled Provider:Yasmine Lewis Location:[facility] Appointment Type: Open Future Scheduled Tests Laboratory* Thyroid-stimulating Immunoglobulin (TSI) 07/20/22 * T4 Total 07/20/22 * Thyroid Perox.tpo Ab 07/20/22 * TSH With T4fr Reflex 07/20/22 * CBC w/ Auto Diff 07/20/22 * Comprehensive Metabolic Panel 07/20/22 * Lipid Panel 07/20/22 * T3 Free 07/20/22 * Free T4 07/20/22 Radiology* US Thyroid 07/24/22 * BD Bone Density DEXA 07/20/22 * MA Mamm Screen w/CAD if perf and 3D Riley 08/06/[address] [facility] Evaluation + Plan note Future Appointments Appointment Date:08/06/2022 08:15:00 AM Scheduled Provider: Location:.[facility] Appointment Type:MA Screen (FT) Appointment Date:08/24/2022 10:40:00 AM Scheduled Provider:Yasmine Lewis Location:[facility] Appointment Type: Open Diagnostic Tests Pending * T3 Free 07/24/22 * Thyroid Perox.tpo Ab 07/24/22 * Thyroid-stimulating Immunoglobulin (TSI) 07/24/22 Future Scheduled Tests Radiology* BD Bone Density DEXA 07/20/22 * MA Mamm Screen w/CAD if perf and 3D Riley [facility] Appointment Date:08/24/2022 10:40:00 AM Scheduled Provider:Yasmine Lewis Location:[facility] Appointment Date:01/29/2023 09:15:00 AM Scheduled Provider: Location:.[facility] Appointment Type:MA Diagnostic (FT) Appointment Date:01/29/2023 10:00:00 AM Scheduled Provider: Location:.[facility] Appointment Type:US Breast (FT) Future Scheduled Tests Radiology* XR Abdomen 1 View 01/27/23 * US Breast Unilateral Lt Complete 01/29/23 * MA Mamm Diag w/CAD if perf and 3D LT 01/29/23 [facility] Evaluation + Plan note Future Appointments Appointment Date:04/26/2023 08:00:00 AM Scheduled Provider:ALCON GREY CNP Location:[facility] Appointment Type: Open [facility] [place] Evaluation noteNo assessment information available [facility] Work Phone: Hospital course Narrative No data available for this section [facility] No data available for this section [facility] No data available for this section [facility] Summary Purpose Family History No Family History Records FoundNo Family History Records Found No data available for this section No data available for this section No data available for this section No data available for this section No data available for this section No Family History Records Found Advance Directives No Advanced Directives Records Found Advance Directive Response Recorded Date/ Time Advance Directives No July 05, 020 1:12pm Additional Source Comments INFORMATION SOURCE (unrecogn ized section and content) DATE CREATED AUTHOR 08/23/2021 [facility] DATE CREATED AUTHOR AUTHOR'S ORGANIZ ATION 10/09/2022 [facility] DATE CREATED AUTHOR AUTHOR'S ORGANIZ ATION [facility] REASON FOR VISIT (unrecogniz ed section and content) SINUS PRESSURE, CONGESTIONNo InformationRIGHT MIDDLE FINGER MASS AND LEFT INDEX FINGER MASS Care Team (unrecognized sect ion and content) Team Status: Active Member Role Status Dates PHYSICIAN NO FAMILY Primary Care Provider Active Team Status: Inactive Member Role Status Dates PHYSICIAN NO FAMILY Primary Care Provider Active Pauly Oden MD Attending Provider Active Goals (unrecognized section and content) Goals may be documented in a n alternate section FOR RECORDS PERTAINING TO PATIENTS WHO ARE OR HAVE BEEN ENROLLED IN A CHEMICAL DEPENDENCY/SUBSTANCEABUSE PROGRAM, SOME INFORMATION MAY BE OMITTED. This clinical summary was aggregated from multiple sources. Caution should be exercised in using it in the provision of clinical care. This summary normalizes information from multiple sources, and as a consequence, information in this document may materially change the coding, format and clinical context of patient data. In addition, data may be omitted in some cases. CLINICAL DECISIONS SHOULD BE BASED ON THE PRIMARY CLINICAL RECORDS. [facility] [employer] provides no warranty or guarantee of the accuracy or completeness of information in this document.
== END 2023-05-04 10:42 | disposition home or self-care (01) ==
LOC: PST 10:41
PROVIDERS: Visit Provider Urology
DX: Z01.818 Encounter for other preprocedural examination (principal); N20.0 Calculus of kidney; R31.0 Gross hematuria; E78.5 Hyperlipidemia, unspecified; I10 Essential (primary) hypertension; R73.03 Prediabetes; E04.1 Nontoxic single thyroid nodule

== ENCOUNTER 2023-06-14 07:56 | Outpatient (OUT) | payer OTHER, SELFPAY ==
--- OUTSIDE RECORDS SUMMARY | 2023-06-14 08:00 | XMS_ITS | CCD ---
Author Name Unknown Address [address] [place] [address] Organization [facility] Care Team Providers Care Die Caster Name Role Phone Dixie HOLM Primary Care Physician Kit Evans Unavailable Yasmine Torres Primary Care Physician [phone] NO FAMILY, PHYSICIAN Primary Care Provider Unava ilable MD Pauly Oden Attending Provider Pauly Oden Unavailable Pauly Oden Attending Unavailable Pauly Oden Admitting Unavailable NO FAMILY, PHYSICIAN Primary Care Unavailable ALCON CABRAL Primary Care Physician [phone] Hardik SIMMS Primary Care Physician JENARO LEAL Attending Unavailable DANIEL Torres Admitting Melany vailable MisslerDANIEL Referring Melany vailable MisslerDANIEL Attending Melany vailable Jenny, Irena J Admitting Unavailable Jenny, Irena J Referring Unavailable Jenny, Irena J Attending Unavailable Myles Colon Attending Unavailable ALCON CABRAL Attending Unavailable DANIEL Torres Admitting Melany vailable MisslerDANIEL Referring Melany vailable MisslerDANIEL Attending Melany vailable Mil Nguyen Attending Unavaila ble Mil Nguyen Admitting Unavaila ble REFERRAL, SELF Referring Unavailable Missler, DANIEL Rodriguez Attending Melany vailable Missler, DANIEL Rodriguez Admitting Melany vailable Missler, DANIEL Rodriguez Referring Melany vailable ACEVES, Lamont Li Attending Unavailable ACEVES, Lamont Li Admitting Unavailable HARTLEYJENARO Vera Attending Unavailabl e QUE, ALCON Douglass Attending Unavailable QUE, ALCON Douglass Attending Unavailable QUE, ALCON Douglass Attending Unavailable ACEVES, Lamont Li Attending Unavailable Missler, DANIEL Rodriguez Attending Melany vailable Missler, DANIEL Rodriguez Attending Melany vailable ACEVES, Lamont Li Attending Unavailable ACEVES, Lamont Li Attending Unavailable QUE, ALCON Douglass Attending Unavailable QUE, ALCON Douglass Attending Unavailable HARTLEY, JENARO SHIELDS Attending Unavailabl e HARTLEYJENARO Admitting Unavailabl e ACEVES, Lamont Li Attending Unavailable ACEVES, Lamont Li Admitting Unavailable Clingman, Myles Boateng Attending Unavailable ClingmanMyles Admitting Unavailable Cecil Zuniga Attending Unavailable Mable Vital Attending Unavailable Irena Alvarado Referring Unavailable JennyIrena zarate Attending Unavailable Irena Alvarado Admitting Unavailable Allergies Allergy Classification Reported Allergen(s) Allergy Type Date of Onset Reaction(s) Facility (1 source) No Known Medication Allergies; Translations: [No Known Medication Allergies] Propensity to adverse reactions (disorder) [facility] Repository Medications Current Medications Medication Drug Class(es) Dates Sig (Normalized) Sig (Original) acetaminophen 325 mg / HYDROcodone bitartrate 5 mg oral tablet (1 source) Opioid Agonist Start: 01-25-2023 End: 01-28-2023 [place] 325 mg-5 mg oral tablet 1 tab(s), Oral, q6hr for pain for 3 day(s), 7 tab(s), Refill(s) 0, [facility], 168, cm, 01/25/23 17:56:00 EDT, Height/Length Dosing, 95, kg, 01/25/23 17:56:00 EDT, Weight Dosing Start Date: 01/25/23 Stop Date: 01/28/23 Status: Ordered Albuterol (Eqv-ProAir HFA) 90 mcg/inh inhalation aerosol (3 sources) Start: 05-13-2023 take 2 puff(s) by inhalation every six hours Albuterol (Eqv-ProAir HFA) 90 mcg/inh inhalation aerosol 2 puff(s), Inhalation, q6hr, 8.5 gm, Refill(s) 0, [facility], 164, cm, 05/13/23 13:58:00 EST, Height/Length Dosing, 97.7, kg, 05/13/23 13:58:00 EST, Weight Dosing Start Date: 05/13/23 Status: Ordered amLODIPine 10 mg oral tablet (3 sources) Dihydropyridine Calcium Channel Jorge Start: 05-17-2023 take 1 tablet by mouth once daily amLODIPine 10 mg Tab 10 mg = 1 tab(s), Oral, Daily, # 90 tab(s), Refills(s) 3, Pharmacy: [facility], 167, cm, 05/17/23 11:06:00 EST, Height/Length Dosing, 97, kg, 05/17/23 11:06:00 EST, Weight Dosing Start Date: 05/17/23 Status: Ordered Start: 04-26-2023 take 1 tablet by paulino th once daily amLODIPine 5 mg Tab 5 mg = 1 tab(s), Oral, Daily, # 30 tab(s), Refills(s) 1, Pharmacy: [facility], 167, cm, 04/26/23 7:57:00 EST, Height/Length Dosing, 96.9, kg, 04/26/23 7:57:00 EST, Weight Dosing Start Date: 04/26/23 Status: Ordered amoxicillin 875 mg / clavulanate [...] day(s), # 90 tab(s), Refills(s) 1, Pharmacy: [facility], 168, cm, 07/20/22 10:23:00 EDT, Height/Length Dosing, 98.1, kg, 07/20/22 10:23:00 EDT, Weight Dosing Start Date: 07/24/22 Stop Date: 01/20/23 Status: Ordered Start: 01-21-2022 take 1 tablet by paulino once daily atorvastatin 20 mg Tab 20 mg = 1 tab(s), Oral, Daily, # 30 tab(s), Refills(s) 6, Pharmacy: [facility], 168, cm, 01/21/22 10:40:00 EDT, Height/Length [...] propionate 0.05 mg/actuat metered dose nasal spray (7 sources) Corticosteroid Start: 05-13-2023 take 1 spray(s) nasal route twice daily Flonase 0.05 mg/inh [place] 1 spray(s), Nasal, BID, 16 gram, Refill(s) 0, each nostril, [facility], 164, cm, 05/13/23 13:58:00 EST, Height/Length Dosing, 97.7, kg, 05/13/23 13:58:00 EST, Weight Dosing Start Date: 05/13/23 Status: Ordered Start: 06-13-2021 take 1 spray(s) nasa l route twice daily Fluticasone Propionate 50 MCG/ACT 1 spray in each nostril Nasally Twice a day for 14 days May, Active Start: 06-15-2019 fluticasone 0. 05 mg/inh Nasal [place] 1 spray(s), Nasal, BID, Refill(s) 0, Congestion Start Date: 06/15/19 Status: Ordered fluticasone 0.05 mg/inh Nasal [place] (2 sources) Start: 06-15-2019 fluticasone 0. 05 mg/inh Nasal [place] 1 spray(s), Nasal, BID, Refill(s) 0, Congestion Start Date: 06/15/19 Status: Ordered 12 hr guaiFENesin 600 mg extended release oral tablet (3 sources) Start: 05-13-2023 End: 05-20-2023 take 1 tablet by mouth every twelve hours Mucinex 600 mg Tab-ER 600 mg = 1 tab(s), Oral, q12hr, X 7 day(s), # 14 tab(s), Refills(s) 0, Pharmacy: [facility], 164, cm, 05/13/23 13:58:00 EST, Height/Length Dosing, 97.7, kg, 05/13/23 13:58:00 EST, Weight Dosing Start Date: 05/13/23 Stop Date: 05/20/23 Status: Ordered losartan potassium 100 mg oral tablet (8 sources) Angiotensin 2 Receptor Jorge Start: 04-26-2023 End: 10-23-2023 take 1 tablet by mouth once daily losartan 100 mg Tab 100 mg = 1 tab(s), Oral, Daily, X 90 day(s), # 90 tab(s), Refills(s) 1, Pharmacy: [facility], 167, cm, 04/16/23 8:34:00 EST, Height/Length Dosing, 98, kg, 04/16/23 8:34:00 EST, Weight Dosing Start Date: 04/26/23 Stop Date: 10/23/23 Status: Ordered Start: 04-16-2023 take 1 tablet by paulino once daily losartan 100 mg Tab 100 mg = 1 tab(s), Oral, Daily, # 30 tab(s), Refills(s) 1, Pharmacy: [facility], 167, cm, 04/16/23 8:34:00 EST, Height/Length Dosing, 98, kg, 04/16/23 8:34:00 EST, Weight Dosing Start Date: 04/16/23 Status: Ordered Start: 04-06-2023 take 1 tablet by paulino th once daily losartan 50 mg Tab 50 mg = 1 tab(s), Oral, Daily, # 30 tab(s), Refills(s) 1, Pharmacy: [facility], 167, cm, 03/29/23 11:13:00 EST, Height/Length Dosing, 98.6, kg, 03/29/23 11:13:00 EST, Weight Dosing Start Date: 04/06/23 Status: Ordered Start: 03-29-2023 take 1 tablet by paulino th once daily losartan 25 mg Tab 25 mg = 1 tab(s), Oral, Daily, # 30 tab(s), Refills(s) 1, Pharmacy: [facility], 167, cm, 03/29/23 11:13:00 EST, Height/Length [...] Daily, # 90 cap(s), Refills(s) 3, Pharmacy: [facility], 167.6, cm, 12/12/19 8:05:00 EDT, Height/Length Dosing, 88.6, kg, 12/12/19 8:05:00 EDT, Weight Dosing Start Date: 12/18/19 Status: Ordered omeprazole 20 mg Cap-DR (1 source) Start: 12-18-2019 take 1 capsule by mouth once daily omeprazole 20 mg Cap-DR 20 mg = 1 cap(s), Oral, Daily, # 90 cap(s), Refills(s) 3, Pharmacy: [facility], 167.6, cm, 12/12/19 8:05:00 EDT, [...] days, # 25 EA, Refills(s) 0, Pharmacy: [facility], 168, cm, 05/02/21 9:26:00 EST, Height/Length Dosing, 95, kg, 04/08/21 15:37:00 EST... Start Date: 05/02/21 Status: Ordered rosuvastatin calcium 5 mg oral tablet (2 sources) HMG-CoA Reductase Inhibitor Start: 10-14-2020 take 1 tablet by mouth once daily Crestor 5 mg Tab 5 mg = 1 tab(s), Oral, Daily, # 90 tab(s), Refills(s) 1, Pharmacy: [facility]/pharmacy #[id number], 167.6, cm, 10/14/20 16:23:00 EDT, Height/Length Dosing, 93.5, kg, 10/14/20 16:23:00 EDT, Weight Dosing Start Date: 10/14/20 Status: Ordered tamsulosin hydrochloride 0.4 mg oral capsule (5 sources) alpha-Adrenerg ic Jorge Start: 01-25-2023 take 1 capsule by mouth once daily Flomax 0.4 mg Cap 0.4 mg = 1 cap(s), Oral, Daily, # 10 cap(s), Refills(s) 0, Pharmacy: [facility], 168, cm, 01/25/23 17:56:00 EDT, Height/Length [...] q8hr, # 12 tab(s), Refills(s) 0, Pharmacy: [facility], 168, cm, 01/25/23 17:56:00 EDT, Height/Length Dosing, 95, kg, 01/25/23 17:56:00 EDT, Weight Dosing Start Date: 01/25/23 Status: Ordered Completed/Discontinued Medications Medication Drug Class(es) Dates Sig (Normalized) Sig (Original) Blood pressure cuff (4 sources) Start: 10-14-2020 Blood pressure cuff Blood pressure cuff, See Instructions, 1 EA, 0, Blood pressure cuff. Take daily to assess for BPs, [facility]/pharmacy #[id number], Supply, 167.6, cm, 10/14/20 16:23:00 EDT, Height/Length Dosing, 93.5, kg, 10/14/20 16:23:00 EDT, Weight Dosing Start Date: 10/14/20 Status: Ordered cholecalciferol 0.05 mg oral capsule (2 sources) Vitamin D Start: 01-21-2022 End: 08-19-2022 cholecalciferol 2000 intl units oral capsule 2,000 International_Unit = 1 cap(s), Oral, Daily, with food. Then retest vit D level., X 30 day(s), # 30 cap(s), Refills(s) 6, Pharmacy: [facility], 168, cm, 01/21/22 10:40:00 EDT, Height/Length Dosing, 92.8, kg, 01/21/22 10:40:00 EDT... Start Date: 01/21/22 Stop Date: 08/19/22 Status: Ordered potassium chloride 10 meq extended release oral capsule (4 sources) Start: 12-19-2020 take 1 capsule by mouth once daily potassium chloride 10 mEq Cap-ER 10 mEq = 1 cap(s), Oral, Daily, # 90 cap(s), Refills(s) 1, Pharmacy: [facility], 167.6, cm, 10/14/20 16:23:00 EDT, Height/Length Dosing, 93.5, kg, 10/14/20 16:23:00 EDT, Weight Dosing Start Date: 12/19/20 Status: Ordered Start: 12-19-2020 take 1 capsule by [facility] once daily potassium chloride 10 mEq Cap-ER 10 mEq = 1 cap(s), Oral, Daily, # 90 cap(s), Refills(s) 1, Pharmacy: [facility], 167.6, cm, 10/14/20 16:23:00 EDT, [...] water, # 160 cap(s), Refills(s) 1, Pharmacy: [facility]/pharmacy #[id number], 167.6, cm, 12/12/19 8:05:00 EDT, Height/Length Dosing, 88.6, kg, 12/12/19 8:05:... Start Date: 12/14/19 Status: Ordered Problems Active Problems Problem Classification Problem Date Documented Da te Episodic/Chronic Calculus of urinary tract (2 sources) Kidney stone; Translations: [Calculus of kidney] Onset: 3 Episodic Diabetes mellitus without complication (20 sources) Hyperglycemia; Translations: [Prediabetes] 10-14-2020 Episodic Disorders of lipid metabolism (18 sources) Hyperlipidemia; Translations: [Hyperlipidemia, unspecified] Onset: 2 06-15-2019 Chronic Diverticulosis and diverticulitis (16 sources) Diverticulosis of colon 07-03-2020 Chronic Esophageal disorders (17 sources) Gastroesophageal reflux disease; Translations: [Gastroesophageal reflux disease without esophagitis] Onset: 3 12-12-2019 Chronic Essential hypertension (7 sources) Hypertensive disorder 02-17-2021 Chronic Genitourinary symptoms and ill-defined conditions (9 sources) Blood in urine; Translations: [Gross hematuria] Onset: 3 Episodic Hemorrhoids (4 sources) Hemorrhoids 12-12-2019 Episodic Immunity disorders (5 sources) Sarcoidosis; Translations: [Sarcoidosis, unspecified] Onset: 2 06-15-2019 Chronic Menopausal disorders (4 sources) Ovarian failure 06-15-2019 Chronic Mycoses (1 source) Onychomycosis due to dermatophyte ; Translations: [Tinea unguium] Onset: 4 Episodic Noninfectious gastroenteritis (4 sources) Chronic diarrhea 07-03-2020 Episodic Nutritional deficiencies (17 sources) Vitamin D deficiency; Translations: [Vitamin D deficiency, unspecified] Onset: 2 06-15-2019 Chronic Nutritional deficiencies (4 sources) Cobalamin deficiency 06-15-2019 Episodic Other circulatory disease (18 sources) Elevated blood-pressure reading without diagnosis of [...] Episodic Other diseases of kidney and ureters (8 sources) Cyst of kidney 01-27-2023 Episodic Other ear and sense organ disorders (4 sources) Impacted cerumen 02-17-2021 Episodic Other gastrointestinal disorders (4 sources) [place] 12-12-2019 Episodic Other lower respiratory disease (4 sources) Cough 02-17-2021 Episodic Other lower respiratory disease (1 source) Disorder of respiratory system; Translations: [Other specified respiratory disorders] Onset: 4 Episodic Other nervous system disorders (1 source) [...] conditions (not mental disorders or infectious disease) (10 sources) Encounter for screening mammogram for malignant [...] mass and lump, left upper limb Episodic Other upper respiratory infections (2 sources) Acute maxillary sinusitis, unspecified; Translations: [Acute pharyngitis] Onset: 2 Resolved: 2 Episodic Residual codes; unclassified (4 sources) Bilateral lower limb edema 10-31-2019 Episodic Residual codes; unclassified (16 sources) H/O: Disorder 02-17-2021 Episodic Residual codes; unclassified (1 source) Patient encounter status; Translations: [Other specified health status] Onset: 2 Episodic Thyroid disorders (20 sources) Thyroid nodule; Translations: [Non-toxic uninodular goiter] Onset: 3 06-15-2019 Chronic Unclassified (16 sources) Non-smoker 07-03-2020 Unclassified (4 sources) Patient encounter status 11-14-2019 Unclassified (1 source) Localized swelling, mass and lump, right upper limb; Translations: [Localized swelling, mass and lump, right upper limb] Onset: 3 Viral infection (4 sources) Verruca vulgaris; Translations: [Viral wart, unspecified] [...] conjunctivitis, bilateral Onset: 06-17-2021 Resolved: 06-17-2021 Episodic Results Test Name Value Interpretation Reference Range Facil ity Consent for Procedure/Surger yon 05-26-2023 Consent for Procedure/Surgery [id number] #1.00TIFF Normal [facility] Heart and Vascular Office/Cl inic Noteon 05-24-2023 Heart and Vascular Office/Clinic Note Chief Complaint needs cardiac clearance for kidney stones with Dr Aceves History of Present Illness Narcisa Benitez is a 58-year-old female with a history of hypertension, here for preoperative risk assessment. She has been consulting with a urologist since 01/2023 regarding nephrolithiasis she has been dealing with for 3 months. She has been checking her blood pressure daily. She denies chest pain. She fell ill early 04/2023 and visited a walk-in clinic. 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 She denies the history of heart problems. She denies having a stress test, catheterization, or echocardiogram. She can walk up a hill or go upstairs without dyspnea or chest pain. Her nephrolithiasis measures 6 mm in both kidneys. She was scheduled to undergo the removal of her nephrolithiasis 2 weeks ago, but she received a call notifying her that the procedure would not be performed. She mentions that it has been postponed twice. She met with Alcon Cabral CNP on 05/11/2023, and her systolic blood pressure measured 140 mmHg. She was initiated with a low dose of amlodipine, and she was educated that it would take some time to reduce her blood pressure. She is uncertain whether it could be attributed to white coat syndrome. She is taking care of her father who has Alzheimer's disease and is standing all day long at her job. She engages in regular summer cycling, covering approximately 20 miles, and is presently committed to weight loss. Before embarking on her journey to make life changes, she needs to undergo the removal of her nephrolithiasis. She mentions she needs clearance. She inquires whether her blood pressure will return to normal following the removal of her nephrolithiasis. Review of Systems PHQ Score Initial Depression Screen Score: 2 SCORE Constitutional: no fever, no sweats, no weakness Skin: no rash, no lesions, no bruising/petechiae ENMT: no sore throat, no congestion, no hoarseness Respiratory: no shortness of breath, no cough, no orthopnea, no wheezing Cardiovascular: no chest pain, no palpitations, no edema, positive for elevated blood pressure Gastrointestinal: no nausea, no vomiting, no diarrhea, no GI bleeding Genitourinary: no anuria/oliguria no hematuria Musculoskeletal: no back pain, no trauma Neurologic: no headache, no dizziness, no numbness, no weakness Psychiatric: no sleeping problems, no irritability, no anxiety/depression. Heme/Lymph: no bleeding tendency, no bruising tendency Allergy/Immunologic : no recurrent infections, no impaired immunity Additional ROS info: Except as noted in the above Review of Systems and in the History of Present Illness all other systems have been reviewed and are negative or noncontributory. Physical Exam Vitals & Measurements HR: 77(Peripheral) BP: 136/84 SpO2: 94% HT: 66 in HT: 167 cm WT: 97 kg WT: 213.4 lb BMI: 34.78 General: alert, no acute distress Skin: warm, dry intact Head: atraumatic, normocephalic Neck: trachea midline, no JVD, no bruit Eye: normal conjunctiva, sclera clear ENMT: oral mucosa moist Cardiovascular: regular rate and rhythm, no murmur, normal peripheral perfusion Respiratory: lungs CTA, respirations non labored Chest wall: no deformity. Gastrointestinal: soft, non-distended, no tenderness, no guarding. Back: no tenderness, normal ROM, normal alignment. Extremities: no edema, no deformity, no trauma Neurological: oriented x 4, LOC appropriate for age, sensation equal & normal bilaterally, speech normal Psychiatric: cooperative, affect appropriate for age, normal judgement, normal psychiatric thoughts. Assessment/Plan Pre-op exam (Z01.818: Encounter for other preprocedural examination) Narcisa Benitez is a 58-year-old female with a history of hypertension, here for preoperative risk assessment. She has no high-risk predictors, no heart failure, no angina, no arrhythmia. She can maintain more than 4 METs of activity without symptoms. Her blood pressure is good today at 136/84 mmHg. The patient relates to me though that the surgery will not be done if her blood pressure is over 140 mmHg, so we will increase her amlodipine to 10 mg and continue her losartan at 100 mg. ATTESTATION: Portions of this record may have been created with voice recognition artificial intelligence software, specifically [employer], [employer] and or [employer]. Substitutions may have occurred with voice recognition and artificial intelligence software. Documentation services were performed after the patient or guardian consented to allow [employer] to record this visit. LAURA tuberculosis specialist and provider reviewed before signing. LAURA: Sonu Fajardo Ano-os/Pasted by: Esther Eric. Follow-up No qualifying data available Problem List/Past Medical History Ongoing Abnormal mammogram of left breast Acid reflux (more content not included)... [facility] Comment on above: Result Comment: Elec tronically Signed By: Wendy GOLDBERG, Mil Scott\.br\Date and Time Signed: 05/24/23 08:46 EST\.br\Electronically Co-Signed By: Esther Eric\.br\Date and Time Co-Signed: 05/17/23 13:07 EST\.br\Electronically Co-Signed By: Sintia Villar\.br\Date and Time Co-Signed: 05/27/23 17:42 EST Consent for Treatmenton 04-20 Consent for Treatment [id number] ED#1.00TIFF Normal [facility] Formson 05-17-2023 Forms [id number] 47#1.00TIFF Normal [facility] Physician Orderon 05-17-2023 Physician Order [id number] 70#1.00TIFF Normal [facility] Grp A Strp PCRon 05-14-2023 Grp A Strp Intrl Ctrl Pass Normal [facility] Comment on above: Performed By: #### 1 [id number] ####[facility] [id number] [place] [address] S. pyogenes DNA NESTOR+probe Ql (Throat) Negative Normal [facility] Comment on above: Result Comment: Test ing performed using DNA amplification. Performed By: #### 1 [id number] ####[facility] [id number] [place] [address] Family Medicine Office/Clini c Noteon 05-13-2023 Family Medicine Office/Clinic Note Chief Complaint cough and sore throat, toe pain HPI Staff 58 year old female here for cough and sore throat. Pt states she has been sick the month of April. States is around Covid and strep throat at work. Wants tested for Covid and strep. Also here for bilateral big toe pain and yellowness to nails. History of Present Illness Reviewed and agree with above documented HPI by medical technologist prn. Patient is a 58-year-old female, with history of sarcoidosis and kidney stones, presents with a chief complaint of productive cough with green sputum and sore throat. She also complains of a runny nose. She states that she has been sick the whole month of April . She states she has been around COVID and strep throat at work. Patient works at [employer] so she is exposed to multiple people. Patient requested to be tested for COVID and strep. Patient has been taking ibuprofen for his symptoms but denies anything else. Patient also has a complaint of possible bilateral great toenail infection. Patient has no other concerns. Patient has no known allergies. Review of Systems PHQ Score Initial Depression Screen Score: 0 SCORE Physical Exam Vitals & Measurements T: 37 ?C(Oral) HR: 77(Peripheral) BP: 136/82 SpO2: 97% HT: 65 in HT: 164 cm WT: 97.7 kg WT: 214.94 lb BMI: 36.33 General: Well developed, well nourished, in no acute distress, does not appear ill or septic Eyes: Pupils equal, round, and reactive to light. Conjunctivae and sclerae normal, and extraocular movements intact Ears: No deformity or lesion of external ear. Canals and TM appear normal bilaterally. TM?s intact, not inflamed, with normal light reflex. Hearing grossly normal to conversational speech Nose: moderate nasal mucosa inflammation and edema Mouth: mucosal membranes moist. Normal oropharynx, posterior pharynx slightly erythemic without lesions or exudates. Tongue normal. Neck: no adenopathy Lungs: Normal respiratory effort and clear to auscultation Cardio: regular rate and rhythm, no murmur Abdomen: Soft, non-distended, non-tender Musculoskeletal: No deformity or scoliosis noted. Normal range of motion. Joints normal. No erythema, edema, effusion, or ecchymosis Extremity: No clubbing, cyanosis, edema, or deformity, with normal ROM in both upper and lower bilateral extremities Neurologic: Grossly normal Skin: No rashes, ulcerations, or suspicious lesions bilateral great toes appear positive for fungal infection. Mental Status: Alert and oriented x3. Normal speech and thought content, normal mood and affect Assessment/Plan Patient was tested for strep and COVID. Both tests were negative. Patient was informed that we will send out strep for culture. We will call if strep is positive so no news is good news. If strep is positive we will call in appropriate antibiotics. 1. Viral respiratory illness (J98.8: Other specified respiratory disorders) Discussed exam and hx are consistent with viral illness. Advised of typical duration. Discussed antibiotics unfortunately do not treat viral illnesses, it will take time to run course- usually 7-14 days. Fluids/rest encouraged, PRN Tylenol/ibuprofen for any pain. May use Flonase and Mucinex for symptomatic tx. albuterol HFA sent in for patient due to her history of sarcoidosis. Follow up with PCP if not improving over next 7 days or significantly worsening symptoms. Patient and/or parent verbalized understanding of tx plan. Ordered: albuterol, 2 puff(s), Inhalation, q6hr, 8.5 gm, Refill(s) 0, [facility], 164, cm, 05/13/23 13:58:00 EST, Height/Length Dosing, 97.7, kg, 05/13/23 13:58:00 EST, Weight Dosing fluticasone nasal, 1 spray(s), Nasal, BID, 16 gram, Refill(s) 0, each nostril, [facility], 164, cm, 05/13/23 13:58:00 EST, Height/Length Dosing, 97.7, kg, 05/13/23 13:58:00 EST, Weight Dosing guaifenesin, 600 mg = 1 tab(s), Oral, q12hr, X 7 day(s), # 14 tab(s), Refills(s) 0, Pharmacy: [facility], 164, cm, 05/13/23 13:58:00 EST, Height/Length Dosing, 97.7, kg, 05/13/23 13:58:00 EST, Weight Dosing 2. Other viral agents as the cause of diseases classified elsewhere (B97.89: Other viral agents as the cause of diseases classified elsewhere) Same as above 3. Sore throat (J02.9: Acute pharyngitis, unspecified) Rapid strep -. Given exam will send strep cx to confirm. No news is good news, if you do not hear from us, strep culture was Negative. If any GAS growth, will rx appropriate antibiotic and notify you. Discussed otherwise consistent with viral illness, typical duration 7-14 days. Fluids/rest, PRN Tylenol/ibuprofen for pain and/or fever. May use salt water gargles and OTC lozenges for pain. Fu with PCP if cx negative and not improving over next 7 days. Seek medical attention immediately for any increased difficulty swallowing, opening mouth, or difficulty managing oral secretions. Patient and/or parent verbalized understanding of tx plan. Ordered: fluticasone nasal, 1 spray(s), Nasal, BID (more content not included)... Normal [facility] Comment on above: Result Comment: Elec tronically Signed By: Darlene ESTES, Myles Boateng\.br\Date and Time Signed: 05/13/23 14:42 EST Patient Educationon 05-13-19 Patient Education Infectious Disease Fungal Nail Infection A fungal nail infection is a common infection of the toenails or fingernails. This condition affects toenails more often than fingernails. It often affects the great, or big, toes. More than one nail may be infected. The condition can be passed from person to person (is contagious). What are the causes? This condition is caused by a fungus, such as yeast or molds. Several types of fungi can cause the infection. These fungi are common in moist and warm areas. If your hands or feet come into contact with the fungus, it may get into a crack in your fingernail or toenail or in the surrounding skin, and cause an infection. What increases the risk? The following factors may make you more likely to develop this condition: ? Being of older age. ? Having certain medical conditions, such as: ? Athlete's foot. ? Diabetes. ? Poor circulation. ? A weak body defense system (immune system). ? Walking barefoot in areas where the fungus thrives, such as showers or locker rooms. ? Wearing shoes and socks that cause your feet to sweat. ? Having a nail injury or a recent nail surgery. What are the signs or symptoms? Symptoms of this condition include: ? A pale spot on the nail. ? Thickening of the nail. ? A nail that becomes yellow, brown, or white. ? A brittle or ragged nail edge. ? A nail that has lifted away from the nail bed. How is this diagnosed? This condition is diagnosed with a physical exam. Your health care provider may take a scraping or clipping from your nail to test for the fungus. How is this treated? Treatment is not needed for mild infections. If you have significant nail changes, treatment may include: ? Antifungal medicines taken by mouth (orally). You may need to take the medicine for several weeks or several months, and you may not see the results for a long time. These medicines can cause side effects. Ask your health care provider what problems to watch for. ? Antifungal nail japanese or nail cream. These may be used along with oral antifungal medicines. ? Laser treatment of the nail. ? Surgery to remove the nail. This may be needed for the most severe infections. It can take a long time, usually up to a year, for the infection to go away. The infection may also come back. Follow these instructions at home: Medicines ? Take or apply qbil-sug-cnzbvrb and prescription medicines only as told by your health care provider. ? Ask your health care provider about using mnbi-xof-orirncq mentholated ointment on your nails. Nail care ? Trim your nails often. ? Wash and dry your hands and feet every day. ? Keep your feet dry. To do this: ? Wear absorbent socks, and change your socks frequently. ? Wear shoes that allow air to circulate, such as sandals or canvas tennis shoes. Throw out old shoes. ? If you go to a nail salon, make sure you choose one that uses clean instruments. ? Use antifungal foot powder on your feet and in your shoes. General instructions ? Do not share personal items, such as towels or nail clippers. ? Do not walk barefoot in shower rooms or locker rooms. ? Wear rubber gloves if you are working with your hands in wet areas. ? Keep all follow-up visits. This is important. Contact a health care provider if: ? You have redness, pain, or pus near the toenail or fingernail. ? Your infection is not getting better, or it is getting worse after several months. ? You have more circulation problems near the toenail or fingernail. ? You have brown or black discoloration of the nail that spreads to the surrounding skin. Summary ? A fungal nail infection is a common infection of the toenails or fingernails. ? Treatment is not needed for mild infections. If you have significant nail changes, treatment may include taking medicine orally and applying medicine to your nails. ? It can take a long time, usually up to a year, for the infection to go away. The infection may also come back. ? Take or apply afyy-ity-nwuivoo and prescription medicines only as told by your health care provider. This information is not intended to replace advice given to you by your health care provider. Make sure you discuss any questions you have with your health care provider. Document Revised: 07/07/2021 Document Reviewed: 07/07/2021 [employer] Patient Education ? 2022 [employer] Strep Throat, Adult Strep throat is an infection in the throat that is caused by bacteria. It is common during the cold months of the year. It mostly affects children who are 5?15 years old. However, people of all ages can get it at any time of the year. This infection spreads from person to person (is contagious) through coughing, sneezing, or having close contact. Your health care provider may use other names to describe the infection. When strep throat affects the tonsils, it is called tonsillitis. When it affects the back of the throat, it is called phar (more content not included)... Normal [facility] Patient Logson 05-07-2023 Patient Logs [id number] 97#1.00TIFF [facility] Physician Referralon 024 Physician Referral [id number] 09#1.00TIFF [facility] Ambulatory Visit Summaryon 0 05-06-2023 Ambulatory Visit Summary NARCISA BENITEZ :1965 Visit Date:05/06/2023 Ambulatory Visit Instructions Your Diagnosis Hypertension BMI 35.0-35.9,adult Your Care Team Attending Physician - ALCON CABRAL CNP Primary Care Physician - ALCON CABRAL CNP This Is Your Medications List amlodipine (amLODIPine 5 mg Tab) losartan (losartan 100 mg Tab) Procedures Performed Colonoscopy (11/27/2019), Cancer of skin. Discharge Vitals Heart Rate (Peripheral) 72 Blood Pressure 142/90 Height 167 cm Height 66 in Weight 97.9 kg Weight 215.38 lb BMI 35.1 Medications What How Much When Why Instructions Unchanged amlodipine (amLODIPine 5 mg Tab) 1 Tablets By Mouth Every day HTN (hypertension) Elevated BP without diagnosis of hypertension Unchanged losartan (losartan 100 mg Tab) 1 Tablets By Mouth Every day Elevated BP without diagnosis of hypertension Duration: 90 Days Allergies No Known Allergies No Known Medication Allergies Problems Ongoing - Any problem that you are currently receiving treatment for. Abnormal mammogram of left breast Acid reflux Diverticulosis of colon Elevated BP without diagnosis of hypertension Gross hematuria History of sarcoidosis Hyperlipidemia Hypertension Multiple thyroid nodules Non-smoker Prediabetes Renal cyst Thyroid nodule Vitamin D deficiency Patient Survey You may receive a survey via text or e-mail asking about your office visit. Please share your experience with us by completing your survey. We appreciate your feedback and thank you for choosing us for your care. Normal [facility] Family Medicine Office/Clini c Noteon 05-06-2023 Family Medicine Office/Clinic Note Chief Complaint blood pressure follow up HPI Staff Patient presents for elevated blood pressure. Patient is not able to have surgery until blood pressure is more controlled. Patient is here for follow up on hypertension. How often are you checking your blood pressure? Daily What are your average readings? _ brought log Do you have any of the following symptoms? Chest Pain? no Palpitations? no MACHUCA/SOB? no Headache? no Peripheral Edema? no Light Headedness? no History of Present Illness Patient presents today because her surgery was cancelled (scheduled for today, 05/06/2023) due to her HTN and the blood pressure is not down to an acceptable level with her current medication. She was started on Losartan 25 mg on 03/29/2023 . A review of the Pre-surgical testing showed a normal CMP and a EKG with a Normal Sinus Rhythm. Losartan was increased to 50 mg daily after one week (04/06/2023) and she presented to the office on 04/16/2023 because her blood pressure was still not under control. This provider explained to the patient medication takes longer that 10 days to improve pressure. She reported at that time the pain in her kidney from the stones was most likely causing the increase in her blood pressure. The losartan was increased to 100 mg at the appointment on 04/16/2023. She returned for an OV on 04/26/2023 and her blood pressure remained elevated at 150/90. Amlodipine 5mg one tablet daily was added at that time. She came in on 05/03/2023 for a nurse visit and her blood pressure was slightly improved at 142/94. This blood pressure is not at goal of 130/[address] Aceves cancelled the surgery for the kidney stones. Today in the office her blood pressure is 142/90. This provider explained a medication dosage increase or a change is not warranted after only 10 days as this has been explained to the patient previously. She states her surgery has been postponed until 05/20/2023 and she does not want to have it postponed again Provider discussed referral to cardiology for clearance since she does not want to postpone her surgery. Patient denies dizziness, headache, vision changes, chest pain, and heart palpitations. She reports her pain to be mild as she takes two regular strength acetaminophen on the days she goes to work. Review of Systems Constitutional: no fever, no chills, no sweats, [...] noncontributory. Physical Exam Vitals & Measurements HR: 72(Peripheral) BP: 142/90 SpO2: 90% HT: 66 in HT: 167 cm WT: 97.9 kg WT: 215.38 lb BMI: 35.1 General: alert, no acute distress Cardiovascular: regular rate and rhythm, normal peripheral perfusion Respiratory: Lungs CTA, respirations non labored Extremities: no deformity, no trauma Neurological: oriented x 4, LOC appropriate for age speech normal Assessment/Plan 1. Hypertension (I10: Essential (primary) hypertension) Continue losartan 100 mg one tablet daily Continue amlodipine 5 mg one tablet daily Encouraged daily exercise, low sodium diet and portion control Patient agreed to cardiology referral at this provider would prefer she receives clearance from cardiology- patient in agreement Ordered: [facility] [place] Internal Ambulatory Referral 2. BMI 35.0-35.9,adult (Z68.35: Body mass index [BMI] 35.0-35.9, adult) Patient has gained two pounds since her last visit Monitor weight at each visit Encouraged daily exercise, low sodium diet and portion control Follow-up No qualifying data available Patient Education Managing Your Hypertension Hypertension, Adult, Hsve-uc-Elit Problem List/Past Medical History Ongoing Abnormal mammogram of left breast Acid reflux Diverticulosis of colon Elevated BP without diagnosis of hypertension Gross hematuria History of sarcoidosis Hyperlipidemia Hypertension Multiple thyroid nodules Non-smoker Prediabetes Renal cyst Thyroid nodule Vitamin D deficiency Historical No qualifying data Procedure/Surgical History Colonoscopy (11/27/2019), Cancer of skin. Medications amLODIPine 5 mg Tab, 5 mg= 1 tab(s), Oral, Daily, 1 refills losartan 100 mg Tab, 100 mg= 1 tab(s), Oral, Daily, 1 refills Allergies No Known Allergies No Known Medication Allergies Social History Alcohol - Denies Alcohol Use, 06/19/2019 Substance Abuse - Denies Substance Abuse, 06/15/2019 Tobacco Never (less than 100 in lifetime) Tobacco Use:. Never Smokeless Tobacco Use:., 05/06/2023 Family History Alcoholism: Father. CAD (coronary artery disease): Father. Primary malignant neoplasm of lung: Mother. Immunizations Vaccine Date Status Comments influenza virus vaccine, inactivated - Not Given Patient Refuses influenza virus vaccine, i (more content not included)... Normal [facility] Comment on above: Result Comment: Elec tronically Signed By: ALCON CABRAL CNP\.justin\Date and Time Signed: 05/06/23 15:17 EST Patient Educationon 05-06-19 Patient Education Cardiovascular Managing Your Hypertension Hypertension, also called high blood pressure, is when the force of the blood pressing against the hardwick of the arteries is too strong. Arteries are blood vessels that carry blood from your heart throughout your body. Hypertension forces the heart to work harder to pump blood and may cause the arteries to become narrow or stiff. Understanding blood pressure readings A blood pressure reading includes a higher number over a lower number: ? The first, or top, number is called the systolic pressure. It is a measure of the pressure in your arteries as your heart beats. ? The second, or bottom number, is called the diastolic pressure. It is a measure of the pressure in your arteries as the heart relaxes. For most people, a normal blood pressure is below 120/80. Your personal target blood pressure may vary depending on your medical conditions, your age, and other factors. Blood pressure is classified into four stages. Based on your blood pressure reading, your health care provider may use the following stages to determine what type of treatment you need, if any. Systolic pressure and diastolic pressure are measured in a unit called millimeters of mercury (mmHg). Normal ? Systolic pressure: below 120. ? Diastolic pressure: below 80. Elevated ? Systolic pressure: 120?129. ? Diastolic pressure: below 80. Hypertension stage 1 ? Systolic pressure: 130?139. ? Diastolic pressure: 80?89. Hypertension stage 2 ? Systolic pressure: 140 or above. ? Diastolic pressure: 90 or above. How can this condition affect me? Managing your hypertension is very important. Over time, hypertension can damage the arteries and decrease blood flow to parts of the body, including the brain, heart, and kidneys. Having untreated or uncontrolled hypertension can lead to: ? A heart attack. ? A stroke. ? A weakened blood vessel (aneurysm). ? Heart failure. ? Kidney damage. ? Eye damage. ? Memory and concentration problems. ? Vascular dementia. What actions can I take to manage this condition? Hypertension can be managed by making lifestyle changes and possibly by taking medicines. Your health care provider will help you make a plan to bring your blood pressure within a normal range. You may be referred for counseling on a healthy diet and physical activity. Nutrition ? Eat a diet that is high in fiber and potassium, and low in salt (sodium), added sugar, and fat. An example eating plan is called the DASH diet. DASH stands for Dietary Approaches to Stop Hypertension. To eat this way: ? Eat plenty of fresh fruits and vegetables. Try to fill one-half of your plate at each meal with fruits and vegetables. ? Eat whole grains, such as whole-wheat pasta, brown rice, or whole-grain bread. Fill about one-fourth of your plate with whole grains. ? Eat low-fat dairy products. ? Avoid fatty cuts of meat, processed or cured meats, and poultry with skin. Fill about one-fourth of your plate with lean proteins such as fish, chicken without skin, beans, eggs, and tofu. ? Avoid pre-made and processed foods. These tend to be higher in sodium, added sugar, and fat. ? Reduce your daily sodium intake. Many people with hypertension should eat less than 1,500 mg of sodium a day. Lifestyle ? Work with your health care provider to maintain a healthy body weight or to lose weight. Ask what an ideal weight is for you. ? Get at least 30 minutes of exercise that causes your heart to beat faster (aerobic exercise) most days of the week. Activities may include walking, swimming, or biking. ? Include exercise to strengthen your muscles (resistance exercise), such as weight lifting, as part of your weekly exercise routine. Try to do these types of exercises for 30 minutes at least 3 days a week. ? Do not use any products that contain nicotine or tobacco. These products include cigarettes, chewing tobacco, and vaping devices, such as e-cigarettes. If you need help quitting, ask your health care provider. ? Control any long-term (chronic) conditions you have, such as high cholesterol or diabetes. ? Identify your sources of stress and find ways to manage stress. This may include meditation, deep breathing, or making time for fun activities. Alcohol use ? Do not drink alcohol if: ? Your health care provider tells you not to drink. ? You [...] oz glass of hard liquor (44 mL). Medicines Your health care provider may prescribe medicine if lifestyle changes are not enough to get your blood pressure under control and if: ? Your systolic blood pr (more content not included)... Normal [facility] Ambulatory Visit Summaryon 0 05-03-2023 Ambulatory Visit Summary NARCISA BENITEZ :1965 Visit Date:05/03/2023 Ambulatory Visit Instructions Your Care Team Attending Physician - ALCON CABRAL CNP Primary Care Physician - ALCON CABRAL CNP This Is Your Medications List amlodipine (amLODIPine 5 mg Tab) losartan (losartan 100 mg Tab) Procedures Performed Colonoscopy (11/27/2019), Cancer of skin. Discharge Vitals Blood Pressure 142/94 Medications What How Much When Why Instructions Unchanged amlodipine (amLODIPine 5 mg Tab) 1 Tablets By Mouth Every day HTN (hypertension) Elevated BP without diagnosis of hypertension Unchanged losartan (losartan 100 mg Tab) 1 Tablets By Mouth Every day Elevated BP without diagnosis of hypertension Duration: 90 Days Allergies No Known Allergies No Known Medication Allergies Problems Ongoing - Any problem that you are currently receiving treatment for. Abnormal mammogram of left breast Acid reflux Diverticulosis of colon Elevated BP without diagnosis of hypertension Gross hematuria History of sarcoidosis Hyperlipidemia Multiple thyroid nodules Non-smoker Prediabetes Renal cyst Thyroid nodule Vitamin D deficiency Patient Survey You may receive a survey via text or e-mail asking about your office visit. Please share your experience with us by completing your survey. We appreciate your feedback and thank you for choosing us for your care. Normal [facility] Nurse Consultation Noteon Nurse Consultation Note Reason for Visit Here for BP check, BP 142/94 patient says it's better and runs lower in the afternoons for her than in the mornings Physical Exam BP 142/94 Medications amLODIPine 5 mg Tab, 5 mg= 1 tab(s), Oral, Daily, 1 refills losartan 100 mg Tab, 100 mg= 1 tab(s), Oral, Daily, 1 refills Allergies No Known Allergies No Known Medication [...] diphtheria/pertussi s, acel/tetanus adult 12/02/2018 Recorded Normal [facility] Ambulatory Visit Summaryon 0 04-26-2023 Ambulatory Visit Summary NARCISA BENITEZ :1965 Visit Date:04/26/2023 Ambulatory Visit Instructions Your Diagnosis HTN (hypertension) Elevated BP without diagnosis of hypertension Your Care Team Attending Physician - ALCON CABRAL CNP Primary Care Physician - ALCON CABRAL CNP This Is Your Medications List amlodipine (amLODIPine 5 mg Tab) losartan (losartan 100 mg Tab) Procedures Performed Colonoscopy (11/27/2019), Cancer of skin. Discharge Vitals Heart Rate (Peripheral) 69 Blood Pressure 150/90 Height 66 in Height 167 cm Weight 213.18 lb Weight 96.9 kg BMI 34.74 What to do next Scheduled Follow-Up Appointments Wednesday 8:00 AM EST Where: [facility] Normal [facility] Family Medicine Office/Clini c Noteon 04-26-2023 Family [...] 87.1 fL (01/25/23) Chloride: 102 mmol/L (01/25/23) Anderson Absolute: 0.8 E9/L (01/25/23) CO2: 27 mmol/L (01/25/23) Anderson Auto: 10.6 % (01/25/23) Creatinine: 0.8 mg/dL [...] Daily, # 30 tab(s), Refills(s) 1, Pharmacy: [facility], 167, cm, 04/26/23 7:57:00 EST, Height/Length Dosing, 96.9, kg, 04/26/23 7:57:00 EST, Weight Dosing losartan, 25 mg = 1 tab(s), Oral, Daily, # 30 tab(s), Refills(s) 1, Pharmacy: [facility], 167, cm, 03/29/23 11:13:00 EST, Height/Length Dosing, 98.6, kg, 03/29/23 11:13:00 EST, Weight Dosing losartan, 50 mg = 1 tab(s), Oral, Daily, # 30 tab(s), Refills(s) 1, Pharmacy: [facility], 167, cm, 03/29/23 11:13:00 EST, Height/Length [...] Daily, # 30 tab(s), Refills(s) 1, Pharmacy: [facility], 167, cm, 04/26/23 7:57:00 EST, Height/Length Dosing, 96.9, kg, 04/26/23 7:57:00 EST, Weight Dosing losartan, 100 mg = 1 tab(s), Oral, Daily, X 90 day(s), # 90 tab(s), Refills(s) 1, Pharmacy: [facility], 167, cm, 12/29/23 8:34:00 EST, Height/Length Dosing, (more content not included)... Normal [facility] Comment on above: Result Comment: Elec tronically Signed By: ALCON CABRAL CNP\.justin\Date and Time Signed: 04/26/23 08:29 EST Patient [...] Keep all follow-up visits. Medicines ? Take kidu-frk-wjwlmfy and prescription medicines only as told by [...] For m (more content not included)... Normal [facility] Patient Logson 04-26-2023 Patient Logs [id number] F#1.00TIFF Normal [facility] Family Medicine Office/Clini c Noteon 04-16-2023 Family [...] reports her father just was released from [facility] and HH will be coming but [...] Daily, # 30 tab(s), Refills(s) 1, Pharmacy: [facility], 167, cm, 04/16/23 8:34:00 EST, Height/Length [...] s, acel/tetanus adult 12/02/2018 Recorded Normal [facility] Comment on above: Result Comment: Elec tronically Signed By: ALCON CABRAL CNP\.justin\Date and Time Signed: 04/16/23 09:20 EST Patient [...] Spices. Seasoni (more content not included)... Normal [facility] Patient Logson 04-16-2023 Patient Logs [id number] 7B#1.00TIFF Normal [facility] Nurse Consultation Noteon Nurse Consultation Note Reason [...] inactivated - Not Given Patient Refuses SARSCoV2 mRNA(ela-jodee -chapitoros) vac 09/29/2021 Recorded SARS-CoV-2 (COVID-19) mRNA BNT-162b2 vax 04/09/2021 Recorded SARS-CoV-2 (COVID-19) mRNA BNT-162b2 vax 07/12/2020 Given Prophylaxis SARS-CoV-2 (COVID-19) mRNA BNT-162b2 vax 06/21/2020 Given Prophylaxis influenza virus vaccine, live, trivalent - Not Given Patient Refuses diphtheria/pertussi s, acel/tetanus adult 12/02/2018 Recorded Normal [facility] ECG 12-Leadon 03-30-2023 ECG 12-Lead [id number] 76#1.00TIFF Normal [facility] Lab Reportson 03-30-2023 Lab Reports [id number] AB#1.00TIFF Normal [facility] Ambulatory Visit Summaryon 1 05-30-2022 Ambulatory Visit Summary NARCISA BENITEZ :1965 Visit Date:03/29/2023 Ambulatory Visit Instructions Your Diagnosis HTN (hypertension) BMI 35.0-35.9,adult Your Care Team Attending Physician - ALCON CABRAL CNP Primary Care Physician - Yasmine Lewis [...] Appointments Wednesday 8:00 AM EST With: ALCON CABRAL CNP Where: [facility] Family Medicine Sina Normal [facility] Family Medicine Office/Clini c Noteon 03-29-2023 Family [...] blood pressure. She states she when to [facility] for pre-admission testing this AM and [...] Daily, # 30 tab(s), Refills(s) 1, Pharmacy: [facility], 167, cm, 03/29/23 11:13:00 EST, Height/Length Dosing, 98.6, kg, 03/29/23 11:13:00 EST, Weight Dosing 2. BMI 35.0-35.9,adult (Z68.35: Body mass index [BMI] 35.0-35.9, adult) Monitor at each visit Discussed pharmacological interventions to aid in weight loss Encouraged daily exercise and portion control Ordered: losartan, 25 mg = 1 tab(s), Oral, Daily, # 30 tab(s), Refills(s) 1, Pharmacy: [facility], 167, cm, 03/29/23 11:13:00 EST, Height/Length Dosing, 98.6, kg, 03/29/23 11:13:00 EST, Weight Dosing Total time spent preparing the chart, conducting of the encounter with the patient and family and time spent documenting, reviewing, and ordering tests was 30 minutes. Follow-up With When Contact Information QUE NEGRON, SHALOM MAYS Within 4 weeks [address] [place] [address] [id number] [facility] (1) Additional Instructions: HTN Patient Education DASH [...] inactivated - Not Given Patient Refuses SARSCoV2 mRNA(tojennieer-jodee -sucros) vac 09/29/2021 Recorded SARS-CoV-2 (COVID-19) mRNA BNT-162b2 vax 04/09/2021 Recorded SARS-CoV (more content not included)... Normal [facility] Comment on above: Result Comment: Elec troazaleaally Signed By: ALCON CABRAL CNP\Date and Time Signed: 03/29/23 12:14 EST Patient [...] Herbs. Spices. Seasoni (more content not included)... [facility] Insurance Correspondenceon 1 05-23-2022 Insurance Correspondence [id number] 946#1.00TIFF [facility] Consent for Procedure/Surger yon 03-18-2023 Consent for Procedure/Surgery [id number] 84#1.00TIFF [facility] Consent for Treatmenton 02-18 Consent for Treatment [id number] 01#1.00TIFF [facility] XR Abdomen 1 Viewon 03-17-20 23 XR [...] mass effect. Osseous structures intact. Ordering Provider: Lamont ACEVES FINAL REPORT Dictated: 03/17/2023 3:39 pm Patrick Felix MD Signed (Electronic Signature): 03/17/2023 3:39 pm Signed by: Patrick Feilx MD Transcribed by: NATALIYA Technologist: JOSE Technical Comments Radiation Dose: Ka,r in mGy = na DAP = na Normal [facility] UroVysion Fish and Urine Cyt o ([facility])on 02-04-2023 [facility] & UC Diagnosis Info Invalid Interpretation Code [facility] Comment on above: Result Comment: A:Ur ine,Urine:Voided [...] correlated with cytology and cystoscopy results.* CPT 04247, 49237 Microscopic Notes - Microscopic Notes - Abnormal cells 9p21 deletions: Abnormal cells aneploid events: Total cells analyzed: 36 Hematuria: Gross Description Site ID:A color Yellow fixative Alcohol Received 100 mls of slightly cloudy yellow fluid with the patient's name and, Urine on the vial. Electronically signed by : on: 02/04/2023 08:51:43 Performed By: #### 1 [id number] ####[facility] [address] [place] [address] Consent for Treatmenton 01-17 Consent for Treatment [id number] D4#1.00TIFF Normal [facility] MA Mamm Diag w/CAD if perf a [...] very important to your health. The current [employer] and National Comprehensive Cancer [...] follow-up Recommendation: Follow-up at short interval Normal [facility] RAD - MISCon 01-29-2023 RAD - MISC [id number] 763#1.00TIFF [facility] C Urineon 01-28-2023 Bacteria identified Cx Nom [...] Locations R1: This test was performed at: [facility], [address] [place] [address], [facility]- , , [facility] Comment on above: Performed By: #### 2 [id number] ####[facility] [address] [place] [address] Formson 01-28-2023 Forms [id number] A4#1.00TIFF [facility] Ambulatory Visit Summaryon 1 Ambulatory Visit Summary NARCISA BENITEZ :1965 Visit Date:01/27/2023 Ambulatory Visit Instructions Your Diagnosis Kidney stone Gross hematuria History of kidney stones Renal cyst Tests Performed Urnls Dip Stick Auto w/o Microscopy POC 40970 Your Care Team Attending Physician - YOLA GOLDBERG, Lamont Li Primary Care Physician - Brian SANCHEZ, Yasmine Rodriguez This Is Your Medications List Contact prescribing physician if questions or concerns acetaminophen-hydro codone ([place] 325 mg-5 mg oral tablet) ergocalciferol (Vitamin [...] [facility] [address], [place] [address]- You Need to Complete the Following XR Abdomen 1 View, 01/27/23, Routine, Order for future visit, Transport Mode: Ambulatory, Reason: Kidney stone, No, Kidney stone, pp_set_radiology_su bspecialty, Valenzuela - Philip Medications What How Much When Instructions Unchanged acetaminophen-hydro codone ([place] 325 mg-5 mg oral tablet) 1 Tablets [...] Urnls Dip Stick Auto w/o Microscopy POC 19972 (01/27/2023) Bilirubin Urine Dipstick - Negative Blood Urine Dipstick - Negative Glucose Urine Dipstick - Negative Ketones Urine Dipstick - Negative Leukocytes Urine Dipstick - Trace Nitrite Urine Dipstick - Negative Protein Urine Dipstick - Negative Specific Rayle Urine Dipstick - >=1.030 Urine Appearance Urine [...] may eat and drink normally. ? Take ccpg-zor-lttmehq and prescription medicines only as told by your health care provider. ? Let your health care provider know about any medicines that you are taking, including goyc-hvk-zipstyj medicines, vitamins, herbs, and supplements. ? Choose [...] container i (more content not included)... Normal [facility] Patient Educationon 01-28-20 Patient Education Nephrology Lithotripsy, [...] these instructions at home: Medicines ? Take kelq-njy-duzhdck and prescription medicines only as told by [...] care p (more content not included)... Normal [facility] Provider Letteron 01-27-2023 Provider Letter January 27, 2023 NARCISA BENITEZ [address] [place] [id number] : 1965 To Whom It May Concern, Please excuse above patient from work on 01/27/2023 for an appointment. May Return to Work On: 01/28/2023 Restrictions: _ Comments: Please contact the office if you have any question. Sincerely, [facility] [address] [place] [address] Normal [facility] UroVysion Fish and Urine Cyt o ([facility])on 01-27-2023 [facility] Method of Extraction Voided Normal [facility] Comment on above: Performed By: #### 1 [id number] ####[facility] [address] [place] [address] [facility] Number of Jars 1 Invalid Interpretation Code [facility] Comment on above: Performed By: #### 1 [id number] ####[facility] [address] [place] [facility] [address] [facility] Specimen Urine Normal [facility] Comment on above: Performed By: #### 1 [id number] ####[facility] [address] [facility] [place] [address] [facility] Type of Service Technical Only Normal [facility] Comment on above: Performed By: #### 1 [id number] ####[facility] [address] [place] [address] Urology Office/Clinic Noteon 01-27-2023 Urology Office/Clinic Note HPI Staff New Pt. Pt was seen at [facility] on 01/25/[address] to [address] SCAN [...] information and history for this patient from [facility] . I have reviewed and verified the [...] yo female new pt following up to [facility] ED visit 01/25/23 due to gross hematuria. [...] not have a ureteral stone. Can cont Sacramento and Ondansetron prn. -Pt to go to [...] stone preventi (more content not included)... Normal [facility] Comment on above: Result Comment: Elec tronically Signed By: Lamont ACEVES MD\.br\Date and Time Signed: 01/27/23 14:31 EDT\.br\Electronically Co-Signed By: Krystina Martinez.justin\Date and Time Co-Signed: 01/27/23 14:[address] Abdomen/Pelvis w/ Contras kristan 01-26-2023 CT Abdomen/Pelvis w/ Contrast Exam Date/Time: [...] Solis Guerrero MD Transcribed by: NATALIYA Technologist: CHELSIE Technical Comments GFR (mL/min/1/73m2) n/a age Contrast: Isovue 300 Contrast amount in ml's: 100 Normal [facility] Discharge Instructionson Discharge Instructions [id number] 956#1.00TIFF Normal [facility] ED Note-Physicianon 01-27-20 ED Note-Physician Basic Information Time Seen: Zahraa Mable 01/25/2023 19:16 Chief Complaint Patient states hematuria [...] and Complexity of Problems Differential Diagnosis: [] [facility] Data External documents reviewed: [] My [...] for 3 day(s), 7 tab(s), Refill(s) 0, [facility], 168, cm, 01/25/23 17:56:00 EDT, Height/Length Dosing, 95, kg, 01/25/23 17:56:00 EDT, Weight Dosing ondansetron, 4 mg = 1 tab(s), Oral, q8hr, # 12 tab(s), Refills(s) 0, Pharmacy: [facility], 168, cm, 01/25/23 17:56:00 EDT, Height/Length Dosing, 95, kg, 01/25/23 17:56:00 EDT, Weight Dosing tamsulosin, 0.4 mg = 1 cap(s), Oral, Daily, # 10 cap(s), Refills(s) 0, Pharmacy: [facility], 168, cm, 01/25/23 17:56:00 EDT, Height/Length [...] Cap, 0.4 mg= 1 cap(s), Oral, Daily Sacramento 325 mg-5 mg oral tablet, 1 tab(s), Oral, q6hr, PRN Zofran ODT 4 mg Tab-Dis, 4 mg= 1 tab(s), Oral, q8hr Follow-up With When Contact Information Ginger Sargent In 3 days 01/28/2023 EDT Additional Instructions: You can use the pain medication, Flomax, nausea medications as prescribed if you develop worsening flank pain. Please follow-up with your primary care doctor in the next 2 to 3 days. Please return to the ED for any new or worsening symptoms. Yasmine Torres In 3 days 01/28/2023 EDT [address] [facility], [address] [facility] (1) Additional Instructions: valentine Patient Education Renal Colic, Rzns-iz-Xdea Problem List/Past Medical History Ongoing Abnormal mammogram of left breast Acid reflux Diverticulosis of colon Elevated BP without diagnosis of hypertension History of sarcoidosis Hyperlipidemia Multiple thyroid nodules Non-smoker Prediabetes (more content not included)... Normal [facility] Comment on above: Result Comment: Elec tronically Signed By: Mable Vital DO\.br\Date and Time Signed: 01/26/23 02:22 EDT Ambulatory Visit Summaryon 1 Ambulatory Visit Summary NARCISA BENITEZ :1965 Visit Date:01/25/2023 Ambulatory Visit Instructions Your Diagnosis Hematuria BMI 33.0-33.9,adult Tests Performed Urnls Dip Stick Non-Auto w/o Micrscpy POC 23175 Your Care Team Attending Physician - ODILIA EASON, CORNELIUS Primary Care Physician - Brian SANCHEZ, Yasmine Rodriguez Procedures Performed Colonoscopy (11/27/2019), Cancer of skin. [...] Urnls Dip Stick Non-Auto w/o Micrscpy POC 05144 (01/25/2023) Bilirubin Urine Dipstick - Negative Blood Urine Dipstick - 3+ Large Glucose Urine Dipstick - Negative Ketones Urine Dipstick - Negative Leukocytes Urine Dipstick - Trace Nitrite Urine Dipstick - Negative Protein Urine Dipstick - 2+ (100 mg/dl) Specific Rayle Urine Dipstick - >=1.030 Urine Appearance Urine [...] Prediabetes Thyroid nodule Vitamin D deficiency Normal [facility] Auto Diffon 01-25-2023 Basophils/100 WBC (Bld) 0.9 % Normal 0.0-2.0 [facility] Comment on above: Order Comment: Order Added by Discern Expert. Performed By: #### 2 690995, 4153199, 5048100, 9939410, 24079801 ####[place] [address] [place] [id number] Basophils/Leukocytes Auto (Bld) [Pure # fraction] 0.1 E9/L Normal 0.0-0.2 [facility] Comment on above: Order Comment: Order Added by Discern Expert. Performed By: #### 2 898643, 9331093, 6684053, 2607025, 27541003 ####[facility] [address] [place] [address] Eosinophils/100 WBC (Bld) 1.9 % Normal 0.0-8.0 [facility] Comment on above: Order Comment: Order Added by Discern Expert. Performed By: #### 2 968412, 2787775, 2489720, 5984172, 85189497 ####[address] [place] [address] Eosinophils/Leukocyt es Auto (Bld) [Pure # fraction] 0.1 E9/L Normal 0.0-0.5 [facility] Comment on above: Order Comment: Order Added by Discern Expert. Performed By: #### 2 818405, 9651582, 4382118, 6430316, 45351510 ####[address] [address] Lymphocytes/100 WBC (Bld) 34.3 % Normal 14.0-50.0 [facility] Comment on above: Order Comment: Order Added by Discern Expert. Performed By: #### 2 802604, 1281755, 6747204, 5066704, 52283225 ####[address] [address] Lymphocytes/Leukocyt es Auto (Bld) [Pure # fraction] 2.7 E9/L Normal 1.0-4.0 [facility] Comment on above: Order Comment: Order Added by Discern Expert. Performed By: #### 2 224165, 6824532, 1261374, 5091009, 14851104 ####[address] [address] Monocytes/100 WBC (Bld) 10.6 % Normal 4.0-14.0 [facility] Comment on above: Order Comment: Order Added by Discern Expert. Performed By: #### 2 709292, 9020495, 1543597, 9279049, 69583466 ####[facility] [address] [place] [address] Monocytes/Leukocytes Auto (Bld) [Pure # fraction] 0.8 E9/L Normal 0.2-1.0 [facility] Comment on above: Order Comment: Order Added by Discern Expert. Performed By: #### 2 375965, 0952803, 8297704, 2578251, 69244439 ####[address] [address] [place] [address] Neutrophils/100 WBC (Bld) 52.3 % Normal 36.0-75.0 [facility] Comment on above: Order Comment: Order Added by Discern Expert. Performed By: #### 2 519893, 2078707, 0707887, 8426269, 97886307 ####[address] [address] Neutrophils/Leukocyt es Auto (Bld) [Pure # fraction] 4.1 E9/L Normal 2.0-7.5 [facility] Comment on above: Order Comment: Order Added by Discern Expert. Performed By: #### 2 923828, 5382673, 4594426, 3961246, 04617048 ####[place] [address] [place] [address] BMPon 01-25-2023 Creatinine [Mass/Vol] 0.8 mg/dL Normal 0.5-1.3 [facility] Comment on above: Performed By: #### 2 967967, 5221908, 2946825, 6802667, 15528946 ####[place] [address] [place] [address] Urea nitrogen [Mass/Vol] 17 mg/dL Normal 5-21 [facility] Comment on above: Performed By: #### 2 823958, 3535488, 5051557, 4170715, 09175613 ####[facility] [address] [place] [address] Urea nitrogen/Creatinine [Mass ratio] 21 No Units High 10-20 [facility] Comment on above: Performed By: #### 2 217292, 2596621, 0406248, 1993413, 00852331 ####[facility] [address] [place] [address] Anion gap [Moles/Vol] 9 mmol/L Normal 6-16 [facility] Comment on above: Performed By: #### 2 979854, 0445910, 9182187, 5145236, 30388804 ####[facility] [address] [place] [address] Calcium [Mass/Vol] 9.9 mg/dL Normal 8.9-11.1 [facility] Comment on above: Performed By: #### 2 871791, 3371771, 2494283, 9289351, 23736744 ####[facility] [address] [place] [address] Chloride [Moles/Vol] 102 mmol/L Normal 101-111 [facility] Comment on above: Performed By: #### 2 260318, 5590953, 1170656, 7646801, 24833705 ####[facility] [address] [place] [address] CO2 [Moles/Vol] 27 mmol/L Normal 21-31 [facility] Comment on above: Performed By: #### 2 046215, 4681269, 2906522, 3784567, 92160252 ####[facility] [address] [place] [address] Glucose [Mass/Vol] 101 mg/dL Normal 55-199 [facility] Comment on above: Result Comment: If t his glucose result represents a fasting glucose, interpretation should refer to the following reference range: 55-99 mg/dL Performed By: #### 2 769484, 5083081, 5154393, 5777155, 01534058 ####[facility] [address] [place] [address] Potassium [Moles/Vol] 3.3 mmol/L Low 3.5-5.3 [facility] Comment on above: Performed By: #### 2 970220, 6176535, 4511005, 4833744, 36382196 ####[facility] [address] [place] [address] Sodium [Moles/Vol] 135 mmol/L Normal 135-145 [facility] Comment on above: Performed By: #### 2 106111, 0751723, 4752802, 9126720, 86560866 ####[address] [address] CBC w/ Auto Diffon 3 Erythrocyte distribution width (RBC) [Ratio] 13.1 % Normal 10.9-14.2 [facility] Comment on above: Performed By: #### 2 084622, 9503621, 8765382, 6314428, 59836459 ####[address] [address] Hematocrit (Bld) [Volume fraction] 40.5 % Normal 34.0-46.0 [facility] Comment on above: Performed By: #### 2 253898, 5000480, 9957266, 0971383, 78319525 ####[address] [address] Hemoglobin (Bld) [Mass/Vol] 14.1 g/dL Normal 12.0-16.0 [facility] Comment on above: Performed By: #### 2 936693, 0360275, 5691151, 7510086, 01338681 ####[address] [address] MCH (RBC) [Entitic mass] 30.2 pg Normal 27.0-34.0 [facility] Comment on above: Performed By: #### 2 981791, 1836825, 6345884, 3620989, 10685903 ####[place] [address] [place] [address] MCHC (RBC) [Mass/Vol] 34.7 g/dL Normal 31.4-36.0 [facility] Comment on above: Performed By: #### 2 390619, 6941073, 5682431, 0020815, 76982487 ####[place] [address] [place] [address] MCV (RBC) [Entitic vol] 87.1 fL Normal 80.0-100.0 [facility] Comment on above: Performed By: #### 2 468497, 9080340, 0028058, 6107316, 89119676 ####[address] [place] [address] Platelet mean volume (Bld) [Entitic vol] 7.6 fL Normal 6.4-10.8 [facility] Comment on above: Performed By: #### 2 112949, 8605445, 8481516, 2181561, 66235727 ####[address] [place] [address] Platelets (Bld) [#/Vol] 313.0 E9/L Normal 150.0-500.0 [facility] Comment on above: Performed By: #### 2 494661, 1315566, 8902209, 1550152, 33657702 ####[address] [address] RBC (Bld) [#/Vol] 4.6 E12/L Normal 4.3-5.9 [facility] Comment on above: Performed By: #### 2 833808, 0679450, 2186527, 6642778, 16280190 ####[place] [address] [place] [address] WBC corrected for nucl RBC Auto (Bld) [#/Vol] 7.8 E9/L Normal 4.0-11.0 [facility] Comment on above: Performed By: #### 2 500576, 2556378, 6672777, 6441949, 96430147 ####[place] [address] [place] [address] CKon 01-25-2023 CK [Catalytic activity/Vol] 164 Int._Unit/L Normal 14-261 [facility] Comment on above: Performed By: #### 2 369421, 9052832, 0850766, 5899334, 57847913 ####[facility] [address] [place] [address] Consent for Treatmenton Consent for Treatment [id number] C8#1.00TIFF Normal [facility] ED Clinical Summaryon 2022 ED Clinical Summary [address] [address] ED Clinical Summary Person Information Name: NARCISA BENITEZ/[facility]y Age: 57 Years : 1965 Sex: Female Language: Ghanaian PCP: Yasmine Lewis Marital Status: Phone: [phone] Visit Id: Visit Reason: Back pain; Hematuria; [...] 01/25/2023 21:20:03 01/25/2023 21:20:03 01/25/2023 21:20:03 ADDRESS: [address] [place] [phone] PHYS DOC NOTES: MEDICAL INFORMATION: Prescriptions Given: New Medications [facility], [address] [place], [place] [id number], [phone] acetaminophen-hydro codone (Sacramento 325 mg-5 mg oral tablet) 1 Tablets By Mouth every 6 hours as needed for pain for 3 Days. Refills: 0. ondansetron (Zofran ODT 4 mg Tab-Dis) 1 Tablets By Mouth every 8 hours. Refills: 0. tamsulosin (Flomax 0.4 mg Cap) 1 Capsules By Mouth every day. Refills: 0. PATIENT EDUCATION INFORMATION: Instructions: Renal Colic, Vudp-km-Rtrh Follow up: With: Address: When: Ginger Sargent In 3 days 01/28/2023 Comments: You can use the pain medication, Flomax, nausea medications as prescribed if you develop worsening flank pain. Please follow-up with your primary care doctor in the next 2 to 3 days. Please return to the ED for any new or worsening symptoms. With: Address: When: Yasmine Torres [address] [place] [address] Business (1) In 3 days 01/28/2023 Comments: valentine DIAGNOSIS: Hematuria; Renal colic Normal [facility] ED Patient Education Noteon 01-25-2023 ED Patient Education Note Urology Renal Colic Renal colic is pain that is caused by a kidney stone. The pain can be sharp and very bad. It may be felt in the back, belly, side (flank), or groin. It can cause nausea. Renal colic can come and go. Follow these instructions at home: Medicines ? Take fkjv-qrn-sdwcamz and prescription medicines only as told by [...] caused by a kidney stone. ? Take puub-ref-ajdbuug and prescription medicines only as told by [...] provider. Document Revised: 12/08/2021 Document Reviewed: 12/08/2021 [employer] Patient Education ? 2022 [employer]. [facility] ED Patient Summaryon 023 ED Patient Summary [address] [address] Patient Discharge Instructions Person Information Name: NARCISA BENITEZ Age: 57 Years Arrival Date: 01/25/2023 17:37:39 Discharge Diagnosis: Hematuria; Renal colic Primary Care Physician: Brian SANCHEZ, Yasmine Rodriguez Provider Information Primary Provider: Mable Vital DO Advanced Bone Char Puller:None The exam and treatment you received in the Emergency Department were for an urgent problem and are not intended as complete care. It is important that you follow up with a doctor, nurse practitioner, or physician?s machine assistant for ongoing care. If your symptoms [...] worsening symptoms. With: Address: When: Yasmine Torres [address] [place] [address], [facility] [place], [place] [id number] Business (1) In 3 days 01/28/2023 Comments: valentine In the event that this physician does not participate in your insurance network, please consult with your insurance company to find a nearby participating provider. Patient Education Materials: Renal Colic, Jnme-ez-Bajn A MESSAGE TO ALL PATIENTS REGARDING OPIOIDS PRESCRIPTION OPIOIDS: WHAT YOU NEED TO KNOW Prescription opioids can be used to help relieve gvjdmyso-rq-qoxzai pain and are often prescribed following a [...] the Fo (more content not included)... 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 HPI Staff Narcisa is a 57 year old female here for blood in her urine urine has been dark for 2 weeks pt has been drinking a lot of water urinating more than normal some back pain hx of kidney stones hx of diverticulitis History of Present Illness Reviewed and agree with above documented HPI by medical technologist prn. Portions of this record may have been created with voice recognition artificial intelligence software, specifically [employer], [employer] and or [employer]. Substitutions may have occurred due to the inherent limitations of voice recognition and artificial intelligence software. Patient is a 57-year-old female who presents to [facility], for discolored urine, started 2 weeks [...] glucose, and bilirubin. 57-year-old female presented to [facility], for hematuria, hematuria started 2 weeks ago, [...] E&M of New Patient Low 30-44 Min 53634 Urine Culture Urnls Dip Stick Non-Auto w/o Micrscpy POC 93686 2. BMI 33.0-33.9,adult (Z68.33: Body mass index [...] E&M of New Patient Low 30-44 Min 10915 Follow-up With When Contact Information Brian SANCHEZ, Yasmine Rodriguez [address] [facility], [place] [address]- Additional Instructions: Patient Education BMI for Adults [...] Mother. Immunizatio (more content not included)... Normal [facility] Comment on above: Result Comment: Elec tronically Signed By: ODILIA EASON, CORNELIUS\.br\Date and Time Signed: 01/25/23 16:27 EDT Patient [...] numbers. This can be done either in [place]ian (U.S.) or metric measurements. Note that charts and online BMI calculators are available to help you find your BMI quickly and easily without having to do these calculations yourself. To calculate your BMI in [place]ian (U.S.) measurements: 1. Measure your weight in [...] for Disease Control and Prevention: www.cdc.gov ? [place] [employer]: www.heart.org ? National Heart, Lung, and Blood [place]: www.nhlbi.nih.gov Summary ? Body mass index (BMI) is a number that is calculated from a person's weight and height. ? BMI may help estimate how much of a person's weight is composed of fat. BMI can help identify those who may be at higher risk for certain medical problems. ? BMI can be measured using Ghanaian measurements or metric measurements. ? BMI charts are used to identify whether you are underweight, normal weight, overweight, or obese. This information is not intended to replace advice given to you by your health care provider. Make sure you discuss any questions you have with your health care provider. Document Revised: 12/27/2019 Document Reviewed: 11/03/2019 [employer] Patient Education ? 2022 [employer]. Urology Hematuria, Adult Hematuria is blood in [...] identify the (more content not included)... Normal [facility] Prescriptions/Work Noteson 1 Prescriptions/Work Notes [id number]#[id number] Normal [facility] RAD - Preliminary Cat Scan R eporton 01-25-2023 RAD - Preliminary Cat Scan Report [id number]#1.00TIFF Normal [facility] UA With Cult Reflexon 2022 Bacteria LM Ql (Urine sed) TRACE Normal Trace [facility] Comment on above: Performed By: #### 1 [id number] ####[facility] [address] [place] [address] Bilirubin Ql (U) 1+ Abnormal Negative [facility] Comment on above: Performed By: #### 1 [id number] ####[facility] [address] [place] [address] Clarity (U) CLOUDY Abnormal Clear [facility] Comment on above: Performed By: #### 1 [id number] ####[facility] [address] [place] [address] Color (U) BROWN Abnormal Yellow [facility] Comment on above: Performed By: #### 1 [id number] ####[address] [address] Epithelial cells.squamous LM.HPF (Urine sed) [#/Area] 0-2 Normal 0-2 [facility] Comment on above: Performed By: #### 1 [id number] ####[address] [address] Glucose Test strip (U) [Mass/Vol] Negative Normal Negative [facility] Comment on above: Performed By: #### 1 [id number] ####[address] [address] Hemoglobin Ql (U) 3+ Abnormal Negative [facility] Comment on above: Performed By: #### 1 [id number] ####[address] [address] Ketones (U) [Mass/Vol] TRACE Abnormal Negative [facility] Comment on above: Performed By: #### 1 [id number] ####[address] [address] [place].plasma/Lithi um.RBC (Bld) [Mass ratio] >75 Abnormal 0-3 [facility] Comment on above: Performed By: #### 1 [id number] ####[facility] [address] [place] [address] Nitrite Ql (U) Negative Normal Negative [facility] Comment on above: Performed By: #### 1 [id number] ####[facility] [address] [place] [address] pH (U) 6.0 [pH] Invalid Interpretation Code 5.0-9.0 [facility] Comment on above: Performed By: #### 1 [id number] ####[facility] [address] [place] [address] Protein (U) [Mass/Vol] 2+ Abnormal Negative [facility] Comment on above: Performed By: #### 1 [id number] ####[address] [address] Specific gravity (U) [Rel density] 1.020 Invalid Interpretation Code 1.005-1.030 [facility] Comment on above: Performed By: #### 1 [id number] ####[address] [address] Type of Urine collection method Clean Catch Normal [facility] Comment on above: Performed By: #### 1 [id number] ####[address] [address] Urobilinogen Qn (U) 0.2 {Rahul'U}/dL Normal 0.0-1.0 [facility] Comment on above: Performed By: #### 1 [id number] ####[address] [address] WBC Auto Ql (U) TRACE Abnormal Negative [facility] Comment on above: Performed By: #### 1 [id number] ####[address] [address] WBC LM.HPF (Urine sed) [#/Area] 0-5 Normal 0-5 [facility] Comment on above: Performed By: #### 1 [id number] ####[address] [address] eGFRon 01-25-2023 GFR/1.73 sq M.predicted among non-blacks MDRD (S/P/Bld) [Vol rate/Area] 85 mL/min/1.73 m2 Normal >=59 [facility] Comment on above: Order Comment: Order added by Discern Expert. Result Comment: [facility] kidney disease could be indicated at eGFR's of less than 60 mL/min/1.73m2. Kidney failure is indicated at less than 15 mL/min/1.73m2. Performed By: #### 2 [id number], [id number], [id number], [id number], [id number] ####[facility] [address] [place] [id number] Physician Orderon 01-15-2023 Physician Order [id number] BB#1.00CD:127 Normal [facility] XR hand RT min 3V*on 023 XR hand RT min 3V* [address] [address] XRay Report Signed Patient: Narcisa Benitez MR#: [id number] : 1965 Acct:[id number] Age/Sex: 57 / F ADM Date: 09/16/22 Loc: [facility] Room: Type: [facility] Attending Dr: Pauly Oden MD Copies to: [...] Chuck Steven M.D.09/16/2022 4:06 PM Dictation Location: [place] [address] Transcribed By: [facility] 09/16/22 1606 Dictated By: Chuck Steevn DO 09/16/22 1604 Signed By: 09/16/22 1606 [facility] XR hand RT min 3V* [facility] [employer] Other XR hand RT min 3V* [facility] [employer] Other XR hand RT min 3V* [address] [employer] Other XR hand RT min 3V* [place] [address] [facility] Other XR hand RT min 3V* XRay Report [facility] Other XR hand RT min 3V* Signed [facility] Other XR hand RT min 3V* Patient: Narcisa Benitez MR#: [id number] [facility] Other XR hand RT min 3V* 5802 [employer] Other XR hand RT min 3V* : 1965 Acct:[id number] [employer] Other XR hand RT min 3V* Age/Sex: 57 / F ADM Date: 09/16/22 [facility] Other XR hand RT min 3V* Loc: [facility] Room: Type: [facility] [employer] Other XR hand RT min 3V* Attending Dr: Pauly Oden MD [facility] Other XR hand RT min 3V* Copies to: Pauly Oden MD [facility] Other XR hand RT min 3V* Ordering Provider: Pauly Oden MD [facility] Other XR hand RT min 3V* Date of Service: 09/16/22 [facility] Other XR hand RT min 3V* XR/XR hand RT min 3V*: Mass of right hand [facility] Other XR hand RT min 3V* 3 views both hand plain film [facility] Other XR hand RT min 3V* COMPARISON: None [facility] Other XR hand RT min 3V* HISTORY: Mass of the right third and second digits. 6 months duration. No injury [facility] Other XR hand RT min 3V* ACUTE FINDINGS: None [facility] Other XR hand RT min 3V* DEGENERATIVE CHANGE: Sensitive first carpometacarpal degenerative changes seen bilaterally. Mild [employer] Other XR hand RT min 3V* interphalangeal degenerative changes bilaterally. [facility] Other XR hand RT min 3V* SOFT TISSUE FINDINGS: No radiodense foreign body. No soft tissue mass. No subcutaneous air. [facility] Other XR hand RT min 3V* JOINT EFFUSION: None [facility] Other XR hand RT min 3V* POSTOP CHANGES: None [facility] Other XR hand RT min 3V* BONY MINERALIZATION: Adequate. No bony lesion. [facility] Other XR hand RT min 3V* XR/XR hand RT min 3V* [facility] Other XR hand RT min 3V* IMPRESSION: Degenerative change. Unremarkable soft tissues. [facility] Other XR hand RT min 3V* Impression dictated by: Chuck Steven M.D.09/16/2022 4:06 PM [facility] Other XR hand RT min 3V* Dictation Location: [place] [address] [facility] Other XR hand RT min 3V* Transcribed By: [facility] 09/16/22 1606 [employer] Other XR hand RT min 3V* Dictated By: Chuck Stveen DO 09/16/22 1604 [facility] Other XR hand RT min 3V* Signed By: [facility] Other XR hand RT min 3V* 09/16/22 1606 [facility] Other PT - Orderson 09-10-2022 PT - Orders [id number]#1.00CD:127 Normal [facility] Plan of Care - PT/OT/Speecho n 09-09-2022 Plan of Care - PT/OT/Speech [id number]. [id number] 43#1.00CD:127 Normal [facility] Plan of Care - PT/OT/Speecho n 09-08-2022 Plan of Care - PT/OT/Speech [id number].. [id number] 81#1.00CD:127 Normal [facility] Nonvisit Note - PTon 023 Nonvisit Note - PT Cert letter refaxed to provider for signature. Second attempt. Normal [facility] Coding Summary.on 08-17-2022 Coding Summary. CD:[id number] bWw+PGhlYWQ+BB0CHYC wH19npAPndG9eA3EOPB lOSywgQVBQTElOSyIgb dLsWL3prGEdEPBt IC8+GZ1hHMIpTpoywMJ km4J5cAP2P19vse4oSV oocVU0JMRuRzOoflgvf 2saeXd2LQvbVuxoDkQy MRRivE68PQP2qZ28Bq1 1nNUnoGUqk9wjaYd9Iq GbDAKhNUT8mTiuTIukz 7YwIJFdW64spIXqy8N1 IGNvbGxhcHNlOyBlbXB 3xD5cFTpjicjsw8kxkk vyZis2aq13xSVxb3T0y WD9V9VhtnJ4XSGzdAUw DmnmrHCWmK0wirhvc1q bnagdBaClXDRqEXi7PE q0VOLuhGylXyZrCG97Z MA9OXYlneOhZ9JxKNYg sGkqKmG2s3G6Cg3YU2I THswvL2DPKMPUZYkobP Q+GJ06ke61K0PgOtymU gw6QTSdQBA4jLP1zA2s EDPuZPhxp7U3lHO1O5E ohyLelc4xz7lvDDEaGK tlZ59rcPNjz6D8ZAHgq LS6CKVruZmiPaKsvQ16 Oyc+NNKctHcks1AeQev di7oib1gfwJi3AwsuKX LqvwMubAkaNIV6g5MyL m9yZYOevZM8jDK8tW4p QdCiClE7PXelP598NoZ cgCQnGadlO62eU5PtjL A+GRTrFmh0IOZnrZfeY X5qR9EyFADoctwgdSBl oWpsDI0hXTFasrfcWSL ozV1vZGHbR0z1UrJpZg V6GElcM4AyWUJbwcxrP u38hX5dOeJhKfS3ZHrd R3KeqnE1YOXozLVzXWt xKLO7J61ag2Z9SMZvEF CoAMX4iOV7qF5huZpgb jogbGVmdDsgdmVydGlj BKvqEOzwS476YRVatWt nPkNvZGluZyBEYXRlOi AgMDUvMDEvMjAyMzwvd GQ+ZAHoHQX2wRcsLTCq vLYuENkiUr4rfYucyUc hKZ5zIILsxrlnBCQcpC 7bEKPscHZgeCneGW7kD WKbnzusz393YrHoFLA1 GAZktTQuH0LdnT1sNpH bPOKeQDIvN4PlvLNfNW koO099ANltBuZ0YFGxm nMmP5RwUXIesKnxXlN4 i6A9Ee9Ve6IdvcjkG7J rdLFvKfCdIfouPRx3V4 RkPjwvdHI+PH40OZOrP V36IAb2TGY8uZwbPMev ZGBsF1SdmI9hJjSrFYS kZGRkOyc+PHRhYmxlIH dpZHRoPScxMDAlJyBzd VjzAJ5uPt4iDCUuDMEc lRaxcSJzSgOzx0dcFVZ aQVydLG6dvYxdR5QfjV M5KNUof8k1Eh62N35lL 3JvdXA+OONscSX8gON8 dB1wMrLmGdK9SNjbG89 5UjYxgMRtJkiuf6ohg9 ucjXm7EqR8WHVwuiHdb DkaCTD1i1SzWo37P95b IHdpZHRoPSIxNSUiIHZ pqNowfr1mpM7tFx0+PG LtvUP8vAG6xL2hWcDiP sJ4FYgdL448NrNomOSs Yoghm3eze8yieOo7QdQ eHWUzxlCrfWrlNDF0d0 HvRa20V8TxeUjds3DvQ is5aq55qTDzq2X1fOW4 I8BmEPZfsrhpwCOxzSg pTW9xCRMcatdnQEKtzZ 3qOHXwC5m1FeKqHzC1I ZhgF5JlbjH8AZOtbEFp QAFmiGLRgS7mspdch8i byrrpDyTtDCUvFIt8KJ v1MAFabOtvImBuCZA9C pM5PRP1sWOkcL5ugCii jlkbpM8fFbf+VOW6fAD toRHFWJ7sJkvppXO+PH OnDSS8cFbmDYvsSGYym H2nSMDkH6c5QtEmKvF0 DWhyV3EpexR6IXSsrRY pINKwsRWTsZ2yhpfti6 aezajkRcFuKNFyIGn0M Qa7OEBesSzeLpToUBW7 QhC6YOP7cUWlhN3qkPa stvhrtY8jIva+QmlydG lvWXZ9OZr6I7XaKzq1N UXlpXawSG5jdDLaDBzh Ef5vdBszbKsyHM3jIGE sobaje512KcLad9imGD OmnXYmQMvlKAF6G79ph 5I9GAVcGVOhMIO0vSH4 kU8jyClmajlfnLBoaKe gdmVydGljYWwtYWxpZ2 54WEDnzAqsQyIzOYs8P 8SoXvs7LGUucElbTI1h qAXpLTjpTq4adPkdqPs mBS8uEDIayqlwu809Mm Kkj3yuQEHzpRJtCEtnJ YF3S73mn0D9OXIdTJIp QXQ4aLU5kJ1wxZqwqhk gbGVmdDsgdmVydGljYW jjJOznS660UALsvVmuC tNntGx0O0CaTfj1HSZl pWtgQJ9hcOHtGXioFg1 wdAruiKurDD5gNBOorc crc104UsWgn3uqCCMbt ZVdIFbqHVV8O75wz4H3 BSEqPLQtLJV6iIF2mI0 hbGlnbjogbGVmdDsgdm HzhDarUNrhKZghP729C HRvcDsnPlBhdGllbnQg CEjwCLg8Y8XlYuwirNC +YJ04MFVvLT64dIZrnQ Ege6vylTd0GuZlKYLjD TV7cSxbKIbcc4EwGONw R24ggAGct0K1IJQboZu meQZaVtOlpTQ2pC5dVD cqgbpyj9aurhatBkpws 2mfuu45yO07E48wQAmw ZHRoPSIzMCUiIHZhbGl urd0adT0lDz4+PGNvbC N0vNO9eG9lCJKbKbR5S PkoY100TmGmxOCbTucy s1xqz5pisNi6GoT5FPA nnbBknPnsBBG9w1BwWm 45L76mCHglTBBaDSItP YOrGFImjZznxi2umS1r Ii8+GAGhaYG6sRL4wT1 zIjKwIbB9VVleZ998Hd SlbEZgAwzaJ69hY2Tvc XA+ZOPpShh1OTOsyCbq WJ2xzCYfRPbgGm9eOFL 4AaOfZvLaJNhnW7YaID BbptxlzaazsLP3WHAkX XWceG16Ow1ewYleARPx nAFFhB6rruouu3kjxkm dFaMgZEJjGCz2QZn4RK GbqBmlNfXaLAB0BoD7W CN9eHUppR9gbAytspxh tK9bU1XvWFWsqaubUa9 9wL2kNjDuQjO5UUmrFi c+BGIDNI1YMvAjBKGLM agZQNX9Q8SeFce1KECs mExlUM5tmRNgJWonZm5 zoQmvyNcuSZ0yFSStdn gtJYJqrT3yQYJzzTSni DlnYV9tYOXthlsrk209 JlZpXGB2RXVisDDkV4X jgS3cYvLhGJCzPIByT6 SndGVdTStqU712PBnyE eA7ULTgamPkL9CjWQZc qHtvAjD7o7G3Cr4bUo9 cCt3xVHJ9TO43ZB60mK Udb1N4wCO4S8GiVVOsa qpajotasEV2DJVaAQXa oK94rNCaNJurIc0sa5G 4y756YDBxWKXutV66El 3kiOmgWONqjAKBzY3np rrvm7iwsmuuYaPpTZTo WPf5TMb5URIjyQppWsH jMYT8RvU2OLO6nATuoU 2lfWwpfyuhcK3mGuc+N UlrVVBdtlG3S5NyCcm6 NFWimQtpHU6cuRIvACh eJg3oyTkskZqeHS0wKH WyelteXVKvtZ2cPNAyl MKkfXyfGY9lJQQammyz m853OpXgANU0EPWyeKH cI3ZezB8oAjZpSBHmXL RiM2DmvPJtFVbiV101X LqjNtT1UKKvheUaZ1Vc OHGhkKacIxL6l3R3Nh4 SSA9awKA0V2OyBgm4LQ WnpKakUS7ndQJhGWedO p0izTwimQueQI2oQDUz imieJEYmkG4vRDCtjVW cuMjzXE8vCCPfcdbgx0 48JlNfUFE3QYNdrJXtN 0ZphY2pSsIrUEZkSPNs Y7IczWUuOKqsD100CDt sSsI6DAPgmcCoX4SbIR JfyBiqHfM0k2R4Zo9Vy NEiNLJkRQ11EB90LW84 W5GoLglwcODsqAZ+PHR hYmxlIHdpZHRoPScxMD GzUrPbhLekBC7kOi1vU GVyLWNvbGxhcHNlOiBj q5aeLBWkUAzfYS7baEi cL4MnkED8MSAgh0m3Sx 48L37qZ0VeuOM+PGNvb XU8mIO5uD3dJwUmLkQ2 KVffG903UaUfmKPzQlf is8zqr2tguKe9BwTuMC QauuVjqVlaULQ7d0BuB e26E54rPXvxBTAiXYLx PKBnXJXsyThwqw0ddK7 wIi8+DIXxeFX9wOQ4hW 2hYyTiLpS1IDalT590H tCwvWOtAtusI49rV8Ib dXA+POIzLua2XNLiaNg lMQ4mnDUcUIdcTq2tWM J8LgRiIpCpOShqD3SyB GTluyxdkglvzVC4ZWKv GVBwjS47Pv4hhDvjEd8 gDLCuWXI7PTAtmTPnT9 TimB6xChRaMDXgBHBuQ 1GyeYHcRBpwO679JAut SsN6TEDkxhZlX7GaBWJ ycFepSkG1a7L8Qs9RsM rtqCTwPQ3kHuSvIYc7V 1EbFgh7YSGxdXliYK3t xQRlOUqtCk9vvCxdbWi iLC2wUUHgdrfva610Rs Dix5fdPRYokIAeJZerU WY3T99cs3A6FLCtIDMk VTN7uZN2pY2avHsbysk gbGVmdDsgdmVydGljYW qjICreL404MMFnkJfpN eLNKzm6L9SxWto8SOOi fRgxZS5ddOFlUFthDn4 btXjfkHteWN2eWNTamt dqj946SuHqk3wrEIVhn YQhNNbuPUH9V98oz0B3 AHAcYFTrVDY9sKF0bK4 hbGlnbjogbGVmdDsgdm DrpHovZEboABspV183J OBogTvaCs6WUch8R4Oq Zvj7NHWmhIgvNJ1wfUK lTJzlDu2tnLpnnLhmLL 4kNXSvdofow800VmSmo 5sdVTUiaCXjCFjxRSI7 Y94zv8X9MITbZSPhQEO 9kFR1sS7faMxziclycG VmdDsgdmVydGljYWwtY IwwU262RZCabZcmZdGo eWVyOjwvdGQ+CQ64ds1 7I5GxJhqcUhw7NBMwSV R9wJR4qD7bRGGwNQibk 7X9oRS7V8StraGtbr0z m7ibVAAp (more content not included)... Normal [facility] Consent for Treatmenton 07-19 Consent for Treatment [id number] 89#1.00CD:127 [facility] Consent for Treatment [id number] 23#1.00CD:127 [facility] [place] Mamm Diag w/CAD if perf a [...] very important to your health. The current [employer] and National Comprehensive Cancer [...] Chapincito Gillespie M.D. Transcribed by: NATALIYA Technologist: [facility] Assessment: BI-RADS Category 3-Probably benign - short interval follow-up Recommendation: Follow-up at short interval Normal [facility] Coding Summary.on 08-11-2022 Coding Summary. CD:[id number] bWw+PGhlYWQ+GA6UZOG qY41zzQCezK9eM4RMJT lOSywgQVBQTElOSyIgb uJvEM8drKYlYYWf IC8+YQ2nHRMqTukypSU sf5M4dUE4O75xfz3pZQ fphSE0PMNwVlFlquxgz 6vzaJw0UTffEvxvYiMn CFWsrC64JAN9dR30Wl6 1tWIgbEOeo8wvuIm3Pn GtORZtBXB7vIosQJqxw 0PxMQBnI74xkOZbf2H6 IGNvbGxhcHNlOyBlbXB 0tQ1qUHpsnbjbl5lpcd wvMfw2mn37cTTks4P5w OM7T0VfwdV8JKVluYZx FddccWKZlD0qvduxh6e hanwvDnFvKCFmXOx2LO y9PEKkpIgzMeQtOJ45R ON2SZVqhuEaE5DeLWTl uWwuZiD6o1A4Wu0YB3U UPfrjY5JGCEYSXBljaZ Q+HP08zb00D0HuWcivO pf7BLIvSIV8cNV3qO4c ZETbSGmjz5Z8gTV4B7X kwvGmaj5jd7fvLUNmWQ qlX00vtSHdm0U3UQLfm KQ3OFGlmRqgLsOqkU65 Oyc+SIJtiDwhz3XdNjj yn1rqs9byzYi8RbqeLI KyafSmxCvqFOJ9r5RzF l7jBGRfvPH8pRE2gD7c GmCpJqM7RDugU726MmV ynLPiGzjaQ00fS6QhbP A+KOLdEqo2OFUkjImrQ Z6zA2SmUWLezkojwKRx xPblTL6fIRNvdfsyQZU sgT8mSLFnX9z6AoAkVn Q7HMxlU1JpXVTwsekwV d17oN1jQxGvGuO7JFtf U5IdzeR1IPZnwELlGEu zJOW1A84ju3P1CMWtVV KzZLO4oXX0qW0kgWmpb jogbGVmdDsgdmVydGlj KMsxLUoqQ760VLLyjSs nPkNvZGluZyBEYXRlOi AgMDQvMjUvMjAyMzwvd GQ+CJMjHBA5wQyuUUYg tBQsNTjpKb4oxAnmwGv aCW5nYOVgngpfHUBjbG 3nMUOarDSwxUusNT5yL DLzdsphl510JxHjXVK3 RJNyeEKtC1QajX3gDbM aEFNlCQJeJ1PbkAOvKM vvA203HRmoGsU1DNHyo vLoW8PxWWFydLjyXaP7 x2Y2Cn1Rn9EjaeovS4F ebSIhNwRlMiffQXt8G7 RkPjwvdHI+ZL04TBHxP E56POl2QVA8aNpnQIwo FVYwR9HavS5qMbArNZF kZGRkOyc+PHRhYmxlIH dpZHRoPScxMDAlJyBzd XhnLV3oUi8eXHXqHGFp nBkshDElOhVzm0jjWSF qVUcmJI8ifKshW5NbxT S7FEJsu8v5Db73V65kV 3JvdXA+OZQptBI2oND9 hA2fBeJuExS5PYvsD69 3XrWfvWSdPmzej9xij1 ckfFj3TrX6WLJkvhKdv PdeFDB9q4GnVh74N03m IHdpZHRoPSIxNSUiIHZ vbPcvoj5qhV5bCr0+PG QtiBD1lNN9hN9oBeEqJ uC8DCpaK534AtShlFFe Copkj5cuh4lgvYy5NvV lTVSnxpDhlWptHJW5x3 XgCx81A2SopReds3MnP xu1nt80hXCmi2L4fDC7 P5PjGSZheeszkYIniQi eBQ2gLCGzpuwaZOVjeK 8rODUuU2q5NiWsIuU4U EfiN1AjykN0SPEcbDKu LMZatZOPpU6jnwtdw0o gkizuUsYtILTdZPy2JY y7IAOruEwnJuLkUAU1S lR2HJP4uGPibV5mxZxj lqcloK0zTjc+XLF7rYA vtEORBT5tUqkrjOD+PH QnRIX6aUsxRYbpZDZpm U1eIVQyL2m3FuVbSfX4 KZsfM2LlvxM3SZMgrTB rHCRblEXXyF0cyvhgy9 xhzkltTcAxIYLzSSa2Z Ts2EHHirXuaWdBlWDW9 ZrT2YVW2bSWliD3rnQn avvrbgK6iYcf+QmlydG esGGT9TPr0G1RkGtz0T IQxdMbdRF7irMXyGHut Mc9qtCoqgFabIB1wONU ctodth337OoWlg8rkKD HqgSZtPXwsRUC9K41xk 2K0KFMdSPZgBTD0zFV3 bZ4ncVcuhkjpuHBfsKw gdmVydGljYWwtYWxpZ2 00EOEtoJzlFnNvUCp0S 5KxYeh4QHZphXceSI8c nSOuZWefFm7pkEitqCb jYT7pSYEozctqx664Mj Xtm1epXJHrhILiTTtaS BT1M67un3G3VAHfOVJj OXG3pMU4fC5hpNjqxie gbGVmdDsgdmVydGljYW feHBsnF903BLAbtNbvA nFcoSr9X5WcTjk9MYUs dSvxVP2vrILwEVmhXu5 ibQjtbBauOO3bSWGojf sdt373BbUbm8ktHWUwl JGuEAuuQQG5F37bv2M9 UOWwWJQnXCE1aMK1cM9 hbGlnbjogbGVmdDsgdm YjhQjgHSzyRJpfU543V HRvcDsnPlBhdGllbnQg ZKkjCIi8M4IpPecheDN +PJ01HDGlNC91kTRjmW Qyp7fezLz5KhTvFAKrW WY8aUojRPrig9RxSEKr C17xgNDlz5Q1NPRkjZs wtJCeOvGoxEU0nS1sLE kytmfak4gtqcdfUhzpv 1lwif63mM89G71vEOmp ZHRoPSIzMCUiIHZhbGl vxp5cdK0xKo0+PGNvbC H9jDM7fX0oOGDbByB3H NpcH238FzYjmXPeAupc n4ubb4nkcHj1BhN3SRJ immMeqVnmQCK6c3ElMs 14U97gNYguOBYgHQBpE TYrHXPrpHblkv5dzU3g Ii8+CIEouYZ0yEE4aL5 gSbSpYiR7QDwnO718Sh AiiZAaWakwS19fG6Qrf XA+WPNgHre2IQFxyGum UH7wyTPoEBdxYh7pMEV 9BqIpTcVhHSmxX1PkWS IsxaeabhtcaBO0ORRzQ UOpwB48Xj3ktNuwPYQz cEXJgZ5ynhpxs7qzxzr iGpPqAYQpKDu8UBw9ZS YarZwvLqFvZNA9YcA0A PU5lXGqaZ4wlXrtziau wM9zU0UqOXOmongtHp5 2bO4gNiEuTvH2ZHhaFw c+CBJAOM2KQnAoUHSZV ngYHZT3Z3XeBef2KNRj bKcdNC4ecUCfGUqyHa5 ivYyisTkhNX7lRXVdev qmDTHytL6vHCYhsKSqp IizCJ0oWPTkwcvjw802 EwMnMKN7OVOnzUXzM3X myF3nCyDpDEUlLZRmA1 AnrCBsGEomJ501JPyaH kB4JUWimxOlG3PfLACz bIbyIvL6p4Z6Wj7iEm2 nVw5sSPF1UV49MZ90cA Wjd9Y4mIU1K8HfVBGrr eigbmtuoCI8UZNxNUTo bF32aMMuICnhRr7dk1U 3f070EHMxXKNxvU26Ys 0tmOtaZVZfgWSFrH6wt ydla6fowezhElGkYELz MVo8EHj8MLLchFodKsA pQXO7VsI6CDN5yFDynD 9imHbzrzyuyT4wRkw+N IfqUTJzhtX5U9LzUob1 BEOgiAwiDA8jlETrXCu rFy6yqFfnkRbaAY4uDP XcyecnNOPwxC8pKOMcl CIvnArkGX7lMFQweege v198UsWdAJT4JIBhwWZ kQ0SlvC1kIsQjOWAiMC SnZ7ZwhMRcOSbkZ208B FwzAvG5NZFvyaMiW2Kd UUWpsMqoPgE2k4L5Ge3 VGE5jiGO4G6YyVqv3JH NbiTumRD1nwBSfBUwrC z7jfRlykRvjFE6sPJAm rcszRPKcvW9oJKYhxTV qfByuRR0cKAIeclclh8 16CrAvBIE6CYFlaOBuE 4VqcK0mPuBeHZNaBGNg K0RtwMQlSJfdH105CXk sRvR1DWWqhiZsY6XpRG QvuCsgIgR8d0Z4Ah1Zv VNaHVGgIC17RM96HM49 V5HtYgcrtOOugHW+PHR hYmxlIHdpZHRoPScxMD KrLmAokIcnGF4jJe0bL GVyLWNvbGxhcHNlOiBj o6soHUYqUZibTD0mtIe qB4WshRO2RCMet4g4Qv 16X83zI6NovNN+PGNvb HL0zUW8oS8yZeLjRyX2 LVknB037OxSlkXBfOjs zj1yqq6svaUw1BtDwDE AzuuRqiReoGKW7o2RuC l92H58eQHqvNCCeXXGl DICfWWWlgRmvzh1vkP7 wIi8+MGCwoEW0kJK2sF 1vNlLgGbR9ESmlH253M bWjeSSuLyxhZ48bR5Xs dXA+VRDzNae2ASVkfZt uOF8arHAbZUgxYr0eCR N0DjFxGwYlTXoeH8AfZ NDbrsujyepchVP9EENb HOXqhF32Lk2nhGdiWs7 rUJVyEAY0HCGwgFUiK7 BsgV6fYsZxHWXzPEFlJ 9EnjWYgQNorH917ROtc IjC4AWIgvgRlF5XpKZN htJbwYfA2y6J2Ed5OzP xhvIPhLI5xMyJrDTg2I 7GoWws7NCSjsMtiKV0m xAEdTNzuCt4dxUimnFi zRC0bOGXwanabl448Uf Hde9pwRMRynLGiKVkdH YK9K95fc3T0WIVnWDGh BNT1bDL8lF1uvNjnbfj gbGVmdDsgdmVydGljYW cwSExxG407LIIvaHltU dTQTru4H1OtRiu5JROx yFyqCL0aiNQtBEqvFw0 ewCepmRbrWB0zFYQyqh vnc875WtHcd6lnKFFmn FKyHLvtPKB0P47jr1E1 COYoMAZwVCT8uUY5fQ4 hbGlnbjogbGVmdDsgdm ZqkPbwJUjyCCbiG837H OUakIuiSo1JFdv4I7Ve Hji8JFQnqAkqHQ1etQV oLRoaYw1vsCztwPmfNY 0aXCZzqxmst188CjSop 4ohIGMqtVLpNJfnRFH7 R91xv3G1VBJqAFHpCQL 7aCV5jX0sjEcxnafuwV VmdDsgdmVydGljYWwtY YnaS411OVUlvLdmJgRd eWVyOjwvdGQ+LA09lb9 8I8SbRpqjAvq8MQPqLL Y0rCU4eQ9yTNEjECgao 6O3oUY5E7GoapLwit7b l2nySHHw (more content not included)... Normal [facility] MA Mamm Screen w/CAD if perf and 3D Bilon 08-10-2022 MA Mamm Screen w/CAD if perf and 3D Riley Exam Date/Time: 08/06/2022 08:22 EDT Reason for Exam: Z12. Report IMPRESSION: BIRADS 0 - INCOMPLETE, NEED ADDITIONAL IMAGING EVALUATION.RECALL NOW. DIAGNOSTIC LEFT MAMMOGRAM WITH SPOT MAGNIFICATION VIEWS IS RECOMMENDED FOR FURTHER EVALUATION. CLINICAL HISTORY: Z.. COMPARISON: 10/26/2020. COMMENT: Routine views and tomosynthesis [...] very important to your health. The current [employer] and [employer] [...] additional imaging evaluation Recommendation: Additional projections Normal [facility] Physician Orderon 08-10-2022 Physician Order [id number]#[id number]:127 Normal [facility] BD Bone Density DEXAon 08-06 BD Bone [...] by: Joseph Ken MD, V. Transcribed by: NATALYIA Technologist: ILANA [facility] Consent for Treatmenton 07-19 Consent for Treatment [id number] 01#1.00CD:127 [facility] Coding Summary.on 07-31-2022 Coding Summary. CD:[id number] bWw+PGhlYWQ+YI9MJOP vX25zeNQhuJ6fM8DVUF lOSywgQVBQTElOSyIgb hArTI1ggISzDKBu IC8+VC2oPGTpLmfgpDA nb1T7yUU1M58gch9zZF htkEW8ASOcCqSvykbtx 9bszIu8ICicKsopOjTj UEHdpL47RSX9vK54Jt3 9fAMlcICrd4bthBw4Yd BzKOGsEGW8fWzvAJqao 9FzOPQlU28isYIsr7T0 IGNvbGxhcHNlOyBlbXB 8nZ5qWXgolkjtl6azmq aqRvs6fi29gYIkd1H1o DZ1X3PnonZ1IVFzmBGa VjbusCJJsU6ktbtis1k yfzuqKwWiBZPyRXu8MN n7RDNmlLdzJsUyLW80U ZU0SFJfpvWvO9HaQRFd bNokRtF2l8C9Ug8JD9R UWstaC7WRZRGVLYtbwR Q+QS09my52G0FyNxahE gj0BDQvHXB2jNN9qU6t ZNWfJVjgk9H9nLI7D4T corTibl7er0qtAQEaHQ hqI31mkMDei0F2DIPjl RP8VMWsxVvhQrTgiX83 Oyc+EVRhvBzye2HqXiz we6wih8vkqMr7NftcYS KyxkUjkXvaYNZ3h1ThF w0bULKwsYZ2tDH4zZ2f HtDtXvF3NGkxT549EcN rySFwWawxU66rY6QovB A+FLHwBpl2FTZvxHlgY P7iB5YsEGXwrddsiKSp fRcaJU2jWKGdbtxsBSX wqW0tAEEvT6j6HbReLo Y2SZjhB7GlCPRcbcnlR x28dX2fGhWfRpW5PMff F8EersG6DAJyoXJuJVu pIHM9R24uy2D6WVAuAM VjCAN4bKJ5nR6dnQvhi jogbGVmdDsgdmVydGlj KKgaLEbhE259JZVbhBo nPkNvZGluZyBEYXRlOi AgMDQvMTQvMjAyMzwvd GQ+SCHjEEN6bLmzLBYg sUMiTIjeXj5mcQvewMb kAH6qTINxghqfHCUvpK 4wFOQweVOrlZcdHT2zX JOxfdugu294SySgFWG7 VJYikWRqX3XsgX7qJoB pBUUcHENaD0MrkQKnGJ suU319TDthFxQ0XGUuo gHrP2YmKIVizGymZtD4 e9O2Df2Ip1WfwhgbJ4F cuVIgDcEbAafrLZi8V8 RkPjwvdHI+CE21PQDeZ O85TKu4QUN3bBiqMQfk NUKtZ9EhuX9eWtCtLSV kZGRkOyc+PHRhYmxlIH dpZHRoPScxMDAlJyBzd RzzNO9nFh2dXEUfVHEh kQvbvMIpWcOkb1ntXAA kBQhgBK3cwKbeP5VgwR D5OHTsl7g3Pd21E30aX 3JvdXA+IJQrqWX1qUT5 cV7pGkJzHkW3XCcdY19 6CoBbmVYaDcvmv8pyu7 qlvVl3KsF2KEOdotDqe FnqBHX5i7KsTx36G97p IHdpZHRoPSIxNSUiIHZ qsSqzfi8ghR8oVj9+PG RulEV4oNO7nL0dIaSkA yU4ZMaiQ151OiMhpGTm Jhtnr1pzz6qvoYd5IvM gTSWnwuAnmDxzVES8i1 AcSm37I2JexJxup7VoI im3hf74gAJtn3O2dZJ0 O5WhTTKssrxzgFUobJz oHH9sSDYqnqylRSSxxR 8qHHJlJ2a4KtDkMlD9E LtnL7AegkD2BIVoaXYy ZCWpuOPWrE6qmzqft6w misloEsDcVDDjIOi1EY m1WJTypNqhHgYmWPM3V zF0GFR6yYLqsX5gnOtq xxbvfY2nIht+AQN3wRK iiDZKLA1zQtsqsPQ+PH UdIPO2cYvnNDwiTFRkz F3eRHXlG0k4EkXnOsM1 IDfsX2JauuL6UHQlvXG oFSShaKZCnT4xotwws1 gznferPjCrSSZgCDs3Z De3IFNixQwjOqPmMGZ2 KjR8WYF5wAVacE3vgBp jqxahzF5xAyd+QmlydG dvKOS6AOo4Z6HbWab7O LLgtSdzXT4iuAAcXQgy Fb2nhOiebQgkKE4pIEG pdmfrv548OqMpm1osBV RjoCAmUPprZSD5L51mu 7L2ADVtFUAqTGM9uTA9 oZ1ztJzihmneoIJddLk gdmVydGljYWwtYWxpZ2 17IRVxjUbjDzYoWPk8H 7FbCnu9AHVexYwjZY6n gEWtJTakNl6uwNnbiNk bZL5uGWHjdbjst054Hi Xno0diQROsnASuOVjpE TR0N38yp6C9ABPeIFHi NAW5dXE6oY7dkImprlf gbGVmdDsgdmVydGljYW rmPRsoA104OMUwqOanQ gBdzLp6R9ThUsz9IMKa kZkyZT0ugLAwUVgyOb2 dqBkbcJldXS8hHWNvoq ynh708LeRmj8fvHXEym DVgHXdhOSL9M88ns9O4 NNLwFVGyKBW7wWL4uG8 hbGlnbjogbGVmdDsgdm IrtCebIUhmUGquD729G HRvcDsnPlBhdGllbnQg OPsiVMf2A0WiRtlasMK +BQ34VEMdFP34rHRslT Kxg8fxeEg6NkPbWKBaJ NW1kGjpFTmpo1RqBLNo T96zwTFex9Z7ZMHijRd vsLVwXjJpyJR9mD2yRC rlkvloh0kbswtgSindt 9dhpb75dB94L11aREkj ZHRoPSIzMCUiIHZhbGl dmu1ifP7mMe8+PGNvbC A8mBR8nN4mLNQoGuF3T UxvF774CpXmvPTvPwjo o1ngy9dqfDy4SgI5BJN guwJgpFzvZEF0s2KySc 37O36mRUeoQRVbABQiL ZVfHBOkqBymfp3mjP5l Ii8+AULvcTL4wGC3nS0 pCeYsTzV9JJzvC393Ed FcpIJnFsnkT25wI0Yxg XA+HFDbEdy1CXJaxGpf TU7jqRBcSXncUx5hEFS 8NoEcYgFrQUwpO6ZuNH KtgpkaiqgjyFS7BIVxV EWstA32Fk4riPfmYXBs qREPoG3dmbmkw3bixse iSqBoWSHeKMw6IFr3PD BzfWtoYjCiUAQ7ZkN4V ML9zRZinN4ykHyinyim lI1dU7DgGQDdkjxiNg4 2wJ9bDoFkIdH2BGltBi c+XUPHJE1PZaWbWJKBS yzYAJC5F2MkPwi1VREs iNwxSH4oqHYyBEtrEi1 auMuhsLmjRT5uGMByxd caGUUwdY7pCOWudUHby QeeZH4rVOEjwfttl609 HfSpKLG4OEVjeFGbC6A ipL3hCkCzBPXaBUJcY9 IozFVgILmnJ417OWhoY eF6SDKkhhHnW4LaDVGl pNbrWmL2r9G7Zi4hKd6 zOl9mRXR8WG42YC04dM Ntp1T9yKL2Y3MuCRVyo grznuwfnUI4UUQgMFMx yA65wFBrDTemWv9vz9M 2d850EQIxCQDjsO42Af 2wvBemZUQmpKXUrV5ss nwql1bklcodCoHkGRVv ZAz5BZr9BEVuhGhkQsF gASN2TwY5BUQ8kMSixJ 1ipUcwrkjjiN5gQns+N VcmJZYyzgA2O5MrLsg8 NXLkbHcjET6seLLpOKz uRu2oePnxbOriGO1fDO OunatrZHTpnA9wSJUev PZyfJxtXT9hHKBzusib t220BjPoIYG2ISAlcZA sC3JopU3jYwReTDWfZY InE3UnrBSdDHpzG329G ThhCzM8NUSosyBxF8Pv GNFovAldUqL6r6A9Rj4 IYN6zrHW2N7FeRtj2AM WlsQnoVN5jdZFdLRimU y3anYtsmFuaSL4fEONq kgenYAFfcP7qXDWcmQA yxZkyBX5cQBGhefsev4 25DkWaNKZ1IHFilEBsM 5RybA4jTjOyKUYqLBCy G2CsaTStXGzqI490ZTr lNvC5KJQpxrHaS2QlOF RtmVvmQiH2z3B5Dy6Tv SWrAWTkWR15ZT28ZA36 D7MfEwnjmEVidSP+PHR hYmxlIHdpZHRoPScxMD YgLdGqgMsaQV8sKg8gF GVyLWNvbGxhcHNlOiBj n3ciSBWqNYqgMA9lyLx mS4SbfAI8VBLfq5n1Ej 97R56zR1IfeBV+PGNvb EY6bGL6sT6gBzDjQoT0 ALmeE324TrRanOCoSzd pw7qxx1gaeWd5VyLaUH RqsqQebDuxCQJ6l0KlT q98J37xGCqjDNKaKYQl QDKpFFTsjBzuzr6arC0 wIi8+COItzQI7aHI2jY 3sNoKxZnM4JGwdG069C kUyxJZxDyyvX06uE3Gm dXA+EIZwDey7XAAnyXu pHE5ohIPjNEhrPr0tVN M2SpOtAqDqTZwhL3MfZ OTsydaqljfrbMV2OCVa DWOsbY43Rt5laAnbXh8 lHWGwUBS7SOFzkXYrQ7 NflP5fTvJlRJZhKWDrZ 1WgqHQdVZsdT572UDcb YaO1ZZPzmfHlF7DoHJQ aoKdaYaA2m7M8Iz6EaF xmlSCpVY1eVmHgXMe6M 5RbToh0NDDutJtqDJ3w kSJpQUmtWk7kkIftvHr nDW9lSILxgidfk052Oy Frv1euQFIwwVUvHTelT YF1J12jg8O0QHYkUEZf WTK8xPA8tA1nlOnywkb gbGVmdDsgdmVydGljYW saDRirX692OUPwhTjiM sNRQhr8H2YoMwz4ZBIu qHkfVR3scXXoMRifQf5 doWsdgJukNZ6hUOEchj mtt737XaWzy0ewBLCkx LOsYDvuMQJ6G11jj8J5 YMMjQBRwFLX8eIP4oI3 hbGlnbjogbGVmdDsgdm LvbSoyWEwqLKzvZ810G HZfwPcqCw3UYee8U0Vy Uqc0ZCJzlWnuBD9thGZ hPCrzYu1ejHsutPjtIP 6aYMQvyiybz296HuPey 8fkSLRhmDBvIUvfGRN0 J87uq8T4TPBjAVDeSRD 2rJD7cA7rtZfwzoizbH VmdDsgdmVydGljYWwtY TobF862YYHubVhgTsBq eWVyOjwvdGQ+HP32tn7 1P4HuWdaqXmy4IVPvIS O3kVA3oN5uNVOsQVaar 9A8qPZ8T5RdumRyev9y r0aqNJQd (more content not included)... Normal [facility] T3 Freeon 07-26-2022 Free T3 [Mass/Vol] 3.2 pg/mL Invalid Interpretation Code 2.0-4.4 [facility] Comment on above: Result Comment: Perf ormed at: [address] [id number] PhD Gela Juárez Performed By: #### 2 448499, 7052292, 5129883, 85191735, 0930146, 3567754, 46042599, 4176674, 52329357, 51476548, [id number] ####[facility] [address] [place] [address] Thyroid Perox.tpo Abon 07-26 TPO Ab Qn 13 International_Unit/ mL Invalid Interpretation Code 0-34 [facility] Comment on above: Result Comment: Perf ormed at: [facility] [address] [id number] PhD Gela Juárez Performed By: #### 2 813202, 9994511, 4970134, 14769172, 4955164, 1657457, 60171231, 4516018, 82262001, 88277440, [id number] ####[facility] [address] [place] [address] Thyroid-stimulating Immunogl obulin (TSI)on 07-26-2022 Thyroid stimulating immunoglobulins Qn (S) <0.10 Invalid Interpretation Code 0.00-0.55 [facility] Comment on above: Result Comment: Perf ormed at: [facility] [address] [id number] MD Timothy Mai Performed By: #### 2 774109, 6685414, 8833705, 45908767, 5677932, 7190577, 66752739, 8034046, 36916497, 45454544, [id number] ####[facility] [address] [place] [address] US Thyroidon 07-26-2022 US Thyroid Exam Date/Time: [...] DO Transcribed by: NATALIYA Technologist: EDU Normal [facility] Auto Diffon 07-24-2022 Basophils/100 WBC (Bld) 1.1 % Normal 0.0-2.0 [facility] Comment on above: Order Comment: Order Added by Discern Expert. Performed By: #### 2 048567, 8642333, 9932246, 69739762, 3555726, 1361978, 61103931, 0233535, 96594463, 50225893, 8893044437 #### [facility] [address] [place] [address] Basophils/Leukocytes Auto (Bld) [Pure # fraction] 0.1 E9/L Normal 0.0-0.2 [facility] Comment on above: Order Comment: Order Added by Discern Expert. Performed By: #### 2 153105, 7844783, 9833018, 60089132, 6818128, 8059494, 44018303, 2855492, 67061256, 31185593, 2874851179 #### [facility] [address] [place] [address] Eosinophils/100 WBC (Bld) 3.5 % Normal 0.0-8.0 [facility] Comment on above: Order Comment: Order Added by Discern Expert. Performed By: #### 2 896769, 2697649, 8949954, 90726074, 3474833, 5894921, 32930333, 2091510, 17977490, 75122200, 3282490475 #### [facility] [address] [place] [address] Eosinophils/Leukocyt es Auto (Bld) [Pure # fraction] 0.2 E9/L Normal 0.0-0.5 [facility] Comment on above: Order Comment: Order Added by Discern Expert. Performed By: #### 2 910627, 0466092, 9015660, 26461088, 2013722, 3590299, 35676034, 7001769, 77832285, 22758836, 5897110975 #### [facility] [address] [place] [address] Lymphocytes/100 WBC (Bld) 31.0 % Normal 14.0-50.0 [facility] Comment on above: Order Comment: Order Added by Discern Expert. Performed By: #### 2 791483, 7303366, 0052088, 48941965, 0500901, 9328120, 20060292, 9817888, 79006522, 83628080, 5203979355 #### [facility] [address] [place] [address] Lymphocytes/Leukocyt es Auto (Bld) [Pure # fraction] 1.6 E9/L Normal 1.0-4.0 [facility] Comment on above: Order Comment: Order Added by Discern Expert. Performed By: #### 2 909738, 6872546, 7372072, 12174912, 2421131, 9565036, 09360887, 6830408, 05860207, 58623142, 4425579842 #### [facility] [address] [place] [address] Monocytes/100 WBC (Bld) 10.6 % Normal 4.0-14.0 [facility] Comment on above: Order Comment: Order Added by Discern Expert. Performed By: #### 2 255903, 9986533, 9577818, 97902716, 9501677, 7979998, 83849104, 0436929, 13536460, 21634125, 0053577683 #### [facility] [address] [place] [address] Monocytes/Leukocytes Auto (Bld) [Pure # fraction] 0.6 E9/L Normal 0.2-1.0 [facility] Comment on above: Order Comment: Order Added by Discern Expert. Performed By: #### 2 711646, 4686339, 5744916, 15400017, 7488250, 8183674, 98937247, 1607641, 89479103, 49691800, 0558287767 #### [facility] [address] [place] [address] Neutrophils/100 WBC (Bld) 53.8 % Normal 36.0-75.0 [facility] Comment on above: Order Comment: Order Added by Discern Expert. Performed By: #### 2 046649, 3763325, 6563533, 60269541, 0388113, 4223116, 64862421, 3907474, 47475274, 94719769, 8406506627 #### [facility] [address] [place] [address] Neutrophils/Leukocyt es Auto (Bld) [Pure # fraction] 2.8 E9/L Normal 2.0-7.5 [facility] Comment on above: Order Comment: Order Added by Discern Expert. Performed By: #### 2 459268, 1472480, 6898701, 43468397, 0984606, 6086744, 25299412, 6400821, 59914021, 54030855, 4383549367 #### [facility] [address] [place] [address] CBC w/ Auto Diffon 3 Erythrocyte distribution width (RBC) [Ratio] 13.1 % Normal 10.9-14.2 [facility] Comment on above: Performed By: #### 2 843177, 9028797, 0079150, 14190184, 0466227, 3663811, 75238555, 5476822, 35743971, 80945090, 1349883867 #### [facility] [address] [place] [address] Hematocrit (Bld) [Volume fraction] 43.5 % Normal 34.0-46.0 [facility] Comment on above: Performed By: #### 2 490406, 2718816, 3949628, 03960360, 1443644, 1383116, 68563551, 7069476, 43624737, 10985550, 4498271152 #### [facility] [address] [place] [address] Hemoglobin (Bld) [Mass/Vol] 14.6 g/dL Normal 12.0-16.0 [facility] Comment on above: Performed By: #### 2 266028, 2192165, 4633917, 75844691, 3083720, 7664846, 25284677, 3130988, 84397766, 78039704, 3024076051 #### [facility] [address] [place] [address] MCH (RBC) [Entitic mass] 29.5 pg Normal 27.0-34.0 [facility] Comment on above: Performed By: #### 2 854868, 3164725, 1713942, 55275022, 8736531, 7848968, 53805260, 7635367, 38254973, 18809171, 0276011777 #### [facility] [address] [place] [address] MCHC (RBC) [Mass/Vol] 33.6 g/dL Normal 31.4-36.0 [facility] Comment on above: Performed By: #### 2 832280, 1151466, 2601110, 46466847, 2960550, 4109789, 54420136, 9695568, 82435905, 65619001, 4725325673 #### [facility] [address] [place] [address] MCV (RBC) [Entitic vol] 87.8 fL Normal 80.0-100.0 [facility] Comment on above: Performed By: #### 2 921087, 5744641, 5119649, 98036485, 4342105, 3164573, 99871502, 6912208, 08399655, 85190004, 8919169388 #### [facility] [address] [place] [address] Platelet mean volume (Bld) [Entitic vol] 8.1 fL Normal 6.4-10.8 [facility] Comment on above: Performed By: #### 2 951512, 0337165, 0531528, 13447638, 0407118, 0784204, 95901479, 0164458, 01059766, 31312676, 8656118403 #### [facility] [address] [place] [address] Platelets (Bld) [#/Vol] 314.0 E9/L Normal 150.0-500.0 [facility] Comment on above: Performed By: #### 2 493168, 7125056, 7854130, 99182093, 8011073, 9494305, 87528726, 6673345, 09771493, 70772495, 8453214063 #### [facility] [address] [place] [address] RBC (Bld) [#/Vol] 5.0 E12/L Normal 4.3-5.9 [facility] Comment on above: Performed By: #### 2 345996, 2475903, 5938906, 39476241, 8418389, 8587885, 26172509, 6923357, 21506351, 77650022, 3303154836 #### [facility] [address] [place] [address] WBC corrected for nucl RBC Auto (Bld) [#/Vol] 5.2 E9/L Normal 4.0-11.0 [facility] Comment on above: Performed By: #### 2 360710, 0800456, 6338862, 47920900, 7174723, 0236852, 81495216, 9159484, 95452300, 88113350, 8959612713 #### [facility] [address] [place] [address] CHEMISTRYOrdered By: SYSTEM SYSTEM on 07-24-2022 Albumin [...] [Vol rate/Area] mL/min/1.73 m2 Normal >=59mL/min/1.73 m2 [facility] Chem S GFR/1.73 sq M.predicted among non-blacks MDRD (S/P/Bld) [Vol rate/Area] mL/min/1.73 m2 Normal >=59mL/min/1.73 m2 [facility] Chem S Globulin (S) [Mass/Vol] 3.1 g/dL Normal 1.4 - 4.0 gm/dL FT [facility] Glucose [Mass/Vol] 109 mg/dL Normal 55 - 199 mg/dL [facility] Potassium [Moles/Vol] 3.8 mmol/L Normal 3.5 - 5.3 mmol/L FT [facility] Protein [Mass/Vol] 7.4 g/dL Normal 6.0 - 7.8 gm/dL [facility] Remisol Sodium [Moles/Vol] 138 mmol/L Normal 135 [...] 07-24-2022 Albumin [Mass/Vol] 4.3 g/dL Normal 3.3-5.0 [facility] Comment on above: Performed By: #### 2 834397, 6299965, 2423909, 52749964, 3536951, 5501579, 36049143, 7159528, 72459123, 92278657, 2181879906 #### [facility] [address] [place] [address] Albumin/Globulin (S) [Mass conc ratio] 1.4 Normal 1.1-2.2 [facility] Comment on above: Performed By: #### 2 539387, 5819435, 2659460, 74799510, 4832527, 5572240, 58030725, 7669135, 28949268, 96022114, 0928671895 #### [facility] [address] [place] [address] ALP [Catalytic activity/Vol] 70 Int._Unit/L Normal 21-98 [facility] Comment on above: Performed By: #### 2 777418, 7607321, 1069146, 28315218, 1761305, 4911849, 16889376, 6997548, 01170486, 61353513, 7889788024 #### [facility] [address] [place] [address] ALT No additional P-5'-P [Catalytic activity/Vol] 29 Int._Unit/L Normal 6-46 [facility] Comment on above: Performed By: #### 2 440864, 4654539, 0712050, 24444789, 0428902, 2340179, 23790997, 5979444, 20157810, 06244314, 8904424405 #### [facility] [address] [place] [address] Anion gap [Moles/Vol] 14 mmol/L Normal 6-16 [facility] Comment on above: Performed By: #### 2 302415, 0412585, 4139227, 12166141, 0414093, 6229257, 40677377, 3519434, 95140856, 78864148, 7904002937 #### [facility] [address] [place] [address] AST [Catalytic activity/Vol] 27 Int._Unit/L Normal 5-43 [facility] Comment on above: Performed By: #### 2 944560, 9425550, 3546719, 87559320, 6985723, 9071895, 64725098, 1182467, 92220853, 19645981, 1252075542 #### [facility] [address] [place] [address] Bilirubin [Mass/Vol] 0.7 mg/dL Normal 0.0-1.1 [facility] Comment on above: Performed By: #### 2 616175, 9809050, 8543345, 18412385, 0018172, 5983244, 18804188, 4446211, 15298355, 64954530, 0918291463 #### [facility] [address] [place] [address] Calcium [Mass/Vol] 9.3 mg/dL Normal 8.9-11.1 [facility] Comment on above: Performed By: #### 2 291625, 0712287, 1589454, 73016551, 8601930, 6007089, 52072154, 9604961, 05841904, 18854404, 3863282120 #### [facility] [address] [place] [address] Chloride [Moles/Vol] 102 mmol/L Normal 101-111 [facility] Comment on above: Performed By: #### 2 819178, 4469460, 1097268, 20420596, 2637231, 6940749, 19383385, 4914360, 12892256, 28340880, 1569864819 #### [facility] [address] [place] [address] CO2 [Moles/Vol] 26 mmol/L Normal 21-31 [facility] Comment on above: Performed By: #### 2 524771, 6737254, 2508274, 87194114, 0643028, 5227428, 78288489, 8866917, 12972946, 71498033, 9227787070 #### [facility] [address] [place] [address] Creatinine [Mass/Vol] 0.7 mg/dL Normal 0.5-1.3 [facility] Comment on above: Performed By: #### 2 565795, 1554976, 8377095, 69450581, 2800439, 1338154, 92824809, 2665223, 64256763, 50207660, 4036924384 #### [facility] [address] [place] [address] Globulin (S) [Mass/Vol] 3.1 g/dL Normal 1.4-4.0 [facility] Comment on above: Performed By: #### 2 855451, 4187652, 7651313, 32671375, 2258383, 4251491, 77427445, 4146895, 58711091, 06778301, 4915759999 #### [facility] [address] [place] [address] Glucose [Mass/Vol] 109 mg/dL Normal 55-199 [facility] Comment on above: Result Comment: If t his glucose result represents a fasting glucose, interpretation should refer to the following reference range: 55-99 mg/dL Performed By: #### 2 319333, 4936401, 6712212, 59501392, 5760058, 6785182, 41914676, 2898307, 99397657, 74851887, 4584574914 #### [facility] [address] [place] [address] Potassium [Moles/Vol] 3.8 mmol/L Normal 3.5-5.3 [facility] Comment on above: Performed By: #### 2 727311, 0398620, 6454843, 80376912, 5029208, 2222824, 62402901, 7978267, 04130669, 44765729, 0110321035 #### [facility] [address] [place] [address] Protein [Mass/Vol] 7.4 g/dL Normal 6.0-7.8 [facility] Comment on above: Performed By: #### 2 040838, 0202130, 6908034, 22679584, 1199833, 7986354, 93157853, 4982932, 19396711, 47305257, 9540394760 #### [facility] [address] [place] [address] Sodium [Moles/Vol] 138 mmol/L Normal 135-145 [facility] Comment on above: Performed By: #### 2 876204, 6562771, 0507222, 40237740, 9496412, 0752083, 33979952, 6938858, 44349457, 21507023, 6867636699 #### [facility] [address] [place] [address] Urea nitrogen [Mass/Vol] 19 mg/dL Normal 5-21 [facility] Comment on above: Performed By: #### 2 720944, 0404223, 2508201, 11929073, 4240270, 9933457, 05839513, 6313150, 92551606, 45618916, 5219223264 #### [facility] [address] [place] [address] Urea nitrogen/Creatinine [Mass ratio] 27 No Units High 10-20 [facility] Comment on above: Performed By: #### 2 153596, 3167862, 7911187, 41077149, 3432412, 2748820, 13139587, 1910687, 83569225, 95867405, 2643206211 #### [facility] [address] [place] [address] Coding Summary.on 07-24-2022 Coding Summary. CD:[id number] bWw+PGhlYWQ+VN0RMRE aX78pdWYiiW7iE6CCVW lOSywgQVBQTElOSyIgb iFoBM5yhGIfZXEr IC8+LF6yPCUoNjkguJK sj2Q7wEC3I43nus2bDU wpoOC4VRNjBdEvpurpf 6gifFw4GKaqPkuzEaSw QZHmzQ69LYZ7pU40Lw8 1wVKuqPTmb7klhPc5Iy MpKIYyAWH2dCahWYfoa 5IkUOXvN12bnQElz2A4 IGNvbGxhcHNlOyBlbXB 2aL2kULiohrcek6ajlz wiHqm7wh67aWYza9T3k DJ9J7JluaD0IBYrdJHs FjrfoLRCmT1nmhrlz2y fcfbgRiWcMHWtTOs3MB c1GJPghWhmYvYoKQ13A TZ3QHTzofUgC5JvYCYj bHtmXbR5v8P4Tb3NF4P ZUbmiR5ELGGBOMOcjmP Q+KA39qe49L0FxNwshI lt0CHAmKEB2aPE4rK5x MXLuSQwzq2L8iPH3S7T xzqRsyv2yc2hfWAFrRH hzZ71hkCBot8L2DYXvm QT3JPFdfGjfJlXdbK44 Oyc+ITCewLhfy8FaJya os2tpr7arfQu2BrwuUR LfkkUyqHesIQM6c3OkJ m5pOWCneAK3zVW0eK2o RhWdOzP5AUivX248GzJ kdHMzYhxsT37eG8XubI A+ZPIaHva2HLTjiLwiE S2lM0RaIEYdwodtaJCe gUqjHE5wTWLrsxsfDAQ uaH5qRWKjI4s6XvUbSm D8VDkgJ0DeBKFpllamA b38gI0hMaKiDvD4XCtz O4OwdgH6FYGxfNKwBIo kKLB0E43zy8C7SZDnMT WeSHY7hGW5tM8ciEdrx jogbGVmdDsgdmVydGlj WDumUFhmA146AYSmmEd nPkNvZGluZyBEYXRlOi AgMDQvMDcvMjAyMzwvd GQ+VTNiKIH4pPvnBWOz kKClSRviEs9ifYkhnVc kXN3yQDPqsaxpEJWmbD 7bDKEeqLHzxJgdMV6mW RAdijfqf779NvYpGUZ3 UCDmdQFnC2KcyX8bUzH rLCVsTWUgF7AmwYMnMH hwE002WNlrXwV0GNMuy sQuI8MdUKEfnUfdXlL7 r8N4Ml1Bt0HyyqwpG3O poAXyXpXaReubQQh3H8 RkPjwvdHI+NP83JUBvW R54XAh9EFH6oCpyMTsr IWAaZ1MuyW8rJwGlRBZ kZGRkOyc+PHRhYmxlIH dpZHRoPScxMDAlJyBzd QvbIW7pEb2mFCYoPWXf fSpyySTeEhBbm9opOET iSNztOO9kgJlsK7VctT N2QODwy5g7Qq64W57sN 3JvdXA+JYSwvVP3wSM4 dW9hBpPwByT8ASaeY75 1BpLxjFKtZycfw9azg6 ojrYf2QuV4GXYctmObf ZxqACV4h5BkTp45A37f IHdpZHRoPSIxNSUiIHZ plZvmmm2vnC3cPv6+PG BvcNI5fAG0tL7wUmIlL zH7KXexK072TfImqQOx Srdxk2wak6kaxAl3SiL nOQQiwsAzaWqvZDB4o6 SrXb04H8ScnQqny8OsH pn7kw51iXGaw2A5aAG0 A8VhVDWuipiexPFnhLn hIF0fBDRvwlxlALTayR 1oBEBsJ1e4ZpAaWkK8B QhkQ6BsxrO7TYXhqLBx OGVdbGFPpA8maxfax3p ijysiImNqYKGrPLe4EU s2FDTcrVafWiDcRVB1I zC5IVT4cDFqdA9ktVul lkjhhP9sGdw+TYF8zQZ vtGMBBX3sJguniXB+PH BjLGW9pCqvUSdjTJEvc D9nDGVsE3l2RpBnKeH6 KKygL6YwsmR1IGKpjKG mGYWtqAAIbW6kasxfp5 taqdvvSyKhEKErCJm6J Sj6TXBmoEtsUuHgLDQ1 QvQ2QSH1nQHjkQ8ccHy iytnobL2oYcx+QmlydG ndPYO1JOe9H5TuUfa6R PRwdGbcKT8ejKQvMVwe Qr0feMfwfSivEK6eDJH wdnebu450BmGge2egVI FsfTXkUHxfBUB7A22lb 1V0TQDdIZNuPIV0aAP0 lD2qvJyokehyoXPybIs gdmVydGljYWwtYWxpZ2 88CHOlnEknQvYfKGt6Y 3XcGxf0NHTxpSozKF4c fBMoZSrxKw8zcTajfDg fSX7zRHWhjajzh375Sb Vnv7neHIBvsSCjBHdnT HJ5H22zr6U9SWKyXETn ZVX7jFK2fH3zxFnbwiu gbGVmdDsgdmVydGljYW fpSOhnQ625CQCalZfxR kQsiMu4E9RjDya6GMJo iGxiOP3ehKGgCKvjWl3 piVnlaMuwPQ1dXZJyzn hfq526YeAxu0wbNRPko AFiLJmzDYT9H93pl2E3 CHXqJFYsZHG2fKR0sN5 hbGlnbjogbGVmdDsgdm SdbZbfTUbcAPkiS268V HRvcDsnPlBhdGllbnQg IJpwCGq8P8KfYndfiJJ +EJ01NIOkNQ34gKBtzW Jol1iceOi9NkBkMCCcY YI0gWkjEPkfc0VfCTDg N29nvNYfp2I0ACZriTi qkJUzIqMynUM7bA3aJE uqzzoaz2sikznmGhzne 5jfcs11jD09B87xVIkn ZHRoPSIzMCUiIHZhbGl zvk0gcL3gZd3+PGNvbC J7sVV2fO1cHSJfUsS0V SwaI498ZrHyyKPbKiud i3tve6aaoUa7ElV4OMQ gaaClxSkdUDH3k6EhXj 44G01oYBsnFWChWJUuC ZQiCANwiHphkh5bdI7f Ii8+SQIcsVY3vFA7mF2 iXzWlCsN9ESmiP595Rb CyjFXxEvlvZ77cG5Kbk XA+CLYlDfo3BDDtrWfy DT5xqXWkWGawYv1pAFA 9SiNrLhLuKDltX2PiAG KmdrxuaagajJT4JDQyA UBtwT64Rn1ekCimDKLe jKXSqG2gzrehm4tpohb gNzTpQPEkYJm5XHq0UD MigUsnCxEmIQL3QrZ7K FD0yIOonX8vcFvfsjbz cL4aO2XzDCMhyfnmZv7 3pG6lDiWkWeF3IRfyRp c+VRYUZV4MPtJzOKRKF bbYDNG5A2UqHvi4JRDx fPndSB6fiTYcHJdzMc0 yhVjukDryFG1nZXBtar qyYPExjH5bNUKleKGxk UkaZB1lEJOjmvseo323 ZuAiZEI0FSSarYVfK4L ifP5pDxQzFWAzYCDzR7 PqlWIjHCoeT424ZDphR pM1YGNxwoUxK2YqQEMw fNhjTqU3w8K6Yh3oKq5 aIx8gDFY6DW58DR91xI Gqj5B6yLA5T2LxJTBks cwtklsueDD9DPFlJNWf tB11qPCjMUemMn5sm4G 6o538JHZrPJYkoM29Yy 9ilIvsVPFjzXXKrV5nz qwkw1keyngnDcJcBNPz KBh6MDn0ACNkbQewXwG iDOK6JqC7IRH2iPKwcR 0ltRslrpzgbW9kDhp+N QtpLLQmhhC3T7RfBpc0 WAHctUmmVF8klKUvWYn oTj3poGkctPyfTG2cWK IswwppNXZiqF1qGLIjh DSjoOwkOM8oPPFbszml y053IcEqXNH7XJTelUE dR4GhhU2qTzXiCPAuNC WvI3ErcCOoPLqqH113E OxnWwE0BMHorcCuT2Hr TMXwfOqjTcT2h5W6Of3 GSA4ytRU9D8QqXnj1NX LklUtbRI0nzACoWZauK q2paWebjCmsBG5sSNFd sdecSEEjgN6dVOItiYS cpGgsAA9dPBEstxqfp8 89AtExHGB1PZZwrBJyK 5SsiE0dNiIjVQWzZLVq S2YjeTCyNDxzD177GKf zBdP5HCMtkjRhX0BwBD AmeIwnTmR2w6D3Uq9CW RP2ohIgwld0Z4FlAwxe dHI+OT66SRBfPK11bTO saNQla3erqQn4GzFhZB ZvAPW2eMfoSSilv9XnP FKdN29rtPSec8A3AVPu iHcenWCwHwVfxQV9gB8 mCQhbmjrtn7vufchsZv dhm0phgt94wE97V79cS HdpZHRoPSIzMCUiIHZh xYhnay1oiU9yJm7+PGN qvAA3aMR0gE9uMuDdIq N9WLxjX881VmGrySMkF atkb4stz1jbdMx4NiYf FMXfqkRthOixPWO0f8Y lPm56N04mRGwrALIaRY VuOGSrNCZhwWuzje0hy G9wIi8+IO5mj9kuqh53 dJ27iGR+RZLgLQM2qWu fSYozGQCrdI9zJWptWw O6NFWcNiZwhP93gJSbY CzmJw1mnXpoaSgiCO5h WRWnrexjc443ZvDoj1u lZPPkrZEySBytKPU9K4 4mp3W6WVNvAIBxLSY6k YJ2wJ9ziKpmhqdenXDx dDsgdmVydGljYWwtYWx lJ935JFIhlEfeQtIsoO PcQ8itorVPFG7iDadpo GQ+KIDvYXT9kYjqKKgy EECmkQ1qQXMpR4t6HeY sHlS8IYwdE7PaexL8GN PvkKKtCFAxuLDCmO3nx ksdy3upprnsJwXvCPVr MVw8PGy5JQZqkFnvBeF bHYU2FqI2RTP1fYVzlM 5ukMpdeyhhvL3zDhg+R klOOjwvdGQ+PHRkIHN0 sJniFHkqUCIlrZ4cMOQ cV7r1JhOfXqW2EVtaS0 KsyqT8DVJwoICcDEZyc AGDoG4jcduxy6cxbykw AxGuWKXuJFm3DRr7KWJ mdZdmYrUpWKD2EmV2NS F7uMTysZ8tqThtorefi G9wOyc+TVJOOjwvdGQ+ KVQuKMX6gZkrAVxrHIS yzF2jYTBvO1w1XkCfUw C4FZcjU4JhrtY5NUUnj LKuJDCmcWMNrO5edhxo f2sysmmbHvCnHHJvLTx 8JHn9KBIgqLytUwCzTA S4GmJ6DQY4zYImvC1vi GuafzpotK8iGmc+UGF5 UKI0WE32KL26P0TmMsr vdGFibGU+PHRhYmxlIH dpZHRoPScxMDAlJyBzd AuhCP1vEg5dZRXyXZKo bGxhcHNl (more content not included)... Normal [facility] Free T4on 07-24-2022 Free T4 [Mass/Vol] 0.68 ng/dL Normal 0.58-1.64 [facility] Comment on above: Performed By: #### 2 737797, 6102769, 1474291, 99547605, 3204811, 1539644, 85005213, 1835296, 54592435, 85760710, [id number] #### [facility] Laboratory [address] [place] [address] HEMATOLOGYOrdered By: SYSTEM SYSTEM on 07-24-2022 Basophils/100 [...] 8.1 fL Normal 6.4 - 10.8 fL [facility] HemeAutoSS Platelets (Bld) [#/Vol] 314.0 E9/L Normal 150.0 - 500.0 E9/L [facility] HemeAutoSS RBC (Bld) [#/Vol] 5.0 E12/L Normal 4.3 - 5.9 E12/L [facility] HemeAutoSS WBC corrected for nucl RBC Auto (Bld) [#/Vol] 5.2 E9/L Normal 4.0 - 11.0 E9/L [facility] HemeAutoSS Lipid Panelon 07-24-2022 Cholesterol [Mass/Vol] 232 mg/dL High 120-200 [facility] Comment on above: Performed By: #### 2 773134, 1481886, 6664456, 93841936, 7707064, 3230392, 39924178, 2774583, 70820720, 31773968, [id number] #### [facility] Laboratory [address] [place] [address] Cholesterol in HDL [Mass/Vol] 66 mg/dL Invalid Interpretation Code [facility] Comment on above: Result Comment: HDL > or equal to 60 mg/dL: Low cardiovascular risk HDL < 40 mg/dL : High cardiovascular risk Performed By: #### 2 534614, 7477502, 6916609, 68745714, 7589307, 6769431, 11150408, 8850501, 67475417, 11178738, [id number] #### [facility] [address] [place] [address] Cholesterol in LDL [Mass/Vol] 151 mg/dL High <=129 [facility] Comment on above: Performed By: #### 2 038423, 7900965, 0064734, 36842724, 1958981, 1480568, 43038361, 3929398, 26015029, 51526670, [id number] #### [facility] Laboratory [address] [place] [address] Cholesterol in VLDL [Mass/Vol] 27 mg/dL Normal 7-40 [facility] Comment on above: Performed By: #### 2 071408, 4557205, 2473555, 61469405, 3112554, 7571458, 41882512, 0184676, 81976942, 18673618, [id number] #### [facility] [address] [place] [address] Triglyceride [Mass/Vol] 134 mg/dL Normal <=149 [facility] Comment on above: Performed By: #### 2 506940, 6123125, 6401971, 87877874, 2629346, 9509861, 48197823, 4868903, 50323835, 25117122, 2584147035 #### [facility] Laboratory [address] [place] [address] T4 Totalon 07-24-2022 T4 [Mass/Vol] 6.4 microgram/dL Normal 4.6-9.1 [facility] Comment on above: Performed By: #### 2 693596, 0372672, 5175737, 67871046, 1418338, 2970248, 09431218, 8258773, 53244045, 73961168, [id number] ####[facility] [address] [place] [address] TSH With T4fr Reflexon 07-24 TSH Qn 2.02 m[IU]/L Normal 0.34-5.60 [facility] Comment on above: Performed By: #### 2 374166, 8753520, 5839211, 85374682, 3061817, 9602862, 56563708, 5167491, 46105567, 36109576, [id number] ####[facility] [address] [place] [address] eGFRon 07-24-2022 GFR/1.73 sq M.predicted among blacks MDRD (S/P/Bld) [Vol rate/Area] mL/min/{1.73_m2} Normal >=59 [facility] Comment on above: Order Comment: Order added by Discern Expert. Result Comment: eGFR is race adjusted. AA=. Performed By: #### 2 607606, 8870395, 3220536, 97733617, 4359364, 8470265, 65707766, 1552064, 63639663, 66841772, [id number] #### [facility] Laboratory [address] [place] [address] GFR/1.73 sq M.predicted among non-blacks MDRD (S/P/Bld) [Vol rate/Area] mL/min/{1.73_m2} Normal >=59 [facility] Comment on above: Order Comment: Order added by Discern Expert. Result Comment: [facility] kidney disease could be indicated at eGFR's of less than 60 mL/min/1.73m2. Kidney failure is indicated at less than 15 mL/min/1.73m2. Performed By: #### 2 764229, 3513989, 8080759, 74617943, 1271529, 6681066, 20707921, 9420659, 26953738, 88168130, 3231129752 #### [facility] Laboratory [address] [place] [address] Nonvisit Note - PTon 023 Nonvisit Note - PT Per insurance sales manager Oscar Briceno, pt's insurance coverage for PT is as follows: [facility] - [phone]- per [place]- This policy does not have any coverage for O/PS - ref [id number]. Chemo Delaney called pt to notify her of above and discuss possible financial counseling options. Pt has opted to cancel all remaining PT sessions and continue with HEP. Pt's chart will be placed on hold in the event she chooses to return to PT for additional instruction. If no further contact with this pt by 08/22/2022, pt's chart will be discharged. Normal [facility] Consent for Treatmenton Consent for Treatment [id number] D8#1.00CD:127 Normal [facility] PT - Assessmentson PT - Assessments [id number]#1.00CD:127 [facility] PT - Consentson 07-21-2022 PT - Consents [id number] 436#1.00CD:127 [facility] PT - Home Exercise Programon 07-21-2022 PT - Home Exercise Program [id number]#1.00CD:127 [facility] Physician Orderon 07-21-2022 Physician Order [id number] 63#1.00CD:127 [facility] Ambulatory Visit Summaryon 0 07-20-2022 Ambulatory Visit [...] capsule) fluticasone nasal (fluticasone 0.05 mg/inh Nasal [place]) methylPREDNISolone (MethylPREDNISolone Dose Pack 4 mg oral [...] visit, Lab Collect, Routine adult health maintenance [facility] Family Medicine Office/Clini c Noteon 07-20-2022 Family [...] referral to PT Follow RICE protocols Ordered: [facility] Outpatient Physical Therapy Evaluate Patient, Develop a [...] and mon (more content not included)... Normal [facility] Comment on above: Result Comment: Elec tronically Signed By: Brian SANCHEZ, Yasmine Rodriguez\.br\Date and Time Signed: 07/20/22 10:48 EDT Patient Correspondenceon Patient Correspondence [id number]#1.00CD:127 Normal [facility] Patient Educationon 07-21-19 Patient Education Cardiovascular Hypertension, Adult High blood [...] ? Avoi (more content not included)... Normal [facility] Screenson 07-20-2022 Screens [id number] [id number]#1.00CD:127 Normal [facility] Coding Summary.on 07-02-2022 Coding Summary. CD:[id number] FNg3lMh+PGhlYWQ+PE1 NYFLdX75ocTYcdI0dQ5 NMTElOSywgQVBQTElOS zVztrWbIN9hrVQdIVOf IC8+HC4aTDQkYerqnAN gg4R2dKZ9M76wjz6eKU babSL9ORDaZxCxbfjxj 4idnSt0JCkhYvhbEqXa NENdcS68UKM3cG75Tq1 3tLNqgNQdo1bknOo5Yf VnKOJcFAW3vZokPSfii 0ZpJUEiE29vtRZut1X8 IGNvbGxhcHNlOyBlbXB 6zS5qPNxuvxsnw2phwb qjAuz1rs02rOVha5P8z HB0I9EmpmT9KSAzyMJs HetlrJFLcP9yorgci5n uaujeToNfJBIgKTd5FA j5KLRnsNrfBqAqCK67H ZH3BZKqyvPcP9JjQSIl wNheErN2o0V0Hz4LU1A SWydxR6TIAVAEXUietW Q+LV96ge29M1KmZbaaV bw3CIXbFTV3qLL3fV3d ULBfOAyrs9J3oEP2J9X ieoBftb5wv1mcQRFrOS blU48nsTQpl1I9TJMjp KU4HJTldUjvKbIxxS53 Oyc+MPUfsWvbq1ZfZvg wr0xcs0lxwHo2EvmaKD ZlriUopCuuZKL1e4LnK o9pLOPsoWC9zBU7rA9d OgWpFiV1PAwnN856QhX glFSzUjdcB47yY4UgrN A+GZQlVqo8NKTbdUbbI B1pL0AaXPExwcyqwITw jWguYR3nWNJfyvbjZWK eiD0fNHSlC2c2JeUxJm G4XCdwN1IkOULimabuD p34bG1aFfIjUkO9DBun W0YonxC9FDJboOYhRIl kLQY7L12hx9V5VCOgNG XoJOC5iDL1sT2opBgio jogbGVmdDsgdmVydGlj VPrsVQbfE403DNRayNo nPkNvZGluZyBEYXRlOi AgMDMvMTYvMjAyMzwvd GQ+YENhBSC4qBbdFSIl vZApDRgpJf6jsMuovRm cBL4rFCBanxeiUZZsxV 5zUKBlzEZkrEijFY1lQ CHfhishz330GyItJID2 EMJnyMDuD5GiuY3uAuQ nMCBjTAKoP3ClvCIrPR ksZ152AGwtYwM0MBPid pHzL3MeFEJwcIpyXcN1 q6M7Rc5Ip6QhexsxS2C fwNGdQwTkDnmdOJh2F3 RkPjwvdHI+KV58SDMcT G13JXl5MFD7uUkoERvc RRNgU6AyvU8lAiIzHGP kZGRkOyc+PHRhYmxlIH dpZHRoPScxMDAlJyBzd RnoAR7kKe1hOHTdCLZf yIojzTZfCxSef9rvZAJ mKWtqBU4dzRvxJ0CeeR N6ADCpa2e3Eb19L02mW 3JvdXA+MUYolTP7gWZ1 bM1dLkRsWhL9ZMmwZ80 0LaAgzHBtTcluc4xgx1 nhvZz9LoT2YMDgvpSnf SdkUNQ0r5ZmPi10K40t IHdpZHRoPSIxNSUiIHZ exRngke9jeE9sXp6+PG KxsNP7sXB4jO0aElYpY pM6XPljZ958BcXlaQMy Wdjzc0sgw9mlsBp8GfN oDMNzmoKjjMsbNXX2e4 TeMi98A3XgeUzce5ObB uk0sn24zANtn1C0hVZ6 B7MoHQCqriydtDSutMv qCC4cGIFshlhnWCGopY 8fSWAlS9x6MqWdWwJ4Y XbuC0SrpeY6KESkaTTh TYXmaNHUzY8fwecqu4q tyzmdJfTgDBEbSLc0PJ f1XKSxrXpuUvLrGVZ2C rJ2SPE8oKBufR0osHbp tmzmkQ5kEkr+FZQ4vBN xeXOOAB0vGemwqUQ+PH WiGZF7aVbjAJfnBCCzs F1nAFBgC5p4AkXyEnA0 OWyjM1IqxcV4UBNynVU fQCCaxLJCvR1bfwgyu6 ydrtiqKzVtBNRrRKd4R Xf3KRWviJdnEqMjTGL9 OaL3GKL9nGBifE2amFs yrohahN2fMwo+QmlydG vmPUZ0BKr1Y1AoUux6S DWooZfhJV2gdBFgWDrw Kw2auZbrrRgqRC0vVQM tbokmi249VmJkk1hxJI JrlSXtTDlfSBG5M65zu 4A3ZLGrUSXiMDZ8oAN9 lL4fuEukkcuryHLteDs gdmVydGljYWwtYWxpZ2 11GFSigFkpCcIqIUb0J 2CwCik0WKCesHctNI8s wYDzIWikRe4wsGygrRe zLO9rUKNdjtcpv117Uk Cfs1esRLRuxYQaRJrfE QD7O25wo5Q2XCCgOHWz XRD4sJU2lC5btOyciyw gbGVmdDsgdmVydGljYW eiUMjgM941JEWrvUwzG fQikDi5G6HmLqe3MCGn tBywLS1ygISbKLnuIq1 mwDihsZafPR9mKMNiae sav066EhHyu7isJXIea LTnVJxtEAB3W47ur0A4 SUMrPIFiTEL2bHN9uM2 hbGlnbjogbGVmdDsgdm AqmLwjTUkiDKovH330I HRvcDsnPlBhdGllbnQg FUgvSWs7P6MfLvzmwCK +RM27MZPqHY73tZMfkP Wgn9drtNg6FgXmJSLlU KK4iZkxPVgzo5NgOLLl D12qcBHov1N8HOWjzEr tpGNzWeYlnYW6gY4kGO fynbtzs1ddfmdfSulbk 8tfgw52xG06Q08mLLda ZHRoPSIzMCUiIHZhbGl fie6zmC2tXp1+PGNvbC N9uSQ2oO4kBWQwBpK0Q VawL930OgEvsMEsUpwr j8bni5qrxEf3EbQ7ZIF nblYdxKylYWP2q5NhJf 55H26pLJrhVGQbOBPsH EJpOKRcxCnhrj2upP3q Ii8+AFWzkHW6dOU8pV7 cTaMtSrR4QHohD322Mt JbiZWoWoacQ05hN7Peg XA+CPBtEoo0JHKivOnu YK6pwZDnHFomNu2hKVI 4ZlVaCbKeBFgcP9CmVA MidfiolulazPA6TTJzL RJvcS45Oj7obRghTLUn pUIBcF9slaypr4zxxno jJdNrEXNrLFp4XNg1FF AsaFbjMcLpPSF8AaI2F FT1xTYnuB0biIuqqvph yE2iB6FaYZHvixjmLx3 7mX0uDsSwHfK4JMbcJk c+VLWJUI1AEpIkMVZTI hdOLIP7E1SxPcb1XDOt oEvqIL7uqTSuXLmmZt0 ucFxtgTefYZ2jMIBhqd jyEFGjwK9aODWqsJIvv WkmDN6nMSQnymsmo528 DtHxPEG1BKQejHHfR0J meF6iGiPiHWToIWJrM5 YvfNKbGJhvT389KJxeY xL4YLFsanSaK8KsIIWq mWxhJqF5i5A3Yp1cEl2 jLz2uSIR5PS00NL49pS Kbv3V6zSJ1Q0MiYVOnk sjebhaxwHB4PZTlRNZs uH42gYHvWBwdMj4cq4X 0k805BRBqKJNxrK10Ae 9kdSniMXIzmCCEjW1fy cqqn4cptnfeXnWyHTAp LTv2EXk1GLAuzVuuAuI jOOQ6MnC5AXB5hLXszC 7ifTwfropeeB4mQyn+N BtkLKEzdcR9N8BkIyx9 XXNpbWzjDF3rrWZtSGq gCo5cqEchwWlhAT8iYX ApbhuhHLSmnA0hTUCpk ZGsoWhtQV2cQORdvjor w090YfRbTTC5DMYhuPB pA8CrbN1zNlDnPEJeNU CfG7GfuXMxJKriF398V VqxZmJ6KZAkjeOuG6Gt XFCalQzdOgY5m9O3Gy3 SVN2sjOI2W3ZfQpn0FH AdoJlbVA5ymENiQYopW v9rtMbhwImsZR5lAFGs eblxMLJzcD9mYOOhcLA ffOquPC5oQHHculawt6 09AwEhBQT1NGCbjFDoB 5AcmS0nHlVuPTDdPNLo I3EczAJdSEkkD059EFn oThC4TBSdsiBqF8BaRM NlrLlzTiA5k5E3Sp1Hf ZZoU9XhG8o8L0NeKpvs dHI+BB20TLDmVB89yMQ jjJUji5yziEl5FzChNT GjABC3mFufTHcki8DnV DZcK48whEWyr3Y6URGl xNipxURoRtYleLB5dX2 mLWmwgkkzi7egbhkqNj ytj1djam35wQ72Q60pY HdpZHRoPSIzMCUiIHZh zImoug1uhU5jNp6+PGN zgBR1lDX2mK3fFtKhDm M1GPevB429JrQeqHEuP dcjp4hsr3bvuCc7JkWi JBPnbhCndPasFDI9i7S xGh82D24cWMjtDQGaMJ CjMWLxAYNtjPnzmz8tw G9wIi8+RX3qf4zkxo32 cK84jXV+JXOmKCF3fEa bDVygDLMlvH0lIUgaOw C9IJXmKnIgsD93dGXwG QnhLo5cuGrowEmiXM6n IQSmhfmum262ZmMfp1l tYWVcfJBwWIqnRVU6M1 8gz8B7YOPrQJRpAHN0y PE2fF9voKrgkohdbAAo dDsgdmVydGljYWwtYWx vX742UWWikQttNdTtmJ BjR7qitpYYXE8uVxgpw GQ+HDYwKXJ3rHjhIBck CZTwrF1dNHNyX3g8NaY sWuE8IXpbE3IogwK2MA YmvASkFVZxdVNKmO9xh qimp3mxcyaiHpUpBPPy LMt4WEi7ZHKgfVlbNkA jNQY6MaJ2DDX1cNOwxI 5ahDtufnyciA0gHct+R klOOjwvdGQ+PHRkIHN0 sRzaKApxQNGrbS4nMAL yO5c1JpJfNvC2IHzgX9 EgtcV0BZZmkYNeOTHab MYEcA7kiktoa6jiydfm FoZpXCYzOYh7GPa4CGG auUsfUpOrFSD1UbX0QG B2fGWotT3vhYzxnxdkg G9wOyc+TVJOOjwvdGQ+ WXZyJRT6lJjcKFayQSD zeM2rOHXgX0q5PrXeFl B3HBloV3SusnT1MROix FXiXOOwoZRLeZ9gytkj v3jlxrljAgAiHDVaZXg 4KNg0BBCpaDpaTtHlGM X1FfS4MYZ2rOSirF4nv MtabvnlmK7fIsl+UGF5 VLC1HB96HC08U6OwRnk vdGFibGU+PHRhYmxlIH dpZHRoPScxMDAlJyBzd UttEB7kQk7fZJNdQRMa bGxh (more content not included)... Normal [facility] Discharge Instructionson Discharge Instructions [id number]#1.00CD:127 Normal [facility] ED Note-Physicianon 07-02-19 ED Note-Physician Basic Information [...] and Complexity of Problems Differential Diagnosis: [] [facility] Data External documents reviewed: Not applicable My [...] Patient seen and evaluated by the physician machine assistant. Attending physician was present in the emergency department and supervised care. This visit was performed by both the physician and an APC. I performed all aspects of the MDM as documented. This report was transcribed using voice recognition software. Every effort was made to ensure accuracy, however, inadvertently computerized belt press operator mistakes may be present. Appropriate healthcare PPE [...] of sarcoidosi (more content not included)... Normal [facility] Comment on above: Result Comment: Elec tronically [...] mGy = n/a DAP = n/a Normal [facility] Consent for Treatmenton 06-17 Consent for Treatment [id number] 15#1.00CD:127 Normal [facility] ED Clinical Summaryon 2022 ED Clinical Summary [place] [id number] ED Clinical Summary Person Information Name: NARCISA BENITEZ [place] Age: 57 Years : 1965 Sex: Female Language: Ghanaian PCP: Yasmine Lewis Marital Status: Phone: [phone] Visit Id: Visit Reason: Arm pain-swelling; RT [...] 06/30/2022 20:52:37 06/30/2022 20:52:37 06/30/2022 20:52:37 ADDRESS: [address] [place] [address] [id number] PHYS DOC NOTES: MEDICAL INFORMATION: Prescriptions Given: [...] 6. fluticasone nasal (fluticasone 0.05 mg/inh Nasal [place]) 1 Sprays Nasal Inhalation 2 times a day. methylPREDNISolone (MethylPREDNISolone Dose Pack 4 mg oral tablet) TAKE BY MOUTH DIRECTED ON INSIDE OF PACKAGE. [facility] Prescription (Blood pressure cuff) Blood pressure cuff. [...] Tendinitis Follow up: With: Address: When: Yasmine Moy [facility], [place] [address] Business (1) In 3 days 07/03/2022 Comments: [...] or worsening symptoms. DIAGNOSIS: Biceps tendinitis Normal [facility] ED Patient Education Noteon 06-30-2022 ED Patient [...] health care provider. General instructions ? Take pmso-acp-rfrqmjj and prescription medicines only as told by [...] and res (more content not included)... Normal [facility] ED Patient Summaryon 023 ED Patient Summary [place] [id number] Patient Discharge Instructions Person Information Name: NARCISA BENITEZ Age: 57 Years Arrival Date: 06/30/2022 17:47:24 Discharge Diagnosis: Biceps tendinitis Primary Care Physician: Yasmine Lewis Provider Information Primary Provider: Cecil Zuniga DO Advanced Bone Char Puller:Joe Meier PA-C The exam and treatment you received in the Emergency Department were for an urgent problem and are not intended as complete care. It is important that you follow up with a doctor, nurse practitioner, or physician?s machine assistant for ongoing care. If your symptoms [...] Instructions: With: Address: When: Yasmine Torres [address] [facility], [place] [address] Business (1) In 3 days 07/03/2022 Comments: [...] opioids can be used to help relieve zudyxgzg-jh-ydhadu pain and are often prescribed following a [...] ? Safe (more content not included)... Normal [facility] COVID Quick Testingon 2021 Result Negative [facility] Other CNOVon 06-09-2021 CNOV Office Visit (PULMMN) ---- NARCISA BENITEZ ([id number]) 1965 F Date Time Provider Department 06/09/21 3:30 PM [facility]ARTHIKEYAN HILL During your visit today, we recorded the following information about you: Temperature Pulse Respiration Blood pressure 97.9 degrees 86/minute 20/minute 134/96 Weight Height 95.4 kg 1.651 m Karthikeyan Myers MD 06/11/2021 10:46 AM Signed Respiratory [place] Narcisa Benitez is a 56 year old female here for evaluation by the [facility] Sarcoidosis Team. Consultation requested by Dr. [...] with sarcoidosis by biopsy with bronchoscopy in [place]. Has not required medical car efor it [...] reviewed. No pertinent surgical history. 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 Normal [facility] XR CHEST 2V FRONTAL/LATon XR CHEST 2V [...] and probable mediastinal lymphadenopathy consistent with sarcoidosis. Certified Coder: PSCB Transcribe Date/Time: Jun 09 2021 3:09P Dictated by : LUCY KUHN MD This examination was interpreted and the report reviewed and electronically signed by: LUCY KUHN MD on Jun 09 2021 3:14PM EST [id number] Normal [facility] CNPRachel 04-16-2021 CNPN Telephone (PULN) ---- NARCISA BENITEZ ([id number]) 1965 F Date Time Provider Department 04/16/21 ALLEN LY During your visit today, we recorded the following information about you: Geoff Ewing 04/16/2021 12:05 PM Signed Received outside records [facility] Please allow time to process Allergies As of Date: 04/16/2021 (Not on File) Date Reviewed: Never Reviewed Reason for Visit: Received Outside Medical Records [[id number]] Problem List As Of Date: 04/16/2021 (None) Encounter Status:Closed by GEOFF EWING on 04/16/21 [facility] 03-19-2021 CNPN Telephone (PULMMN) ---- NARCISA BENITEZ ([id number]) 1965 F Date Time Provider Department 03/19/21 ALLEN LY During your visit today, we recorded the following information about you: Geoff Ewing 03/19/2021 6:01 PM Signed Received outside records from [facility] Please allow time to process Allergies As of Date: 03/19/2021 (Not on File) Date Reviewed: Never Reviewed Reason for Visit: Received Outside Medical Records [[id number]] Problem List As Of Date: 03/19/2021 (None) Encounter Status:Closed by GEOFF EWING on 03/19/21 [facility] 03-17-2021 CNPN Telephone (PULIMN) ---- NARCISA BENITEZ ([id number]) 1965 F Date Time Provider Department 03/17/21 ALLEN LY During your visit today, we recorded the following information about you: Allen Ly RN 03/17/2021 2:12 PM Signed Contacted [facility] Imaging dept. They stated that they would push the Pt.s CT of the chest and CXR today. Allergies As of Date: 03/17/2021 (Not on File) Date Reviewed: Never Reviewed Reason for Visit: Request Outside Medical Records [[id number]] Cmt: see note Problem List As Of Date: 03/17/2021 (None) Encounter Status:Closed by ALLEN LY on 03/17/21 [facility] 03-14-2021 CNPN Telephone (PULIMN) ---- NARCISA BENITEZ ([id number]) 1965 F Date Time Provider Department 03/14/21 ALLEN LY During your visit today, we recorded the following information about you: Allen Ly RN 03/14/2021 1:24 PM Signed Concern for Pulmonary Sarcoidosis Pt. Conversation Pt. Had biopsy proven sarcoidosis in the in [place]. She has not needed care for Sarcoidosis since then and has no medical records to prove the Bx. She has recently undergone extreme life stress which required a move to [place]. In December of 2020. She started to feel SOB and had a persistent dry cough. She is concerned that her Sarc is flarring and now that she had to move to [place] she no longer has a fha underwriter. Pt. Mother in her 50s from lung cancer. S/S Fatigue, SOB, persistent cough, chest pain. Pt. Main Goal of First appt. To treat the flare and get reestablished with a Sarcoidosis doctor. Pt. Has received care at [facility] in [facility]. Faxed today. Good to know I advised the pt. To be seen as soon as possible by a local fha underwriter. In the mean time I will work to get her medical records and images into our system and get her scheduled for her first appt. Here at [facility]. I advised the pt. To be seen right away due to her family history of lung cancer. I also advised pt. To get a CD of her images and bring it with her for her first appt. Here at [facility]. Allergies As of Date: 03/14/2021 (Not on File) Date Reviewed: Never Reviewed Reason for Visit: Request Outside Medical Records [[id number]] Cmt: see note Problem List As Of Date: 03/14/2021 (None) Encounter Status:Closed by ALLEN LY on 03/14/21 [facility] Telephone (PULIMN) ---- NARCISA BENITEZ ([id number]) 1965 F Date Time Provider Department 03/14/21 ALLEN LY During your visit today, we recorded the following information about you: Allen Ly RN 04/16/2021 12:26 PM Addendum Sarcoidosis Center Summary of outside records Concern for Pulmonary sarcoidosis Pt. Conversation Pt. Had biopsy proven sarcoidosis in the in [place]. She has not needed care for Sarcoidosis since then and has no medical records to prove the Bx. She has recently undergone extreme life stress which required a move to [place]. In December of 2020. She started to feel SOB and had a persistent dry cough. She is concerned that her Sarc is flarring and now that she had to move to [place] she no longer has a fha underwriter. Pt. Mother in her 50s from lung cancer. She recently had a Skin Bx of RILEY forearms which were positive for granulomas. S/S Fatigue, SOB, persistent cough, chest pain. Pt. Main Goal of First appt. To treat the flare and get reestablished with a Sarcoidosis doctor. ? Pt. Has received care at [facility] in [place] [facility]. Faxed today. ? Good to know I advised the pt. To be seen as soon as possible by a local fha underwriter. In the mean time I will work to get her medical records and images into our system and get her scheduled for her first appt. Here at [facility]. I advised the pt. To be seen right away due to her family history of lung cancer. I also advised pt. To get a CD of her images and bring it with her for her first appt. Here at [facility]. Biopsy 1989: Record destroyed d/t age 1204/08/21: Skin biopsy, RILEY forearms CT Chest w/con: 03/01/21 CXR 02/06/21 Chest images (Chest x-ray, CT chest, whole body PET scan): (X) Not available in [facility] (X) patient notified that images need to [...] Diagnosis:Sarcoidos is [D86.9] Order(s):LUNG DIFFUSION CAPACITY (DLCO) [3986997] Order #: [id number]: 1 FUTURE SPIROMETRY WITH DILATOR IF OBSTRUCTED [[id number]] Order #: [id number]: 1 FUTURE XR CHEST 2V FRONTAL/LAT [[id number]] Order #: [id number] FUTURE Problem List As Of Date: 03/14/2021 (None) Encounter Status:Closed by ALLEN LY on 03/14/21 [facility] 03-07-2021 JAMILN Telephone (PULMMN) ---- NARCISA BENITEZ ([id number]) 1965 F Date Time Provider Department 03/07/21 ALLEN LY During your visit today, we recorded the following information about you: Geoff Ewing 03/07/2021 10:08 AM Signed Received outside records from [facility] Office Please allow time to process Allergies As of Date: 03/07/2021 (Not on File) Date Reviewed: Never Reviewed Reason for Visit: Received Outside Medical Records [3576] Problem List As Of Date: 03/07/2021 (None) Encounter Status:Closed by GEOFF EWING on 03/07/21 [facility] Zeferino 03-05-2021 HIWOT Telephone (PULSOFIA) ---- NARCISA BENITEZ ([id number]) 1965 F Date Time Provider Department 03/05/21 SRINI SPIVEY CMA During your visit today, we recorded the following information about you: Srini Spivey 03/05/2021 12:10 PM Signed [facility] Triage Note Patient was called and notified that consult request has been received. Referring Provider (name, phone number and institution/address ): JAMIL Holm [phone] [place] Diagnosis: Do you have a diagnosis of [...] goal during your first visit at the [facility]? Discuss issues and symptoms Srini Spivey MA Allergies As of Date: 03/05/2021 (Not on File) Date Reviewed: Never Reviewed Reason for Visit: Consult [502] Problem List As Of Date: 03/05/2021 (None) Encounter Status:Closed by SRINI SPIVEY on 03/05/21 Normal [facility] Vital Signs Date Time Vital Sign Value Performing Clinician Remi chowdhury 05-17-2023 10:52-0500 Blood Pressure Location [facility] 05-17-2023 10:52-0500 Diastolic blood pressure 84 mm[Hg] Mil Nguyen [facility] 05-17-2023 10:52-0500 Heart rate 77 /min Mil Nguyen [facility] 05-17-2023 10:52-0500 SaO2% (BldA) [Mass fraction] 94 % Mil Nguyen [facility] 05-17-2023 10:52-0500 Systolic blood pressure 136 mm[Hg] Mil Nguyen [facility] 05-13-2023 13:52-0500 Blood Pressure Location [facility] 05-13-2023 13:52-0500 Body temperature 98.6 [degF] [facility] 05-13-2023 13:52-0500 Diastolic blood pressure 82 mm[Hg] [facility] 05-13-2023 13:52-0500 Heart rate 77 /min [facility] 05-13-2023 13:52-0500 SaO2% (BldA) [Mass fraction] 97 % [facility] 05-13-2023 13:52-0500 Systolic blood pressure 136 mm[Hg] [facility] 04-16-2023 09:00-0500 Diastolic blood pressure 102 mm[Hg] ALCON QUE [facility] 04-16-2023 09:00-0500 Mean blood pressure 125 mm[Hg] ALCON QUE [facility] 04-16-2023 09:00-0500 Systolic blood pressure 170 mm[Hg] ALCON QUE [facility] 04-16-2023 08:32-0500 Blood Pressure Location ALCON QUE [facility] 04-16-2023 08:32-0500 Diastolic blood pressure 100 mm[Hg] ALCON QUE [facility] 04-16-2023 08:32-0500 Heart rate 74 /min ALCON QUE [facility] 04-16-2023 08:32-0500 SaO2% (BldA) [Mass fraction] 94 % ALCON QUE [facility] 04-16-2023 08:32-0500 Systolic blood pressure 160 mm[Hg] ALCON QUE [facility] 04-06-2023 14:59-0500 Diastolic blood pressure 94 mm[Hg] ALCON QUE [facility] 04-06-2023 14:59-0500 Mean blood pressure 109 mm[Hg] ALCON CABRAL [facility] 04-06-2023 14:59-0500 Systolic blood pressure 138 mm[Hg] ALCON CABRAL [facility] 01-27-2023 13:43-0400 Blood Pressure Location Lamont ACEVES [facility] 01-27-2023 13:43-0400 Diastolic blood pressure 92 mm[Hg] Lamont ACEVES [facility] 01-27-2023 13:43-0400 Heart rate 68 /min Lamont ACEVES [facility] 01-27-2023 13:43-0400 Systolic blood pressure 124 mm[Hg] Lamont ACEVES [facility] 07-20-2022 10:14-0400 Blood Pressure Location Yasmine Torres [facility] 07-20-2022 10:14-0400 Body temperature 98.06 [degF] Yasmine kali [facility] 07-20-2022 10:14-0400 Diastolic blood pressure 80 mm[Hg] Yasmine kali [facility] 07-20-2022 10:14-0400 Heart rate 72 /min Yasmine kali [facility] 07-20-2022 10:14-0400 SaO2% (BldA) [Mass fraction] 99 % Yasmine kali [facility] 07-20-2022 10:14-0400 Systolic blood pressure 140 mm[Hg] Yasmine Torres [facility] 06-30-2022 20:50-0400 Nursing Progress Note Reason Other: pt asking for d/c papers at nurses desk. pt asked to go back to room for discharge vitals and pt states that she must leave. no discharge vitals obtained. Cecil Zuniga [facility] 06-30-2022 17:59-0400 Body temperature 98.06 [degF] Cecil Zuniga [facility] 06-30-2022 17:59-0400 Diastolic blood pressure 90 mm[Hg] Cecil Zuniga [facility] 06-30-2022 17:59-0400 Heart rate 86 /min Cecil Zuniga [facility] 06-30-2022 17:59-0400 Respiratory rate 16 /min Cecil Zuniga [facility] 06-30-2022 17:59-0400 SaO2% (BldA) [Mass fraction] 96 % Cecil Zuniga [facility] 06-30-2022 17:59-0400 Systolic blood pressure 154 mm[Hg] Cecil Zuniga [facility] 01-21-2022 10:35-0400 Blood Pressure Location Danii Joyner [facility] 01-21-2022 10:35-0400 Body temperature 97.7 [degF] Danii Joyner [facility] 01-21-2022 10:35-0400 Diastolic blood pressure 74 mm[Hg] Danii Joyner [facility] 01-21-2022 10:35-0400 Heart rate 71 /min Danii Joyner [facility] 01-21-2022 10:35-0400 SaO2% (BldA) [Mass fraction] 97 % Danii Joyner [facility] 01-21-2022 10:35-0400 Systolic blood pressure 132 mm[Hg] Danii Joyner [facility] 06-13-2021 18:00-0500 Body height 167.64 cm Kit Evans Other [facility] Other 06-13-2021 18:00-0500 Body mass index (BMI) [Ratio] 31.95 kg/m2 Kit Evans Other [facility] Other 06-13-2021 18:00-0500 Body temperature 97.1 [degF] Kit Evans Other [facility] Other 06-13-2021 18:00-0500 Body weight 89.81 kg Kit Evans Other [facility] Other 06-13-2021 18:00-0500 Respiratory rate 16 /min Kit Evans Other [facility] Other 06-13-2021 18:00-0500 SaO2% (BldA) [Mass fraction] 97 % Kit Evans Other [facility] Other Encounters Encounter Date Encounter Type Care Provider Facility Start: 06-17-2023 ambulatory Lamont Lora ty:CD:[id number] Start: 05-17-2023 End: 05-17-2023 ambulatory JENARO LEAL Not Available Start: 05-17-2023 End: 05-18-2023 ambulatory Mil Nguyen Facility:[facility] Start: 05-17-2023 End: 05-17-2023 Patient encounter procedure Mil Nguyen [facility] Start: 05-13-2023 End: 05-14-2023 ambulatory Myles Colon Facility:[facility] Start: 05-13-2023 End: 05-13-2023 Lab Drop off Myles Colon [facility] Start: 05-13-2023 End: 05-13-2023 Patient encounter procedure Myles Colon [facility] Start: 05-06-2023 End: 05-07-2023 ambulatory ALCON A QUE Facility:[facility] Start: 05-03-2023 End: 05-04-2023 ambulatory ALCON A QUE Facility:[facility] Start: 04-29-2023 ambulatory LOG CLERK-C Yasmine Sagastume acility:[facility] Start: 04-26-2023 End: 04-27-2023 ambulatory ALCON A QUE Facility:[facility] Start: 04-16-2023 End: 04-17-2023 ambulatory ALCON A QUE Facility:[facility] Start: 04-16-2023 End: 04-16-2023 Patient encounter procedure ALCON A QUE [facility] Start: 04-06-2023 End: 04-07-2023 ambulatory ALCON A QUE Facility:[facility] Start: 04-06-2023 End: 04-06-2023 Patient encounter procedure ALCON A QUE [facility] Start: 04-06-2023 ambulatory LOG CLERK-C Yasmine Torres F acility:[facility] Start: 04-01-2023 ambulatory Lamont Lora ty:CD:[id number] Start: 03-29-2023 End: 03-30-2023 ambulatory ALCON Evonne CABRAL Facility:[facility] Start: 03-17-2023 End: 03-18-2023 ambulatory Lamont ACEVES Facility:[facility] Start: 03-17-2023 End: 03-17-2023 Patient encounter procedure Lamont ACEVES [facility] Start: 01-29-2023 End: 01-30-2023 ambulatory LOG CLERK-C Yasmine Torres Facility:[facility] Start: 01-29-2023 End: 01-29-2023 Patient encounter procedure Yasmine Torres [facility] Start: 01-27-2023 End: 01-28-2023 ambulatory Lamont ACEVES Facility:[facility] Start: 01-27-2023 End: 01-27-2023 Patient encounter procedure Lamont ACEVES [facility] Start: 01-25-2023 End: 01-25-2023 Emergency department patient visit Mable Vital Facility:[facility] Start: 01-25-2023 End: 01-26-2023 ambulatory PA-C CORNELIUS HARTLEY Facility:[facility] Start: 09-16-2022 End: 09-16-2022 ambulatory Pauly Oden Facility:[facility] Start: 09-16-2022 Office outpatient ne w 30 minutes Pauly Oden [facility] Start: 09-16-2022 End: 09-16-2022 ambulatory PHYSICIAN NO [facility] Work Phone: Start: 09-16-2022 End: 09-16-2022 Patient encounter procedure PHYSICIAN NO [facility] Start: 08-24-2022 End: 08-25-2022 ambulatory LOG CLERK-C Yasmine Torres Facility:[facility] Start: 08-12-2022 End: 08-13-2022 ambulatory Irena Eliana Alvarado Facility:[facility] Start: 08-06-2022 End: 08-07-2022 ambulatory Irena Eliana Zhenge Facility:[facility] Start: 08-06-2022 End: 08-06-2022 Patient encounter procedure Irena Alvarado [facility] Start: 07-24-2022 End: 07-25-2022 ambulatory LOG CLERK-C Yasmine Torres Facility:[facility] Start: 07-24-2022 End: 07-24-2022 Patient encounter procedure Yasmine Torres [facility] Start: 07-21-2022 End: 10-20-2022 ambulatory LOG CLERK-C Yasmine Torres Facility:[facility] Start: 07-21-2022 End: 10-19-2022 Recurring Yasmine Torres [facility] Start: 07-20-2022 End: 07-21-2022 ambulatory LOG CLERK-C Yasmine Torres Facility:[facility] Start: 07-20-2022 End: 07-20-2022 Patient encounter procedure Yasmine Torres [facility] Start: 07-20-2022 End: 07-20-2022 Well adult monitoring check done Yasmine Torres [facility] Start: 06-30-2022 End: 06-30-2022 Emergency department patient visit Cecil Zuniga Facility:[facility] Start: 06-30-2022 End: 06-30-2022 Emergency department patient visit Cecil Zuniga [facility] Start: 01-21-2022 End: 01-21-2022 Patient encounter procedure Danii R Ar [facility] Start: 07-02-2021 End: 11-04-2021 Pre-admission assessment Irena Eliana Zhenge [facility] Start: 06-17-2021 End: 06-17-2021 ambulatory Kit Evans Other [facility] Other Start: 06-17-2021 Telephone encounter Kit Sagastume [facility] Start: 06-13-2021 End: 06-13-2021 ambulatory Kit Evans Other [facility] Other Start: 06-13-2021 Office outpatient visit 15 minutes Kit Evans [facility] [address] Procedures Date Procedure Procedure Detail Performing Clinician Start: 09-16-2022 Plain X-ray of right hand PHYSICIAN NO FAMILY Start: 11-27-2019 Colonoscopy Irena Katz pe Malignant neoplasm o f skin (disorder) Irena Jenny Immunizations Immunization Date Immunization Notes Care Provider Sudeep vega 09-29-2021 SARS-CoV-2 mRNA (tjfcwuzwltq-nieu-ekv dhruv) vaccine Lamont ACEVES [facility] 04-09-2021 SARS-CoV-2 (COVID-19 ) mRNA BNT-162b2 vax Irenaevonne Alvarado [facility] 07-12-2020 COVID-19, mRNA, LNP-S, PF, 30 mcg/0.3 mL dose; Translations: [[employer] COVID-19 Vaccine] Irena Alvarado [facility] Comment on above: Reason for Medicatio n: Prophylaxis 06-21-2020 COVID-19, mRNA, LNP-S, PF, 30 mcg/0.3 mL dose Irena Alvarado [facility] Comment on above: Reason for Medicatio n: Prophylaxis 12-02-2018 tetanus toxoid, reduced diphtheria toxoid, and acellular pertussis vaccine, adsorbed Kit [employer] Other [facility] NEGATED: Highlighted row has not occurred!01-25-2023 influenza virus vaccine, unspecified formulation Lamont ACEVES [facility] NEGATED: Highlighted row has not occurred!01-21-2022 influenza virus vaccine, unspecified formulation Danii Ar [facility] NEGATED: Highlighted row has not occurred!06-19-2019 influenza virus vaccine, live, attenuated, for intranasal use Irena Alvarado [facility] Payers Date Payer Category Payer Self-pay [id number] 2022 Medicaid 123 2022 Unknown [id number] 2.16. [id number] 2016 Private Health Insurance [id number] 1965 Unknown [id number] 2.16.84 0.1.671093.3.579.2.1259 1965 Unknown [id number] 2.16.8 40.1.872941.3.579.2.727 1965 Unknown [id number] 2.16.8 40.1.864012.3.579.2.727 1965 Unknown [id number] 2.16.8 40.1.028369.3.579.2.727 1965 Unknown [id number] 2.16.8 40.1.123334.3.579.2.727 1965 Unknown [id number] 2.16.8 40.1.329499.3.579.2. 1965 Unknown [id number] 2.16.8 40.1.110126.3.579.2 1965 Unknown [id number] 2.16.8 40.1.904321.3.579.2 1965 Unknown [id number] 2.16.8 40.1.528008.3.579.2 1965 Unknown [id number] 2.16.8 40.1.260091.3.579.2 1965 Unknown [id number] 2.16.8 40.1.052157.3.579.2 1965 Unknown [id number] 2.16.8 40.1.831413.3.579.2 1965 Unknown [id number] 2.16.8 40.1.084693.3.579.2 1965 Unknown [id number] 2.16.8 40.1.424464.3.579.2 1965 Unknown [id number] 2.16.8 40.1.875805.3.579.2 1965 Unknown [id number] 2.16.8 40.1.230667.3.579.2 1965 Unknown [id number] 2.16.8 40.1.180194.3.579.2 1965 Unknown [id number] 2.16.8 40.1.740941.3.579.2 1965 Unknown [id number] 2.16.8 40.1.560273.3.579.2 1965 Unknown [id number] 2.16.8 40.1.172655.3.579.2 1965 Unknown [id number] 2.16.8 40.1.333966.3.579.2 1965 Unknown [id number] 2.16.8 40.1.854681.3.579.2.727 1965 Unknown [id number] 2.16.8 40.1.923818.3.579.2.727 1965 Unknown [id number] 2.16.8 40.1.333989.3.579.2.727 1965 Unknown [id number] 2.16.8 40.1.400844.3.579.2.727 1965 Unknown [id number] 2.16.8 40.1.403845.3.579.2.727 Unknown [id number] 2. 16.840.1.084954.19 Unknown [id number] 2.16.8 40.1.813030.3.579.2.531 Social History Date Type Detail Facility Start: 04-08-2021 End: 05-17-2023 Tobacco smoking status Never smoked tobacco (finding) [facility] Other Tobacco smoking status Never [facility] Sex Assigned At Female [facility] Other Start: 1965 Sex Assigned At Female [facility] Functional Status Date Assessment Result Facility 05-17-2023 Functional Status No [facility] 05-13-2023 Functional Status N/A [facility] 01-27-2023 Functional Status N/A [facility] 07-20-2022 Functional Status N/A [facility] 06-30-2022 Functional Status N/A [facility] 01-21-2022 Functional Status N/A [facility] Clinical Notes 04-18-2021 to 05-13-2023 Radiology Note Date & Type Note Facility 05-13-2023 Hospital Discharge instructions Patient Education 05/13/2023 14:41:02 Fungal Nail Infection Fungal Nail Infection A fungal nail infection is a common infection of the toenails or fingernails. This condition affects toenails more often than fingernails. It often affects the great, or big, toes. More than one nail may be infected. The condition can be passed from person to person (is contagious). What are the causes? This condition is caused by a fungus, such as yeast or molds. Several types of fungi can cause the infection. These fungi are common in moist and warm areas. If your hands or feet come into contact with the fungus, it may get into a crack in your fingernail or toenail or in the surrounding skin, and cause an infection. What increases the risk? The following factors may make you more likely to develop this condition: Being of older age. Having certain medical conditions, such as: ?Athlete's foot. ?Diabetes. ?Poor circulation. ?A weak body defense system (immune system). Walking barefoot in areas where the fungus thrives, such as showers or locker rooms. Wearing shoes and socks that cause your feet to sweat. Having a nail injury or a recent nail surgery. What are the signs or symptoms? Symptoms of this condition include: A pale spot on the nail. Thickening of the nail. A nail that becomes yellow, brown, or white. A brittle or ragged nail edge. A nail that has lifted away from the nail bed. How is this diagnosed? This condition is diagnosed with a physical exam. Your health care provider may take a scraping or clipping from your nail to test for the fungus. How is this treated? Treatment is not needed for mild infections. If you have significant nail changes, treatment may include: Antifungal medicines taken by mouth (orally). You may need to take the medicine for several weeks or several months, and you may not see the results for a long time. These medicines can cause side effects. Ask your health care provider what problems to watch for. Antifungal nail japanese or nail cream. These may be used along with oral antifungal medicines. Laser treatment of the nail. Surgery to remove the nail. This may be needed for the most severe infections. It can take a long time, usually up to a year, for the infection to go away. The infection may also come back. Follow these instructions at home: Medicines Take or apply qmfj-ian-dvwptkr and prescription medicines only as told by your health care provider. Ask your health care provider about using thng-vxq-agnpfxt mentholated ointment on your nails. Nail care Trim your nails often. Wash and dry your hands and feet every day. Keep your feet dry. To do this: ?Wear absorbent socks, and change your socks frequently. ?Wear shoes that allow air to circulate, such as sandals or canvas tennis shoes. Throw out old shoes. If you go to a nail salon, make sure you choose one that uses clean instruments. Use antifungal foot powder on your feet and in your shoes. General instructions Do not share personal items, such as towels or nail clippers. Do not walk barefoot in shower rooms or locker rooms. Wear rubber gloves if you are working with your hands in wet areas. Keep all follow-up visits. This is important. Contact a health care provider if: You have redness, pain, or pus near the toenail or fingernail. Your infection is not getting better, or it is getting worse after several months. You have more circulation problems near the toenail or fingernail. You have brown or black discoloration of the nail that spreads to the surrounding skin. Summary A fungal nail infection is a common infection of the toenails or fingernails. Treatment is not needed for mild infections. If you have significant nail changes, treatment may include taking medicine orally and applying medicine to your nails. It can take a long time, usually up to a year, for the infection to go away. The infection may also come back. Take or apply wzci-osz-zmbnsqz and prescription medicines only as told by your health care provider. This information is not intended to replace advice given to you by your health care provider. Make sure you discuss any questions you have with your health care provider. Document Revised: 07/07/2021 Document Reviewed: 07/07/2021 [employer] Patient Education 2022 [employer]. 05/13/2023 14:40:58 Strep Throat, Adult Strep Throat, Adult Strep throat is an infection in the throat that is caused by bacteria. It is common during the cold months of the year. It mostly affects children who are 5 15 years old. However, people of all ages can get it at any time of the year. This infection spreads from person to person (is contagious) through coughing, sneezing, or having close contact. Your health care provider may use other names to describe the infection. When strep throat affects the tonsils, it is called tonsillitis. When it affects the back of the throat, it is called pharyngitis. What are the causes? This condition is caused by the Streptococcus pyogenes bacteria. What increases the risk? You are more likely to develop this condition if: You care for school-age children, or are around school-age children. Children are more likely to get strep throat and may spread it to others. You spend time in crowded places where the infection can spread easily. You have close contact with someone who has strep throat. What are the signs or symptoms? Symptoms of this condition include: Fever or chills. Redness, swelling, or pain in the tonsils or throat. Pain or difficulty when swallowing. White or yellow spots on the tonsils or throat. Tender glands in the neck and under the jaw. Bad smelling breath. Red rash all over the body. This is rare. How is this diagnosed? This condition is diagnosed by tests that check for the presence and the amount of bacteria that cause strep throat. They are: Rapid strep test. Your throat is swabbed and checked for the presence of bacteria. Results are usually ready in minutes. Throat culture test. Your throat is swabbed. The sample is placed in a cup that allows infections to grow. Results are usually ready in 1 or 2 days. How is this treated? This condition may be treated with: Medicines that kill germs (antibiotics). Medicines that relieve pain or fever. These include: ?Ibuprofen or acetaminophen. ?Aspirin, only for people who are over the age of 18. ?Throat lozenges. ?Throat sprays. Follow these instructions at home: Medicines Take rlkq-oyc-bwflapc and prescription medicines only as told by your health care provider. Take your antibiotic medicine as told by your health care provider. Do not stop taking the antibiotic even if you start to feel better. Eating and drinking If you have trouble swallowing, try eating soft foods until your sore throat feels better. Drink enough fluid to keep your urine pale yellow. To help relieve pain, you may have: ?Warm fluids, such as soup and tea. ?Cold fluids, such as frozen desserts or popsicles. General instructions Gargle with a salt-water mixture 3 4 times a day or as needed. To make a salt-water mixture, completely dissolve 1 tsp (3 6 g) of salt in 1 cup (237 mL) of warm water. Get plenty of rest. Stay home from work or school until you have been taking antibiotics for 24 hours. Do not use any products that contain nicotine or tobacco. These products include cigarettes, chewing tobacco, and vaping devices, such as e-cigarettes. If you need help quitting, ask your health care provider. It is up to you to get your test results. Ask your health care provider, or the department that is doing the test, when your results will be ready. Keep all follow-up visits. This is important. How is this prevented? Do not share food, drinking cups, or personal items that could cause the infection to spread to other people. Wash your hands often with soap and water for at least 20 seconds. If soap and water are not available, use hand social director. Make sure that all people in your house wash their hands well. Have family members tested if they have a sore throat or fever. They may need an antibiotic if they have strep throat. Contact a health care provider if: You have swelling in your neck that keeps getting bigger. You develop a rash, cough, or earache. You cough up a thick mucus that is green, yellow-brown, or bloody. You have pain or discomfort that does not get better with medicine. Your symptoms seem to be getting worse. You have a fever. Get help right away if: You have new symptoms, such as vomiting, severe headache, stiff or painful neck, chest pain, or shortness of breath. You have severe throat pain, drooling, or changes in your voice. You have swelling of the neck, or the skin on the neck becomes red and tender. You have signs of dehydration, such as tiredness (fatigue), dry mouth, and decreased urination. You become increasingly sleepy, or you cannot wake up completely. Your joints become red or painful. These symptoms may represent a serious problem that is an emergency. Do not wait to see if the symptoms will go away. Get medical help right away. Call your local emergency services (911 in the [place] Do not drive yourself to the hospital. Summary Strep throat is an infection in the throat that is caused by the Streptococcus pyogenes bacteria. This infection is spread from person to person (is contagious) through coughing, sneezing, or having close contact. Take your medicines, including antibiotics, as told by your health care provider. Do not stop taking the antibiotic even if you start to feel better. To prevent the spread of germs, wash your hands well with soap and water. Have others do the same. Do not share food, drinking cups, or personal items. Get help right away if you have new symptoms, such as vomiting, severe headache, stiff or painful neck, chest pain, or shortness of breath. This information is not intended to replace advice given to you by your health care provider. Make sure you discuss any questions you have with your health care provider. Document Revised: 07/29/2021 Document Reviewed: 07/29/2021 [employer] Patient Education 2022 [employer]. 05/13/2023 14:40:53 Viral Illness, Adult Viral Illness, Adult Viruses are tiny germs that can get into a person's body and cause illness. There are many different types of viruses, and they cause many types of illness. Viral illnesses can range from mild to severe. They can affect various parts of the body. Short-term conditions that are caused by a virus include colds and the flu (influenza). Long-term conditions that are caused by a virus include herpes, shingles, and HIV (human immunodeficiency virus) infection. A few viruses have been linked to certain cancers. What are the causes? Many types of viruses can cause illness. Viruses invade cells in your body, multiply, and cause the infected cells to work abnormally or . When these cells , they release more of the virus. When this happens, you develop symptoms of the illness, and the virus continues to spread to other cells. If the virus takes over the function of the cell, it can cause the cell to divide and grow out of control. This happens when a virus causes cancer. Different viruses get into the body in different ways. You can get a virus by: Swallowing food or water that has come in contact with the virus (is contaminated). Breathing in droplets that have been coughed or sneezed into the air by an infected person. Touching a surface that has been contaminated with the virus and then touching your eyes, nose, or mouth. Being bitten by an insect or animal that carries the virus. Having sexual contact with a person who is infected with the virus. Being exposed to blood or fluids that contain the virus, either through an open cut or during a transfusion. If a virus enters your body, your body's defense system (immune system) will try to fight the virus. You may be at higher risk for a viral illness if your immune system is weak. What are the signs or symptoms? You may have these symptoms, depending on the type of virus and the location of the cells that it invades: Cold and flu viruses: ?Fever. ?Headache. ?Sore throat. ?Muscle aches. ?Stuffy nose (nasal congestion). ?Cough. Digestive system (gastrointestinal) viruses: ?Fever. ?Pain in the abdomen. ?Nausea. ?Diarrhea. Liver viruses (hepatitis): ?Loss of appetite. ?Tiredness. ?Skin or the white parts of your eyes turning yellow (jaundice). Brain and spinal cord viruses: ?Fever. ?Headache. ?Stiff neck. ?Nausea and vomiting. ?Confusion or sleepiness. Skin viruses: ?Warts. ?Itching. ?Rash. Sexually transmitted viruses: ?Discharge. ?Swelling. ?Redness. ?Rash. How is this diagnosed? This condition may be diagnosed based on one or more of the following: Symptoms. Medical history. Physical exam. Blood test, sample of mucus from your lungs (sputum sample), stool sample, or a swab of body fluids or a skin sore (lesion). How is this treated? Viruses can be hard to treat because they live within cells. Antibiotic medicines do not treat viruses because these medicines do not get inside cells. Treatment for a viral illness may include: Resting and drinking plenty of fluids. Medicines to relieve symptoms. These can include zncl-uol-peytybe medicine for pain and fever, medicines for cough or congestion, and medicines to relieve diarrhea. Antiviral medicines. These medicines are available only for certain types of viruses. Some viral illnesses can be prevented with vaccinations. A common example is the flu shot. Follow these instructions at home: Medicines Take bmpj-vvz-gibmvxz and prescription medicines only as told by your health care provider. If you were prescribed an antiviral medicine, take it as told by your health care provider. Do not stop taking the antiviral even if you start to feel better. Be aware of when antibiotics are needed and when they are not needed. Antibiotics do not treat viruses. You may get an antibiotic if your health care provider thinks that you may have, or are at risk for, a bacterial infection and you have a viral infection. ?Do not ask for an antibiotic prescription if you have been diagnosed with a viral illness. Antibiotics will not make your illness go away faster. ?Frequently taking antibiotics when they are not needed can lead to antibiotic resistance. When this develops, the medicine no longer works against the bacteria that it normally fights. General instructions Drink enough fluids to keep your urine pale yellow. Rest as much as possible. Return to your normal activities as told by your health care provider. Ask your health care provider what activities are safe for you. Keep all follow-up visits as told by your health care provider. This is important. How is this prevented? To reduce your risk of viral illness: Wash your hands often with soap and water for at least 20 seconds. If soap and water are not available, use hand social director. Avoid touching your nose, eyes, and mouth, especially if you have not washed your hands recently. If anyone in your household has a viral infection, clean all household surfaces that may have been in contact with the virus. Use soap and hot water. You may also use bleach that you have added water to (diluted). Stay away from people who are sick with symptoms of a viral infection. Do not share items such as toothbrushes and water bottles with other people. Keep your vaccinations up to date. This includes getting a yearly flu shot. Eat a healthy diet and get plenty of rest. Contact a health care provider if: You have symptoms of a viral illness that do not go away. Your symptoms come back after going away. Your symptoms get worse. Get help right away if you have: Trouble breathing. A severe headache or a stiff neck. Severe vomiting or pain in your abdomen. These symptoms may represent a serious problem that is an emergency. Do not wait to see if the symptoms will go away. Get medical help right away. Call your local emergency services (911 in the [place] Do not drive yourself to the hospital. Summary Viruses are types of germs that can get into a person's body and cause illness. Viral illnesses can range from mild to severe. They can affect various parts of the body. Viruses can be hard to treat. There are medicines to relieve symptoms, and there are some antiviral medicines. If you were prescribed an antiviral medicine, take it as told by your health care provider. Do not stop taking the antiviral even if you start to feel better. Contact a health care provider if you have symptoms of a viral illness that do not go away. This information is not intended to replace advice given to you by your health care provider. Make sure you discuss any questions you have with your health care provider. Document Revised: 08/19/2020 Document Reviewed: 02/13/2020 [employer] Patient Education 2022 [employer]. [facility] 04-16-2023 Hospital Discharge instructions Patient Education 04/16/2023 09:19:59 DASH Eating [...] Dairy Whole or 2% milk, cream, and fvxo-qym-laxl. Whole or full-fat cream cheese. Whole-fat or [...] more information National Heart, Lung, and Blood [place]: www.nhlbi.nih.gov [place] [employer]: www.heart.org Academy of Nutrition and [...] provider. Document Revised: 03/08/2020 Document Reviewed: 03/08/2020 [employer] Patient Education 2022 [employer]. [facility] Pr[facility]enc[facility] 01-27-2023 Hospital Discharge instructions Patient Education 01/27/2023 14:15:24 24-Hour Urine [...] you may eat and drink normally. Take qjks-xul-gdujgap and prescription medicines only as told by your health care provider. Let your health care provider know about any medicines that you are taking, including qrfe-qyy-ovqaibz medicines, vitamins, herbs, and supplements. Choose a [...] provider. Document Revised: 10/10/2021 Document Reviewed: 10/10/2021 Meaning[employer] Patient Education 2022 [employer]. 01/27/2023 14:13:06 Lithotripsy, Care After Lithotripsy, Care [...] Follow these instructions at home: Medicines Take kejl-wgp-aegurki and prescription medicines only as told by [...] provider. Document Revised: 03/02/2022 Document Reviewed: 12/08/2021 Elsevier Patient Education 2022 [employer]. 01/27/2023 14:13:05 Lithotripsy Lithotripsy Lithotripsy is a [...] including vitamins, herbs, eye drops, creams, and mlqu-chg-dcyhmui medicines. Any problems you or family members [...] provider tells you to take them. Taking mjxe-bpt-byckusy medicines, vitamins, herbs, and supplements. Tests You [...] provider. Document Revised: 03/02/2022 Document Reviewed: 12/08/2021 [employer] Patient Education 2022 [employer]. Follow Up Care 01/26/2023 13:34:54 With:YOLA GOLDBERG, Lamont Li, URL Address: [facility] [address] , [place] [address]- When: Unknown [facility] [place] 01-27-2023 Evaluation + Plan note Future Scheduled TestsXR Abdomen 1 View 01/27/23 [facility] 09-16-2022 Evaluation note Encounter Date Diagnosis Assessment [...] Mass of left hand (ICD-10 - R22.32) [facility] Other 04-26-2023 Evaluation + Plan note Future Scheduled Tests Radiology* MA Mamm Diag w/CAD if perf and 3D LT 08/12/22 [facility]04-03-2023 Hospital Discharge instructions Patient Education 07/20/2022 10:46:48 [...] 10/19/2011 Document Revised: 03/29/2019 Document Reviewed: 03/29/2019 [employer] Patient Education 2020 [employer]. 07/20/2022 10:46:46 Heartburn Heartburn Heartburn is a [...] powder, vinegar, hot sauces, and barbecue sauce. ?[place] fruit juices and citrus fruits, such as oranges, lalit, and limes. ?Tomato-based foods, such as red sauce, chili, salsa, and pizza with red sauce. ?Fried and fatty foods, such as donuts, slovak fries, potato chips, and high-fat dressings. ?High-fat [...] to any changes in your symptoms. Take veqi-nun-tmoxdhj and prescription medicines only as told by [...] told by your health care provider. Take ewxy-mzs-knawjdm and prescription medicines only as told by [...] 08/22/2009 Document Revised: 09/05/2018 Document Reviewed: 09/05/2018 [employer] Patient Education 2020 [employer]. 07/20/2022 10:46:45 Hypertension, Adult Hypertension, Adult High [...] care provider. This is important. Medicines Take vxke-kcw-mbmmocg and prescription medicines only as told by [...] 04/05/2006 Document Revised: 12/14/2018 Document Reviewed: 12/14/2018 Meaning[employer] Patient Education 2020 [employer] Inc. 07/20/2022 10:46:41 Dyslipidemia Dyslipidemia Dyslipidemia is an [...] bumps under the skin (xanthomas). White or urbie ring around the black center (pupil) of [...] quitting, ask your health care provider. Take pyzr-zuw-ldysrii and prescription medicines only as told by [...] 04/10/2014 Document Revised: 11/28/2018 Document Reviewed: 11/04/2018 [employer] Patient Education 2020 [employer]. 07/20/2022 10:46:39 BMI for Adults BMI for [...] height. This can be done either in [place]ian ([place] or metric measurements. Note that charts are available to help you find your BMI quickly and easily without having to do these calculations yourself. To calculate your BMI in [place]ian ([place] measurements, your health care provider will: [...] medical problems. BMI can be measured using Ghanaian measurements or metric measurements. To interpret your [...] 12/15/2004 Document Revised: 03/18/2018 Document Reviewed: 02/16/2018 Meaning[employer] Patient Education 2020 [employer]. Follow Up Care 06/30/2022 14:46:12 With:Brian DANIELYasmine Address: [address] [place] [address], [place] [address]- When:Within 1 Month(s) Comments:recheck BP, review thyroid labs/US [facility] 03-14-2023 Hospital Discharge instructions [...] your health care provider. General instructions Take xisz-ftx-zftaemd and prescription medicines only as told by [...] 04/05/2006 Document Revised: 08/01/2019 Document Reviewed: 04/04/2019 Meaning[employer] Patient Education 2020 [employer]. Follow Up Care 06/30/2022 17:49:12 With:Yasmine Torres Address: [facility] [address], [facility] [place] [address] Business (1) When:07/03/2022 20:46:13 Comments:Call the office of [...] you develop any new or worsening symptoms. [facility]10-05-2022 Hospital Discharge instructions Patient Education 01/21/2022 11:14:44 [...] patches to the wart. These may be frbc-nfm-evzopnk or prescription medicines that make the skin [...] Follow these instructions at home: Medicines Apply wdhl-pyf-bzxfvrx and prescription medicines only as told by your health care provider. Do not apply yvqe-hay-usqygqt wart medicines to your face or genitals [...] desired, there are several treatment options. Apply ilut-kzh-xhqrjad and prescription medicines only as told by [...] 01/13/2006 Document Revised: 08/23/2018 Document Reviewed: 08/23/2018 Meaning[employer] Patient Education 2020 [employer]. 01/21/2022 11:14:39 BMI for Adults BMI for [...] height. This can be done either in [place]ian ([place] or metric measurements. Note that charts are available to help you find your BMI quickly and easily without having to do these calculations yourself. To calculate your BMI in [place]ian ([place] measurements, your health care provider will: [...] medical problems. BMI can be measured using Ghanaian measurements or metric measurements. To interpret your [...] 12/15/2004 Document Revised: 03/18/2018 Document Reviewed: 02/16/2018 Meaning[employer] Patient Education 2020 [employer]. 01/21/2022 11:14:37 Vitamin D Deficiency Vitamin D [...] 06/27/2012 Document Revised: 12/12/2018 Document Reviewed: 12/12/2018 Meaning[employer] Patient Education 2020 [employer]. 01/21/2022 11:14:35 High Cholesterol High Cholesterol High [...] deposits (plaques) may build up on the [place] of your blood vessels (arteries). Plaques makethe [...] gardening, walking, and taking the stairs. Take swym-oii-njbsvgk and prescription medicines only as told by [...] 04/05/2006 Document Revised: 04/08/2018 Document Reviewed: 10/03/2016 Meaning[employer] Patient Education 2020 [employer]. 01/21/2022 11:14:33 Sarcoidosis Sarcoidosis Sarcoidosis is a [...] a family history of the disease. Are -[place]yp[place]. Are of [place] descent. Are 20 50 years old. 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 Work in an environment where you are [...] are safe for you. Take or use ivrh-tbb-teismrf and prescription medicines only as told by [...] 02/03/2005 Document Revised: 03/18/2018 Document Reviewed: 01/11/2018 Meaning[employer] Patient Education 2020 [employer]. 01/21/2022 11:01:14 Exercising to Stay Healthy Exercising [...] exercise? Yard work, such as: ?Pushing a community cultural development officer. ?Raking and bagging leaves. Washing your car. [...] 05/08/2011 Document Revised: 03/18/2018 Document Reviewed: 02/24/2018 Meaning[employer] Patient Education 2020 [employer]. 01/21/2022 11:01:10 Healthy Eating Healthy Eating Following [...] soapy water. ?Keep raw meats separate from ijdzo-yv-ldv foods, such as fruits and vegetables. ?diamond wheel molder, meat, poultry, and eggs to the recommended [...] include 1 slice of bread, 1 cup pynpw-ra-sjl cereal, 3 cups popcorn, or cup cooked [...] 07/18/2018 Document Revised: 07/18/2018 Document Reviewed: 07/18/2018 Meaning[employer] Patient Education 2020 [employer]. Follow Up Care 01/13/2022 14:30:20 With:Danii Joyner CNP Address: [address] [place] [phone] When:6 months [facility] 03-01-2022 Evaluation note* Encounter Date Diagnosis Assessment Notes Treatment Notes Treatment Clinical Notes Jun, Acute conjunctivitis of both eyes, unspecified acute conjunctivitis type (ICD-10 - H10.33) [facility] Other 02-25-2022 Evaluation note* Encounter Date Diagnosis [...] Patient care instructions given in writting by [facility] At Home document. [facility] Other 02-21-2022 NoteHNO ID: [id number] Author: Karthikeyan Myers MD Service: ? Author Type: Physician Type: Progress Notes Filed: 06/11/2021 10:46 AM Note Text: Respiratory [place] Narcisa Benitez is a 56 year old female here for evaluation by the [facility] Sarcoidosis Team. Consultation requested by Dr. [...] with sarcoidosis by biopsy with bronchoscopy in [place]. Has not required medical car efor it [...] reviewed. No pertinent surgical history. 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 Patient [...] overall regarding her symptom (more content not included)...[facility]02-21-2022 NoteHNO ID: [id number] Author: Lyubov Nash, DEVON Service: ? Author Type: Registered Resp Therapist Type: Progress Notes Filed: 06/09/2021 2:16 PM Note Text: PULM FUNCTION SMARTBLOCK: Provider: Deisy Meadows PA-C Spirometry: 1 DLCO: 1 System: [id number] NoteHNO ID: [id number] Author: RT Faiza(R) Service: ? Author Type: Technologist Type: Progress [...] IV DATA: Not applicable SIGNED BY: RT Faiza(R) June 09, 2021 1:37 [facility]12-31-2021 Evaluation + Plan note Future Scheduled Tests Laboratory* COVID-19 ([facility]) 04/18/21 * Basic Metabolic Panel 04/11/21 * Hepatic Function [facility] Appointment Date:11/03/2021 07:00:00 AM Scheduled Provider: [facility] Type:MA Screen () Future Scheduled Tests Laboratory* COVID-19 ([facility]) 04/18/21 * Basic Metabolic Panel 04/11/21 * Hepatic Function Panel 04/11/21 Radiology* MA Mamm Screen w/CAD if perf and 3D Riley [facility]03[facility] App[facility]ments Appointment Date:07/20/2022 10:20:00 AM Scheduled Provider:Yasmine Lewis Location:[facility] Future Appointments Appointment Date:07/21/2022 10:00:00 AM Scheduled Provider: [facility] Appoint[facility] Type:PT Eval (FT) Appointment Date:07/24/2022 10:30:00 AM Scheduled Provider: Location[facility] Appointment Type:US Thyroid/Neck/Chest (FT) Appointment Date:08/06/2022 08:15:00 AM Scheduled Provider: [facility] Appoint[facility] Type:MA Screen (FT) Appointment Date:08/24/2022 10:40:00 AM Scheduled Provider:Yasmine Lewis Location:[facility] Appointment Type:FM Open Future Scheduled Tests Laboratory* Thyroid-stimulating Immunoglobulin [...] w/CAD if perf and 3D Riley 08/06/22 [facility] Evaluation + Plan note Future Appointments Appointment Date:08/06/2022 08:15:00 AM Scheduled Provider: Location[facility] Appointment Type:MA Screen (FT) Appointment Date:08/24/2022 10:40:00 AM Scheduled Provider:Yasmine Lewis Location:[facility] Appointment Type: Open Diagnostic Tests Pending * T3 Free 07/24/22 * Thyroid Perox.tpo Ab 07/24/22 * Thyroid-stimulating Immunoglobulin (TSI) 07/24/22 Future Scheduled Tests Radiology* BD Bone Density DEXA 07/20/22 * MA Mamm Screen w/CAD if perf and 3D Riley [facility]06[facility] App[facility]ments Appointment Date:08/24/2022 10:40:00 AM Scheduled Provider:Yasmine Lewis Location:[facility] Appointment Type: Open [facility] Future Appointments Appointment Date:01/29/2023 09:15:00 AM Scheduled Provider: Location[facility] Appointment Type:MA Diagnostic (FT) Appointment Date:01/29/2023 10:00:00 AM Scheduled Provider: Location[facility] Appointment Type:US Breast (FT) Future Scheduled Tests Radiology* XR Abdomen 1 View 01/27/23 * US Breast Unilateral Lt Complete 01/29/23 * MA Mamm Diag w/CAD if perf and 3D LT 01/29/23 [facility] [place] Evaluation + Plan note Future Appointments Appointment Date:04/26/2023 08:00:00 AM Scheduled Provider:ALCON CABRAL CNP Location:[facility] Appointment Type: Open [facility] [place] Evaluation + Plan note Future Appointments Appointment Date:05/17/2023 11:00:00 AM Scheduled Provider:Mil Nguyen MD [facility] Type:Cardiology New Patient (FT) Diagnostic Tests Pending * Group A Strep by PCR 05[facility]13/23 [facility] Future App[facility]ments Appointment Date:05/17/2023 11:00:00 AM Scheduled Provider:Mil Nguyen MD [facility] Type:Cardiology New Patient (FT) [facility] Evaluation noteNo assessment information available [facility] Work Phone: Hospital course Narrative No data available for this section [facility] No data available for this section [facility] No data available for this section [facility] Summary Purpose Family History No Family History [...] for this section No Family History Records FoundNo Family History Records Found Advance Directives No Advanced Directives Records Found Advance Directive Response Recorded Date/ Time Advance Directives No July 05 020 1:12pm Additional Source Comments INFORMATION SOURCE (unrecogn ized section and content) DATE CREATED AUTHOR 08/23/2021 [facility] DATE CREATED AUTHOR AUTHOR'S ORGANIZ ATION 10/09/2022 [facility] DATE CREATED AUTHOR AUTHOR'S ORGANIZ ATION 05/18/2023 [facility] DATE CREATED AUTHOR AUTHOR'S ORGANIZ ATION 05/28/2023 [facility] REASON FOR VISIT (unrecogniz ed section and [...] BE BASED ON THE PRIMARY CLINICAL RECORDS. [employer] [facility]. provides no warranty or guarantee of the accuracy or completeness of information in this document.
[2023-06-14 08:45] LABS: Basophils Absolute Auto 0.1 10^3/uL (0.0-0.1); Basophils Percent Auto 1.4 % (0.2-2.0); Eosinophils Absolute Auto 0.2 10^3/uL (0.0-0.7); Eosinophils Percent Auto 3.6 % (0.9-7.0); Hemoglobin 13.9 g/dL (12.0-16.0); Immature Granulocytes Abs Auto 0.02 10^3/uL (0.00-0.03); Immature Granulocytes Pct Auto 0.4 % (0.0-0.5); Lymphocytes Absolute Auto 1.9 10^3/uL (1.2-3.8); Lymphocytes Percent Auto 32.9 % (20.5-60.0); Mean Corpuscular HGB Conc 33.9 g/dL (29.9-35.2); Mean Corpuscular Hemoglobin 30.5 pg (26.7-34.0); Mean Corpuscular Volume 90.1 fL (81.0-99.0); Mean Platelet Volume 9.4 fL (9.5-13.5); Monocytes Absolute Auto 0.7 10^3/uL (0.3-0.8); Monocytes Percent Auto 12.4 % (1.7-12.0); Neutrophils Absolute Auto 2.8 10^3/uL (1.4-6.5); Neutrophils Percent Auto 49.3 % (43.0-75.0); Platelet Count 322 10^3/uL (150-450); Red Blood Count 4.55 10^6/uL (4.20-5.40); Red Cell Distribution Width 12.6 % (11.0-15.0); White Blood Count 5.6 10^3/uL (4.0-11.0)
[2023-06-14 09:00] LABS: Anion Gap 11.6; BUN Creatinine Ratio 24.7; Carbon Dioxide 27.4 mmol/L (21.0-32.0); Chloride 104 mmol/L (98-107); Estimated GFR (African America >60 (>=60); Estimated GFR (Non-African Ame >60 (>=60); Glucose 103 mg/dL (74-106); Sodium 139 mmol/L (136-145)
[2023-06-14 09:46] LABS: INR 0.97; Partial Thromboplastin Time 29.6 sec (22.3-36.2); Prothrombin Time 10.3 sec (9.0-11.6)
== END 2023-06-14 07:57 | disposition home or self-care (01) ==
LOC: PST 07:57
PROVIDERS: Visit Provider Urology
DX: Z01.812 Encounter for preprocedural laboratory examination (principal); R31.9 Hematuria, unspecified; N20.0 Calculus of kidney
CPT/HCPCS: 36415; 80048; 85025; 85610; 85730

== ENCOUNTER 2023-06-17 06:40 | Day surgery (SDC) | payer OTHER, SELFPAY ==
[2023-03-29 08:45] VITALS: BP 180/110; PULSE 64; RESP 20; TEMP 36.3; O2SAT 95; BMI 34.9
[2023-06-14 08:34] VITALS: BP 128/85; PULSE 83; RESP 16; TEMP 36.3; O2SAT 96; BMI 36.0
--- NOTE | 2023-06-17 06:45 | XR_ITS ---
The [address] [address] Patient Name: JENNIFER GANNON MRN: [id number] date: 1965 Sex: F Assigned Patient Location: [facility] Current Patient Location: [facility] Accession/Order Number: [id number] Exam Date: 06/17/2023 06:50 Report Date: 06/17/2023 07:08 At the request of: ANNELIESE ACEVES Procedure: XR abdomen 1V EXAMINATION: XR abdomen 1V HISTORY: preop COMPARISON: No relevant comparison available. FINDINGS: KIDNEY/URETER - RIGHT: Multiple right nephroliths measuring up to 5 mm projected over the lower pole KIDNEY/URETER - LEFT: Poorly visualized due to stool PELVIS: No visible ureteral calcifications. Any visible calcifications favor phleboliths. BOWEL: No abnormal dilation or deviation. BONES: No acute abnormality. OTHER: Negative. No abnormal gaseous collections. XR/XR abdomen 1V IMPRESSION: Right nephrolithiasis Electronically authenticated by: BEBE LEON Date: 06/17/2023 07:08
--- OUTSIDE RECORDS SUMMARY | 2023-06-17 06:45 | XMS_ITS | CCD ---
Author Name Unknown Address [address] [place] [address] Organization [facility] Care Team Providers Care Tab Card Press Operator Name Role Phone Dixie HOLM Primary Care Physician Kit Evans Unavailable Yasmine Torres Primary Care Physician [phone] NO FAMILY, PHYSICIAN Primary Care Provider Unava ilable MD Pauly Oden Attending Provider Pauly Oden Unavailable Pauly Oden Attending Unavailable Pauly Oden Admitting Unavailable NO FAMILY, PHYSICIAN Primary Care Unavailable ALCON CABRAL Primary Care Physician [phone] Hardik SIMMS Primary Care Physician JENARO LEAL [...] Medication Allergies] Propensity to adverse reactions (disorder) [facility] Repository Medications Current Medications Medication Drug Class(es) Dates Sig (Normalized) Sig (Original) acetaminophen 325 mg / HYDROcodone bitartrate 5 mg oral tablet (1 source) Opioid Agonist Start: 01-25-2023 End: 01-28-2023 [place] 325 mg-5 mg oral tablet 1 tab(s), Oral, q6hr for pain for 3 day(s), 7 tab(s), Refill(s) 0, [facility], 168, cm, 01/25/23 17:56:00 EDT, Height/Length Dosing, 95, kg, 01/25/23 17:56:00 EDT, Weight Dosing Start Date: 01/25/23 Stop Date: 01/28/23 Status: Ordered Albuterol (Eqv-ProAir HFA) 90 mcg/inh inhalation aerosol (3 sources) Start: 05-13-2023 take 2 puff(s) by inhalation every six hours Albuterol (Eqv-ProAir HFA) 90 mcg/inh inhalation aerosol 2 puff(s), Inhalation, q6hr, 8.5 gm, Refill(s) 0, [facility], 164, cm, 05/13/23 13:58:00 EST, Height/Length Dosing, 97.7, kg, 05/13/23 13:58:00 EST, Weight Dosing Start Date: 05/13/23 Status: Ordered amLODIPine 10 mg oral tablet (3 sources) Dihydropyridine Calcium Channel Jorge Start: 05-17-2023 take 1 tablet by mouth once daily amLODIPine 10 mg Tab 10 mg = 1 tab(s), Oral, Daily, # 90 tab(s), Refills(s) 3, Pharmacy: [facility] #[facility], 167, cm, 05/17/23 11:06:00 EST, Height/Length Dosing, 97, kg, 05/17/23 11:06:00 EST, Weight Dosing Start Date: 05/17/23 Status: Ordered Start: 04-26-2023 take 1 tablet by paulino th once daily amLODIPine 5 mg Tab 5 mg = 1 tab(s), Oral, Daily, # 30 tab(s), Refills(s) 1, Pharmacy: [facility] #[facility], 167, cm, 04/26/23 7:57:00 EST, Height/Length [...] day(s), # 90 tab(s), Refills(s) 1, Pharmacy: [facility], 168, cm, 07/20/22 10:23:00 EDT, Height/Length Dosing, 98.1, kg, 07/20/22 10:23:00 EDT, Weight Dosing Start Date: 07/24/22 Stop Date: 01/20/23 Status: Ordered Start: 01-21-2022 take 1 tablet by paulino once daily atorvastatin 20 mg Tab 20 mg = 1 tab(s), Oral, Daily, # 30 tab(s), Refills(s) 6, Pharmacy: [facility], 168, cm, 01/21/22 10:40:00 EDT, Height/Length [...] nasal route twice daily Flonase 0.05 mg/inh [place] 1 spray(s), Nasal, BID, 16 gram, Refill(s) 0, each nostril, [facility], 164, cm, 05/13/23 13:58:00 EST, Height/Length Dosing, 97.7, kg, 05/13/23 13:58:00 EST, Weight Dosing Start Date: 05/13/23 Status: Ordered Start: 06-13-2021 take 1 spray(s) nasa l route twice daily Fluticasone Propionate 50 MCG/ACT 1 spray in each nostril Nasally Twice a day for 14 days May, Active Start: 06-15-2019 fluticasone 0. 05 mg/inh Nasal [place] 1 spray(s), Nasal, BID, Refill(s) 0, Congestion Start Date: 06/15/19 Status: Ordered fluticasone 0.05 mg/inh Nasal [place] (2 sources) Start: 06-15-2019 fluticasone 0. 05 mg/inh Nasal [place] 1 spray(s), Nasal, BID, Refill(s) 0, Congestion Start Date: 06/15/19 Status: Ordered 12 hr guaiFENesin 600 mg extended release oral tablet (3 sources) Start: 05-13-2023 End: 05-20-2023 take 1 tablet by mouth every twelve hours Mucinex 600 mg Tab-ER 600 mg = 1 tab(s), Oral, q12hr, X 7 day(s), # 14 tab(s), Refills(s) 0, Pharmacy: [facility], 164, cm, 05/13/23 13:58:00 EST, Height/Length [...] day(s), # 90 tab(s), Refills(s) 1, Pharmacy: [facility] #[facility], 167, cm, 04/16/23 8:34:00 EST, Height/Length Dosing, 98, kg, 04/16/23 8:34:00 EST, Weight Dosing Start Date: 04/26/23 Stop Date: 10/23/23 Status: Ordered Start: 04-16-2023 take 1 tablet by paulino once daily losartan 100 mg Tab 100 mg = 1 tab(s), Oral, Daily, # 30 tab(s), Refills(s) 1, Pharmacy: [facility] #[facility], 167, cm, 04/16/23 8:34:00 EST, Height/Length Dosing, 98, kg, 04/16/23 8:34:00 EST, Weight Dosing Start Date: 04/16/23 Status: Ordered Start: 04-06-2023 take 1 tablet by paulino th once daily losartan 50 mg Tab 50 mg = 1 tab(s), Oral, Daily, # 30 tab(s), Refills(s) 1, Pharmacy: [facility] #[facility], 167, cm, 03/29/23 11:13:00 EST, Height/Length Dosing, 98.6, kg, 03/29/23 11:13:00 EST, Weight Dosing Start Date: 04/06/23 Status: Ordered Start: 03-29-2023 take 1 tablet by paulino th once daily losartan 25 mg Tab 25 mg = 1 tab(s), Oral, Daily, # 30 tab(s), Refills(s) 1, Pharmacy: [facility] #[facility], 167, cm, 03/29/23 11:13:00 EST, Height/Length [...] Daily, # 90 cap(s), Refills(s) 3, Pharmacy: [facility], 167.6, cm, 12/12/19 8:05:00 EDT, Height/Length Dosing, 88.6, kg, 12/12/19 8:05:00 EDT, Weight Dosing Start Date: 12/18/19 Status: Ordered omeprazole 20 mg Cap-DR (1 source) Start: 12-18-2019 take 1 capsule by mouth once daily omeprazole 20 mg Cap-DR 20 mg = 1 cap(s), Oral, Daily, # 90 cap(s), Refills(s) 3, Pharmacy: [facility], 167.6, cm, 12/12/19 8:05:00 EDT, [...] days, # 25 EA, Refills(s) 0, Pharmacy: [facility], 168, cm, 05/02/21 9:26:00 EST, Height/Length Dosing, 95, kg, 04/08/21 15:37:00 EST... Start Date: 05/02/21 Status: Ordered rosuvastatin calcium 5 mg oral tablet (2 sources) HMG-CoA Reductase Inhibitor Start: 10-14-2020 take 1 tablet by mouth once daily Crestor 5 mg Tab 5 mg = 1 tab(s), Oral, Daily, # 90 tab(s), Refills(s) 1, Pharmacy: [facility]/pharmacy #[id number], 167.6, cm, 10/14/20 16:23:00 EDT, Height/Length Dosing, 93.5, kg, 10/14/20 16:23:00 EDT, Weight Dosing Start Date: 10/14/20 Status: Ordered tamsulosin hydrochloride 0.4 mg oral capsule (5 sources) alpha-Adrenerg ic Jorge Start: 01-25-2023 take 1 capsule by mouth once daily Flomax 0.4 mg Cap 0.4 mg = 1 cap(s), Oral, Daily, # 10 cap(s), Refills(s) 0, Pharmacy: [facility], 168, cm, 01/25/23 17:56:00 EDT, Height/Length [...] q8hr, # 12 tab(s), Refills(s) 0, Pharmacy: [facility], 168, cm, 01/25/23 17:56:00 EDT, Height/Length Dosing, 95, kg, 01/25/23 17:56:00 EDT, Weight Dosing Start Date: 01/25/23 Status: Ordered Completed/Discontinued Medications Medication Drug Class(es) Dates Sig (Normalized) Sig (Original) Blood pressure cuff (4 sources) Start: 10-14-2020 Blood pressure cuff Blood pressure cuff, See Instructions, 1 EA, 0, Blood pressure cuff. Take daily to assess for BPs, [facility]/pharmacy #[id number], Supply, 167.6, cm, 10/14/20 16:23:00 EDT, Height/Length Dosing, 93.5, kg, 10/14/20 16:23:00 EDT, Weight Dosing Start Date: 10/14/20 Status: Ordered cholecalciferol 0.05 mg oral capsule (2 sources) Vitamin D Start: 01-21-2022 End: 08-19-2022 cholecalciferol 2000 intl units oral capsule 2,000 International_Unit = 1 cap(s), Oral, Daily, with food. Then retest vit D level., X 30 day(s), # 30 cap(s), Refills(s) 6, Pharmacy: [facility], 168, cm, 01/21/22 10:40:00 EDT, Height/Length Dosing, 92.8, kg, 01/21/22 10:40:00 EDT... Start Date: 01/21/22 Stop Date: 08/19/22 Status: Ordered potassium chloride 10 meq extended release oral capsule (4 sources) Start: 12-19-2020 take 1 capsule by mouth once daily potassium chloride 10 mEq Cap-ER 10 mEq = 1 cap(s), Oral, Daily, # 90 cap(s), Refills(s) 1, Pharmacy: [facility], 167.6, cm, 10/14/20 16:23:00 EDT, Height/Length Dosing, 93.5, kg, 10/14/20 16:23:00 EDT, Weight Dosing Start Date: 12/19/20 Status: Ordered Start: 12-19-2020 take 1 capsule by [facility] once daily potassium chloride 10 mEq Cap-ER 10 mEq = 1 cap(s), Oral, Daily, # 90 cap(s), Refills(s) 1, Pharmacy: [facility], 167.6, cm, 10/14/20 16:23:00 EDT, [...] water, # 160 cap(s), Refills(s) 1, Pharmacy: [facility]/pharmacy #[id number], 167.6, cm, 12/12/19 8:05:00 EDT, Height/Length [...] Procedure/Surger yon 05-26-2023 Consent for Procedure/Surgery [id number] #1.00TIFF Normal [facility] Heart and Vascular Office/Cl inic Noteon 05-24-2023 [...] with voice recognition artificial intelligence software, specifically [employer], [employer] and or [employer]. Substitutions may have occurred with voice recognition and artificial intelligence software. Documentation services were performed after the patient or guardian consented to allow [employer] to record this visit. LAURA family services specialist and provider reviewed before signing. LAURA: Sonu Fajardo Ano-os/Pasted by: Esther Eric. Follow-up No qualifying data available Problem List/Past Medical History Ongoing Abnormal mammogram of left breast Acid reflux (more content not included)... [facility] Comment on above: Result Comment: Elec tronically Signed By: Wendy GOLDBERG, Mil Scott\.br\Date and Time Signed: 05/24/23 08:46 EST\.br\Electronically Co-Signed By: Esther Eric\.br\Date and Time Co-Signed: 05/17/23 13:07 EST\.br\Electronically Co-Signed By: Sintia Villar\.br\Date and Time Co-Signed: 05/27/23 17:42 EST Consent for Treatmenton 04-20 Consent for Treatment [id number] ED#1.00TIFF Normal [facility] Formson 05-17-2023 Forms [id number] 47#1.00TIFF Normal [facility] Physician Orderon 05-17-2023 Physician Order [id number] 70#1.00TIFF Normal [facility] Grp A Strp PCRon 05-14-2023 Grp A Strp Intrl Ctrl Pass Normal [facility] Comment on above: Performed By: #### 1 [id number] ####[facility] [address] [place] [address] S. pyogenes DNA NESTOR+probe Ql (Throat) Negative Normal [facility] Comment on above: Result Comment: Test ing performed using DNA amplification. Performed By: #### 1 [id number] ####[facility] [address] [place] [address] Family Medicine Office/Clini c Noteon 05-13-2023 Family [...] agree with above documented HPI by medical billing assistant. Patient is a 58-year-old female, with history of sarcoidosis and kidney stones, presents with a chief complaint of productive cough with green sputum and sore throat. She also complains of a runny nose. She states that she has been sick the whole month of April . She states she has been around COVID and strep throat at work. Patient works at [employer] so she is exposed to multiple people. [...] q6hr, 8.5 gm, Refill(s) 0, [facility], 164, cm, 05/13/23 13:58:00 EST, Height/Length Dosing, 97.7, kg, 05/13/23 13:58:00 EST, Weight Dosing fluticasone nasal, 1 spray(s), Nasal, BID, 16 gram, Refill(s) 0, each nostril, [facility] #[facility], 164, cm, 05/13/23 13:58:00 EST, Height/Length Dosing, 97.7, kg, 05/13/23 13:58:00 EST, Weight Dosing guaifenesin, 600 mg = 1 tab(s), Oral, q12hr, X 7 day(s), # 14 tab(s), Refills(s) 0, Pharmacy: [facility] #[facility], 164, cm, 05/13/23 13:58:00 EST, [...] Nasal, BID (more content not included)... Normal [facility] Comment on above: Result Comment: [...] problems to watch for. ? Antifungal nail hungarian or nail cream. These may be used [...] at home: Medicines ? Take or apply nzso-njf-kdrnnlx and prescription medicines only as told by your health care provider. ? Ask your health care provider about using tpmy-txa-pykmvrz mentholated ointment on your nails. Nail care [...] also come back. ? Take or apply tmui-ats-afgcdjn and prescription medicines only as told by your health care provider. This information is not intended to replace advice given to you by your health care provider. Make sure you discuss any questions you have with your health care provider. Document Revised: 07/07/2021 Document Reviewed: 07/07/2021 [employer] Patient Education ? 2022 [employer] Strep Throat, Adult Strep throat is [...] called phar (more content not included)... Normal [facility] Patient Logson 05-07-2023 Patient Logs [id number] 97#1.00TIFF [facility] Physician Referralon 024 Physician Referral [id number] 09#1.00TIFF [facility] Ambulatory Visit Summaryon 0 05-06-2023 Ambulatory Visit [...] choosing us for your care. Normal [facility] Family Medicine Office/Clini c Noteon 05-06-2023 [...] clearance from cardiology- patient in agreement Ordered: [facility] Internal Ambulatory Referral 2. BMI 35.0-35.9,adult (Z68.35: Body mass index [BMI] 35.0-35.9, adult) Patient has gained two pounds since her last visit Monitor weight at each visit Encouraged daily exercise, low sodium diet and portion control Follow-up No qualifying data available Patient Education Managing Your Hypertension Hypertension, Adult, Bksd-lo-Xqwv Problem List/Past Medical History Ongoing Abnormal mammogram [...] vaccine, i (more content not included)... Normal [facility] Comment on above: Result Comment: [...] blood pr (more content not included)... Normal [facility] Ambulatory Visit Summaryon 0 05-03-2023 Ambulatory Visit [...] for choosing us for your care. Normal [facility] Nurse Consultation Noteon Nurse Consultation Note Reason [...] diphtheria/pertussi s, acel/tetanus adult 12/02/2018 Recorded Normal [facility] Ambulatory Visit Summaryon 0 04-26-2023 Ambulatory Visit [...] Follow-Up Appointments Wednesday 8:00 AM EST Where: [facility] Sina Normal [facility] Family Medicine Office/Clini c Noteon [...] 87.1 fL (01/25/23) Chloride: 102 mmol/L (01/25/23) [place] Absolute: 0.8 E9/L (01/25/23) CO2: 27 mmol/L (01/25/23) [place] Auto: 10.6 % (01/25/23) Creatinine: 0.8 mg/dL [...] Daily, # 30 tab(s), Refills(s) 1, Pharmacy: [facility], 167, cm, 04/26/23 7:57:00 EST, Height/Length Dosing, 96.9, kg, 04/26/23 7:57:00 EST, Weight Dosing losartan, 25 mg = 1 tab(s), Oral, Daily, # 30 tab(s), Refills(s) 1, Pharmacy: [facility], 167, cm, 03/29/23 11:13:00 EST, Height/Length Dosing, 98.6, kg, 03/29/23 11:13:00 EST, Weight Dosing losartan, 50 mg = 1 tab(s), Oral, Daily, # 30 tab(s), Refills(s) 1, Pharmacy: [facility], 167, cm, 03/29/23 11:13:00 EST, Height/Length [...] Daily, # 30 tab(s), Refills(s) 1, Pharmacy: [facility], 167, cm, 04/26/23 7:57:00 EST, Height/Length Dosing, 96.9, kg, 04/26/23 7:57:00 EST, Weight Dosing losartan, 100 mg = 1 tab(s), Oral, Daily, X 90 day(s), # 90 tab(s), Refills(s) 1, Pharmacy: [facility], 167, cm, 12/29/23 8:34:00 EST, Height/Length Dosing, (more content not included)... Normal [facility] Comment on above: Result Comment: Elec [...] Keep all follow-up visits. Medicines ? Take qdav-mqu-byqgyix and prescription medicines only as told by [...] For m (more content not included)... Normal [facility] Patient Logson 04-26-2023 Patient Logs [id number] F#1.00TIFF Normal [facility] Family Medicine Office/Clini c Noteon [...] reports her father just was released from [facility] and HH will be coming but she [...] Daily, # 30 tab(s), Refills(s) 1, Pharmacy: [facility], 167, cm, 04/16/23 8:34:00 EST, Height/Length [...] s, acel/tetanus adult 12/02/2018 Recorded Normal [facility] Comment on above: Result Comment: Elec [...] Spices. Seasoni (more content not included)... Normal [facility] Patient Logson 04-16-2023 Patient Logs [id number] 7B#1.00TIFF Normal [facility] Nurse Consultation Noteon Nurse Consultation Note Reason [...] diphtheria/pertussi s, acel/tetanus adult 12/02/2018 Recorded Normal [facility] ECG 12-Leadon 03-30-2023 ECG 12-Lead [id number] 76#1.00TIFF Normal [facility] Lab Reportson 03-30-2023 Lab Reports [id number] AB#1.00TIFF Normal [facility] Ambulatory Visit Summaryon 1 05-30-2022 Ambulatory Visit [...] AM EST With: ALCON CABRAL CNP Where: [facility] [place] Normal [facility] Family Medicine Office/Clini c Noteon 03-29-2023 Family [...] blood pressure. She states she when to [facility] for pre-admission testing this AM and [...] Daily, # 30 tab(s), Refills(s) 1, Pharmacy: [facility], 167, cm, 03/29/23 11:13:00 EST, Height/Length Dosing, 98.6, kg, 03/29/23 11:13:00 EST, Weight Dosing 2. BMI 35.0-35.9,adult (Z68.35: Body mass index [BMI] 35.0-35.9, adult) Monitor at each visit Discussed pharmacological interventions to aid in weight loss Encouraged daily exercise and portion control Ordered: losartan, 25 mg = 1 tab(s), Oral, Daily, # 30 tab(s), Refills(s) 1, Pharmacy: [facility], 167, cm, 03/29/23 11:13:00 EST, Height/Length Dosing, 98.6, kg, 03/29/23 11:13:00 EST, Weight Dosing Total time spent preparing the chart, conducting of the encounter with the patient and family and time spent documenting, reviewing, and ordering tests was 30 minutes. Follow-up With When Contact Information QUE NEGRON, SHALOM MAYS Within 4 weeks [address] [place] [id number] [facility] (1) Additional Instructions: HTN Patient Education DASH [...] Recorded SARS-CoV (more content not included)... Normal [facility] Comment on above: Result Comment: Elec troazaleaally [...] Herbs. Spices. Seasoni (more content not included)... [facility] Insurance Correspondenceon 1 05-23-2022 Insurance Correspondence [id number] 946#1.00TIFF [facility] Consent for Procedure/Surger yon 03-18-2023 Consent for Procedure/Surgery [id number] 84#1.00TIFF [facility] Consent for Treatmenton 02-18 Consent for Treatment [id number] 01#1.00TIFF [facility] XR Abdomen 1 Viewon 03-17-20 23 XR [...] mGy = na DAP = na Normal [facility] UroVysion Fish and Urine Cyt o ([facility])on 02-04-2023 UVFISH & UC Diagnosis Info Invalid Interpretation Code [facility] Comment on above: Result Comment: [...] correlated with cytology and cystoscopy results.* CPT 34186, 09676 Microscopic Notes - Microscopic Notes - Abnormal cells 9p21 deletions: Abnormal cells aneploid events: Total cells analyzed: 36 Hematuria: Gross Description Site ID:A color Yellow fixative Alcohol Received 100 mls of slightly cloudy yellow fluid with the patient's name and, Urine on the vial. Electronically signed by : on: 02/04/2023 08:51:43 Performed By: #### 1 [id number] ####[facility] [address] [place] [address] Consent for Treatmenton 01-17 Consent for Treatment [id number] D4#1.00TIFF Normal [facility] MA Mamm Diag w/CAD if [...] very important to your health. The current [employer] and [employer] [...] follow-up Recommendation: Follow-up at short interval Normal [facility] RAD - MISCon 01-29-2023 RAD - MISC [id number] 763#1.00TIFF [facility] C Urineon 01-28-2023 Bacteria identified Cx Nom [...] Locations R1: This test was performed at: [facility], [address] [place] [address], [facility]- , , [facility] Comment on above: Performed By: #### 2 [id number] ####[facility] [address] [place] [address] Formson 01-28-2023 Forms [id number] A4#1.00TIFF [facility] Ambulatory Visit Summaryon 1 Ambulatory Visit Summary NARCISA BENITEZ :1965 Visit Date:01/27/2023 Ambulatory Visit Instructions Your Diagnosis Kidney stone Gross hematuria History of kidney stones Renal cyst Tests Performed Urnls Dip Stick Auto w/o Microscopy POC 67755 Your Care Team Attending Physician - YOLA GOLDBERG, Lamont Li Primary Care Physician - Brian SANCHEZ, Yasmine Rodriguez This Is Your Medications List Contact prescribing physician if questions or concerns acetaminophen-hydro codone ([place] 325 mg-5 mg oral tablet) ergocalciferol (Vitamin [...] [facility] [address], [place] [address]- You Need to Complete the Following XR Abdomen 1 View, 01/27/23, Routine, Order for future visit, Transport Mode: Ambulatory, Reason: Kidney stone, No, Kidney stone, pp_set_radiology_su bspecialty, [facility] - Philip Medications What How Much When Instructions Unchanged acetaminophen-hydro codone ([place] 325 mg-5 mg oral tablet) 1 Tablets [...] Urnls Dip Stick Auto w/o Microscopy POC 87727 (01/27/2023) Bilirubin Urine Dipstick - Negative Blood Urine Dipstick - Negative Glucose Urine Dipstick - Negative Ketones Urine Dipstick - Negative Leukocytes Urine Dipstick - Trace Nitrite Urine Dipstick - Negative Protein Urine Dipstick - Negative Specific [place] Urine Dipstick - >=1.030 Urine Appearance Urine [...] may eat and drink normally. ? Take agds-zgd-zctktdx and prescription medicines only as told by your health care provider. ? Let your health care provider know about any medicines that you are taking, including vpsa-wco-nmucqat medicines, vitamins, herbs, and supplements. ? Choose [...] container i (more content not included)... Normal [facility] Patient Educationon 01-28-20 Patient Education [...] these instructions at home: Medicines ? Take qtoq-ewi-eymgofp and prescription medicines only as told by [...] care p (more content not included)... Normal [facility] Provider Letteron 01-27-2023 Provider Letter January 27, 2023 N[address]ISA [address]ENITEZ [address] [place] [id number] : 1965 To Whom It May Concern, Please excuse above patient from work on 01/27/2023 for an appointment. May Return to Work On: 01/28/2023 Restrictions: _ Comments: Please contact the office if you have any question. Sincerely, [facility] [address] [place] [address] Normal [facility] UroVysion Fish and Urine Cyt o ([facility])on 01-27-2023 [facility] Method of Extraction Voided Normal [facility] Comment on above: Performed By: #### 1 [id number] ####[facility] [address] [place] [address] [facility] Number of Jars 1 Invalid Interpretation Code [facility] Comment on above: Performed By: #### 1 [id number] ####[facility] [address] [place] [address] [facility] Specimen Urine Normal [facility] Comment on above: Performed By: #### 1 [id number] ####[facility] [address] [facility] [address] [facility] Type of Service Technical Only Normal [facility] Comment on above: Performed By: #### 1 [id number] ####[facility] [address] [place] [address] Urology Office/Clinic Noteon 01-27-2023 Urology Office/Clinic Note HPI Staff New Pt. Pt was seen at [facility] on 01/25/[address] [...] information and history for this patient from [facility] . I have reviewed and verified [...] yo female new pt following up to [facility] ED visit 01/25/23 due to gross [...] not have a ureteral stone. Can cont [place] and Ondansetron prn. -Pt to go to [...] stone preventi (more content not included)... Normal [facility] Comment on above: Result Comment: [...] 300 Contrast amount in ml's: 100 Normal [facility] Discharge Instructionson Discharge Instructions [id number] Normal [facility] ED Note-Physicianon 01-27-20 ED Note-Physician [...] and Complexity of Problems Differential Diagnosis: [] [facility] Data External documents reviewed: [] My EKG [...] for 3 day(s), 7 tab(s), Refill(s) 0, [facility], 168, cm, 01/25/23 17:56:00 EDT, Height/Length Dosing, 95, kg, 01/25/23 17:56:00 EDT, Weight Dosing ondansetron, 4 mg = 1 tab(s), Oral, q8hr, # 12 tab(s), Refills(s) 0, Pharmacy: [facility], 168, cm, 01/25/23 17:56:00 EDT, Height/Length Dosing, 95, kg, 01/25/23 17:56:00 EDT, Weight Dosing tamsulosin, 0.4 mg = 1 cap(s), Oral, Daily, # 10 cap(s), Refills(s) 0, Pharmacy: [facility], 168, cm, 01/25/23 17:56:00 EDT, Height/Length [...] Cap, 0.4 mg= 1 cap(s), Oral, Daily [place] 325 mg-5 mg oral tablet, 1 tab(s), [...] Torres In 3 days 01/28/2023 EDT 280 [facility], [address] [facility] (1) Additional Instructions: valentine Patient Education Renal Colic, Nvnn-sb-Iwus Problem List/Past Medical History Ongoing Abnormal mammogram of left breast Acid reflux Diverticulosis of colon Elevated BP without diagnosis of hypertension History of sarcoidosis Hyperlipidemia Multiple thyroid nodules Non-smoker Prediabetes (more content not included)... Normal [facility] Comment on above: Result Comment: Elec tronically Signed By: Mable Vital DO\.br\Date and Time Signed: 01/26/23 02:22 EDT Ambulatory Visit Summaryon 1 Ambulatory Visit Summary NARCISA BENITEZ :1965 Visit Date:01/25/2023 Ambulatory Visit Instructions Your Diagnosis Hematuria BMI 33.0-33.9,adult Tests Performed Urnls Dip Stick Non-Auto w/o Micrscpy POC 48367 Your Care Team Attending Physician - ODILIA [...] Urnls Dip Stick Non-Auto w/o Micrscpy POC 74789 (01/25/2023) Bilirubin Urine Dipstick - Negative Blood Urine Dipstick - 3+ Large Glucose Urine Dipstick - Negative Ketones Urine Dipstick - Negative Leukocytes Urine Dipstick - Trace Nitrite Urine Dipstick - Negative Protein Urine Dipstick - 2+ (100 mg/dl) Specific [place] Urine Dipstick - >=1.030 Urine Appearance Urine [...] Prediabetes Thyroid nodule Vitamin D deficiency Normal [facility] Auto Diffon 01-25-2023 Basophils/100 WBC (Bld) 0.9 % Normal 0.0-2.0 [facility] Comment on above: Order Comment: Order Added by Discern Expert. Performed By: #### 2 152031, 5325442, 5619983, 2698299, 79512931 ####[place] [address] [place] [id number] Basophils/Leukocytes Auto (Bld) [Pure # fraction] 0.1 E9/L Normal 0.0-0.2 [facility] Comment on above: Order Comment: Order Added by Discern Expert. Performed By: #### 2 123944, 8190653, 5085275, 5561272, 77717731 ####[facility] [address] [place] [address] Eosinophils/100 WBC (Bld) 1.9 % Normal 0.0-8.0 [facility] Comment on above: Order Comment: Order Added by Discern Expert. Performed By: #### 2 352810, 1569539, 0703499, 9807724, 87844907 ####[place] [address] [place] [address] Eosinophils/Leukocyt es Auto (Bld) [Pure # fraction] 0.1 E9/L Normal 0.0-0.5 [facility] Comment on above: Order Comment: Order Added by Discern Expert. Performed By: #### 2 280641, 5126173, 5958797, 9214177, 59186085 ####[address] [address] Lymphocytes/100 WBC (Bld) 34.3 % Normal 14.0-50.0 [facility] Comment on above: Order Comment: Order Added by Discern Expert. Performed By: #### 2 752574, 7378179, 3253910, 6430242, 92164250 ####[address] [address] Lymphocytes/Leukocyt es Auto (Bld) [Pure # fraction] 2.7 E9/L Normal 1.0-4.0 [facility] Comment on above: Order Comment: Order Added by Discern Expert. Performed By: #### 2 032973, 7185238, 1393109, 4112731, 03038187 ####[address] [address] Monocytes/100 WBC (Bld) 10.6 % Normal 4.0-14.0 [facility] Comment on above: Order Comment: Order Added by Discern Expert. Performed By: #### 2 526084, 6006492, 5810829, 1644317, 36641304 ####[facility] [address] [place] [address] Monocytes/Leukocytes Auto (Bld) [Pure # fraction] 0.8 E9/L Normal 0.2-1.0 [facility] Comment on above: Order Comment: Order Added by Discern Expert. Performed By: #### 2 693842, 9518841, 8337857, 4497495, 77688194 ####[place] [address] [place] [address] Neutrophils/100 WBC (Bld) 52.3 % Normal 36.0-75.0 [facility] Comment on above: Order Comment: Order Added by Discern Expert. Performed By: #### 2 929744, 6319748, 4944798, 1084876, 20377761 ####[address] [address] Neutrophils/Leukocyt es Auto (Bld) [Pure # fraction] 4.1 E9/L Normal 2.0-7.5 [facility] Comment on above: Order Comment: Order Added by Discern Expert. Performed By: #### 2 817930, 4722556, 5837857, 5188477, 20207073 ####[place] [address] [place] [address] BMPon 01-25-2023 Creatinine [Mass/Vol] 0.8 mg/dL Normal 0.5-1.3 [facility] Comment on above: Performed By: #### 2 511756, 3719982, 1277456, 9233915, 97698645 ####[place] [address] [place] [address] Urea nitrogen [Mass/Vol] 17 mg/dL Normal 5-21 [facility] Comment on above: Performed By: #### 2 062251, 2241486, 9428927, 8621198, 24134480 ####[facility] [address] [place] [address] Urea nitrogen/Creatinine [Mass ratio] 21 No Units High 10-20 [facility] Comment on above: Performed By: #### 2 369745, 3175513, 6351784, 7540376, 82553093 ####[facility] [address] [place] [address] Anion gap [Moles/Vol] 9 mmol/L Normal 6-16 [facility] Comment on above: Performed By: #### 2 178191, 7754602, 5149921, 1753053, 47755058 ####[facility] [address] [address] Calcium [Mass/Vol] 9.9 mg/dL Normal 8.9-11.1 [facility] Comment on above: Performed By: #### 2 631867, 1568586, 3358288, 5242413, 27123851 ####[facility] [address]law[address] [address] Chloride [Moles/Vol] 102 mmol/L Normal 101-111 [facility] Comment on above: Performed By: #### 2 731302, 0558903, 6995955, 2265589, 70625540 ####[facility] [address] [facility] [place] [address] CO2 [Moles/Vol] 27 mmol/L Normal 21-31 [facility] Comment on above: Performed By: #### 2 152785, 4615110, 2672689, 4920378, 23328098 ####[facility] [address] [facility] [place] [address] Glucose [Mass/Vol] 101 mg/dL Normal 55-199 [facility] Comment on above: Result Comment: If t his glucose result represents a fasting glucose, interpretation should refer to the following reference range: 55-99 mg/dL Performed By: #### 2 198758, 9903428, 0732060, 2433912, 14423700 ####[facility] [address] [place] [address] Potassium [Moles/Vol] 3.3 mmol/L Low 3.5-5.3 [facility] Comment on above: Performed By: #### 2 065502, 8614153, 2903860, 6469131, 31735713 ####[facility] [address] [place] [address] Sodium [Moles/Vol] 135 mmol/L Normal 135-145 [facility] Comment on above: Performed By: #### 2 236314, 4775552, 1142534, 5692890, 24519907 ####[address] [address] CBC w/ Auto Diffon 3 Erythrocyte distribution width (RBC) [Ratio] 13.1 % Normal 10.9-14.2 [facility] Comment on above: Performed By: #### 2 340413, 8850758, 1192046, 0847440, 09256742 ####[address] [address] Hematocrit (Bld) [Volume fraction] 40.5 % Normal 34.0-46.0 [facility] Comment on above: Performed By: #### 2 140885, 5138802, 2005728, 2470006, 33140512 ####[address] [address] Hemoglobin (Bld) [Mass/Vol] 14.1 g/dL Normal 12.0-16.0 [facility] Comment on above: Performed By: #### 2 999379, 2513711, 5369882, 7342313, 94111268 ####[address] [address] MCH (RBC) [Entitic mass] 30.2 pg Normal 27.0-34.0 [facility] Comment on above: Performed By: #### 2 315538, 3594672, 0307962, 2738696, 53429297 ####[place] [address] [place] [address] MCHC (RBC) [Mass/Vol] 34.7 g/dL Normal 31.4-36.0 [facility] Comment on above: Performed By: #### 2 491228, 5243104, 6651557, 3614645, 28845359 ####[place] [address] [place] [address] MCV (RBC) [Entitic vol] 87.1 fL Normal 80.0-100.0 [facility] Comment on above: Performed By: #### 2 695056, 1697098, 4409698, 2350555, 28690609 ####[place] [address] [place] [address] Platelet mean volume (Bld) [Entitic vol] 7.6 fL Normal 6.4-10.8 [facility] Comment on above: Performed By: #### 2 826311, 5422866, 9127838, 1050970, 24795290 ####[place] [address] [place] [address] Platelets (Bld) [#/Vol] 313.0 E9/L Normal 150.0-500.0 [facility] Comment on above: Performed By: #### 2 664593, 3514429, 7031968, 6374587, 61479018 ####[address] [address] RBC (Bld) [#/Vol] 4.6 E12/L Normal 4.3-5.9 [facility] Comment on above: Performed By: #### 2 720512, 7809588, 9931533, 1351247, 50258351 ####[place] [address] [place] [address] WBC corrected for nucl RBC Auto (Bld) [#/Vol] 7.8 E9/L Normal 4.0-11.0 [facility] Comment on above: Performed By: #### 2 728009, 0372263, 5881694, 5777236, 15451683 ####[place] [address] [place] [address] CKon 01-25-2023 CK [Catalytic activity/Vol] 164 Int._Unit/L Normal 14-261 [facility] Comment on above: Performed By: #### 2 156300, 7085733, 6942761, 2083481, 79775782 ####[facility] [address] [place] [address] Consent for Treatmenton Consent for Treatment [id number] C8#1.00TIFF Normal [facility] ED Clinical Summaryon 2022 ED Clinical Summary [address] [address] ED Clinical Summary Person Information Name: NARCISA BENITEZ/[facility]y Age: 57 Years : 1965 Sex: Female Language: Samoan PCP: Yasmine Lewis Marital Status: Phone: [phone] Visit Id: Visit Reason: Back pain; Hematuria; [...] 01/25/2023 21:20:03 01/25/2023 21:20:03 01/25/2023 21:20:03 ADDRESS: [address] [place] [id number] PHYS DOC NOTES: MEDICAL INFORMATION: Prescriptions Given: New Medications [facility], [address] [place], [place] [id number], [phone] acetaminophen-hydro codone ([place] 325 mg-5 mg oral tablet) 1 Tablets By Mouth every 6 hours as needed for pain for 3 Days. Refills: 0. ondansetron (Zofran ODT 4 mg Tab-Dis) 1 Tablets By Mouth every 8 hours. Refills: 0. tamsulosin (Flomax 0.4 mg Cap) 1 Capsules By Mouth every day. Refills: 0. PATIENT EDUCATION INFORMATION: Instructions: Renal Colic, Guxi-ma-Rglh Follow up: With: Address: When: Ginger Sargent In 3 days 01/28/2023 Comments: You can use the pain medication, Flomax, nausea medications as prescribed if you develop worsening flank pain. Please follow-up with your primary care doctor in the next 2 to 3 days. Please return to the ED for any new or worsening symptoms. With: Address: When: Yasmine Torres [address] [place] [address] Business (1) In 3 days 01/28/2023 Comments: valentine DIAGNOSIS: Hematuria; Renal colic Normal [facility] ED Patient Education Noteon 01-25-2023 ED Patient Education Note Urology Renal Colic Renal colic is pain that is caused by a kidney stone. The pain can be sharp and very bad. It may be felt in the back, belly, side (flank), or groin. It can cause nausea. Renal colic can come and go. Follow these instructions at home: Medicines ? Take pvdx-zht-tmnxjxf and prescription medicines only as told by [...] caused by a kidney stone. ? Take mxsr-ads-cbnnwoh and prescription medicines only as told by [...] provider. Document Revised: 12/08/2021 Document Reviewed: 12/08/2021 [employer] Patient Education ? 2022 SeeWhy. [facility] ED Patient Summaryon 023 ED Patient Summary [address] [address] Patient Discharge Instructions Person Information Name: NARCISA BENITEZ Age: 57 Years Arrival Date: 01/25/2023 17:37:39 Discharge Diagnosis: Hematuria; Renal colic Primary Care Physician: Brian SANCHEZ, Yasmine Rodriguez Provider Information Primary Provider: Mable Vital DO Advanced Bolt Maker:None The exam and treatment you received in the Emergency Department were for an urgent problem and are not intended as complete care. It is important that you follow up with a doctor, nurse practitioner, or physician?s server assistant for ongoing care. If your symptoms [...] worsening symptoms. With: Address: When: Yasmine Torres [address] [place] [address], [facility] [place], [place] [id number] Business (1) In 3 days 01/28/2023 Comments: valentine In the event that this physician does not participate in your insurance network, please consult with your insurance company to find a nearby participating provider. Patient Education Materials: Renal Colic, Mzlr-ht-Ojhn A MESSAGE TO ALL PATIENTS REGARDING OPIOIDS PRESCRIPTION OPIOIDS: WHAT YOU NEED TO KNOW Prescription opioids can be used to help relieve teojmcri-sp-asyvqa pain and are often prescribed following a [...] Fo (more content not included)... 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 Portions of this record may have been created with voice recognition artificial intelligence software, specifically [employer], [employer] and or [employer]. Substitutions may have occurred due to the inherent limitations of voice recognition and artificial intelligence software. Patient is a 57-year-old female who presents to [facility] care, for discolored urine, started 2 weeks [...] glucose, and bilirubin. 57-year-old female presented to [facility], for hematuria, hematuria started 2 weeks [...] E&M of New Patient Low 30-44 Min 42702 Urine Culture Urnls Dip Stick Non-Auto w/o Micrscpy POC 63690 2. BMI 33.0-33.9,adult (Z68.33: Body mass index [...] E&M of New Patient Low 30-44 Min 63338 Follow-up With When Contact Information Brian SANCHEZ, Yasmine Rodriguez [address] [facility], [place] [address]- Additional Instructions: Patient Education BMI for Adults [...] Mother. Immunizatio (more content not included)... Normal [facility] Comment on above: Result Comment: [...] numbers. This can be done either in Samoan ([place].) or metric measurements. Note that charts and online BMI calculators are available to help you find your BMI quickly and easily without having to do these calculations yourself. To calculate your BMI in Samoan ([place].S[place] measurements: 1. Measure your weight in [...] for Disease Control and Prevention: www.cdc.gov ? [place] Heart Association: www.heart.org ? National Heart, Lung, and Blood [place]: www.nhlbi.nih.gov Summary ? Body mass index (BMI) is a number that is calculated from a person's weight and height. ? BMI may help estimate how much of a person's weight is composed of fat. BMI can help identify those who may be at higher risk for certain medical problems. ? BMI can be measured using Samoan measurements or metric measurements. ? BMI charts are used to identify whether you are underweight, normal weight, overweight, or obese. This information is not intended to replace advice given to you by your health care provider. Make sure you discuss any questions you have with your health care provider. Document Revised: 12/27/2019 Document Reviewed: 11/03/2019 [employer] Patient Education ? 2022 SeeWhy. Urology Hematuria, Adult Hematuria is blood in [...] identify the (more content not included)... Normal [facility] Prescriptions/Work Noteson 1 Prescriptions/Work Notes [id number] 529#1.00TIFF Normal [facility] RAD - Preliminary Cat Scan R eporton 01-25-2023 RAD - Preliminary Cat Scan Report [id number] 924#1.00TIFF Normal [facility] UA With Cult Reflexon 2022 Bacteria LM Ql (Urine sed) TRACE Normal Trace [facility] Comment on above: Performed By: #### 1 4919720 ####[facility] [address] [place] [address] Bilirubin Ql (U) 1+ Abnormal Negative [facility] Comment on above: Performed By: #### 1 2150025 ####[facility] [address] [place] [address] Clarity (U) CLOUDY Abnormal Clear [facility] Comment on above: Performed By: #### 1 9963227 ####[facility] [address] [place] [address] Color (U) BROWN Abnormal Yellow [facility] Comment on above: Performed By: #### 1 6840573 ####[address] [address] Epithelial cells.squamous LM.HPF (Urine sed) [#/Area] 0-2 Normal 0-2 [facility] Comment on above: Performed By: #### 1 1169931 ####[address] [address] Glucose Test strip (U) [Mass/Vol] Negative Normal Negative [facility] Comment on above: Performed By: #### 1 5614629 ####[address] [address] Hemoglobin Ql (U) 3+ Abnormal Negative [facility] Comment on above: Performed By: #### 1 7398569 ####[address] [address] Ketones (U) [Mass/Vol] TRACE Abnormal Negative [facility] Comment on above: Performed By: #### 1 2523209 ####[address] [address] [place]atac.plasma/Lithi um.RBC (Bld) [Mass ratio] >75 Abnormal 0-3 [facility] Comment on above: Performed By: #### 1 3180493 ####[facility] [address] [place] [address] Nitrite Ql (U) Negative Normal Negative [facility] Comment on above: Performed By: #### 1 8412094 ####[facility] [address] [place] [address] pH (U) 6.0 [pH] Invalid Interpretation Code 5.0-9.0 [facility] Comment on above: Performed By: #### 1 6880532 ####[facility] [address] [place] [address] Protein (U) [Mass/Vol] 2+ Abnormal Negative [facility] Comment on above: Performed By: #### 1 0640395 ####[address] [address] Specific gravity (U) [Rel density] 1.020 Invalid Interpretation Code 1.005-1.030 [facility] Comment on above: Performed By: #### 1 2160181 ####[address] [address] Type of Urine collection method Clean Catch Normal [facility] Comment on above: Performed By: #### 1 2479646 ####[address] [address] Urobilinogen Qn (U) 0.2 {Rahul'U}/dL Normal 0.0-1.0 [facility] Comment on above: Performed By: #### 1 6312460 ####[address] [address] WBC Auto Ql (U) TRACE Abnormal Negative [facility] Comment on above: Performed By: #### 1 0633766 ####[address] [address] WBC LM.HPF (Urine sed) [#/Area] 0-5 Normal 0-5 [facility] Comment on above: Performed By: #### 1 6055838 ####[address] [address] eGFRon 01-25-2023 GFR/1.73 sq M.predicted among non-blacks MDRD (S/P/Bld) [Vol rate/Area] 85 mL/min/1.73 m2 Normal >=59 [facility] Comment on above: Order Comment: Order added by Discern Expert. Result Comment: Tax Manager Cpa azalea kidney disease could be indicated at eGFR's of less than 60 mL/min/1.73m2. Kidney failure is indicated at less than 15 mL/min/1.73m2. Performed By: #### 2 183271, 2623344, 7148186, 2710715, 87977852 ####[facility] [address] [place] [address] Physician Orderon 01-15-2023 Physician Order [id number] BB#1.00CD:127 Normal [facility] XR hand RT min 3V*on 023 XR hand RT min 3V* [address] [address] XRay Report Signed Patient: Narcisa Benitez MR#: [id number] : 1965 Acct:[id number] Age/Sex: 57 / F ADM Date: 09/16/22 Loc: [facility] [place] Room: Type: [facility] Attending Dr: Pauly Oden MD Copies to: [...] Chuck Steven M.D.09/16/2022 4:06 PM Dictation Location: [place] [address] Transcribed By: [facility] 09/16/22 1606 Dictated By: Chuck Steven DO 09/16/22 1604 Signed By: 09/16/[address] [facility] XR hand RT min 3V* [facility] [employer] Other XR hand RT min 3V* [facility] [employer] Other XR hand RT min 3V* [address] [employer] Other XR hand RT min 3V* [place] [address] [employer] Other XR hand RT min 3V* XRay Report [employer] Other XR hand RT min 3V* Signed [employer] Other XR hand RT min 3V* Patient: Narcisa Benitez MR#: [id number] [employer] Other XR hand RT min 3V* 5802 [employer] Other XR hand RT min 3V* : 1965 Acct:[id number] [employer] Other XR hand RT min 3V* Age/Sex: 57 / F ADM Date: 09/16/22 [employer] Other XR hand RT min 3V* Loc: [facility] Room: Type: [facility] [employer] Other XR hand RT min 3V* Attending Dr: Pauly Oden MD [employer] Other XR hand RT min 3V* Copies to: Pauly Oden MD [employer] Other XR hand RT min 3V* Ordering Provider: Pauly Oden MD [employer] Other XR hand RT min 3V* Date of Service: 09/16/22 [employer] Other XR hand RT min 3V* XR/XR hand RT min 3V*: Mass of right hand [employer] Other XR hand RT min 3V* 3 views both hand plain film [employer] Other XR hand RT min 3V* COMPARISON: None [employer] Other XR hand RT min 3V* HISTORY: Mass of the right third and second digits. 6 months duration. No injury [employer] Other XR hand RT min 3V* ACUTE FINDINGS: None [employer] Other XR hand RT min 3V* DEGENERATIVE CHANGE: Sensitive first carpometacarpal degenerative changes seen bilaterally. Mild [employer] Other XR hand RT min 3V* interphalangeal degenerative changes bilaterally. [employer] Other XR hand RT min 3V* SOFT TISSUE FINDINGS: No radiodense foreign body. No soft tissue mass. No subcutaneous air. [employer] Other XR hand RT min 3V* JOINT EFFUSION: None [employer] Other XR hand RT min 3V* POSTOP CHANGES: None [employer] Other XR hand RT min 3V* BONY MINERALIZATION: Adequate. No bony lesion. [employer] Other XR hand RT min 3V* XR/XR hand RT min 3V* [employer] Other XR hand RT min 3V* IMPRESSION: Degenerative change. Unremarkable soft tissues. [employer] Other XR hand RT min 3V* Impression dictated by: Chuck Steven M.D.09/16/2022 4:06 PM [employer] Other XR hand RT min 3V* Dictation Location: [place] [address] [employer] Other XR hand RT min 3V* Transcribed By: [facility] 09/16/22 1606 [employer] Other XR hand RT min 3V* Dictated By: Chuck Steven DO 09/16/22 1604 [employer] Other XR hand RT min 3V* Signed By: [employer] Other XR hand RT min 3V* 09/16/22 1606 [facility] [employer] Other PT - Orderson 09-10-2022 PT - Orders [id number]#1.00CD:127 Normal [facility] Plan of Care - PT/OT/Speecho n 09-09-2022 Plan of Care - PT/OT/Speech [id number] 43#1.00CD:127 Normal [facility] Plan of Care - PT/OT/Speecho n 09-08-2022 Plan of Care - PT/OT/Speech [id number].. [id number] 81#1.00CD:127 Normal [facility] Nonvisit Note - PTon 023 Nonvisit Note - PT Cert letter refaxed to provider for signature. Second attempt. Normal [facility] Coding Summary.on 08-17-2022 Coding Summary. CD:[id number] bWw+PGhlYWQ+OR7JVVB nC83zfORjvU6bL1XKQO lOSywgQVBQTElOSyIgb dAtOW4ziHIfWNKx IC8+PQ8aUZFaXwqkuJN mg6X7xLE6J05ljf9cFS kavNI7KYMeStEjjwywc 4nprDe0KGkaPbepReKk IABjwX35TRJ6jW93Cm8 4lVQoxFQmp2gcyOh6Pv EtPODzWWX3jIhdWVgqq 4BvWYRpB11zfBVzi3N2 IGNvbGxhcHNlOyBlbXB 2yT4nCQbhwltgl7elvy hsRyi0ir71gPPtg5T5s IS4J9CxiyR9VFSqlDQm PdqhpREBiP5rsstgs0f nwvhtHzOwAAMwCRg9QO s6VNLtlXkoWxMmUZ28P GB0RCStjxHmB9EtOJPe mSehEzU8x0E5Rw8TH3K OHvqjE4XCONZFOKeufT Q+IS88ox56V5KlIrphZ ns6HMKnJVK1sGN2oN1u XWOqKKhfu3O7fAJ9D5E lyfUvhn7av2ppDHOdRR amH84apJZkc5B5IIHfk RL6RKOrxEaiKyTfuS23 Oyc+PMBqzJlxz7MzYjp js5iuo1zeaHt6OacxPX MkrsQwhWzxKBX3z9HnZ l5vZGGixGM9gBH0hC9g YqEhKyS2YXntO357ZoE afMYkDnuwG65wV5VvwZ A+WJGeYad0QRFohDywE B8mH0XaTEOwjpntnYSa jEqvNX9kUGHzjcvhCFC lwA3yLPXeC5x6NlQqDa N8DUkwA3FhACTuidvhA n79cZ8lNnMnYmN1BAai E1RtboF6ZLQaaPHrXDc vYJJ1M40bx0L1YKMhYK KdTYQ3gBO3qB0vsCxac jogbGVmdDsgdmVydGlj VGcjUOztG115TCNviEn nPkNvZGluZyBEYXRlOi AgMDUvMDEvMjAyMzwvd GQ+GKNfUBZ1aYzjMUAy eZPfCByqWv8faFmvnIf fOP4uJXZyxfmfDBMdaY 8pEOVdgBMdiTxqUW2sO KUekcxby299LsJcNKX0 YJEyvIYlU9WwbY0eWnZ iWFUnWKRwJ0MpxCJmAR wnC105NCnvZwN1QOMhr dFdW7OlUNCaeAazXzB6 v3M2Zk2Kq8VgxzceW6T ntAHlPpUeFwqcFAo7Q0 RkPjwvdHI+YS11VHNnX G76QVn6BQY1uWtsVMtt OFUdS7FtmJ7jSjUoMGA kZGRkOyc+PHRhYmxlIH dpZHRoPScxMDAlJyBzd ZpeAR2hNa7wQILhZERp cRnneOSqUePxk0svSNJ gFEbeQJ9kzJzgC4QxdV J5OXSrv6l2Bt09G25aL 3JvdXA+HBNdjND5mRC7 aO1bEtYlYlE1DUgcJ35 5WaInaMJsQicvp4yov8 swbBj1HxC4OITqivWvu CrrEGW1r6LwBa67I03s IHdpZHRoPSIxNSUiIHZ jxQwzew5xeQ3hMq7+PG LubNS6jXR8jT5fGtViO bO9IYauG917QnRkqTOv Qgtrf0jmn9yvsZh2QgW bKERkgiOcsBwtVCG1n7 TfFy45X5YwpUuju2KpT ge9xe22xZKda2R4yLM3 O7GaKIJvvciikSFqxBs oEE5aPUDkkzysARRzuF 5kSZClP1d9DdDpCfP8I DkiD1OijnP1NZBhjHOv PESvzOBCaY2cysirq9g xwsibWoTiBSQbEQt4EW f6SGWrgYzaMzIaDWT8L tF0NVV1cPMglU8chRea xlgliF0uKbk+PFA2eBH fuRRTWB6eJdefoJV+PH MvPNH3pFhqDWlvGVCre M9aNEXcW8o9SjMvAzS6 VYtdN5JatyN5FDFwiYM tKFGupLTQaC6zzvoyz3 pusyllOnWyUTVoJEc5I Et7OMXloZthLoChSWC5 QmC4IDQ8nEIrtE7omQg itwcerV9zKeq+QmlydG ytUPD8VZx1Y6YoChe9U FCyiVuvZC7qkAGtCYcx Iw2pwXbehUqoHZ0mQPQ ctsmeh316QpZso1bzIA PjbPQyLVofTAU1D94yl 0U6AOFgVYRuUCV7oLB7 lS8ozUvemwtuvANvoCt gdmVydGljYWwtYWxpZ2 45WUIanKhwMsOaAAr9L 1HpMpp4AOEvbAznQN2k jHLhNJaoVj6laBgvbWa eXB4zRNWjaxsjk965On Guk5zgZZZjbNXuMVmuD AX2Z98iy5T2YFSiTZVt PNS2lRG8iZ9nsKhrtvn gbGVmdDsgdmVydGljYW npIEzlG905SNVzjTozV nIemUt9I1IfAbi6WHSl wPufWJ6kuAVtRWlxRx8 rsJsomVcnYO7eLWEttx fzx560HaYiy3roNPQuc YCkRUpjHOB8X88lh4Y4 YSXpEMQwZQB7hOH6rZ7 hbGlnbjogbGVmdDsgdm AhvQnsHNjbQVkeD301Z HRvcDsnPlBhdGllbnQg PIfxXPv7N6QlOluksTJ +QL61ACNrMN26jFXbjV Ega8pqiXs4KuEiECEeW LR5pSzgNGeag0OmYSKh M27klEWgc3D6RFVtqWn vnBYoJxAukAW3hM5mIE zrwwbod7wulhpuJmqio 6dlbj05rG49X39mREbi ZHRoPSIzMCUiIHZhbGl cyg5jwR1gTe8+PGNvbC Y7aHD1bX6hKDFuYjV0K WsqV594TyGfeKGpNofm r0rtw3soaTj5QhL7DOY rxtUycJvnBUY0k2SuVo 34W22sCZagUXFbGRYeE VNnBVQgcQaqmx6iyW9f Ii8+JCDlqFY8fSD7zQ0 lWzXaTzG0BZhxM459Fx MbvBZmVlotM38kO8Ncx XA+JJIyKxd2CSZztTrb NN8lzQGsONqbSn1yQNZ 0LuIcSeHkMPihK7NzKK HnjjcnrsbcnKI6SVXtV LZydX26Sj2cqTznVKPe rHIEsR7gnoqxp6suwyn fGjOjHTKeKKt6WRx6SW VucFayIjXvQMC8HsI3U VY0gSThcS2tbMtyrjuw uY9lC7AkVTIchdcfTw4 8iA9vJiZmSsJ7YTgqWk c+BXBJTR2LZpAiRYHNV zqGXYE5P6TjOme2GRPd sOvuGD6bsAFhLFenCv1 fwXbacJxdXT9qCUGmln smHZOmfG4aIKFrzALev ApdSS9hRXSxqpwri951 VaCfXRJ2QPSarTJeJ0D gdB5bExKtQYWaQNJkA0 DyzHKlDMghQ131AQzzU uC5ELWaslPaU5PbBYHo jQbdHfL7l4F7Yj5jPu1 xRn9rIQV2NU89VL04zK Phm2H5yPH9C0MfZGGxh aqryhhkeLU8VCDmOUJm tJ31zQYtFBcpSj3ql7U 6q215YHVxBMAjmB36Pe 2esHndUXNpaVQHgY0xm mmje7xscbkfMvXcODYe YRi4JBh4BFWynZoyHeR gNJN1RbC8EMD6kWUfjI 3pjQlxkbysjF2yCoh+N YcfZXVdshQ8Y5JzIlj9 TKTgwPubWQ3uoLLoCQo iAg0wxLaopSsrYD2bNY EuvikyYZOcoS5fXCHrp JYjkGmbQY7nQBBsksbr t725YqVlZFR9BBAytNY iC9EwjT0xJaVgODSzQN PlL6FiiLCzIVpaE924D OojGdZ8XLFutaSmN4Dv UDUxnBiuJbF8j7V2Qg3 WVN3epAI1U9IaWkf0TT UblYhrXL1zaIBrJXgpU v5yiMoksAwfKR4gYDUl mugyFUBzpT4uEKFpkNQ lqDblFB3bGYUujnkph8 29QsDdDEC5SIAbwLLpI 1QzuH0uFzGoFXDdCQHj F9WitJAwSImiF496RJp bApA2XHHexiKlC2ZeTB IcmFbeYoU3u1B5Jp2Ka ADzWOVlQJ19UC52LC73 X3SnFugiqRPmcGY+PHR hYmxlIHdpZHRoPScxMD VwJcChbPynIN1hJx7bD GVyLWNvbGxhcHNlOiBj c1lfAZNhLLibME8cmRq uE8EvmOX2XEHnk8q8In 46Z40xW7YacPP+PGNvb KT0mOT8cO0gUcWbKuK0 NYjnP145ImTmsYNdDlt xc5ouh6taqWu5FeKlLJ SvnkCqlLorITI2s7OzE p48X85dLLmoMWRdPNIk RIPkKSXykRcqtb3shW2 wIi8+GFTypPD8mHV5zR 8uAoUgSdC6GAqqE011S nQijOHqWcgzD94aF3Mz dXA+XYTcXug6PJXbeYx qTO5sqLLtITrqQg8nQI Z6TwWsYcWeUQapE0BzF RPdvphpqdypxQJ2PXJl QQJvbD18Fn7xqOsoMn3 dPHYwWYG0GMHjlUInG3 YupK5xYjXfAPVpBRUhQ 9PbmVEhLMriH355PZab PvI8WPZmtcAnM4OqGLU qtKiqTgN1x9N0Fa5ZpI sjuJTkJV4xSnIcMHi6J 3QcCae5HBEriQjxJZ3i gXBjKObxJi0bjXtpdDg tAJ0sFOKierysu628Ei Afa5inUYNnjIMkGEwyS GM9D09cp7S8RZFaGAGi KXV9lOD8oJ9ocWafmxo gbGVmdDsgdmVydGljYW puIZbkI112KJVtqVgiN lYOFem4W8CoAay6FQYo nVaoXH7pdXMcKLpfSa1 huXfpwGhmWO1rCKBxtn jas818PlXnn1znWIFdi YXgBHjqBTK3H20dk2Q7 WPFoQZBvXWM6pLP5dF8 hbGlnbjogbGVmdDsgdm WimWraHSnfRCyxB454S HWeeXwqKu1NPkr1X7Uo Puv9SGEnlIvdHJ2ipOU vMZzrQv9imJesfNmuIM 1xSWUbrrygn040QeJge 3vpWZKoyPFgNFsxHKQ1 J34ml7R8UXKySTVqSAU 6kMM9mG8viRabpokosI VmdDsgdmVydGljYWwtY AzkJ841YLVyfVlcPkNr eWVyOjwvdGQ+YO44wv9 8Q9FtQeevQpc5JNXtPU K6hGX7cE4dLLRjADqoa 3J7xWR0O7GvpbNtov8g h2joPWUn (more content not included)... Normal [facility] Consent for Treatmenton 07-19 Consent for Treatment [id number]. [id number] 89#1.00CD:127 [facility] Consent for Treatment [id number] [id number] 23#1.00CD:127 [facility] MA Mamm Diag w/CAD if perf a [...] very important to your health. The current [employer] and [employer] [...] Chapincito Gillespie M.D. Transcribed by: NATALIYA Technologist: [facility] Assessment: BI-RADS Category 3-Probably benign - short interval follow-up Recommendation: Follow-up at short interval Normal [facility] Coding Summary.on 08-11-2022 Coding Summary. CD:[id number] bWw+PGhlYWQ+JS1WPYH kH28ppWOjxS2wN1YDRL lOSywgQVBQTElOSyIgb qQyTB0fuYKnZJKl IC8+YV7iEDYrXzzarQZ li8D6xQW6V47phu3lNM rntAA6CAMbQgCebqgfa 7hivKj1NEchHwyaLcAt ZZOqzU80UYG4aM36Hu5 9aGUskZNpa0smzBs9Ho GkYUXnJKZ1fWfwHUiau 7GxNIXaM91gvZAlg9Q8 IGNvbGxhcHNlOyBlbXB 5zD8nZPwcupoze3okho jwTjs9xm25cJYfp5K9j GE2Q0MfvoS2ZYEqiFGw IenyhLGXqQ5jembbj2l qgcmtCiOzQSThVHr5HO l2QPPgzMlnAtZhJE21Q AK9ZOZaufEaL2MkBPTp vIozYbE2h0F9Rf7MD7J GRffoM6ZOGCFKEFiolQ Q+CM41uq27Y4OuSihvT op0JKDgIHV8yFZ6nT3l XGBjOQbqg5A7tUT7N7H dyuHrrz4sc3yhBLNzWR gbY49euUIay7K7KLPmg HC9LQZpuWupYyMfqK06 Oyc+NIIjwZhjs8NxSzc ub6fkp5rjvQa7IuvmGP YkptIllZlgYJM0j7VzU q7sZXFetKP7gTF8nL4w TeBdFmT8ELnfK997UtU lxZAqTklpG35sK1ZzcB A+BLRnCiq8ZCMveVovO G7pK5EaZJMjmvcnsUCa wFqgSE4jCJZkscwdYGS fxS9mBNIaJ7r6PaBtTl F1GAxxG2UtJCOoyrwgR a72rM7zIdOnImF9XLyb O9FjshI4MNQugZOhSVb qYZZ5T02ia0Q6SNCvIH ZzYFJ5kEM1zT7xwNowr jogbGVmdDsgdmVydGlj RLltTGhtN043RUFlrOp nPkNvZGluZyBEYXRlOi AgMDQvMjUvMjAyMzwvd GQ+GBBtPPT2rCoxHGGf iAYqQKifSy4iaMaawFu tGY8iUZBjcxwkHMQhvZ 0fIZCktHZxiUhdPL3tN CDhmaago441FfBoAZK0 YMCaaLUsO6ZyjD7lFlU cAYWdPQNsD7KeaZZbPZ hkU820HDdqKfJ3XDAxk hOgW4XpDHWsfUrzFcZ7 v6H9Ls5Ff8EmfskgI6M ntRYrKmDoHctsNBr6X5 RkPjwvdHI+PJ15TTNtS K36EHg6JUV2mBmfYQjm MKSsM0KljW2mHaHgVAI kZGRkOyc+PHRhYmxlIH dpZHRoPScxMDAlJyBzd PprVE5cKg6mLZWlHYAi eIncnXGbWgPha5amYLW gZKbgPF3dwRwvE8XuwU Q5MHDeg4f0Za52L92pP 3JvdXA+RZZbmYI7vSL9 sR4pNeOsBsQ5IAmpF01 6BjOvqVBeRdujh0tsj5 zheDz3WlR5BEAfikSfc QwrHPF4v2XdBs16Z80f IHdpZHRoPSIxNSUiIHZ kuVjjkf6gkJ7nEl6+PG XejVB9pOR6gZ9tOqPvB fH2VGbgU332EiMbyIAi Wbirc2mvo7itgOc9LoU uFHNhryTgrZztGLF4n9 LmWr07V6WzpZadr3YxF cl4yo64bVUws9G8sVR9 Q9UlUCFdkhbtuZDfeZh gXT0qPGDgustgBUNeoJ 0sZQQjI8c4KlZvVqE3T XsgR4BlteM0VJLwjJLx SGLktIUWnT5dyzlus4p ktolqDnZwJCLbEDe9NU v3CRAdiKozEeGwJHQ7F pN9CJC2oQRylG1qbFlt fpcnmK3vCsk+DBD2uKX qyIKHKC0pBdvfvOU+PH LlZTB3vHuqAYldUKXar P5uDVZsD4e2DrUlAqV6 QUagV1EmhvV8QVNdcUW hLVAuzSQYxY1iopzat2 mppfadYlKmRMQxYQz8M Au1WJDjzDncCvGdINC9 NmD2KNW0pADkaJ7epXt bhahitD1iHbk+QmlydG hdNTP3RCb3L6QoBkl9I JLgkDudKO0mvPDnBIuz Ny0tcJlhsYjnUD8aUYG wyrtzu629NpJix0zwOS OqsCDbGSvcTTM7I76ym 3Y3HQHnGUEkGUP6bLW8 gV0ejKftqfeevCTniWa gdmVydGljYWwtYWxpZ2 42BCAjkCykZaXjZQe8X 5YiQdf2LQMhrYseQS8l eAYjVJyfOs0hyDrahFi mAT2vVJJserewf232Ck Unu1oyAWVlxHZyKFwpQ IK4Q46bt3O6TIItSYPx GQZ6rDS3mU0azYiwxuk gbGVmdDsgdmVydGljYW ecXGlcG174IPJakTbvD jCwoLu9Z4PnNjc5UYJd jUzwRM1cdQIqZHqkUq4 ctOasgZyvVF1cFKLugq kfg106HjGvu1phFENal MJyWJoaDAN6T94mm5J1 GXMjDWYmJMV8jKS6zT2 hbGlnbjogbGVmdDsgdm CgdSxxNKrnBMlkX153L HRvcDsnPlBhdGllbnQg FVftFLw6F5GjDyuewOU +AR63LYHwFM91eSFviO Fju9ttdTq6VpLbZERzG NG9dPskXFxgv1QnWNIj U74rmPEwf5W5DTKlpGj fdQBgEySqfBT5kB4dPI yasdolk3phrlxzXwsqn 5mkso61cU90D51aKMvt ZHRoPSIzMCUiIHZhbGl oad7qmM8hBu0+PGNvbC D0hBW1wP4rRBVeMsT1D ErwB462IdFnqYMlUkwc w1rwr8uozSi1AcC4DDO sikXybUzuQNW6c4NhEb 49M73lBZekDVCkVXJtU DArQGYcpKfoqc1leE1h Ii8+TGAykGW2fJJ8gY1 xPwDwApO9LPxpS666Dc TuhUOfImeyP14nU8Gty XA+EJYvAqz9VRVzjWps WT4ftHGzZXesTq0lQXR 0UbQkLzFmLGadL8LoZP EcouovuedjrEJ5YKRyW UAudS33Ke5bnEcoKQXr tAEGiC8whygez7cezru mVbWbVFHlBBm9SKq0YA IzuUabNbAbIGH3FuS4C GZ4bLWbyY4aqHbsaync fH3hG0XfVOHeguixFz9 4jJ3aZbQvEoB5VOnbAb c+JAGKBD5ICyMoXTPSY ppLMUG8V8UfUzn3VSIu lLepJK9xlRWzPMkoCg1 zrIgdlEbnFB4yAQDmff chSZVifT5nSOPjkOVdv BxcML3nQSYbuyhyy288 HjPnDWP3VJMbxQFfD7A vbS8oLsMaWIQxVGWwW5 DwqWSnHDhjV081HPyrZ xW8RIYsrkFwL2JqTDDd iTwmVjS3x0D3Wy6nMw7 nOe4sPKG7EX03PE21rV Npx5T7tTW7D1PjODYrb uhbxknxcNC6MDIeMTMe lZ69wWNgTJaoHg2rw4W 9o561ZLGtMJRouQ49Wp 4abZkzBRGvvHVCoW2qc ftbv8hnefeoYsOfWNNs VVo8SJv7CKNttZveSqQ eOPX6WmB6UOE8tEUkmM 2hiDytnbwihQ8uIid+N QimFTRemoQ1P1XbDxz4 EBZheFvjMK0ldLPuLRg eOt5wwOdhjZruWS5tDY MpqmpeBNUjlN8zWOYsv EJlcRunQN3bXXVewmtn s251YkDwGBE1XSPcwEV eD4MvbW6rAeFgULEhFP PoO9HyaFOpPHevB372M ZgdKsF1PYWqndFtU6Bw MYZozTljSmD8z6N3Nn8 HZO7gwLO4Z4IjXks6AF YpgFlhBF4wgKGlSZcxN b6zjTnipUupWZ4vJOGb cnfpQTOyrT1vJOUjiFD ikNyqRP0eZHPnefgpb0 17ObUvYWV5DXLolWIkG 7GojX1wQbVxAOUcDMHb U4EydJQePDawL403PQt nYrW1HRSjxjPlW7ZoOA VybIlwDoB8q0Q6Nb5Bd QOrSAFmTF78KZ67OV36 P5MgHkyhgPGvbYE+PHR hYmxlIHdpZHRoPScxMD TtDlAdmWfdFK2qEu0dG GVyLWNvbGxhcHNlOiBj x8loARRzKMogTS4xzJz sF9TdfJH3MPGsd5w9Cc 09O08xL8ClvQA+PGNvb ZU1nGW9gC6sFbQlOfO0 PSrtS303LmRbcCXnQxa iv2rla4rqrSk1XlOnVG JgulWzaDaxCHT0z8YbI k89W12fVOjeQEHbAYWp LZYfFIXyuGsojp4tkI0 wIi8+RRBxiDF9oLO6vW 5mKzDgXeH8DPjwO522K aZugQJpKoyyE40sD4Wv dXA+MSMfGxy5RTCzsDu nRH1ayGSyQVlbKk3eZJ I8TmEpSrEhGCziA4LtE EEonyduyzahsGL5HJYw MRXfdM10Vp9ieQzqTp7 gRFGpKYL7TYPojYPiX2 IfgJ0tIfCbBAGeDZVwO 0SfvRJzMNrqS745RIcq PmK7CPQtokRuV3FsTQZ edKubTmI5y1O2Sh6JbY nmzRNeWX8uKfNdJHd1I 4HoAjf8TZNdcAjlFQ6l zSGjZIdoCq3puGottOx sOE7hOZLipeiaj873Qw Cbp1jlZSTjcHCbNBtrK II9C93wt9A4MTEdDNHc LSY6zYZ6lN0mbJgeuik gbGVmdDsgdmVydGljYW qyYYcrP074NBWeuXoeH sSNCqs0W1XlDcn5ODLm wKyhMG6obBUtMOpbFa9 rvHmijPtuYA3vTMObva gyy375OhHzq1thOBZyy BNiFCxmPBQ9D71fq6G6 EOViWQIjOZG1zSW0kM3 hbGlnbjogbGVmdDsgdm QpnZucHZkfGXspI592B QRuuOojYc3VSri0T3Qp Exg0CKDcfIpeZD6jjDB rEUanDs3kpMqbcLjqLU 0nQUDuvfcqm708GyTgi 3fdFDBmnYXnLOxkUZL2 O48te0C4ZYCrFVGmLZQ 6lRM0eE5pwNazozbmiF VmdDsgdmVydGljYWwtY OaaZ741USLpbRrmXvNc eWVyOjwvdGQ+MZ05uw5 2O8LlMcucLuo7MPJzYS T0dSR0lC1rTKIkSRaeg 5D5sLQ6M1SnquAkgm9n y2hdLCRj (more content not included)... Normal [facility] [place] Mamm Screen w/CAD if [...] very important to your health. The current [employer] and [employer] Comprehensive Cancer [...] additional imaging evaluation Recommendation: Additional projections Normal [facility] Physician Orderon 08-10-2022 Physician Order [id number] [id number] E1#1.00CD:127 Normal [facility] BD Bone Density DEXAon 08-06 [...] MD, V. Transcribed by: NATALIYA Technologist: ILANA [facility] Consent for Treatmenton 07-19 Consent for Treatment [id number] [id number] 01#1.00CD:127 [facility] Coding Summary.on 07-31-2022 Coding Summary. CD:[id number] bWw+PGhlYWQ+LH7YAWA zQ77wtZQdhW0bG4JBHV lOSywgQVBQTElOSyIgb lZtXE9ohMMsACOb IC8+CN0nMCSjHthpqCD jt3C5hDR4W80tsp3sPN tqyLF2KMSmLiAcstqep 8oaiUd2EFsrIaxcRaOh WDUqiO09MFR7xQ66Wn1 3iHProRZfh7srtDq8Gu LlSSGmFWS5nMsjBMzqz 9DdWJLgI58ijXSen4T1 IGNvbGxhcHNlOyBlbXB 8gS9iXRpnfetht5aidy hvDkp8py62vOOgh6R6a DQ9C7UaxjM6KECdjNHa UdpkwJJDsI5bjqajl3s qysgjNzAlEHKaRHl3LB f0GDOcjGfbWxLwHY11N PG9EYHohyZaS1ZiZRCy pIroNqD3c1F5Vp5MZ8W LOakiT8BOCNZPKUbdeQ Q+GV33kh16H4NtEtwiM dv5TKOrMIK9kVR5oE7f BGDvKRaxi9Y6aZV1Y3D zpdBzoe6ol5zpDOQzWK qmF12usEFik0Z8CMRte LL9MNCpzNuhOdWjcZ50 Oyc+TWWvvGcni5HtGzr eg0fuo9oevZi9GrejUU QvseKwrSuoDXH7b9UtR i2rAPIfgEQ5jRJ6tI0h PuGnEjJ3OPckQ769TjS fvLTfToshG09sO6SilO A+LJZoAfk7JPDizXmnC A5bU3ImWKCssqzdoXMq xGyrVS9dSRBesqzlWSD irP8vWALnU1k2SnLcOa O8EDekU4NpKNMjsmejQ j34fJ4eLeYsBvA4CWiv C9WnhfQ8PDEwnEDoSIx zMFH4D70dl9F4ZOKcTU NeWXK2gGQ9lS8mzPaen jogbGVmdDsgdmVydGlj TNwbDEfiQ317CDUwpAf nPkNvZGluZyBEYXRlOi AgMDQvMTQvMjAyMzwvd GQ+QGOhSKP2jFjtJVSb kBPjRGusNx2fqCgjyEr oQN3lCXXqvrrhDARovD 7tCKXyaHJtnXpnZD0uL QHmfmzfs331NyDsNKN3 FAZpvGDqR7GtcD0oYkL qXNXxUGRkB4YueNFdTK mpO133FBqsMkQ5UKTjk aYnH4UgWKJwsQuaIlN1 l3G0Pk2Vi2NgoynlF9H juLWxHlBvKipnVHj9K7 RkPjwvdHI+UF30UHDhR M50RZc5XGJ3yMluKAjo RBOhF1NamA3uPxWfDUM kZGRkOyc+PHRhYmxlIH dpZHRoPScxMDAlJyBzd RjrRX7aJp1bWLQzJROg gOxguDRjTxDjd9saQOT hVJsgSN8fcPryS5PakX V6WNHuv2b5Kc96X56mG 3JvdXA+THOumMA1pZG9 oI7oMbYoSiM8DDfnV58 5CfKreVVeHkjrr0vpd4 wnbTi8QrP5OVOnkaOte YfdNBS8v1YpGq84D56t IHdpZHRoPSIxNSUiIHZ niSdfki5rdG9nMc6+PG QhiSL6jIT4qO8xJpVoQ iS2AQejY706VnMweVKr Larna0sxr9gfiXl7VrX dPDBiwxFlgHsxZSO0b5 LaXv84X6CtwMsnd8OaP jv4up46kPBtp0A2fTP1 V8ZwQDDgrueuoELyiAa lRU3mIVGecqhsAMXabH 6cMQVuB3o1VhZwSlN0C FpuC0TfhoL7IIRijXXr XTIxuGHAhR2qnugvq6t uvwzhTiVeRDJpLGb3GV i6MCUiyTydWlOpJIQ4Z tK2OTG1uMYzhI1xiLdh yqtdeP2rAss+DQH7sBL xqZRFXX1nVqdvzAS+PH XaGDH7kVnhNNsnEHEpe W4gLCJbX5e4VlIrWcV3 KOxgJ2NjmyU2ZECnqEF iNKDilXZInL4oqxzbe2 tmnjzvBhYvJNEkWYf9V Dx2XAEueVjuOzZkRWC2 StX8XJE6wAYopU4zdIz pafrxkO4oNvr+QmlydG saHPU0VPu8I7YxVpz0S JCiiPsrNE3cxIHfXIlg Tk1yvTgdfAhdMT1fVPW sfqqgu353DwDuz5wnLY ImeUWsWCvjSWS0E97ga 5D5NNVaQVPiRVS7dCW2 tL4vdRfgexbvsLBfjHp gdmVydGljYWwtYWxpZ2 52WYPmpBxyQuAwSSf6S 6DaSog8VGUnfXboPL0l dTZdAMpeKt5szFmbjYn nEC7bNCEjsbomr175Ej Uez6hoCOMycEHfSOhhN LD9J67oc9G2YQMyZXBh WIL0vKK5xC5ivBjcfeb gbGVmdDsgdmVydGljYW adZOzxQ949MYYntMnbF pVeyIx4H2ViYrv5RXDp kFqpVG4awYXyYKmtEa5 nwCwopIctTH3cLXNzvi xdk458GjPpb0wvTOQes KXwFOkpZPV1H51mc2W0 DABnQBYnKXG2dTC6nV8 hbGlnbjogbGVmdDsgdm EqmVipRPgaLDbvZ862W HRvcDsnPlBhdGllbnQg GZcxSRt9P6IrHtscqJJ +RB67XOKzBY94cJAyoX Dlw0zydZh6YeOzSHNcE KD8yLnmNGttt7AkVMVb Q92roZNwy2N0CVAazHk biHUhJeHwmCC4uG0dCD elndjdz0nbqepuRjssx 2xlhb84sH61A76xZLrr ZHRoPSIzMCUiIHZhbGl gdq9rlD7rQf9+PGNvbC P7yUN3lY8nDHYiGpK1B SmxQ761VoVdjXBuJmkq p1cjo6zujZg2WxU6RQP jfdQdwAdvQJE2p2QnZh 72W96uZAexTKYhLBIlZ JAlOXPsgUrysm0zuG5v Ii8+AIOvgPB2oPA4mK7 dBxSnKuF7PCjeM735Uo OytFPcHnctD06pY7Wed XA+RITaKlu2PTUkuOij PD2lfZMkYOscLm9xMQU 4InUvAgEqSEzcB1FgKW RreawosutlzXP0VRAfD SJynD09Sq8obExwJLFv xRQGnB6tqcdqf5jsxfc iAmElXQUrSId5GKo8AI IckIobMaXeTMG6WuA7W EW9cFGrwV9urJgfkkfm uI1iF6ZsOJAqgwboVz6 6yR1cHlZcEjC9USikFz c+NPJEJF0SUiJbOMOGG thZYEO7E3BcYdt2MTTz jIuvQN2sdXUrNYmdRs8 yhEvniYuwKV8xAWDmej ewADBjeT1pKCMrhJNst QznQI5fWSSijqvyu732 MpSbKIP8JPUagMOtR9B hzE7yIoFaQEYuQUXsN0 QuhWGoFKxvH132XOntU jZ9QAOujoSwP1VsSDFx zIqmHxZ0c9G3Kr2aJu6 dMt9lSYS9CD83UX09cB Hvv3N5bXE5L0HmVNYwl kraqxsgnHR2BRSqIRVa qZ10cEQvKTwsPw4nn4X 4q152HBEgNGNglT91Sy 8exCavCZJqgZFDxT9vv fflx8jrvbxmKnCkINFy ISs3IXn5ONKjgYwjAaZ bRTQ2BbZ1LWE5nYSreV 8nlScxtgbadP4lZlj+N LbkGERlbvZ2G2EeOxu5 JKIuyMidJW3sdJGiIEw yAa8gmKotbJuqXD6rMH HdhgovSPVfgE3wUBXzh VWlsIuaPL8yZYBhgqhk m550NuTlXEE0XBVzsTI qO9WmfH9yHkJmQJPbPL AeW1SooWLsYSfrK923W AjkThB0GPSkaoFoF1Ov SQCnaZpaMjF5w3M6Rf3 VAO7hzYT2I5LhEup6ZO CqbOtwEF3geEVbBPrcJ x3uiJdceMvlOR8eBTKd rapbWHDklO5zYDOiuYZ dqDiqZI0pEGNtiuqqn4 23YyDsGOL1HGFziRHkH 5VgfL1vGnLcMQKoGWAn M0CnnDCnCExeT582UBd eOjU4TLYnjrBpS2VzWH ZxfXkuZgP0r4D2Vi0Cs VJmVQNgGY24BD29UC84 C2XcSxolmIQaiTC+PHR hYmxlIHdpZHRoPScxMD MpQeRsjEfmUZ0dBe6xA GVyLWNvbGxhcHNlOiBj l5wmGBOgPHjmBP4ekTu gU0ZmjXT3LGRfw5w7Nv 44E10gD5JljFL+PGNvb MH4uHT5wJ3zLbZnGvI7 NHkoO624RmLcsTSyTfo eu1aev2hnkNr9LvCxMN TdbwFznLmpJHX6h3QhY m44A31hPXizORHzNHBc ZUOyYPBfzWqlfu5djO5 wIi8+XXNqiNN3nLZ0mE 5qTzVpYeS8RDinJ253R oYphWJzFptrT82cD4Nz dXA+FFVrRqt5RFYzbPh vZO7gyHMvRXfxMl7zMU Y4UpSbNqDlQSzzG7NzV WSwylxfrknblAJ1DSXy SDDfcN42Ex6fgDemVm7 dFWReXJE8AYIvsYYeR9 ItoT4sMkIxFMRmFYUuD 9StlAZiLJbbD412GIls TdV7QZMiuqFzN2TuUBC geNquDgP5n7R3Me4PeJ sxlEEePB8vRnMjNJu5P 5SwDpe7DUBwyZinNK9d wYKqMAhmKh3jzHjvkXe jGE1rIQHhlqmdh565Nc Kio8zlFKQgeJDyVProW TJ4Z68fb6F5NCLfOPBp EEC4hAT3mA2wlSvnvnj gbGVmdDsgdmVydGljYW fgUUgiL710ROEdsOckJ cNTFgs5P9ByYcd4DPIi tAenER7dgQXoTEykRu8 sbKmvjTmaQZ2zAALufx ona149VvOxa6mgJFSlz EKdMLgpZVI5C44fb8W0 KWPlTCQgIYC6nNJ0vD3 hbGlnbjogbGVmdDsgdm UgtVxwJQyvNCvqE896S FWotHujZn0QKuf9X7Xm Tvw3HOYmpGtvRU0boGV dXYhzMz3fjJgfjOhjTU 4dYJKbbokuv770QmDat 5hcSFDrlECfMPboNMD0 L51ws1U9KCQqDGJkVWI 5bER6pE0yeSjjhcnmdX VmdDsgdmVydGljYWwtY GqzA999OFQxrEuwWaAi eWVyOjwvdGQ+XH19jm4 7C8EoResrRrw4OUBlBL B0yVK7jT5mEMBbFRsik 9B5iJO7K2KvlbCjaf1i s6jxXHSn (more content not included)... Normal [facility] T3 Freeon 07-26-2022 Free T3 [Mass/Vol] 3.2 pg/mL Invalid Interpretation Code 2.0-4.4 [facility] Comment on above: Result Comment: Perf ormed at: [facility] [id number] PhD Gela Juárez Performed By: #### 2 742050, 2320177, 5472377, 79844899, 3718868, 4253812, 12884944, 9192715, 08385148, 80281170, [id number] ####[facility] [id number] [place] [address] Thyroid Perox.tpo Abon 07-26 TPO Ab Qn 13 International_Unit/ mL Invalid Interpretation Code 0-34 [facility] Comment on above: Result Comment: Perf ormed at: [facility] [address] [id number] PhD Gela Juárez Performed By: #### 2 142399, 4493647, 2576258, 80665712, 9517843, 3032981, 86421312, 4870632, 16390138, 65432890, [id number] ####[facility] [id number] [place] [address] Thyroid-stimulating Immunogl obulin (TSI)on 07-26-2022 Thyroid stimulating immunoglobulins Qn (S) <0.10 Invalid Interpretation Code 0.00-0.55 [facility] Comment on above: Result Comment: Perf ormed at: [facility] [address] [id number] MD Timothy Mai Performed By: #### 2 378930, 2331004, 7629399, 28489640, 4649365, 1513146, 58689243, 4683495, 37538141, 15719210, [id number] ####[facility] [id number] [place] [address] US Thyroidon 07-26-2022 US Thyroid Exam Date/Time: [...] DO Transcribed by: NATALIYA Technologist: EDU Normal [facility] Auto Diffon 07-24-2022 Basophils/100 WBC (Bld) 1.1 % Normal 0.0-2.0 [facility] Comment on above: Order Comment: Order Added by Discern Expert. Performed By: #### 2 023541, 8117637, 2863702, 16788372, 7935475, 0194134, 48547253, 8495426, 09892612, 24571884, [id number] #### [facility] [address] [place] [address] Basophils/Leukocytes Auto (Bld) [Pure # fraction] 0.1 E9/L Normal 0.0-0.2 [facility] Comment on above: Order Comment: Order Added by Discern Expert. Performed By: #### 2 003014, 0723114, 5147751, 66955947, 2695098, 7145239, 82467672, 3658588, 44628633, 10387566, [id number] #### [facility] [address] [place] [address] Eosinophils/100 WBC (Bld) 3.5 % Normal 0.0-8.0 [facility] Comment on above: Order Comment: Order Added by Discern Expert. Performed By: #### 2 756816, 5458218, 7054986, 59669342, 9998208, 6235106, 71327078, 3824512, 44975154, 45495332, [id number] #### [facility] [address] [place] [address] Eosinophils/Leukocyt es Auto (Bld) [Pure # fraction] 0.2 E9/L Normal 0.0-0.5 [facility] Comment on above: Order Comment: Order Added by Discern Expert. Performed By: #### 2 200550, 4367811, 6561210, 80459080, 0140619, 3741570, 54716424, 2974729, 55353206, 57720609, [id number] #### [facility] [address] [place] [address] Lymphocytes/100 WBC (Bld) 31.0 % Normal 14.0-50.0 [facility] Comment on above: Order Comment: Order Added by Discern Expert. Performed By: #### 2 843527, 7401030, 1169478, 70616021, 6234453, 9456486, 98048555, 5759888, 44311873, 09426285, [id number] #### [facility] [address] [place] [address] Lymphocytes/Leukocyt es Auto (Bld) [Pure # fraction] 1.6 E9/L Normal 1.0-4.0 [facility] Comment on above: Order Comment: Order Added by Discern Expert. Performed By: #### 2 258860, 1131601, 5980702, 07560124, 8809159, 5319282, 11997889, 3220943, 74509137, 31988459, 2499916372 #### [facility] [address] [place] [address] Monocytes/100 WBC (Bld) 10.6 % Normal 4.0-14.0 [facility] Comment on above: Order Comment: Order Added by Discern Expert. Performed By: #### 2 746746, 8636536, 5151601, 56814467, 9168240, 6771338, 45410750, 9372408, 76384887, 81364848, [id number] #### [facility] [address] [place] [address] Monocytes/Leukocytes Auto (Bld) [Pure # fraction] 0.6 E9/L Normal 0.2-1.0 [facility] Comment on above: Order Comment: Order Added by Discern Expert. Performed By: #### 2 165127, 7683341, 1724708, 52998224, 4102895, 3078211, 05620680, 5049775, 85859844, 88941562, [id number] #### [facility] [address] [place] [address] Neutrophils/100 WBC (Bld) 53.8 % Normal 36.0-75.0 [facility] Comment on above: Order Comment: Order Added by Discern Expert. Performed By: #### 2 566600, 3329302, 3117568, 06222587, 6744024, 6028296, 30744898, 9239557, 23378043, 54277133, [id number] #### [facility] [address] [place] [address] Neutrophils/Leukocyt es Auto (Bld) [Pure # fraction] 2.8 E9/L Normal 2.0-7.5 [facility] Comment on above: Order Comment: Order Added by Discern Expert. Performed By: #### 2 027593, 5042490, 0606956, 75081923, 0521038, 9003613, 53305408, 2585759, 35411397, 30548327, 9497667340 #### [facility] [address] [place] [address] CBC w/ Auto Diffon 3 Erythrocyte distribution width (RBC) [Ratio] 13.1 % Normal 10.9-14.2 [facility] Comment on above: Performed By: #### 2 645159, 0575476, 3716451, 96472553, 7110250, 1298430, 02836305, 1015158, 18468502, 70042622, [id number] #### [facility] [address] [place] [address] Hematocrit (Bld) [Volume fraction] 43.5 % Normal 34.0-46.0 [facility] Comment on above: Performed By: #### 2 481966, 6407926, 4283728, 22901840, 0847777, 8680499, 57536408, 9304235, 06585358, 11894405, [id number] #### [facility] [address] [place] [address] Hemoglobin (Bld) [Mass/Vol] 14.6 g/dL Normal 12.0-16.0 [facility] Comment on above: Performed By: #### 2 164789, 0556829, 3508989, 20560929, 1757722, 6928803, 70567695, 5269512, 03996353, 34967547, 8752582524 #### [facility] [address] [place] [address] MCH (RBC) [Entitic mass] 29.5 pg Normal 27.0-34.0 [facility] Comment on above: Performed By: #### 2 718640, 6483016, 1112946, 06820746, 8435452, 8646616, 34046864, 1698349, 50374560, 75846164, 4952836479 #### [facility] [address] [place] [address] MCHC (RBC) [Mass/Vol] 33.6 g/dL Normal 31.4-36.0 [facility] Comment on above: Performed By: #### 2 830343, 5929911, 3120699, 16424448, 2596862, 7308611, 41705450, 7619114, 33742419, 14685861, [id number] #### [facility] [address] [place] [address] MCV (RBC) [Entitic vol] 87.8 fL Normal 80.0-100.0 [facility] Comment on above: Performed By: #### 2 760919, 9301274, 0921924, 00641041, 0135716, 8742636, 74148993, 1045476, 42377614, 42899794, 9877109424 #### [facility] [address] [place] [address] Platelet mean volume (Bld) [Entitic vol] 8.1 fL Normal 6.4-10.8 [facility] Comment on above: Performed By: #### 2 081389, 9144952, 1515290, 89074317, 4949464, 2499972, 08044614, 2780559, 76019209, 50151703, 9947369331 #### [facility] [address] [place] [address] Platelets (Bld) [#/Vol] 314.0 E9/L Normal 150.0-500.0 [facility] Comment on above: Performed By: #### 2 269059, 8158757, 3445937, 86510375, 5295525, 7017233, 46727559, 4002982, 23823911, 66378411, [id number] #### [facility] [address] [place] [address] RBC (Bld) [#/Vol] 5.0 E12/L Normal 4.3-5.9 [facility] Comment on above: Performed By: #### 2 441098, 8788175, 6931624, 20370538, 2038713, 4289991, 14051550, 9900617, 38310732, 04089816, [id number] #### [facility] [address] [place] [address] WBC corrected for nucl RBC Auto (Bld) [#/Vol] 5.2 E9/L Normal 4.0-11.0 [facility] Comment on above: Performed By: #### 2 649154, 5612962, 1472317, 94373195, 8312548, 3074984, 94651404, 6038468, 09425859, 18772671, [id number] #### [facility] [address] [place] [address] CHEMISTRYOrdered By: SYSTEM SYSTEM on 07-24-2022 Albumin [...] [Vol rate/Area] mL/min/1.73 m2 Normal >=59mL/min/1.73 m2 [facility] Chem S GFR/1.73 sq M.predicted among non-blacks MDRD (S/P/Bld) [Vol rate/Area] mL/min/1.73 m2 Normal >=59mL/min/1.73 m2 [facility] Chem S Globulin (S) [Mass/Vol] 3.1 g/dL Normal 1.4 - 4.0 gm/dL FT [facility] Glucose [Mass/Vol] 109 mg/dL Normal 55 - 199 mg/dL [facility] Potassium [Moles/Vol] 3.8 mmol/L Normal 3.5 - 5.3 mmol/L [facility] Protein [Mass/Vol] 7.4 g/dL Normal 6.0 - 7.8 gm/dL F [facility] Remisol Sodium [Moles/Vol] 138 mmol/L Normal 135 [...] 07-24-2022 Albumin [Mass/Vol] 4.3 g/dL Normal 3.3-5.0 [facility] Comment on above: Performed By: #### 2 195475, 7648129, 5622493, 23231169, 0198811, 3908470, 50853425, 4492376, 38784234, 27533636, 7407420052 #### [facility] [address] [place] [address] Albumin/Globulin (S) [Mass conc ratio] 1.4 Normal 1.1-2.2 [facility] Comment on above: Performed By: #### 2 807094, 1911064, 9813830, 40217858, 6254714, 6486426, 69016308, 6652516, 35160805, 26783509, 8108415823 #### [facility] [address] [place] [address] ALP [Catalytic activity/Vol] 70 Int._Unit/L Normal 21-98 [facility] Comment on above: Performed By: #### 2 490564, 1998867, 5716042, 90586725, 2691546, 5957470, 43723589, 8109659, 96466869, 91564508, 9470432168 #### [facility] [address] [place] [address] ALT No additional P-5'-P [Catalytic activity/Vol] 29 Int._Unit/L Normal 6-46 [facility] Comment on above: Performed By: #### 2 175047, 5076882, 3678318, 04068545, 4615237, 6275992, 77808376, 0022705, 45193278, 64442914, [id number] #### [facility] [address] [place] [address] Anion gap [Moles/Vol] 14 mmol/L Normal 6-16 [facility] Comment on above: Performed By: #### 2 011835, 4212601, 0082459, 33606193, 1470664, 9725943, 88665993, 2436910, 57571090, 48356138, 1266722724 #### [facility] [address] [place] [address] AST [Catalytic activity/Vol] 27 Int._Unit/L Normal 5-43 [facility] Comment on above: Performed By: #### 2 681537, 9418812, 2925240, 03381625, 9464558, 1310237, 04572365, 2752792, 13307202, 53934113, 0343152429 #### [facility] [address] [place] [address] Bilirubin [Mass/Vol] 0.7 mg/dL Normal 0.0-1.1 [facility] Comment on above: Performed By: #### 2 021247, 3096360, 5050438, 48786681, 7676974, 9883943, 15389788, 6471367, 59322499, 53206742, 2049971874 #### [facility] [address] [place] [address] Calcium [Mass/Vol] 9.3 mg/dL Normal 8.9-11.1 [facility] Comment on above: Performed By: #### 2 881225, 9015533, 0489235, 73593464, 9173086, 7530872, 41347452, 5744825, 74001446, 75294423, 6422255767 #### [facility] [address] [place] [address] Chloride [Moles/Vol] 102 mmol/L Normal 101-111 [facility] Comment on above: Performed By: #### 2 962136, 3446902, 9412675, 09884459, 5396669, 5936755, 25536480, 9237448, 85455782, 12620898, 0358510753 #### [facility] [address] [place] [address] CO2 [Moles/Vol] 26 mmol/L Normal 21-31 [facility] Comment on above: Performed By: #### 2 750246, 7817101, 2332875, 69103732, 9315583, 7260572, 25012675, 3633909, 67826413, 69297324, 3502566234 #### [facility] [address] [place] [address] Creatinine [Mass/Vol] 0.7 mg/dL Normal 0.5-1.3 [facility] Comment on above: Performed By: #### 2 347713, 8550853, 0812560, 31749708, 5009567, 3804298, 16960729, 3605076, 27096664, 00259066, 5478952711 #### [facility] [address] [place] [address] Globulin (S) [Mass/Vol] 3.1 g/dL Normal 1.4-4.0 [facility] Comment on above: Performed By: #### 2 124879, 4987261, 8011816, 39208318, 4926783, 0073073, 33000264, 5050874, 43137224, 11359354, 9015725935 #### [facility] [address] [place] [address] Glucose [Mass/Vol] 109 mg/dL Normal 55-199 [facility] Comment on above: Result Comment: If t his glucose result represents a fasting glucose, interpretation should refer to the following reference range: 55-99 mg/dL Performed By: #### 2 838767, 6099045, 2076210, 07334513, 6745521, 0494545, 67852112, 7385621, 34504600, 47578938, 6480954342 #### [facility] [address] [place] [address] Potassium [Moles/Vol] 3.8 mmol/L Normal 3.5-5.3 [facility] Comment on above: Performed By: #### 2 090767, 6162800, 2621368, 26240989, 2321392, 8325863, 52334773, 5036627, 26537365, 44316470, 9971079882 #### [facility] [address] [place] [address] Protein [Mass/Vol] 7.4 g/dL Normal 6.0-7.8 [facility] Comment on above: Performed By: #### 2 114808, 4013107, 6451704, 82198468, 2737861, 9776768, 13349113, 5325039, 57740163, 46274464, 2475885022 #### [facility] [address] [place] [address] Sodium [Moles/Vol] 138 mmol/L Normal 135-145 [facility] Comment on above: Performed By: #### 2 249287, 3336431, 7434653, 86095597, 0779565, 7413643, 09355610, 6550639, 01134667, 74242728, 3635237028 #### [facility] [address] [place] [address] Urea nitrogen [Mass/Vol] 19 mg/dL Normal 5-21 [facility] Comment on above: Performed By: #### 2 382187, 9036473, 6974468, 65500922, 1362217, 0572086, 43173093, 1949902, 77181011, 88890919, 3951009979 #### [facility] [address] [place] [address] Urea nitrogen/Creatinine [Mass ratio] 27 No Units High 10-20 [facility] Comment on above: Performed By: #### 2 447700, 9949503, 6456765, 30484431, 1204882, 2961536, 78331378, 3901692, 39108452, 98187152, 8016591681 #### [facility] [address] [place] [address] Coding Summary.on 07-24-2022 Coding Summary. CD:[id number] bWw+PGhlYWQ+EM3OHXO uJ91sjOBbcL4yJ1HRWX lOSywgQVBQTElOSyIgb zBoTU2kfETcBTRe IC8+GU6dIVBtMohliXT xn3S1vMB2C57tth5yCA rfiJA4YAWsVdYcgrjkr 0zqhXg6EUcxNnejTaLf ZPYerJ57XON7uT74Ei7 3bKIzaMHcp7eqdSj5Fs FxWORfQVK7oVnmKYzkh 4NvLTSkR15hjMKzv0W2 IGNvbGxhcHNlOyBlbXB 3dS4tQLthwwzji9yxwa gsJmi3gy87tQRib1Z2h OU9C4KzehM9PBYzuUEn KowatUWGcH1dtznsv3m qjqhwRpJkURYbSQf7ZH o2DYMerFrgRiFdJD78C BA8DBGmwtUhZ1SoEXLl nPajLrW9z1A0Ce3PA6C PGucoW8CBTTAAKNetkA Q+DH56ex56O8TpYeemW la7QVJuUFV9kKC8zZ1f UZEmIUbif5O5hXG1V7Y hojYlie2sq6jzQYYjAR bgF90huSTbk9H2SFCco XI1TLVtvJbhZmJcuS60 Oyc+XKWqxGcqv3RvEqi al2aai2zkcGy8QaqpBJ SllaIkvOrbTCZ2u6YvD c7hIGWvjVM2eGI8uP7y TaDyJoF7FPmqG998XrZ wgNHpKbicZ96rA8IntE A+LATlHqb3HDOblRnfK S8mP2VhYZSomoqtxWNd eUexMT3xREPrimtwFFG iaG7rVIEfR6r8RoQwSo A7DMczM7EzKDHklqyrD n95sV9pUyPeCpQ7PVgs X9QqxrL5FCMpqMEgTWe gGVN2E21nu5P3ECLoSN MqATX0bZC8qR3agOyrp jogbGVmdDsgdmVydGlj PCnlONknX834VCBmzRg nPkNvZGluZyBEYXRlOi AgMDQvMDcvMjAyMzwvd GQ+QSRuKKQ9hEfpKPQo pLEhCIvfXq1unFnopLo xNZ1aIWCrnaztPOQaaG 1qJKTfnZFiaIrkTN4yD GPlcqzco965WmVzZCU5 VRPhcASsK8XzaZ6fBjI uRAExTIBdF5OqyNEkZQ tbU080XOjtNgO2TUSqz tGtH8QcRKHisZuqSfH3 p1N2Ix4Ic2RxjcqwU3I woTJmIhSqUxrvNLl6J0 RkPjwvdHI+KI27SFQhX Z91QFx3PUS6rPldPLxv IUKhI8FabE7nRjRzSJA kZGRkOyc+PHRhYmxlIH dpZHRoPScxMDAlJyBzd JdvOQ6jIb4jMVAtLRMm iPdtiRPyXgTpc9hmGZY aZOtzMZ5qgCmyA9HqgG B4SIOtn7g6Qb43U56bW 3JvdXA+FPZtuCP3kJQ5 sS0pQyZcQqF2XDlmT17 3VnJasYPsMosce3crt3 pleFf9PtQ6HHSjfdFqn YcoROI6z1UoVi13K26q IHdpZHRoPSIxNSUiIHZ ihMuylg9dhU9vJd3+PG EjkVV0dWM8jR9cCvYuR jG1LLcjC168HrMjaPTx Oyhnx9ocd0uvoQw7ElD dBIDvrpFunOgnQVY7x3 SmPl43K2SucAbju0MuB yy3ic18vFMdi5U5hQO2 I9VdZRMlnsqueIDnaNm sJC4xQVVshrdmCZXhjR 6hHHMgU7v2VeDtPdE9Q SpeV5ZyosH8YUAjzPUb CQDwfMOBiS3vrampw1f papwnYsLhYWSpRBs1FB b0DSCqaLnzCmPsXRH9O qJ5LHK2pCLmlT3efTlq bmbseI5qVvn+UDE0dQB cpUKLXU3pMlsjuTX+PH AlCSA7xYanGYeyQSOkt C9dQPEzN1d1GnBdLfG4 NIzgO0LsvsI0KPXuwGL yCTZdaESOhT2pojjiy5 yioxvnRjQsPRAxCTx3V Hd8NIHjhLwcNbSwVXR0 UfE3HSP3eGYexI4anOq mvftpmP1rKxb+QmlydG pyWZT7HCx3S5CnYvn3V ZQyjNsoEX5qdMYhHUja Sj4maDvnfFpcOX9mCYL aipwzv700OtIsj8efPZ EliVDqHZukSIS7C41au 2X5MLAqQTDfMOI4qQM0 rO8rqUykuuqkxREpxHq gdmVydGljYWwtYWxpZ2 73YOYivUnoHcZjEYf4W 7NcWkf1KFIynIscCA9a kFCpCLidOf1ydYtdkIy kKY8zJYYmoiqqh079Pi Ywf8bwJSHhrHHhCKleY KM2R07lj4Y7ZFVvQLHc OSW4lGO1uB7jwZbqliv gbGVmdDsgdmVydGljYW xbJBwgY840HOMwjPdaC iUckTq9B9OzVee3FSAq sCxmTY2btMPxPWduTs6 wkJcweIciGT4bKJXocn okk258JxXsi0eiLKIwj ECaRXbyEMU2W37jp1K0 XQFmCLJfCIG4mEL9nR8 hbGlnbjogbGVmdDsgdm QlcTjwOLqbYJncR402L HRvcDsnPlBhdGllbnQg JEuoAOb4G4AiCrdlcAH +YF39LXOzBO78lKEuzH Iwa0esfZl3JpMaULGhY JT0nNurWVlme5NyXMOy J49ckUMqs4Z4MYSblLv vzIPlFsCadGW5hA6cPA lrhcwyu5gchkscEohpl 7ivtj05gK84E98jCDhs ZHRoPSIzMCUiIHZhbGl fsp5mpJ4pOy9+PGNvbC I3wCD0qM1aLPIjDvA1S ChlH728PxQbxGUsFrdl k5pnh9fudHr8HwE4IGH uqaKgkFzhQQT1u5MkZc 02K27rORpbGTPnGIOeP COyVPUwzQdppw6srU8g Ii8+WOPpvAB4iDC2tZ3 iDfYnPgI6MCixJ440Wz DnkNPzAhuoY05nK9Hev XA+QBKcOpn8PTBhkAol JN7xiNVwMMisZp5lYCP 8DhLdTdJgHTcmM3KpIN KmljnykzxqsAM5EEDiC RDtjR48Za3kzTepSYVy zTAKmG4nixskj3yczie fFaFxXOVkEQf5PWh2LW RhgJryQlIfJCW9PaT7E ME4dKMjtQ1apFbrdnrb pW6cZ1QaXKLwnutlIa0 9vL6jLeQrRyN3RSvbJl c+FLFWUY6NAfQwBJGUT wdXOXL6V1EbLpa5SWTa fQrwBN4ljMKrFSjiOh5 zeRscdBzrMR7oFYVzjw cbBGAigU0qBVAzeJOli JgwYP3nGTGbinzac190 OxLpMFX7FXZapQAeD7F nuP6rOpNnYWNrONYaI4 OtoGLaUHhzR895DAxxH oA9QBPfjrMmB1OtSKRf oOczCzK9h7O6Hf0xGg1 mHk6jIKA2MV65VD41zU Mvq2U0nEO4Y4JnXJXiv vkyfcdybCH6TNXdPXCv nP15zYMsHAqmJd5ey2K 8h377MQFsVFBohG43Xj 4leNxwGEDpmPMJfI3ck wqri1wrabomHcDhFWKa KZw3DIm3YTPttBohZtM oNKZ5BdD9WNN2bWWrpQ 4auAbvteyhrN2xQmk+N GylSRIomqT8U8ToJhd7 WZQjrTjsUN4buRRcEQk ePv5xaRmkxSafET4jHV WzabnxFCMuzN6zTVYzu HCiaBtpQX5vMXCftfey h841UxVyINI8MDGxiQR aB5QpzQ0iZfDpMCUvFS IrR2TmqWHuBRttI990X BesFhH6TRNldzBeS3Xv TMWozNzoEoJ7t1J6Xm2 MXI5axCT0J9KsYiy9CC ZayTthLR8szQDkMPfhW r3tjBhigOmpOE6nYCOe bmldJVXbfF3dJYSgtRO nxFkhHW9mODAptulnz9 22SiAyVAV5KFLelTWpK 8LwmM8eBiRuUOOmSMPf R5AvqYMnBSniU537ONf bUuV6BMHzwaReK5YxEE DsgUsxWxY7b3Z4Ef0RX CO9duIejbf7B3DbMgou dHI+FK98UFLgNF63yPH svCPge0owzIf7DmOgSY BjMKJ4jEsqJCimh2KwV OWaL39gkSOwk9S8JAVu rXyvzHBwUgMhgBU3yA4 uOMrjbwvtt0wcwzqiAd duz7jbbh35nW65J32lR HdpZHRoPSIzMCUiIHZh nHemaq6mhA5jSt0+PGN lhVW0vFW3dB7aCtKmOp I4ZKcrQ634RsMnoUJxV cvbz7kum0jdzHa4TpMx JOTozrDteBewPVC2n3F xHz19X81yCJveFGHsQL RnJNGrEWGbqYlofx7mj G9wIi8+QY6in7ycyh43 nL08bOM+MHRxEBU3oNl kKPiuDZIurQ6yMYujFd K8RISrVfOvrZ75qUAuW NjwJu5ncCerpXbjOJ3b IZIzlbvzm291YiFrg1r nCWVxbUOtRUvtHWX9O5 7uy6Y2UQCgARPtGZQ0n FE5qC6pjOvzicofwLJe dDsgdmVydGljYWwtYWx hP780RMVtvLwxXtJeyQ VhS3jsgwMOPZ4rNzsvv GQ+NVYfDQK4qEzvBNpg JNNatT9eCRFqS0z2AzC sLgO3VUdgI6LhapO6QR RaaTSiKGEybTLUyD2vu yqgc2eisjwzEpPlLNBp XZt5OMp8GZGuvYtqIoV rXJI2TcO2LIT7pPMnrS 5esGrgcktrsV9sQag+R klOOjwvdGQ+PHRkIHN0 cCexQDcrQTJmrF7eRJX vP8n3LkYhRuE8OGetO3 MabvP9YPScnNKsDSThp BAAzY6qgyiau1omtptg PlIhJBBnGCy3LPo1JOU lrBapTvLgUCV2BgR1GJ Y0vXAhtS0asHqxscpzv G9wOyc+TVJOOjwvdGQ+ NUIzCAJ0pBysRBbhBPZ fqN6iVANgK6v6DsMcWg F1SIwmX8IxjjA5XDVuz RDmTSYbqUMMvQ9tdbnb z8quqpttFnKeWAVaFCa 8ZGt5QLShqZnsQzGcHM K7MuJ4AVP9hULxdT0sl WvjddhtcX6rAxk+UGF5 PGG0LW60JA29K8XgImq vdGFibGU+PHRhYmxlIH dpZHRoPScxMDAlJyBzd EevOJ6lNg1eSYFrBCPp bGxhcHNl (more content not included)... Normal [facility] Free T4on 07-24-2022 Free T4 [Mass/Vol] 0.68 ng/dL Normal 0.58-1.64 [facility] Comment on above: Performed By: #### 2 026978, 1818430, 4387249, 10024199, 6551051, 2423291, 02130319, 5832406, 50414879, 73369798, 5623437207 #### [facility] [address] [place] [address] HEMATOLOGYOrdered By: SYSTEM SYSTEM on 07-24-2022 Basophils/100 [...] 8.1 fL Normal 6.4 - 10.8 fL [facility] HemeAutoSS Platelets (Bld) [#/Vol] 314.0 E9/L Normal 150.0 - 500.0 E9/L [facility] HemeAutoSS RBC (Bld) [#/Vol] 5.0 E12/L Normal 4.3 - 5.9 E12/L [facility] HemeAutoSS WBC corrected for nucl RBC Auto (Bld) [#/Vol] 5.2 E9/L Normal 4.0 - 11.0 E9/L [facility] HemeAutoSS Lipid Panelon 07-24-2022 Cholesterol [Mass/Vol] 232 mg/dL High 120-200 [facility] Comment on above: Performed By: #### 2 503123, 7910478, 9111865, 19122356, 8698667, 2276777, 48710696, 4101611, 39484755, 87740394, 7273312621 #### [facility] [address] [place] [address] Cholesterol in HDL [Mass/Vol] 66 mg/dL Invalid Interpretation Code [facility] Comment on above: Result Comment: HDL > or equal to 60 mg/dL: Low cardiovascular risk HDL < 40 mg/dL : High cardiovascular risk Performed By: #### 2 715947, 3587646, 2337996, 08395068, 2795284, 7555340, 52104735, 3651281, 11033334, 34544986, 2676048816 #### [facility] [address] [place] [address] Cholesterol in LDL [Mass/Vol] 151 mg/dL High <=129 [facility] Comment on above: Performed By: #### 2 060158, 6418542, 4400469, 95436686, 2741639, 3713529, 92337251, 4704052, 04824062, 74484576, [id number] #### [facility] [address] [place] [address] Cholesterol in VLDL [Mass/Vol] 27 mg/dL Normal 7-40 [facility] Comment on above: Performed By: #### 2 380508, 9890946, 5915263, 20492250, 4375267, 7438204, 72424392, 6244470, 62142046, 64304202, 0388174304 #### [facility] [address] [place] [address] Triglyceride [Mass/Vol] 134 mg/dL Normal <=149 [facility] Comment on above: Performed By: #### 2 362937, 4914753, 0961081, 82452615, 1854899, 5295024, 14398992, 9941638, 18583225, 09922444, 7300016278 #### [facility] [address] [place] [address] T4 Totalon 07-24-2022 T4 [Mass/Vol] 6.4 microgram/dL Normal 4.6-9.1 [facility] Comment on above: Performed By: #### 2 342286, 1970447, 6461789, 97289001, 6738744, 0340942, 07495389, 2928375, 52809550, 39855750, 9138490676 ####[facility] [address] [place] [address] TSH With T4fr Reflexon 07-24 TSH Qn 2.02 m[IU]/L Normal 0.34-5.60 [facility] Comment on above: Performed By: #### 2 642735, 4231564, 3202693, 02747797, 0165251, 6451725, 43638009, 5609230, 52121174, 75749975, 5834953678 ####[facility] [address] [place] [address] eGFRon 07-24-2022 GFR/1.73 sq M.predicted among blacks MDRD (S/P/Bld) [Vol rate/Area] mL/min/{1.73_m2} Normal >=59 [facility] Comment on above: Order Comment: Order added by Discern Expert. Result Comment: eGFR is race adjusted. AA=. Performed By: #### 2 424729, 5885889, 5172521, 47983454, 3416983, 2772961, 83355161, 1250294, 18351649, 46704860, 7390006877 #### [facility] [address] [place] [address] GFR/1.73 sq M.predicted among non-blacks MDRD (S/P/Bld) [Vol rate/Area] mL/min/{1.73_m2} Normal >=59 [facility] Comment on above: Order Comment: Order added by Discern Expert. Result Comment: Tax Manager Cpa [place] kidney disease could be indicated at eGFR's of less than 60 mL/min/1.73m2. Kidney failure is indicated at less than 15 mL/min/1.73m2. Performed By: #### 2 918100, 4747893, 9811908, 05473142, 6527906, 8978896, 71342753, 8304883, 96681305, 14985853, 4988210256 #### [facility] [address] [place] [address] Nonvisit Note - PTon 023 Nonvisit Note - PT Per title insurance examiner Oscar Briceno, pt's insurance coverage for PT is as follows: [facility] - [phone]- per [place]- This policy does not have any coverage for O/PS - ref [id number]. Chemo Delaney called pt to notify her of above and discuss possible financial counseling options. Pt has opted to cancel all remaining PT sessions and continue with HEP. Pt's chart will be placed on hold in the event she chooses to return to PT for additional instruction. If no further contact with this pt by 08/22/2022, pt's chart will be discharged. Normal [facility] Consent for Treatmenton Consent for Treatment [id number] D8#1.00CD:127 Normal [facility] PT - Assessmentson PT - Assessments [id number] 919#1.00CD:127 [facility] PT - Consentson 07-21-2022 PT - Consents [id number] 436#1.00CD:127 [facility] PT - Home Exercise Programon 07-21-2022 PT - Home Exercise Program [id number] 961#1.00CD:127 [facility] Physician Orderon 07-21-2022 Physician Order [id number] 63#1.00CD:127 [facility] Ambulatory Visit Summaryon 0 07-20-2022 Ambulatory Visit [...] capsule) fluticasone nasal (fluticasone 0.05 mg/inh Nasal [place]) methylPREDNISolone (MethylPREDNISolone Dose Pack 4 mg oral [...] visit, Lab Collect, Routine adult health maintenance [facility] Family Medicine Office/Clini c Noteon [...] referral to PT Follow RICE protocols Ordered: [facility] Outpatient Physical Therapy Evaluate Patient, Develop [...] and mon (more content not included)... Normal [facility] Comment on above: Result Comment: Elec tronically Signed By: Brian SANCHEZ, Yasmine Rodriguez\.br\Date and Time Signed: 07/20/22 10:48 EDT Patient Correspondenceon Patient Correspondence [id number] E7#1.00CD:127 Normal [facility] Patient Educationon 07-21-19 Patient Education Cardiovascular Hypertension, [...] ? Avoi (more content not included)... Normal [facility] Screenson 07-20-2022 Screens [id number] [id number]#1.00CD:127 Normal [facility] Coding Summary.on 07-02-2022 Coding Summary. CD:[id number] CUt0kTu+PGhlYWQ+PE1 BTMPrF57juHEvbQ9qM0 NMTElOSywgQVBQTElOS rWaciQrQS2fcBFoKDEt IC8+KS1dOAXjXgwyiMP sz7C6aBV0Q37dur0iVO ihdRR3COGiWzIykeugy 8hniVu6EHjnJfncIuDb QAPvmZ00JLO3yP63Mk5 0hHFcnFBmg9kvsLr3Di EoCZGsECM9wJavTOvur 4XjHTVwJ89mmWJtd4J8 IGNvbGxhcHNlOyBlbXB 5rM1vAQtfiodaf7igux wdOds0pz03jZRnq8M1n ZB6C6EckhL0MWTgzKTm LkezkNNZdV5rsgnii4h qssqcLsYwVLNqUGf1FE s0TRDpqSsuOcHnHM30F WH9PCSqzcMhI0PuQHAj gXenAxX7s2W2Sq5RD9E NKnryX3BQCIHKOMpbyQ Q+NB58cb20Q0PnPmdpW fk4AWBzZLA8qSN2zC1i YHNoOLvmv5S6fRJ6R9U ibyNdih3iq6kgTEKmLJ lkF99yiWPhx7Q6YMXbv TK6YEOumEmbKpUbgF24 Oyc+IZVgoHmug0NsFyf ol2ncm2nrqWt1NgyhMQ GbhqRszCflCGM5a3CiK s9vIEAqyBV7dCJ9sN3q SlMtImT5RHgjD439ToK jgILmNgyoM05bI7OchI A+QDCfWvi4QRGgqFpyP G4eM6UxWBAszgxcaVDp oPybWQ8aRWUmmkpbRUQ fhL4rGZRvH7k9HfQgYg Z4GAhdI8FoSLDjiianR a23pV8xPkKdTtP2QFol K1ObygE5JFRspHOkRMh qPOK0D55qz3E8RLRhVG RbHKD1eDE4rD1bqWlvh jogbGVmdDsgdmVydGlj JEyoXDohW796FHIrwJx nPkNvZGluZyBEYXRlOi AgMDMvMTYvMjAyMzwvd GQ+URHxDQR7jUsrHHAh yNIwNOanBp6lxWrnzTf vVN5qVSRgaeomMZFouG 2dIMGdkCYyePivUZ1lM BFitxqrp523YuDiOMT8 KEGdgOMdM8AxjU2xArN cABNqQAKmV4EccPQsXO twV647ZIrlJsT4EXDgc mPqF6MaFTDwnOjmVkA1 d7U9Fl0Pi1PhnqjtR0X fqPDcQdPbGqsdXOi5N5 RkPjwvdHI+GS12BWRqK Q87PUa0JBO1hJgtBEsi CRTeO2MwfL2dSaXrENV kZGRkOyc+PHRhYmxlIH dpZHRoPScxMDAlJyBzd VezTN1fQg5dTFNyLLMk pGozsJTaKcEfq1dsSVF kABsmIX3mrHqlI8BbyY E4EZOob2t2Rq73S68fZ 3JvdXA+YBTvdOD1fKS0 fI5zTaGcVfB1FGxiV28 4HgHeoNDsLojsi0uel4 cvuYk0TxM8KRCzysMrz NbaEEJ8c5PvRh31T76t IHdpZHRoPSIxNSUiIHZ zzWwjan2gyB4oWn0+PG VmvMM3uHF3uS5xBmBbU gV6NVnhB124AeLknVOt Xxrey9lnu0mkvDo1RmP iSZToomKccOvvEEE9v5 AoKp82O9LggIbzm7PgJ lc6kg52nHYco4F8aYU8 R7DeUDThtqahdHRkpJk lWZ4nUACljwyiGWIpjL 3iYTWzL7y2GuWsLvO0I DmlU2WkmgY9YTWmmCRs QGHbgBQQbV6xwaott9s abfeaPrHuJKKbAEj4EQ v6PNPerJkvSsKdATH5V aX3LWS9zAVyjP6wgFsv eqgqnI1eJnf+JPC9nSA nnAMIBT1yAknfaIR+PH HfMBQ9fFacOSptXJFfg M2eGGMhP2r0XxPdBfZ9 PGrlI6WldiT6SWVnxYS qZLLgeAZDyO8ptjjok2 shvavuSqDbHIIoEDt0K Qq3KZJvkSqiHhDnCQU8 NuZ5UEF5hFAwxS3xkDv prtrbgX0gEnc+QmlydG vmSLT3RXx4Q3CwPwv7N SFocRcbTE4euGUyFQqj Ke2cuYoheCdkSY6oWDL ujlyva782ZdRsm5lyLP ArzSWiNWitJDZ1F09sv 0N2CBYuJEUwEOD2sYL4 mC1tlEfviuvvgOGmdUh gdmVydGljYWwtYWxpZ2 62CXVgwJyxIxZeXZj6R 0HwJju6TRAmgPdmCU3x cXKrQEybYb8igHteeVb rWE9wTYZutijup580Gd Ojv8ipLURnfDDtFEjtK CQ9J55dq0I7KKIiETXp XRL8xXK5pI3nvEfripi gbGVmdDsgdmVydGljYW edDMuaL941UYVklUfvG hLdaCc5J7DxPck1FBPg lXtdLV6wjHSxKZdbXz1 jsOwwhPgtJX0rFWPapf tom123UkJnm9saDJEup YRmEYybIGG5E54xa1R7 LLCsVJRtXDK7dFR7sV4 hbGlnbjogbGVmdDsgdm WjbFtwJMziJQxxY620R HRvcDsnPlBhdGllbnQg EYrwWHu3F4ZiXhpjcQU +VC96SVCxCC39rMNypI Xod0ermDz4HhVsSDKnG TK8sVblCLbra7TgUSLw N15uzHXpc8M5MAZmoOg krRZhHxIvoDB0bW0zCM pmlhvem6kuegpcMrqvh 1voto20jU66U97pSJib ZHRoPSIzMCUiIHZhbGl wwr6vyD1vNb2+PGNvbC Y4cPU0dD5zJUHsPuK0L VlcE884PkWbdELfCauq t3rny3jdjFp7NeU6DAT gpqCgdMexYWC7a5MsEr 93T45yAVjlUINrATXwY QQeKRTmdXlldv3ufX5l Ii8+PHRhjLP8sCP0lO0 iOxLkSuE1NPlnG163Ya QykLDoVxfoC87eN1Ewy XA+JDErSui6BQVjzXdb VS2biMPaEIqwKw3zSEC 9GeWeUcHkEFbuN2UtTS HkiatfrffsrBJ4MMFiI WUnwE32Ut5nvUtoLEZx eGEFfF5knhyme0gtgsm lRfReOJTfUMr6NAd3AA BhoHxjOdCqDST0PnA9V KH3vFPhnT6wvIhecarv eY6pR7VbMPSmzcecYo9 5jH7aYxEnJbW5WRwkHl c+VJYQDF2EMaTiFNEUJ eiAPKO5F9LkCbv2CUDs rZpbWY3ggPRaSBwoUz3 cjAzjbIuiPU2nVCIatu ceJJUrwC2sHPJlgTZil FgtWF5aSAJpkbnni950 MgRgPPA3UOQdmDKrW6B wmX3vSaZwQDPoSMJqP2 AaoOQkUJzrG205FYjiQ aQ8FVFxegFtK8XiUHFf hOxySzI4d8P5Vl6mWt1 wTb1xGIK3JN90YF56dY Iec6G9xSH5T1UmPTCqr xywnwnmwVQ9PFTxBQEi iO12hGGyEDfaPa8nw7U 4g578PQSiZEFejB65Vf 0tyQygHQAarDNHqP0op ciiv2seljtrSqSuCBUv DRc7UXl9KRHesBjdRtU mAQA2YtM9TXW2eUOfcD 7swNigjpgquL9rIqc+N EcvCBSnpnY2O9AgGmr9 CKAwbFmkEN8gdGDeEGl cXy3ovHulvHsiTH8gST BgpayxYKOjrH8eMSYav LTgeQuxYO2mGENpsxte w097RtAzPBY7TVNkqOM mB7BgvJ8bEtYaZJOaNL AeE8KyiLWzKIjeH226V CrwOqN2TIDjmuSfR4Wb ABOuxMilJiM8z0B5Ho6 KGB4jkRD6E2QgPlc6YY MxlKssAS5kcMTaHTrdR v4soYebwJorGV6gUKUk jszdPFMsyJ8bJTTfmKI efJocSL1vTEFdhcscl9 77WnAhCTC5YLEgjSSgN 7MlzG4mVySgIEFvGPYa I4NkxRJvQPyjW353SHl uLpB7GFTbboLoH6YiMU CcdMoeOqM6t2H4Rr2As LIkZ1UbH9m1H0WmDxen dHI+QO56NFDkPS33rEN nlISkd2ocbRd2QbNkYM SjJJX8bAotNUmhs9NyA TVtX12fcNKsd9B6WGMv hBkiyASsRoUjwLE8jO0 iBOctldftv1ilhukhEl pms4xdey80rX43M85wT HdpZHRoPSIzMCUiIHZh mKitza9seY8tCd5+PGN ixIN9rAE1mE4iWjJgNy V0MTuhI390AeDfhSEeK snit5gvt0bneFg7TeLp QZGmwfLxpOfgVRZ8s5I nFh23K50iTIndCPImIN WzQLFvKJTqiXpxzs5bp G9wIi8+NB4zq8ohyk10 kQ35mMT+NIIxRKK5jHe hOZhhKKUgpD4kCMsrOl J2FYTjHyKrlL52fLWbH DcmEg3qwQlneNgiJV1a OKKcnighk021BoCjj2o mWTWooQIgBJfpGDA1K2 4ax1R7JJVhKCCgBIV9s UN4fR4aaHukizrroPEc dDsgdmVydGljYWwtYWx lJ329TYXgwQgaRbRefC GpR7nvjhOUAG5aJwizl GQ+EWAaHTH7rChyYKau LHGfgZ3aMKPxY7i1SdR sBxQ7YHkmR7OmfgX3VH NmqPUtPHKhyUTCwN3cp uxrg1axphlkQuRhSGSh QMp7RPl3PUEuqZrdAxM oXGL9JwN1ZQE0sOGbaQ 5idSackszwxF9mQnv+R klOOjwvdGQ+PHRkIHN0 eFaiQLmgNTUkvB0fYCN sZ9a6PyFzLtM6NHmlA4 QqkvB7TKObsWJvEWFoq HNMeE2fbdxiz2iyoujm SvDzRCLpCYi4ULg4KLG hxHfkJxYuLTI3PtZ6TP C6fDTygN7tgSfsdnwvc G9wOyc+TVJOOjwvdGQ+ MPLwECX2hKyiZPmsHMA ppC4zQHUcA0g0AoLjXx I7SMojG1ZswkV8ESQvp UFbXSYfsYRFoN2vekow g5efqezrAtLyXOJjEYt 7ABa3DDZnxIerOaKaOV T9CcL5UNO5jESzyB2wn SzbcekxfY3zLtm+UGF5 WWI7YP46BK97K5UuXab vdGFibGU+PHRhYmxlIH dpZHRoPScxMDAlJyBzd NkeVB5yCl7lJUBfFRIb bGxh (more content not included)... Normal [facility] Discharge Instructionson Discharge Instructions [id number]#1.00CD:127 Normal [facility] ED Note-Physicianon 07-02-19 ED Note-Physician [...] and Complexity of Problems Differential Diagnosis: [] [facility] Data External documents reviewed: Not applicable My [...] Patient seen and evaluated by the physician server assistant. Attending physician was present in the emergency department and supervised care. This visit was performed by both the physician and an APC. I performed all aspects of the MDM as documented. This report was transcribed using voice recognition software. Every effort was made to ensure accuracy, however, inadvertently computerized motor builder assembler mistakes may be present. Appropriate healthcare PPE [...] of sarcoidosi (more content not included)... Normal [facility] Comment on above: Result Comment: [...] mGy = n/a DAP = n/a Normal [facility] Consent for Treatmenton 06-17 Consent for Treatment [id number]:[id number] Normal [facility] ED Clinical Summaryon 2022 ED Clinical Summary [place] [id number] ED Clinical Summary Person Information Name: NARCISA BENITEZ [place] Age: 57 Years : 1965 Sex: Female Language: Samoan PCP: Yasmine Lewis Marital Status: Phone: [phone] Visit Id: Visit Reason: Arm pain-swelling; RT [...] 06/30/2022 20:52:37 06/30/2022 20:52:37 06/30/2022 20:52:37 ADDRESS: [address] [place] [id number] PHYS DOC NOTES: MEDICAL INFORMATION: Prescriptions Given: [...] 6. fluticasone nasal (fluticasone 0.05 mg/inh Nasal [place]) 1 Sprays Nasal Inhalation 2 times a day. methylPREDNISolone (MethylPREDNISolone Dose Pack 4 mg oral tablet) TAKE BY MOUTH DIRECTED ON INSIDE OF PACKAGE. [facility] Prescription (Blood pressure cuff) Blood pressure cuff. [...] Follow up: With: Address: When: Yasmine Moy [facility], [place] [address] Business (1) In 3 days 07/03/2022 Comments: [...] or worsening symptoms. DIAGNOSIS: Biceps tendinitis Normal [facility] ED Patient Education Noteon 06-30-2022 [...] health care provider. General instructions ? Take oaeq-sui-loqbhzb and prescription medicines only as told by [...] and res (more content not included)... Normal [facility] ED Patient Summaryon 023 ED Patient Summary [place] [id number] Patient Discharge Instructions Person Information Name: NARCISA BENITEZ Age: 57 Years Arrival Date: 06/30/2022 17:47:24 Discharge Diagnosis: Biceps tendinitis Primary Care Physician: Yasmine Lewis Provider Information Primary Provider: Cecil Zuniga DO Advanced Bolt Maker:Joe Meier PA-C The exam and treatment you received in the Emergency Department were for an urgent problem and are not intended as complete care. It is important that you follow up with a doctor, nurse practitioner, or physician?s server assistant for ongoing care. If your symptoms [...] Instructions: With: Address: When: Yasmine Torres [address] [facility], [place] [address] Business (1) In 3 days 07/03/2022 Comments: [...] opioids can be used to help relieve feskhuto-vj-vvhjjt pain and are often prescribed following a [...] ? Safe (more content not included)... Normal [facility] COVID Quick Testingon 2021 Result Negative [employer] Other CNOVon 06-09-2021 CNOV Office Visit (PULMMN) ---- NARCISA BENITEZ ([id number]) 1965 F Date Time Provider Department 06/09/21 3:30 PM KARTHIKEYAN HILL During your visit today, we recorded the following information about you: Temperature Pulse Respiration Blood pressure 97.9 degrees 86/minute 20/minute 134/96 Weight Height 95.4 kg 1.651 m Karthikeyan Myers MD 06/11/2021 10:46 AM Signed Respiratory [place] Narcisa Benitez is a 56 year old female here for evaluation by the [facility] Sarcoidosis Team. Consultation requested by Dr. [...] with sarcoidosis by biopsy with bronchoscopy in [place]. Has not required medical car efor it [...] reviewed. No pertinent surgical history. 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 Normal [facility] XR CHEST 2V FRONTAL/LATon XR [...] and probable mediastinal lymphadenopathy consistent with sarcoidosis. Telecommunications Network Engineer: PSCB Transcribe Date/Time: Jun 09 2021 3:09P Dictated by : LUCY KUHN MD This examination was interpreted and the report reviewed and electronically signed by: LUCY KUHN MD on Jun 09 2021 3:14PM EST [id number] Normal [facility] CNPRachel 04-16-2021 CNPN Telephone (PULN) ---- NARCISA BENITEZ ([id number]) 1965 F Date Time Provider Department 04/16/21 ALLEN LY During your visit today, we recorded the following information about you: Geoff Ewing 04/16/2021 12:05 PM Signed Received outside records from [facility] Please allow time to process Allergies As of Date: 04/16/2021 (Not on File) Date Reviewed: Never Reviewed Reason for Visit: Received Outside Medical Records [[id number]] Problem List As Of Date: 04/16/2021 (None) Encounter Status:Closed by GEOFF EWING on 04/16/21 [facility] 03-19-2021 CNPN Telephone (PULMMN) ---- NARCISA BENITEZ ([id number]) 1965 F Date Time Provider Department 03/19/21 ALLEN LY During your visit today, we recorded the following information about you: Geoff Ewing 03/19/2021 6:01 PM Signed Received outside records from [facility] Please allow time to process Allergies As of Date: 03/19/2021 (Not on File) Date Reviewed: Never Reviewed Reason for Visit: Received Outside Medical Records [[id number]] Problem List As Of Date: 03/19/2021 (None) Encounter Status:Closed by GEOFF EWING on 03/19/21 [facility] 03-17-2021 CNPN Telephone (PULIMN) ---- NARCISA BENITEZ ([id number]) 1965 F Date Time Provider Department 03/17/21 ALLEN LY During your visit today, we recorded the following information about you: Allen Ly RN 03/17/2021 2:12 PM Signed Contacted [facility] Imaging dept. They stated that they would push the Pt.s CT of the chest and CXR today. Allergies As of Date: 03/17/2021 (Not on File) Date Reviewed: Never Reviewed Reason for Visit: Request Outside Medical Records [[id number]] Cmt: see note Problem List As Of Date: 03/17/2021 (None) Encounter Status:Closed by ALLEN LY on 03/17/21 [facility] 03-14-2021 CNPN Telephone (PULIMN) ---- NARCISA BENITEZ ([id number]) 1965 F Date Time Provider Department 03/14/21 ALLEN LY During your visit today, we recorded the following information about you: Allen Ly RN 03/14/2021 1:24 PM Signed Concern for Pulmonary Sarcoidosis Pt. Conversation Pt. Had biopsy proven sarcoidosis in the in [place]. She has not needed care for Sarcoidosis since then and has no medical records to prove the Bx. She has recently undergone extreme life stress which required a move to [place]. In December of 2020. She started to feel SOB and had a persistent dry cough. 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 Pt. Mother in her 50s from lung cancer. S/S Fatigue, SOB, persistent cough, chest pain. Pt. Main Goal of First appt. To treat the flare and get reestablished with a Sarcoidosis doctor. Pt. Has received care at [facility] in [facility]. Faxed today. Good to know I advised the pt. To be seen as soon as possible by a local dental assistant. In the mean time I will work to get her medical records and images into our system and get her scheduled for her first appt. Here at [facility]. I advised the pt. To be seen right away due to her family history of lung cancer. I also advised pt. To get a CD of her images and bring it with her for her first appt. Here at [facility]. Allergies As of Date: 03/14/2021 (Not on File) Date Reviewed: Never Reviewed Reason for Visit: Request Outside Medical Records [[id number]] Cmt: see note Problem List As Of Date: 03/14/2021 (None) Encounter Status:Closed by ALLEN LY on 03/14/[address] [facility] Telephone (PULIMN) ---- NARCISA BENITEZ ([id number]) 1965 F Date Time Provider Department 03/14/21 ALLEN LY During your visit today, we recorded the following information about you: Allen Ly RN 04/16/2021 12:26 PM Addendum Sarcoidosis Center Summary of outside records Concern for Pulmonary sarcoidosis Pt. Conversation Pt. Had biopsy proven [place]oidosis [place] the [place]. She has not needed care for Sarcoidosis since then and has no medical records to prove the Bx. She has recently undergone extreme life stress which required a move to [place]. In December of 2020. She started to feel SOB and had a persistent dry cough. 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 Pt. Mother in her 50s from lung cancer. She recently had a Skin Bx of RILEY forearms which were positive for granulomas. S/S Fatigue, SOB, persistent cough, chest pain. Pt. Main Goal of First appt. To treat the flare and get reestablished with a Sarcoidosis doctor. ? Pt. Has received care at [facility] in [facility]. Faxed today. ? Good to know I advised the pt. To be seen as soon as possible by a local dental assistant. In the mean time I will work to get her medical records and images into our system and get her scheduled for her first appt. Here at [facility]. I advised the pt. To be seen right away due to her family history of lung cancer. I also advised pt. To get a CD of her images and bring it with her for her first appt. Here at [facility]. Biopsy 1989: Record destroyed d/t age 1204/08/21: Skin biopsy, RILEY forearms CT Chest w/con: 03/01/21 CXR 02/06/21 Chest images (Chest x-ray, CT chest, whole body PET scan): (X) Not available in [facility] (X) patient notified that images need [...] Diagnosis:Sarcoidos is [D86.9] Order(s):LUNG DIFFUSION CAPACITY (DLCO) [3988507] Order #: [id number]: 1 FUTURE SPIROMETRY WITH DILATOR IF OBSTRUCTED [[id number]] Order #: [id number]: 1 FUTURE XR CHEST 2V FRONTAL/LAT [[id number]] Order #: [id number] FUTURE Problem List As Of Date: 03/14/2021 (None) Encounter Status:Closed by ALLEN LY on 03/14/21 Cecy [facility] Zeferino 03-07-2021 JAMILN Telephone (PULMMN) ---- NARCISA BENIETZ ([id number]) 1965 F Date Time Provider Department 03/07/21 ALLEN LY During your visit today, we recorded the following information about you: Geoff Ewing 03/07/2021 10:08 AM Signed Received outside records from [facility] Office Please allow time to process Allergies As of Date: 03/07/2021 (Not on File) Date Reviewed: Never Reviewed Reason for Visit: Received Outside Medical Records [[id number]] Problem List As Of Date: 03/07/2021 (None) Encounter Status:Closed by GEOFF EWING on 03/07/21 [facility] Zeferino 03-05-2021 HIWOT Telephone (PULSOFIA) ---- NARCISA BENITEZ ([id number]) 1965 F Date Time Provider Department 03/05/21 SRINI SPIVEY CMA During your visit today, we recorded the following information about you: Srini Spivey 03/05/2021 12:10 PM Signed Sarcoidosis Center Triage Note Patient was called and notified that consult request has been received. Referring Provider (name, phone number and institution/address ): JAMIL Holm [phone] [place] Diagnosis: Do you have a diagnosis of [...] goal during your first visit at the [facility]? Discuss issues and symptoms Srini Spivey MA Allergies As of Date: 03/05/2021 (Not on File) Date Reviewed: Never Reviewed Reason for Visit: Consult [502] Problem List As Of Date: 03/05/2021 (None) Encounter Status:Closed by SRINI SPIVEY on 03/05/21 Normal [facility] Vital Signs Date Time Vital Sign Value Performing Clinician Remi chowdhury 05-17-2023 10:52-0500 Blood Pressure Location [facility] 05-17-2023 10:52-0500 Diastolic blood pressure 84 mm[Hg] Mil Nguyen [facility] 05-17-2023 10:52-0500 Heart rate 77 /min Mil Nguyen [facility] 05-17-2023 10:52-0500 SaO2% (BldA) [Mass fraction] 94 % Mil Nguyen [facility] 05-17-2023 10:52-0500 Systolic blood pressure 136 mm[Hg] Mil Nguyen [facility] 05-13-2023 13:52-0500 Blood Pressure Location [facility] 05-13-2023 13:52-0500 Body temperature 98.6 [degF] [facility] 05-13-2023 13:52-0500 Diastolic blood pressure 82 mm[Hg] [facility] 05-13-2023 13:52-0500 Heart rate 77 /min [facility] 05-13-2023 13:52-0500 SaO2% (BldA) [Mass fraction] 97 % [facility] 05-13-2023 13:52-0500 Systolic blood pressure 136 mm[Hg] [facility] 04-16-2023 09:00-0500 Diastolic blood pressure 102 mm[Hg] ALCON QUE [facility] 04-16-2023 09:00-0500 Mean blood pressure 125 mm[Hg] ALCON QUE [facility] 04-16-2023 09:00-0500 Systolic blood pressure 170 mm[Hg] ALCON QUE [facility] 04-16-2023 08:32-0500 Blood Pressure Location ALCON QUE [facility] 04-16-2023 08:32-0500 Diastolic blood pressure 100 mm[Hg] ALCON QUE [facility] 04-16-2023 08:32-0500 Heart rate 74 /min ALCON QUE [facility] 04-16-2023 08:32-0500 SaO2% (BldA) [Mass fraction] 94 % ALCON QUE [facility] 04-16-2023 08:32-0500 Systolic blood pressure 160 mm[Hg] ALCON QUE [facility] 04-06-2023 14:59-0500 Diastolic blood pressure 94 mm[Hg] ALCON QUE [facility] 04-06-2023 14:59-0500 Mean blood pressure 109 mm[Hg] ALCON CABRAL [facility] 04-06-2023 14:59-0500 Systolic blood pressure 138 mm[Hg] ALCON CABRAL [facility] 01-27-2023 13:43-0400 Blood Pressure Location Lamont ACEVES [facility] 01-27-2023 13:43-0400 Diastolic blood pressure 92 mm[Hg] Lamont ACEVES [facility] 01-27-2023 13:43-0400 Heart rate 68 /min Lamont ACEVES [facility] 01-27-2023 13:43-0400 Systolic blood pressure 124 mm[Hg] Lamont ACEVES [facility] 07-20-2022 10:14-0400 Blood Pressure Location Yasmine Torres [facility] 07-20-2022 10:14-0400 Body temperature 98.06 [degF] Yasmine kali [facility] 07-20-2022 10:14-0400 Diastolic blood pressure 80 mm[Hg] Yasmine kali [facility] 07-20-2022 10:14-0400 Heart rate 72 /min Yasmine kali [facility] 07-20-2022 10:14-0400 SaO2% (BldA) [Mass fraction] 99 % Yasmine kali [facility] 07-20-2022 10:14-0400 Systolic blood pressure 140 mm[Hg] Yasmine Torres [facility] 06-30-2022 20:50-0400 Nursing Progress Note Reason Other: pt asking for d/c papers at nurses desk. pt asked to go back to room for discharge vitals and pt states that she must leave. no discharge vitals obtained. Cecil Zuniga [facility] 06-30-2022 17:59-0400 Body temperature 98.06 [degF] Cecil Zuniga [facility] 06-30-2022 17:59-0400 Diastolic blood pressure 90 mm[Hg] Cecil Zuniga [facility] 06-30-2022 17:59-0400 Heart rate 86 /min Cecil Zuniga [facility] 06-30-2022 17:59-0400 Respiratory rate 16 /min Cecil uZniga [facility] 06-30-2022 17:59-0400 SaO2% (BldA) [Mass fraction] 96 % Cecil Zuniga [facility] 06-30-2022 17:59-0400 Systolic blood pressure 154 mm[Hg] Cecil Zuniga [facility] 01-21-2022 10:35-0400 Blood Pressure Location Danii Joyner [facility] 01-21-2022 10:35-0400 Body temperature 97.7 [degF] Danii Joyner [facility] 01-21-2022 10:35-0400 Diastolic blood pressure 74 mm[Hg] Danii Joyner [facility] 01-21-2022 10:35-0400 Heart rate 71 /min Danii Joyner [facility] 01-21-2022 10:35-0400 SaO2% (BldA) [Mass fraction] 97 % Danii Joyner [facility] 01-21-2022 10:35-0400 Systolic blood pressure 132 mm[Hg] Danii Joyner [facility] 06-13-2021 18:00-0500 Body height 167.64 cm Kit Evans Other [employer] Other 06-13-2021 18:00-0500 Body mass index (BMI) [Ratio] 31.95 kg/m2 Kit Evans Other [employer] Other 06-13-2021 18:00-0500 Body temperature 97.1 [degF] Kit Evans Other [employer] Other 06-13-2021 18:00-0500 Body weight 89.81 kg Kit Evans Other [employer] Other 06-13-2021 18:00-0500 Respiratory rate 16 /min Kit Evans Other [employer] Other 06-13-2021 18:00-0500 SaO2% (BldA) [Mass fraction] 97 % Kit Evans Other [employer] Other Encounters Encounter Date Encounter Type Care Provider Facility Start: 06-17-2023 ambulatory Lamont Lora ty:CD:[id number] Start: 05-17-2023 End: 05-17-2023 ambulatory JENARO LEAL Not Available Start: 05-17-2023 End: 05-18-2023 ambulatory Mil Nguyen Facility:[facility] Start: 05-17-2023 End: 05-17-2023 Patient encounter procedure Mil Nguyen [facility] Start: 05-13-2023 End: 05-14-2023 ambulatory Myles Colon Facility:[facility] Start: 05-13-2023 End: 05-13-2023 Lab Drop off Myles Colon [facility] Start: 05-13-2023 End: 05-13-2023 Patient encounter procedure Myels Colon [facility] Start: 05-06-2023 End: 05-07-2023 ambulatory ALCON A QUE Facility:[facility] Start: 05-03-2023 End: 05-04-2023 ambulatory ALCON A QUE Facility:[facility] Start: 04-29-2023 ambulatory 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 Yasmine Sagastume acility:[facility] Start: 04-26-2023 End: 04-27-2023 ambulatory ALCON A QUE Facility:[facility] Start: 04-16-2023 End: 04-17-2023 ambulatory ALCON A QUE Facility:[facility] Start: 04-16-2023 End: 04-16-2023 Patient encounter procedure ALCON A QUE [facility] Start: 04-06-2023 End: 04-07-2023 ambulatory ALCON A QUE Facility:[facility] Start: 04-06-2023 End: 04-06-2023 Patient encounter procedure ALCON A QUE [facility] Start: 04-06-2023 ambulatory 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 Yasmine Torres F acility:[facility] Start: 04-01-2023 ambulatory Lamont Lora ty:CD:[id number] Start: 03-29-2023 End: 03-30-2023 ambulatory ALCON Evonne CABRAL Facility:[facility] Start: 03-17-2023 End: 03-18-2023 ambulatory Lamont ACEVES Facility:[facility] Start: 03-17-2023 End: 03-17-2023 Patient encounter procedure Lamont ACEVES [facility] Start: 01-29-2023 End: 01-30-2023 ambulatory 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 Yasmine Torres Facility:[facility] Start: 01-29-2023 End: 01-29-2023 Patient encounter procedure Yasmine Torres [facility] Start: 01-27-2023 End: 01-28-2023 ambulatory Lamont ACEVES Facility:[facility] Start: 01-27-2023 End: 01-27-2023 Patient encounter procedure Lamont ACEVES [facility] Start: 01-25-2023 End: 01-25-2023 Emergency department patient visit Mable Vital Facility:[facility] Start: 01-25-2023 End: 01-26-2023 ambulatory PA-C CORNELIUS HARTLEY Facility:[facility] Start: 09-16-2022 End: 09-16-2022 ambulatory Pauly Oden Facility:[facility] Start: 09-16-2022 Office outpatient ne w 30 minutes Pauly Oden [facility] Start: 09-16-2022 End: 09-16-2022 ambulatory PHYSICIAN NO [facility] Work Phone: Start: 09-16-2022 End: 09-16-2022 Patient encounter procedure PHYSICIAN NO [facility] Start: 08-24-2022 End: 08-25-2022 ambulatory 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 Yasmine Torres Facility:[facility] Start: 08-12-2022 End: 08-13-2022 ambulatory Irena Eliana Alvarado Facility:[facility] Start: 08-06-2022 End: 08-07-2022 ambulatory Irena Eliana Zhenge Facility:[facility] Start: 08-06-2022 End: 08-06-2022 Patient encounter procedure Irena Alvarado [facility] Start: 07-24-2022 End: 07-25-2022 ambulatory 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 Yasmine Torres Facility:[facility] Start: 07-24-2022 End: 07-24-2022 Patient encounter procedure Yasmine Torres [facility] Start: 07-21-2022 End: 10-20-2022 ambulatory 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 Yasmine Torres Facility:[facility] Start: 07-21-2022 End: 10-19-2022 Recurring Yasmine Torres [facility] Start: 07-20-2022 End: 07-21-2022 ambulatory 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 Yasmine Torres Facility:[facility] Start: 07-20-2022 End: 07-20-2022 Patient encounter procedure Yasmine Torres [facility] Start: 07-20-2022 End: 07-20-2022 Well adult monitoring check done Yasmine Torres [facility] Start: 06-30-2022 End: 06-30-2022 Emergency department patient visit Cecil Zuniga Facility:[facility] Start: 06-30-2022 End: 06-30-2022 Emergency department patient visit Cecil Zuniga [facility] Start: 01-21-2022 End: 01-21-2022 Patient encounter procedure Danii R Ar [facility] Start: 07-02-2021 End: 11-04-2021 Pre-admission assessment Irena Eliana Zhenge [facility] Start: 06-17-2021 End: 06-17-2021 ambulatory Kit Evans Other [employer] Other Start: 06-17-2021 Telephone encounter Kit Sagastume [facility] Start: 06-13-2021 End: 06-13-2021 ambulatory Kit Evans Other [employer] Other Start: 06-13-2021 Office outpatient visit 15 minutes Kit Evans [facility] [address] Procedures Date Procedure Procedure Detail Performing Clinician Start: 09-16-2022 Plain X-ray of right hand PHYSICIAN NO FAMILY Start: 11-27-2019 Colonoscopy Irena Katz pe Malignant neoplasm o f skin (disorder) Irena Jenny Immunizations Immunization Date Immunization Notes Care Provider Sudeep vega 09-29-2021 SARS-CoV-2 mRNA (tfbdeoluour-lsqs-qyz dhruv) vaccine Lamont ACEVES [facility] 04-09-2021 SARS-CoV-2 (COVID-19 ) mRNA BNT-162b2 vax Irenaevonne Alvarado [facility] 07-12-2020 COVID-19, mRNA, LNP-S, PF, 30 mcg/0.3 mL dose; Translations: [Psykosoft-BioNTSilverpop COVID-19 Vaccine] Irena Alvarado [facility] Comment on above: Reason for Medicatio n: Prophylaxis 06-21-2020 COVID-19, mRNA, LNP-S, PF, 30 mcg/0.3 mL dose Irena Alvarado [facility] Comment on above: Reason for Medicatio n: Prophylaxis 12-02-2018 tetanus toxoid, reduced diphtheria toxoid, and acellular pertussis vaccine, adsorbed Kit [place] Other [facility] NEGATED: Highlighted row has not occurred!01-25-2023 influenza virus vaccine, unspecified formulation Lamont ACEVES [facility] NEGATED: Highlighted row has not occurred!01-21-2022 influenza virus vaccine, unspecified formulation Danii Ar [facility] NEGATED: Highlighted row has not occurred!06-19-2019 influenza virus vaccine, live, attenuated, for intranasal use Irena Alvarado [facility] Payers Date Payer Category Payer Self-pay [id number] 2022 Medicaid 123 2022 Unknown [id number] 2016 Private Health Insurance [id number] 1965 Unknown [id number] 1965 Unknown [id number] 2.16.8 [id number] 1965 Unknown [id number] 2.16.8 [id number] 1965 Unknown [id number] 2.16.8 [id number] 1965 Unknown [id number] 2.16.8 40.1.355613.3.579.2.727 1965 Unknown [id number] 2.16.8 40.1.262156.3.579.2. 1965 Unknown [id number] 2.16.8 40.1.484721.3.579.2 1965 Unknown [id number] 2.16.8 40.1.159358.3.579.2 1965 Unknown [id number] 2.16.8 40.1.910783.3.579.2 1965 Unknown [id number] 2.16.8 40.1.136952.3.579.2 1965 Unknown [id number] 2.16.8 40.1.311724.3.579.2 1965 Unknown [id number] 2.16.8 40.1.361726.3.579.2 1965 Unknown [id number] 2.16.8 40.1.345576.3.579.2 1965 Unknown [id number] 2.16.8 40.1.028628.3.579.2 1965 Unknown [id number] 2.16.8 40.1.013284.3.579.2 1965 Unknown [id number] 2.16.8 40.1.086431.3.579.2 1965 Unknown [id number] 2.16.8 40.1.996641.3.579.2 1965 Unknown [id number] 2.16.8 40.1.057295.3.579.2 1965 Unknown [id number] 2.16.8 40.1.755938.3.579.2 1965 Unknown [id number] 2.16.8 40.1.846045.3.579.2 1965 Unknown [id number] 2.16.8 40.1.187814.3.579.2 1965 Unknown [id number] 2.16.8 40.1.477219.3.579.2.727 1965 Unknown [id number] 2.16.8 40.1.041936.3.579.2.727 1965 Unknown [id number] 2.16.8 40.1.907936.3.579.2.727 1965 Unknown [id number] 2.16.8 40.1.710728.3.579.2.727 1965 Unknown [id number] 2.16.8 40.1.552142.3.579.2.727 Unknown [id number] 2. 16.840.1.245661.19 Unknown [id number] 2.16.8 40.1.496959.3.579.2.531 Social History Date Type Detail Facility Start: 04-08-2021 End: 05-17-2023 Tobacco smoking status Never smoked tobacco (finding) [facility] [employer] Other Tobacco smoking status Never [facility] Sex Assigned At Female [facility] [employer] Other Start: 1965 Sex Assigned At Female [facility] Functional Status Date Assessment Result Facility 05-17-2023 Functional Status No [facility] 05-13-2023 Functional Status N/A [facility] 01-27-2023 Functional Status N/A [facility] 07-20-2022 Functional Status N/A [facility] 06-30-2022 Functional Status N/A [facility] 01-21-2022 Functional Status N/A [facility] Clinical Notes 04-18-2021 to 05-13-2023 [...] what problems to watch for. Antifungal nail hungarian or nail cream. These may be used along with oral antifungal medicines. Laser treatment of the nail. Surgery to remove the nail. This may be needed for the most severe infections. It can take a long time, usually up to a year, for the infection to go away. The infection may also come back. Follow these instructions at home: Medicines Take or apply sbhg-zgx-jyxpxdo and prescription medicines only as told by your health care provider. Ask your health care provider about using scml-jtk-sdluxfn mentholated ointment on your nails. Nail care [...] may also come back. Take or apply vtjj-eqa-zhkxvvg and prescription medicines only as told by your health care provider. This information is not intended to replace advice given to you by your health care provider. Make sure you discuss any questions you have with your health care provider. Document Revised: 07/07/2021 Document Reviewed: 07/07/2021 [employer] Patient Education 2022 SeeWhy. 05/13/2023 14:40:58 Strep Throat, Adult Strep Throat, [...] Follow these instructions at home: Medicines Take ruqc-rfu-mhwshdo and prescription medicines only as told by [...] and water are not available, use hand friend of the court. Make sure that all people in your [...] provider. Document Revised: 07/29/2021 Document Reviewed: 07/29/2021 [employer] Patient Education 2022 SeeWhy. 05/13/2023 14:40:53 Viral Illness, Adult Viral Illness, [...] Medicines to relieve symptoms. These can include eleg-nqq-tmlgwfi medicine for pain and fever, medicines for cough or congestion, and medicines to relieve diarrhea. Antiviral medicines. These medicines are available only for certain types of viruses. Some viral illnesses can be prevented with vaccinations. A common example is the flu shot. Follow these instructions at home: Medicines Take yjob-gne-cuvjnon and prescription medicines only as told by [...] and water are not available, use hand friend of the court. Avoid touching your nose, eyes, and mouth, [...] provider. Document Revised: 08/19/2020 Document Reviewed: 02/13/2020 [employer] Patient Education 2022 SeeWhy. [facility] 04-16-2023 Hospital Discharge instructions [...] Dairy Whole or 2% milk, cream, and amos-kqh-elkh. Whole or full-fat cream cheese. Whole-fat or [...] more information National Heart, Lung, and Blood [place]: www.nhlbi.nih.gov [place] Heart Association: www.heart.org Academy of Nutrition and [...] provider. Document Revised: 03/08/2020 Document Reviewed: 03/08/2020 [employer] Patient Education 2022 SeeWhy. [facility] 01-27-2023 Hospital Discharge [...] you may eat and drink normally. Take klbu-oma-touotho and prescription medicines only as told by your health care provider. Let your health care provider know about any medicines that you are taking, including eqzl-gpj-prcyrof medicines, vitamins, herbs, and supplements. Choose a [...] provider. Document Revised: 10/10/2021 Document Reviewed: 10/10/2021 [employer] Patient Education 2022 [employer] 01/27/2023 14:13:06 Lithotripsy, Care After Lithotripsy, [...] Follow these instructions at home: Medicines Take smpe-fha-gvwsjqk and prescription medicines only as told by [...] Document Reviewed: 12/08/2021 Else[employer] Patient Education 2022 SeeWhy. 01/27/2023 14:13:05 Lithotripsy Lithotripsy Lithotripsy is a [...] including vitamins, herbs, eye drops, creams, and yzkx-vyv-vtqmozx medicines. Any problems you or family members [...] provider tells you to take them. Taking svvq-rxu-rfcarvt medicines, vitamins, herbs, and supplements. Tests You [...] provider. Document Revised: 03/02/2022 Document Reviewed: 12/08/2021 [employer] Patient Education 2022 SeeWhy. [facility] 01/26/2023 13:34:54 With:YOLA GOLDBERG, Lamont Li, URL Address: [facility] [address] , [place] [address]- When: Unknown [facility] 01-27-2023 Evaluation + Plan note Future Scheduled TestsXR Abdomen 1 View 01/27/23 [facility] 09-16-2022 Evaluation note Encounter Date Diagnosis [...] Mass of left hand (ICD-10 - R22.32) [employer] Other 04-26-2023 Evaluation + Plan note Future Scheduled Tests Radiology* MA Mamm Diag w/CAD if perf and 3D LT 08/12/22 [facility]04-03-2023 Hospital Discharge instructions Patient Education 07/20/2022 [...] 10/19/2011 Document Revised: 03/29/2019 Document Reviewed: 03/29/2019 [employer] Patient Education 2020 SeeWhy. 07/20/2022 10:46:46 Heartburn Heartburn Heartburn is a [...] powder, vinegar, hot sauces, and barbecue sauce. ?[place] fruit juices and citrus fruits, such as oranges, lalit, and limes. ?Tomato-based foods, such as red sauce, chili, salsa, and pizza with red sauce. ?Fried and fatty foods, such as donuts, hungarian fries, potato chips, and high-fat dressings. ?High-fat [...] to any changes in your symptoms. Take dzqs-aqh-akqhroc and prescription medicines only as told by [...] told by your health care provider. Take hmyn-bqu-onkocqt and prescription medicines only as told by [...] 08/22/2009 Document Revised: 09/05/2018 Document Reviewed: 09/05/2018 [employer] Patient Education 2020 SeeWhy. 07/20/2022 10:46:45 Hypertension, Adult Hypertension, Adult High [...] care provider. This is important. Medicines Take qbvc-jfk-gxrpfho and prescription medicines only as told by [...] 04/05/2006 Document Revised: 12/14/2018 Document Reviewed: 12/14/2018 [employer] Patient Education 2020 [employer] 07/20/2022 10:46:41 Dyslipidemia Dyslipidemia Dyslipidemia is [...] quitting, ask your health care provider. Take cpbi-bgp-rvtnbdv and prescription medicines only as told by [...] 04/10/2014 Document Revised: 11/28/2018 Document Reviewed: 11/04/2018 [employer] Patient Education 2020 SeeWhy. 07/20/2022 10:46:39 BMI for Adults BMI for [...] height. This can be done either in Samoan (U.S[place] or metric measurements. Note that charts are available to help you find your BMI quickly and easily without having to do these calculations yourself. To calculate your BMI in Samoan ([place].S[place] measurements, your health care provider will: [...] medical problems. BMI can be measured using Samoan measurements or metric measurements. To interpret your [...] 12/15/2004 Document Revised: 03/18/2018 Document Reviewed: 02/16/2018 [employer] Patient Education 2020 SeeWhy. Follow Up Care 06/30/2022 14:46:12 With:Brian DANIELYasmine Address: [address] [place] [address], [place] [address]- When:Within 1 Month(s) Comments:recheck BP, review thyroid labs/US [facility] 03-14-2023 Hospital Discharge instructions [...] your health care provider. General instructions Take swpo-wyv-fnvezhr and prescription medicines only as told by [...] 04/05/2006 Document Revised: 08/01/2019 Document Reviewed: 04/04/2019 [employer] Patient Education 2020 SeeWhy. Follow Up Care 06/30/2022 17:49:12 With:Yasmine Torres Address: [facility] [address], [facility] [place] [address] Business (1) When:07/03/2022 20:46:13 Comments:Call the office [...] you develop any new or worsening symptoms. [facility]10-05-2022 Hospital Discharge instructions Patient Education 01/21/2022 [...] patches to the wart. These may be ebik-ogt-llwzbst or prescription medicines that make the skin [...] Follow these instructions at home: Medicines Apply qanj-ywg-smpereb and prescription medicines only as told by your health care provider. Do not apply yuwc-thp-wujlqya wart medicines to your face or genitals [...] desired, there are several treatment options. Apply slzc-rok-aephpvi and prescription medicines only as told by [...] 01/13/2006 Document Revised: 08/23/2018 Document Reviewed: 08/23/2018 [employer] Patient Education 2020 [employer] 01/21/2022 11:14:39 BMI for Adults BMI [...] height. This can be done either in Samoan (U.S.) or metric measurements. Note that charts are available to help you find your BMI quickly and easily without having to do these calculations yourself. To calculate your BMI in Samoan (U.S.) measurements, your health care provider will: [...] medical problems. BMI can be measured using Samoan measurements or metric measurements. To interpret your [...] 12/15/2004 Document Revised: 03/18/2018 Document Reviewed: 02/16/2018 [employer] Patient Education 2020 SeeWhy. 01/21/2022 11:14:37 Vitamin D Deficiency Vitamin D [...] 06/27/2012 Document Revised: 12/12/2018 Document Reviewed: 12/12/2018 [employer] Patient Education 2020 SeeWhy. 01/21/2022 11:14:35 High Cholesterol High Cholesterol High [...] gardening, walking, and taking the stairs. Take puda-lop-ocuhcyc and prescription medicines only as told by [...] 04/05/2006 Document Revised: 04/08/2018 Document Reviewed: 10/03/2016 [employer] Patient Education 2020 SeeWhy. 01/21/2022 11:14:33 Sarcoidosis Sarcoidosis Sarcoidosis is a [...] a family history of the disease. Are -Bhut[place]. Are of [place] descent. Are 20 50 years old. 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 Work in an environment where you are [...] are safe for you. Take or use khvq-nik-dmcuujp and prescription medicines only as told by [...] 02/03/2005 Document Revised: 03/18/2018 Document Reviewed: 01/11/2018 [employer] Patient Education 2020 SeeWhy. 01/21/2022 11:01:14 Exercising to Stay Healthy Exercising [...] exercise? 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 ?Raking and bagging leaves. Washing your car. [...] 05/08/2011 Document Revised: 03/18/2018 Document Reviewed: 02/24/2018 [employer] Patient Education 2020 SeeWhy. 01/21/2022 11:01:10 Healthy Eating Healthy Eating Following [...] soapy water. ?Keep raw meats separate from vrbzq-do-jft foods, such as fruits and vegetables. 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 Follow Up Care 01/13/2022 14:30:20 With:Danii Joyner CNP Address: [address] [place] [address]- [phone] When:6 months [facility] 03-01-2022 Evaluation note* Encounter Date Diagnosis Assessment Notes Treatment Notes Treatment Clinical Notes Jun, Acute conjunctivitis of both eyes, unspecified acute conjunctivitis type (ICD-10 - H10.33) [employer] Other 02-25-2022 Evaluation note* Encounter Date Diagnosis [...] Patient care instructions given in writting by [facility] Care At Home document. [employer] Other 02-21-2022 NoteHNO ID: [id number] Author: Karthikeyan Myers MD Service: ? Author Type: Physician Type: Progress Notes Filed: 06/11/2021 10:46 AM Note Text: Respiratory [facility] Narcisa Benitez is a 56 year old female here for evaluation by the [facility] Sarcoidosis Team. Consultation requested by Dr. [...] with sarcoidosis by biopsy with bronchoscopy in [place]. Has not required medical car efor it [...] reviewed. No pertinent surgical history. 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 Patient [...] overall regarding her symptom (more content not included)...[facility]02-21-2022 NoteHNO ID: [id number] Author: Lyubov Nash, DEVON Service: ? Author Type: Registered Resp Therapist Type: Progress Notes Filed: 06/09/2021 2:16 PM Note Text: PULM FUNCTION SMARTBLOCK: Provider: Deisy Meadows PA-C Spirometry: 1 DLCO: 1 System: [id number] [facility] [id number] NoteHNO ID: [id number] Author: RT Faiza(R) Service: ? Author Type: [...] BY: RT Faiza(R) June 09, 2021 1:37 [facility]12-31-2021 Evaluation + Plan note Future Scheduled Tests Laboratory* COVID-19 ([facility]) 04/18/21 * Basic Metabolic Panel 04/11/21 * Hepatic Function [facility] Appointment Date:11/03/2021 07:00:00 AM Scheduled Provider: [facility] Appointment Type:MA Screen () Future Scheduled Tests Laboratory* COVID-19 ([facility]) 04/18/21 * Basic Metabolic Panel 04/11/21 * Hepatic Function Panel 04/11/21 Radiology* MA Mamm Screen w/CAD if perf and 3D Riley [facility]ments Appointment Date:07/20/2022 10:20:00 AM Scheduled Provider:Yasmine Lewis Location:[facility] Future Appointments Appointment Date:07/21/2022 10:00:00 AM Scheduled Provider: [facility] Appointment Type:PT Eval (FT) Appointment Date:07/24/2022 10:30:00 AM Scheduled Provider: Location[facility] Appointment Type:US Thyroid/Neck/Chest (FT) Appointment Date:08/06/2022 08:15:00 AM Scheduled Provider: [facility] Appointment Type:MA Screen (FT) Appointment Date:08/24/2022 10:40:00 AM Scheduled Provider:Yasmine Lewis Location:[facility] Appointment Type:FM Open Future Scheduled Tests [...] w/CAD if perf and 3D Riley 08/06/22 [facility] Evaluation + Plan note Future Appointments Appointment Date:08/06/2022 08:15:00 AM Scheduled Provider: Location[facility] Appointment Type:MA Screen (FT) Appointment Date:08/24/2022 10:40:00 AM Scheduled Provider:Yasmine Lewis Location:[facility] Appointment Type: Open Diagnostic Tests Pending * T3 Free 07/24/22 * Thyroid Perox.tpo Ab 07/24/22 * Thyroid-stimulating Immunoglobulin (TSI) 07/24/22 Future Scheduled Tests Radiology* BD Bone Density DEXA 07/20/22 * MA Mamm Screen w/CAD if perf and 3D Riley [facility] App[facility]ments Appointment Date:08/24/2022 10:40:00 AM Scheduled Provider:Yasmine Lewis Location:[facility] Type: [facility] Future Appointments Appointment Date:01/29/2023 09:15:00 AM Scheduled Provider: Location[facility] Appointment Type:MA Diagnostic (FT) Appointment Date:01/29/2023 10:00:00 AM Scheduled Provider: Location[facility] Appointment Type:US Breast (FT) Future Scheduled Tests Radiology* XR Abdomen 1 View 01/27/23 * US Breast Unilateral Lt Complete 01/29/23 * MA Mamm Diag w/CAD if perf and 3D LT 01/29/23 [facility] Evaluation + Plan note Future Appointments Appointment Date:04/26/2023 08:00:00 AM Scheduled Provider:ALCON CABRAL CNP Location:[facility] Appointment Type: Open [facility] Evaluation + Plan note Future Appointments Appointment Date:05/17/2023 11:00:00 AM Scheduled Provider:Mil Nguyen MD [facility] Type:Cardiology New Patient (FT) Diagnostic Tests Pending * Group A Strep by PCR [facility] Future App[facility]ments Appointment Date:05/17/2023 11:00:00 AM Scheduled Provider:Mil Nguyen MD [facility] Type:Cardiology New Patient (FT) [facility] Evaluation noteNo assessment information available [facility] Work Phone: Hospital course Narrative No data available for this section [facility] No data available for this section [facility] No data available for this section [facility] Summary Purpose Family History No Family [...] section and content) DATE CREATED AUTHOR 08/23/2021 [facility] DATE CREATED AUTHOR AUTHOR'S ORGANIZ ATION 10/09/2022 [facility] DATE CREATED AUTHOR AUTHOR'S ORGANIZ ATION 05/18/2023 [facility] EPIC DATE CREATED AUTHOR AUTHOR'S ORGANIZ ATION 05/28/2023 [facility] REASON FOR VISIT (unrecogniz ed section and [...] BE BASED ON THE PRIMARY CLINICAL RECORDS. [employer] [facility]. provides no warranty or guarantee of the accuracy or completeness of information in this document.
[2023-06-17 07:08] VITALS: BP 123/75; PULSE 72; RESP 14; TEMP 36.2; O2SAT 96; BMI 36.1
[2023-06-17] MEDS: LACTATED RINGER'S SOLUTION 1,000 ML 50 ML IV (07:21)
[2023-06-17] MEDS: CEFAZOLIN SODIUM/DEXTROSE,ISO 1 GM/50 ML IV.SOLN IV (08:07)
--- NOTE | 2023-06-17 09:00 | PM.URSON ---
Urology Surgery Operative Note Operative Note Procedure Date: 06/17/23 Time Out Performed: yes Pre-op Diagnosis: 1. Gross hematuria. 2. Right nephrolithiasis Post-op Diagnosis: same as pre-op Procedures performed: 1. Cystoscopy. 2. Right ESWL. Anesthesia: General-LMA Primary Surgeon: Lamont Wu Complications: None Estimated blood loss (mL): 0 Findings: 1. Cystitis follicularis lesions throughout the bladder. 2. 2 right-sided nonobstructing renal stones Specimens: None Indications for Procedures: This lady has nonobstructing right renal calculi. She also has experienced gross hematuria. She now presents for cystoscopy and right ESWL. She has signed an informed consent for these procedures after all risks were explained. Some of these risks include bleeding, perinephric hematoma, infection and anesthesia to name a few. Detailed description of Procedure: The patient was brought to the Operating Room and placed on Siemens electromagnetic lithotripsy treatment table in the modified dorsolithotomy position. SCDs were placed on their lower extremities and turned on and functioning during the entire case. Timeout was done by all parties in the room. We all agreed upon the patient's identification and the planned procedures for this patient. General Anesthesia was then administered via LMA. Her genitalia were sterilely prepped and draped in the usual fashion. I started by passing a 22 Nepali Olympus cystoscope per urethra and into the bladder. Careful castaneda endoscopy revealed no evidence of any bladder tumors concerning for cancer. She did have cystitis follicularis lesions throughout the bladder. She also had a moderate cystocele. The urethra was unremarkable. The bladder was drained of its contents and the scope was then removed. She was then repositioned into the supine position. The treatment head was then brought to her right flank. While using fluoroscopy we could clearly see her stones in the right lower pole of the kidney. We lined up the stones in the crosshairs and fortunately they were both within the blast path. We then began applying shocks at power level 2.0 and increased to a maximum power level of 3.5. Intermittent fluoroscopy revealed that the stones were steadily fragmenting. We applied a total of 3000 shocks and we had excellent fragmentation. The procedure was terminated. She was then transferred [facility] and wheeled to PACU in stable condition. She will be discharged to home later today with a prescription for Macrobid 100 mg daily #60.
[2023-06-17 09:02] VITALS: BP 142/92; PULSE 70; RESP 13; TEMP 36.2; O2SAT 94
[2023-06-17 09:32] VITALS: BP 116/70; PULSE 68; RESP 17; O2SAT 94
[2023-06-17 10:02] VITALS: BP 124/74; PULSE 62; RESP 16; O2SAT 96
[2023-06-17 10:35] VITALS: BP 119/64; PULSE 65; RESP 16; O2SAT 96
== END 2023-06-17 10:35 | disposition home or self-care (01) ==
PROVIDERS: Visit Provider Urology
PROC: (CPT 873; principal; 2023-06-17 08:00)
DX: N20.0 Calculus of kidney (principal); N30.31 Trigonitis with hematuria; K21.9 Gastro-esophageal reflux disease without esophagitis; E78.5 Hyperlipidemia, unspecified; R73.03 Prediabetes; I10 Essential (primary) hypertension; N81.10 Cystocele, unspecified; E04.2 Nontoxic multinodular goiter; N28.1 Cyst of kidney, acquired; E55.9 Vitamin D deficiency, unspecified
CPT/HCPCS: 50590; 52000; 36415; 74018; J1094; J2704